=== PATIENT | male | born 1955 | race Caucasian/White ===

== ENCOUNTER 2019-05-07 14:39 | Emergency (ER) | payer OTHER, BC ==
[2019-05-07] MEDS ORDERED: ETOMIDATE 20 MG/10 ML VIAL IV ONE (14:40)
[2019-05-07] MEDS ORDERED: SUCCINYLCHOLINE 20 MG/ML (10 ML) IV ONE (14:40)
--- OUTSIDE RECORDS SUMMARY | 2019-05-07 14:42 | XMS REPORT | CCD ---
:1955 Author Organization [facility] Outpatient Imaging [facility] Team Providers Name Role Phone Osiris Lyon Consulting Provider Allergies, Adverse Reactions, Alerts Substance Reaction Status codeine Active PDI Insect Sting Relief Active
--- OUTSIDE RECORDS SUMMARY | 2019-05-07 14:42 | XMS REPORT | Continuity of Care Document ---
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, systemic Neuro arterial (disorder) Hyperlipidemia Active Problem 05/07/2019 [facility] (disorder) Neuro Hypothyroidism Active Problem 05/07/2019 [facility] (disorder) Neuro Morbid obesity Active Problem 05/07/2019 [facility] (disorder) Neuro Myasthenia gravis Active Problem 05/07/2019 [facility] (disorder) Neuro Medications Medication Details Route Status Patient Ordering Order Source Instructions Provider Date Pyridostigmine 60 mg=1 Active [facility] [place] 60 MG Oral tab, PO, 019 Neuro Tablet [Mestinon] QID, # 120 tab, 2 Refill(s), Pharmacy: [facility] predniSONE 10 mg oral 10 mg=1 Active [facility] tablet tab, PO, 019 Neuro Daily, X 30 day, # 30 tab, 1 Refill(s), Pharmacy: [facility] Pyridostigmine 60 mg=1 No [facility] [place] 60 MG Oral tab, PO, Longer 019 Neuro Tablet [Mestinon] QID, # 120 Active tab, 2 Refill(s), Pharmacy: [facility] Pyridostigmine 60 mg=1 Active [facility] [place] 60 MG Oral tab, PO, 019 Neuro Tablet [Mestinon] TID, # 90 tab, 2 Refill(s), Pharmacy: [facility] Aspirin 81 MG Enteric 81 mg=1 Active [facility] Coated Tablet tab, PO, 019 Neuro Daily, # 90 tab, 3 Refill(s) carvedilol 12.5 mg 12.5 mg=1 Active [facility] oral tablet tab, PO, 019 Neuro Q12H, # 60 tab, 0 Refill(s) amLODIPine 10 mg oral 10 mg=1 Active [facility] tablet tab, PO, 019 Neuro Daily, # 90 tab, 0 Refill(s) hydrochlorothiazide 12.5 mg=1 Active [facility] 12.5 mg oral tablet tab, PO, 019 Neuro Daily, # 30 tab, 0 Refill(s) Citalopram 10 mg, PO, Active [facility] Daily, 0 019 Neuro Refill(s) losartan 100 mg oral 100 mg=1 Active [facility] tablet tab, PO, 019 Neuro Daily, # 30 tab, 0 Refill(s) levothyroxine 100 mcg 100 Active [facility] (0.1 mg) oral tablet microgram= 019 Neuro 1 tab, PO, Daily, # 30 tab, 0 Refill(s) atorvastatin 40 mg 40 mg=1 Active [facility] oral tablet tab, PO, 019 Neuro Bedtime, # 30 tab, 0 Refill(s) Folic Acid 1 MG Oral 1 mg=1 Active [facility] Tablet tab, PO, 019 Neuro Daily, # 30 tab, 0 Refill(s) Diclofenac Sodium 75 1 tab, PO, Active [facility] MG / Misoprostol 0.2 Daily, 0 019 Neuro MG Oral Tablet Refill(s) Allergies, Adverse Reactions, Alerts Substance Category Reaction Severity Reaction Status Date Comments Source type Reported codeine Assertion Drug Active [facility] allergy Neuro PDI Insect Assertion Drug Active [facility] Sting allergy Neuro Relief Immunizations No Data Provided for This Section Results No Data Provided for This Section Pathology Reports No Data Provided for This Section Diagnostic Reports No Data Provided for This Section Consultation Notes No Data Provided for This Section Discharge Summaries No Data Provided for This Section History and Physicals No Data Provided for This Section Vital Signs Vital Sign Value Date Comments Source Systolic (mm Hg) 82 05/04/2019 [facility] Diastolic (mm Hg) 54 05/04/2019 [facility] Heart Rate 64 05/04/2019 [facility] Respitory Rate 16 05/04/2019 [facility] Height 172.72 cm 05/04/2019 [facility] Weight 103.182 05/04/2019 [facility] BMI Calculated 34.59 05/04/2019 [facility] Systolic (mm Hg) 116 04/26/2019 [facility] Diastolic (mm Hg) 79 04/26/2019 [facility] Heart Rate 75 04/26/2019 [facility] Respitory Rate 16 04/26/2019 [facility] Height 165.1 cm 04/26/2019 [facility] Weight 102.727 04/26/2019 [facility] BMI Calculated 37.69 04/26/2019 [facility] Encounters Location Location Encounter Encounter Reason Attending ADM DC Status Source Details Type Number For Provider Date Date Visit OD [id number] 379.91 JOANNE 05/03 Active OP[facility] - PAIN /2011 [place] [facility] Outpatient [id number] [place] 04/26 [facility] A[facility]iano MNA Outpatient [id number] [place] 04/26 04/27 [facility] /2018 Neuro [facility] MNA Outside [id number] 05/01 05/03 [facility] /2018 Neuro Morrison Records Outpatient [id number] [place] 05/04 [facility] Aureliano MNA Outpatient [id number] [place] 05/04 05/05 [facility] /2018 Neuro Morrison Outpatient [id number] [place] 05/11 [place] [address] A[place] Procedures No Data Provided for This Section Assessment and Plan No Data Provided for This Section Plan of Care No Data Provided for This Section Social History Social History Date Source Social History TypeResponse 05/04/2019 [facility] Smoking Status Former smoker; Type: Cigarettes; Exposure to Tobacco Smoke Unable to obtain; Cigarette Smoking Last 365 Days No; Reg Smoking Cessation Counseling No entered on: 05/04/19 Family History No Data Provided for This Section Advance Directives No Data Provided for This Section Functional Status No Data Provided for This Section
--- OUTSIDE RECORDS SUMMARY | 2019-05-07 14:42 | XMS REPORT | Summary of Care ---
:1955 Author Organization [facility] Neurology [place] Address [address] [place] [address]- Encounter [facility](MATTHEW) [id number] Date(s): 05/04/19 - 05/04/19 [facility] [address] [place] [address]- [phone] Discharge Disposition: Home or Self Care Attending Physician: Mick Snell MD Referring Physician: Kirby Sanchez MD Vital Signs Most recent to oldest [Reference Range]: 1 Height 172.72 cm (05/04/19 1:44 PM) Blood Pressure [90-140/60-90 mmHg] 82/54 mmHg *LOW* (05/04/19 1:44 PM) Respiratory Rate [14-20 BRMIN] 16 BRMIN (05/04/19 1:44 PM) Peripheral Pulse Rate [60-100 bpm] 64 bpm (05/04/19 1:44 PM) Weight 103.182 kg (05/04/19 1:44 PM) Body Mass Index 34.59 m2 (05/04/19 1:44 PM) Problem List Condition Effective Dates Status Health Status Informant Dysarthria(Confirmed) Active HTN - Hypertension(Confirmed) Active Hyperlipidemia(Confirmed) Active Hypothyroidism(Confirmed) Active Morbid obesity(Confirmed) Active Myasthenia gravis(Confirmed) Active Allergies, Adverse Reactions, Alerts Substance Reaction Severity Status codeine Active PDI Insect Sting Relief Active Medications Mestinon 60 mg oral tablet 60 mg=1 tab, PO, QID, # 120 tab, 2 Refill(s), Pharmacy: [facility] Start Date: 05/04/19 Stop Date: 08/02/19 Status: OrderedpredniSONE 10 mg oral tablet 10 mg=1 tab, PO, Daily, X 30 day, # 30 tab, 1 Refill(s), Pharmacy: [facility] Start Date: 05/04/19 Stop Date: 07/03/19 Status: Ordered Results No data available for this section Immunizations No data available for this section Procedures No data available for this section Social History Social History Type Response Smoking Status Former smoker; Type: Cigarettes; Exposure to Tobacco Smoke Unable to obtain; Cigarette Smoking Last 365 Days No; Reg Smoking Cessation Counseling No entered on: 05/04/19 Assessment and Plan No data available for this section
[2019-05-07] MEDS ORDERED: METHYLPREDNISOLONE 125 MG INJ ONE (14:55)
--- NOTE | 2019-05-07 15:06 | ER ---
Nurse's Notes [facility] Name: Pete Glass Jr Age: 63 yrs Sex: Male : 1955 Arrival Date: 05/07/2019 Time: 14:41 Bed 3 Private MD: Ger David R Diagnosis: Myasthenia gravis with (acute) exacerbation Presentation: 05/07 14:48 Presenting complaint: Sent by Dr. Snell for SOB, hx of myasthenia gravis. Transition of hb care: patient was not received from another setting of care. Onset of symptoms was May 05, 2019. Risk Assessment: Do you want to hurt yourself or someone else? Patient reports no desire to harm self or others. Initial Sepsis Screen: Does the patient meet any 2 criteria? No. Patient's initial sepsis screen is negative. Does the patient have a suspected source of infection? No. Patient's initial sepsis screen is negative. Care prior to arrival: None. 14:48 Method Of Arrival: Ambulatory hb 14:48 Acuity: JESUS 2 hb Triage Assessment: 14:48 General: Appears well groomed. Respiratory: Reports shortness of breath at rest on tw2 exertion labored breathing Onset: The symptoms/episode began/occurred yesterday, Parent/caregiver reports the patient having shortness of breath at rest on exertion labored breathing since "a couple of days now and he cant even swallow his medication". Historical: - Allergies: 16:55 Codeine; tw2 - Home Meds: 16:55 prednisone 10 mg Oral tab once daily [Active]; pyridostigmine bromide 60 mg oral tab tw2 [Active]; levothyroxine oral [Active]; "blood pressure medicine" per spouse [Active]; - PMHx: 14:50 Myasthenia Gravis; hb 16:55 Hypertension; tw2 - Immunization history:: Adult Immunizations up to date. - Ebola Screening: : No symptoms or risks identified at this time. - Social history:: Smoking status: Patient/guardian denies using tobacco, never smoked. Screenin:51 Abuse screen: Denies threats or abuse. Denies injuries from another. Nutritional hb screening: No deficits noted. Tuberculosis screening: No symptoms or risk factors identified. Fall Risk None identified. Assessment: 14:50 Cardiovascular: Rhythm is sinus rhythm. tw2 15:00 General: Appears distressed, uncomfortable, well groomed, well developed, well sg nourished, Behavior is anxious. Pain: Denies pain. Neuro: Level of Consciousness is awake, alert, obeys commands, Oriented to person, place, time, Speech garbled, pt reports difficult to speak clearly and having a hard time swallowing as well. Cardiovascular: Heart tones S1 S2 present Capillary refill is brisk in bilateral fingers Patient's skin is warm and dry. Chest pain is denied. Respiratory: Airway is patent Respiratory effort is even, labored, gasping, shallow, using tripod position, Respiratory pattern is symmetrical, tachypnea Breath sounds are clear the patient has moderate shortness of breath. GI: Abdomen is round non-distended, Bowel sounds present X 4 quads. : No signs and/or symptoms were reported regarding the genitourinary system. EENT: No signs and/or symptoms were reported regarding the EENT system. Derm: Skin is intact, is healthy with good turgor, Skin is moist, Skin is pink, warm \\T\\ dry. Skin temperature is warm. Musculoskeletal: No signs and/or symptoms reported regarding the musculoskeletal system. 16:00 Reassessment: pt reports unable to swallow his secretions at this time, reports sg swelling and tightness in his throat, pt feeling increased shortness of breath, RTT at bedside, notified, pt to be placed to BiPap. 16:12 Reassessment: at bedside for intubation, pt educated that due to changes in sg condition with swelling and shortness of breath, intubation is recommended, pt and pt stated understanding and are in agreement, pt to be intubated. 16:24 Reassessment: pt intubated. sg 16:45 Reassessment: pt appears calm, eyes closed, resp relaxed on ventilator, IV medication sg infusing at ordered rate, VSS, awaiting transfer transportation at this time, will continue to monitor. 16:53 Reassessment: SPOUSE: home ph# [phone] , mobile# [phone]. tw2 17:16 Reassessment: Patient appears in no apparent distress at this time. Reportt called to ara Lemos RN then transferred for report called to K[facility] PATEL for room 720. Vital Signs: 14:50 BP 155 / 102; Pulse 69; Resp 30; Temp 97.9; Pulse Ox 96% on R/A; Pain 0/10; hb 14:57 Weight 102.51 kg (R); tw2 15:25 BP 122 / 79; Pulse 81; Resp 16 A; Pulse Ox 100% on BVM prior to intubation; tw2 16:37 BP 116 / 83; Pulse 73; Resp 17 A; Pulse Ox 96% on 50% FiO2 ETT vent; tw2 16:37 a/c 16, 500, 40, peep 5 tw2 ED Course: 14:40 Initial lab(s) drawn, by me, held in ED. First set of blood cultures drawn by me. sg Inserted saline lock: 20 gauge in right antecubital area, using aseptic technique. Blood collected. 14:41 Patient arrived in ED. rg4 14:41 Ger David MD is Private Physician. rg4 14:49 Triage completed. hb 14:50 Arm band placed on. hb 14:57 Second set of blood cultures drawn by me. sg 14:58 Vinnie Sorenson MD is Attending Physician. kdr 14:58 Ger David MD is Referral Physician. kdr 15:00 Patient has correct armband on for positive identification. Bed in low position. Call sg light in reach. Side rails up X2. Patient has correct armband on for positive identification. Bed in low position. Call light in reach. Side rails up X2. geospatial technician on. Pulse ox on. NIBP on. geospatial technician on. Pulse ox on. NIBP on. Warm blanket given. Head of bed elevated. 15:10 Oxygen administration via nasal cannula \\T\\ 4L/min. sg 15:26 Assisted provider with intubation using 7.5 mm ETT via oral route. ET tube secured at tw2 24cm at the teeth. Intubated by Vinnie Sorenson MD Placement verified by CXR, CO2 detector w/ + color change, auscultating bilateral breath sounds, Patient tolerated well. NGT: inserted 16 Fr. via right nare. verified placement of air over stomach, verified return of gastric contents, Placement verified by X-ray, to intermittent suction. Returned gastric contents. Amount of gastric contents removed by suction 100ml. Patient tolerated well. 15:39 initiated a transfer with Italia at the [facility]. eb 15:41 per [facility] at [facility] declined due to being at capacity. eb 16:05 initiated a transfer with Dot at the [facility]. eb 16:16 Inserted saline lock: 20 gauge in left antecubital area, using aseptic technique. sg 16:26 Sari Lee, RN is Primary Nurse. hb 16:27 Nicolas Pressley, RN is Primary Nurse. sg 16:27 administrative approval given by Dot Randall RN/ patient has been accepted to [facility] ICU/ Dr. Gil has accepted the patient without conference/ report to be called to [phone]/. 16:30 [facility] dispatched through transfer center. eb 17:20 Patient transferred, IV remains in place. intact, No redness/swelling at site. sg Administered Medications: 14:57 Drug: SOLU-Medrol 125 mg Route: IVP; Site: right antecubital; tw2 15:21 Drug: Etomidate 20 mg Route: IVP; Site: right antecubital; tw2 15:21 Drug: Succinylcholine 100 mg Route: IVP; Site: right antecubital; tw2 15:26 Drug: Succinylcholine 100 mg Route: IVP; Site: right antecubital; tw2 15:27 Drug: Rocuronium 10 mcg Route: IVP; Site: right antecubital; tw2 16:35 Drug: Propofol 5 mcg/kg/min Route: IV; Rate: calculated rate; Site: right antecubital; sg 16:40 Drug: Octagam (PF) 400 mg/kg Route: IV; Rate: calculated rate; Site: left antecubital; sg 17:05 Not Given (Other Intervention Used): Octagam (PF) 300 mg/kg IV at calculated rate once; sg initiate at rate = 0.5 mg/kg/min or 0.01 ml/kg/min; not to exceed 3.3 mg/kg/min or 0.069 ml/kg/min Outcome: 15:00 Discharge ordered by MD. kdr 16:37 ER care complete, transfer ordered by MD. kdr 17:18 Transferred by helicopter to [facility], Transfer form completed. sg 17:18 Condition: stable 17:18 Instructed on the need for admit, safety practices, Demonstrated understanding of instructions. 17:21 Patient left the ED. sg Signatures: Nicolas Pressley, RN RN sg Vinnie Sorenson MD MD [facility] Sari Lee RN RN Noemi Mays RN RN 2 Felicia Jorge [facility] Olena Connor Corrections: (The following items were deleted from the chart) 16:55 14:50 Allergies: No Known Allergies; tw2 17:05 16:45 Octagam (PF) 300 mg/kg IV at calculated rate in left antecubital sg sg 19:24 16:30 NGT: inserted 16 Fr. via right nare. verified placement of air over stomach, tw2 verified return of gastric contents, Placement verified by X-ray, to intermittent suction. Returned gastric contents. Amount of gastric contents removed by suction 100ml. Patient tolerated well. sg 19:24 16:26 Assisted provider with intubation using 7.5 mm ETT via oral route. ET tube tw2 secured at 24cm at the teeth. Intubated by Vinnie Sorenson MD Placement verified by CXR, CO2 detector w/ + color change, auscultating bilateral breath sounds, Patient tolerated well. sg 19:26 16:37 BP 116 / 83; Pulse 73bpm; Resp 17bpm; Spontaneous; Pulse Ox 96% FiO2 50% vent; sg tw2
--- NOTE | 2019-05-07 15:06 | EDPHYS ---
Physician Documentation [facility] Name: Pete Glass Jr Age: 63 yrs Sex: Male : 1955 Arrival Date: 05/07/2019 Time: 14:41 Bed 3 Private MD: Ger David R ED Physician Vinnie Sorenson HPI: 05/07 16:37 This 63 yrs old Male presents to ER via Ambulatory with complaints of kdr Breathing Difficulty. 16:37 The patient has shortness of breath at rest. Onset: The symptoms/episode began/occurred kdr gradually, yesterday. Duration: The symptoms are continuous, and are steadily getting worse. The patient's shortness of breath is aggravated by exertion, talking. Associated signs and symptoms: Pertinent positives: Weakness of oropharyngeal muscles - dysarthria. Severity of symptoms: At their worst the symptoms were moderate incapacitating in the emergency department the symptoms are worse. The patient has not experienced similar symptoms in the past. The patient has been recently seen by a physician: Dr. Snell. The patient was recently diagnosed with myasthenia gravis. He is on routine maintenance medications. Since yesterday, he has become increasingly short of breath. He is not drooling but appears to have increasing difficulty maintaining his airway. Historical: - Allergies: 16:55 Codeine; tw2 - Home Meds: 16:55 prednisone 10 mg Oral tab once daily [Active]; pyridostigmine bromide 60 mg oral tab tw2 [Active]; levothyroxine oral [Active]; "blood pressure medicine" per spouse [Active]; - PMHx: 14:50 Myasthenia Gravis; hb 16:55 Hypertension; tw2 - Immunization history:: Adult Immunizations up to date. - Ebola Screening: : No symptoms or risks identified at this time. - Social history:: Smoking status: Patient/guardian denies using tobacco, never smoked. ROS: 16:37 Constitutional: Negative for fever, chills, and weight loss, Eyes: Negative for injury, kdr pain, redness, and discharge, ENT: Negative for injury, pain, and discharge, Neck: Negative for injury, pain, and swelling, Cardiovascular: Negative for chest pain, palpitations, and edema, Abdomen/GI: Negative for abdominal pain, nausea, vomiting, diarrhea, and constipation, Back: Negative for injury and pain, : Negative for injury, bleeding, discharge, and swelling, MS/Extremity: Negative for injury and deformity, Skin: Negative for injury, rash, and discoloration, Psych: Negative for depression, anxiety, suicide ideation, homicidal ideation, and hallucinations, Allergy/Immunology: Negative for hives, rash, and allergies, Endocrine: Negative for neck swelling, polydipsia, polyuria, polyphagia, and marked weight changes, Hematologic/Lymphatic: Negative for swollen nodes, abnormal bleeding, and unusual bruising. 16:37 Respiratory: Positive for dyspnea on exertion, shortness of breath. 16:37 Neuro: Positive for weakness. Exam: 16:37 Constitutional: This is a well developed, well nourished patient who is awake, alert, kdr and in moderate distress. Head/Face: Normocephalic, atraumatic. Eyes: Pupils equal round and reactive to light, extra-ocular motions intact. Lids and lashes normal. Conjunctiva and sclera are non-icteric and not injected. Cornea within normal limits. Periorbital areas with no swelling, redness, or edema. Neck: Trachea midline, no thyromegaly or masses palpated, and no cervical lymphadenopathy. Supple, full range of motion without nuchal rigidity, or vertebral point tenderness. No Meningismus. Chest/axilla: Normal chest wall appearance and motion. Nontender with no deformity. No lesions are appreciated. Cardiovascular: Regular rate and rhythm with a normal S1 and S2. No gallops, murmurs, or rubs. Normal PMI, no JVD. No pulse deficits. Respiratory: Lungs have equal breath sounds bilaterally, clear to auscultation and percussion. No rales, rhonchi or wheezes noted. Moderate increased work of breathing, no retractions or nasal flaring. Abdomen/GI: Soft, non-tender, with normal bowel sounds. No distension or tympany. No guarding or rebound. No evidence of tenderness throughout. Back: No spinal tenderness. No costovertebral tenderness. Full range of motion. Skin: Warm, dry with normal turgor. Normal color with no rashes, no lesions, and no evidence of cellulitis. MS/ Extremity: Pulses equal, no cyanosis. Neurovascular intact. Full, normal range of motion. Psych: Awake, alert, with orientation to person, place and time. Behavior, mood, and affect are within normal limits. 16:37 Neuro: Cranial nerves: Speech is dysarthric, Tongue Poor tongue control and inability to purse lips. Vital Signs: 14:50 BP 155 / 102; Pulse 69; Resp 30; Temp 97.9; Pulse Ox 96% on R/A; Pain 0/10; hb 14:57 Weight 102.51 kg (R); tw2 15:25 BP 122 / 79; Pulse 81; Resp 16 A; Pulse Ox 100% on BVM prior to intubation; tw2 16:37 BP 116 / 83; Pulse 73; Resp 17 A; Pulse Ox 96% on 50% FiO2 ETT vent; tw2 16:37 a/c 16, 500, 40, peep 5 tw2 MDM: 15:00 Patient medically screened. kdr 16:47 Data reviewed: vital signs, nurses notes, lab test result(s), radiologic studies. kdr Counseling: I had a detailed discussion with the patient and/or guardian regarding: the historical points, exam findings, and any diagnostic results supporting the discharge/admit diagnosis, lab results, radiology results, the need to transfer to another facility. 05/07 15:09 Order name: Basic Metabolic Panel 05/07 15:09 Order name: CBC with Diff 05/07 15:09 Order name: LFT's 05/07 15:09 Order name: Magnesium 05/07 15:09 Order name: NT PRO-BNP 05/07 15:09 Order name: PT-INR 05/07 15:09 Order name: Troponin (emerg Dept Use Only) 05/07 15:32 Order name: Protime (+INR); Complete Time: 15:53 EDMS 05/07 15:33 Order name: CBC with Automated Diff; Complete Time: 15:53 EDMS 05/07 15:54 Order name: Basic Metabolic Panel; Complete Time: 15:55 EDMS 05/07 15:54 Order name: Liver (Hepatic) Function; Complete Time: 15:55 EDMS 05/07 15:54 Order name: Troponin (Emerg Dept Use Only); Complete Time: 15:55 EDMS 05/07 15:54 Order name: NT PRO-BNP; Complete Time: 15:55 EDMS 05/07 15:54 Order name: Magnesium; Complete Time: 15:55 EDMS 05/07 15:09 Order name: XRAY Chest (1 view) 05/07 15:09 Order name: EKG; Complete Time: 15:11 05/07 15:09 Order name: Cardiac monitoring; Complete Time: 15:39 05/07 15:09 Order name: EKG - Nurse/Tech; Complete Time: 15:39 05/07 15:09 Order name: IV Saline Lock; Complete Time: 15:39 05/07 15:09 Order name: Labs collected and sent; Complete Time: 15:39 05/07 15:09 Order name: O2 Per Protocol; Complete Time: 15:39 05/07 16:45 Order name: RAD EDMS 05/07 15:09 Order name: O2 Sat Monitoring; Complete Time: 15:39 sg Administered Medications: 14:57 Drug: SOLU-Medrol 125 mg Route: IVP; Site: right antecubital; tw2 15:21 Drug: Etomidate 20 mg Route: IVP; Site: right antecubital; tw2 15:21 Drug: Succinylcholine 100 mg Route: IVP; Site: right antecubital; tw2 15:26 Drug: Succinylcholine 100 mg Route: IVP; Site: right antecubital; tw2 15:27 Drug: Rocuronium 10 mcg Route: IVP; Site: right antecubital; tw2 16:35 Drug: Propofol 5 mcg/kg/min Route: IV; Rate: calculated rate; Site: right antecubital; sg 16:40 Drug: Octagam (PF) 400 mg/kg Route: IV; Rate: calculated rate; Site: left antecubital; sg 17:05 Not Given (Other Intervention Used): Octagam (PF) 300 mg/kg IV at calculated rate once; sg initiate at rate = 0.5 mg/kg/min or 0.01 ml/kg/min; not to exceed 3.3 mg/kg/min or 0.069 ml/kg/min Disposition: 05/07/19 16:37 Transfer ordered to [facility]. Diagnosis is Myasthenia gravis with (acute) exacerbation. - Reason for transfer: Higher level of care. - Accepting physician is Jeffery. - Condition is Critical. - Problem is new. - Symptoms have improved. Signatures: Dispatcher [employer] EDMS Nicolas Pressley RN RN sg Vinnie Sorenson MD MD kdr Sari Lee RN RN Noemi Mays RN RN tw2 Corrections: (The following items were deleted from the chart) 15:00 15:00 05/07/2019 15:00 Discharged to Home. Impression: Nausea and vomiting. Condition kdr is Stable. Forms are Medication Reconciliation Form, Thank You Letter, Antibiotic Education, Prescription Opioid Use. Follow up: Ger David; When: 2 - 3 days; Reason: If symptoms return, Further diagnostic work-up, Recheck today's complaints, Continuance of care, Re-evaluation by your physician. Problem is new. Symptoms have improved. kdr 16:55 14:50 Allergies: No Known Allergies; tw2 17:21 16:37 05/07/2019 16:37 Transfer ordered to [facility]. sg Diagnosis is Myasthenia gravis with (acute) exacerbation. Reason for transfer: Higher level of care. Accepting physician is eJffery. Condition is Critical. Problem is new. Symptoms have improved. kdr
[2019-05-07] MEDS ORDERED: RSI MEDICATION KIT IV ONE (15:15)
[2019-05-07] MEDS ORDERED: IMMUNE GLOBULIN IV SCH ×2 (15:15→16:00)
[2019-05-07] MEDS ORDERED: [UNRECOGNIZED DRUG - OTHER] IV SCH (15:15)
[2019-05-07] MEDS ORDERED: ROCURONIUM 50 MG/5 ML VIAL IV ONE (15:18)
[2019-05-07 15:27] LABS: Absolute Lymphocytes (CBC) 3.1 K/uL (0.7-4.9); Lymphocytes % 32.9 % (15.3-44.8); MPV 9.9 fL (7.6-11.3); RBC Red Blood Cell Count 4.89 M/uL (4.33-5.43)
[2019-05-07 15:30] LABS: Protime INR 1.03
[2019-05-07] MEDS ORDERED: PROPOFOL 1,000 MG/100 ML VIAL IV ONE ×2 (15:31→16:55)
[2019-05-07 15:53] LABS: ALT/SGPT 40 U/L (12-78); AST/SGOT 27 U/L (15-37); Albumin 4.2 g/dL (3.4-5.0); Alkaline Phosphatase 94 U/L (45-117); BUN Blood Urea Nitrogen 16 mg/dL (7-18); Bicarbonate 26 mmol/L (21-32); Bilirubin Direct 0.2 mg/dL (0-0.2); Bilirubin Total 0.7 mg/dL (0.2-1.0); Glucose Level 88 mg/dL (74-106); Magnesium 2.2 mg/dL (1.8-2.4); NT PRO-BNP 223 pg/mL (<125); Potassium 3.3 mmol/L (3.5-5.1); Protein, Total 7.8 g/dL (6.4-8.2); Sodium Level 144 mmol/L (136-145); Troponin (Emerg Dept Use Only) < 0.02 ng/mL (0.0-0.045)
[2019-05-07] MEDS ORDERED: MALTOSE IV SCH (16:00)
--- NOTE | 2019-05-07 16:38 | RAD REPORT ---
EXAM DESCRIPTION: RAD - Chest Single View - 05/07/2019 4:03 pm CLINICAL HISTORY: DYSPNEA Chest pain. COMPARISON: CHEST PA AND LAT 2 VIEW dated 08/04/2010; ABDOMEN 1 VIEW KUB dated 03/28/2003; Thorax W/ C on dated 05/05/2019 FINDINGS: Portable technique limits examination quality. Small bilateral pleural effusions are noted. Opacity in the right lung base likely represents atelect asis or developing pneumonia. Heart size is mildly prominent. Tip of the ET tube is above the cathryn. NG tube descends into the upper abdomen.
[2019-05-07 17:59] VITALS: TEMP 97.9; O2SAT 96
[2019-05-07 18:01] VITALS: BP 116/83
--- NOTE | 2019-05-07 20:18 | CON ---
Date of Consultation: 05/07/2019 Time: 1610. Reason: Myasthenia gravis. History: This is a 63-year-old gentleman with a history of hypertension and coronary disease, who 2 weeks ago developed abrupt onset of dysarthria without really any other associated symptomatology. Raciel vora went and saw his provisioning analyst who then referred him to me for evaluation of stroke. Urgent brain M RI revealed no evidence of an ischemic stroke and myasthenia gravis was suspected. He was placed on Mestinon with some improvement in his symptomatology. Labs reveal a strikingly positive acetylcholin e receptor antibody and the patient continued to have symptoms of dysarthria and dysphagia with occas ional intermittent dyspnea. He was last seen in the office on , where the diagnosis was revi ewed. He was started on low-dose 10 mg prednisone to try and get a little better symptom control wit h the plan to start him on outpatient IgG treatments as soon as possible, but unfortunately over the weekend, the patient's clinical condition deteriorated to the point where he had prominent dyspnea an d dysarthria and called me where I advised him to come to the emergency department. On arrival to emergency department, patient was noted to be in moderate to severe respiratory distress with respi ratory rate in the 30s, severe dysarthria and significant bulbar weakness. He had to be emergently i ntubated for airway safety. Unfortunately, there were no ICU beds here at the hospital, so he will h ave to be transferred up to the medical center for management of myasthenia crisis. Past Medical History: As alluded to. Medications: From a nervous system standpoint the patient was taking prednisone 10 mg daily and Mest inon 60 mg q.i.d. Physical Examination: General: Prior to intubation, patient was awake, alert, in mild bilateral ptosis. HEENT: Pupils were reactive and ocular motion was full. The patient had significant weakness of fac ial musculature with inability to purse his lips, inability to smile. Tongue was 1/5. He was unable to protrude the tongue. He was unable to move the tongue side to side. Dysarthria was gauged to be severe with speech nearly unintelligible. Soft palate, however, elevated symmetrically bilaterally. Extremities: Revealed 4+ generalized weakness, but he was able to hold his arms above his head and l eg for better than antigravity. Neurologic: Sensation was intact. Reflexes were symmetric. Gait was not tested. Cardiopulmonary: Revealed a sinus rhythm with occasional wheezes on the right. Pertinent Laboratory Data: White count was normal. PT, INR were normal. Creatinine was 0.97. Live r function tests were normal. Impression: Myasthenic crisis. Plan: The patient is currently in respiratory failure. There is no ICU beds available, so will have to be transferred up to the [facility] for care. I would, given the normal renal function, star t him on a 5-day course of IgG, standard dosing is 0.4 g/kg per day for 5 days, so we will give him, dosing weight was calculated to be 100 kg, so we will give him 40 g starting here since continuation of that may be difficult as when people get transferred, sometimes there are delays in administering medications like IgG, which was undergoing a national shortage anyway. Reviewed the findings with Dr Brittnee Stanton, the emergency department, the patient's , as well as the patient's [id number] who i s OB-Forensic Photographer and the risks, benefits, side effects reviewed with all and they agreed to proceed. Critical care time 1 hour. HENRY Voice ID: [id number] Report ID: [id number]
--- NOTE | 2019-05-08 11:34 | EKG ---
Test Date: 2019-05-07 Test Time: 14:53:09 Marbleizing Machine Tender: MEASUREMENT RESULTS: Intervals: Rate: 68 MO: 182 QRSD: 120 QT: 428 QTc: 455 [place]: P: 70 MO: 182 QRS: -71 T: 18 INTERPRETIVE STATEMENTS: Normal sinus rhythm Left axis deviation Septal infarct, age undetermined Possible Lateral infarct, age undetermined Inferior infarct, age undetermined Abnormal ECG No previous ECG available for comparison Electronically Signed On 05-08-19 11:31:20 CDT by Keven Bravo
== END 2019-05-07 17:21 | disposition short-term general hospital (02) ==
LOC: ER 14:39
DX: G70.01 Myasthenia gravis with (acute) exacerbation (principal); I10 Essential (primary) hypertension; Z88.5 Allergy status to narcotic agent
CPT/HCPCS: 93005; 85025; 80048; 36415; 83735; 85610; 80076; 84484; 83880; 71045; 94002; 31500; 96375; 96374; 99291; J0330; J2704 ×2; J1568; J2930

== ENCOUNTER 2020-04-12 11:33 | Inpatient (IN) | payer OTHER, BC ==
--- OUTSIDE RECORDS SUMMARY | 2020-04-12 11:37 | XMS REPORT | Continuity of Care Document ---
:1955 Author Organization [employer] Care Team Providers Name Role Phone [employer] Unavailable Un available Problems Problem Status Onset Classification Date Comments [facility] e Date Reported R31.29 - OTHER Active OP ID MICROSCOPIC HEMATURIA 020 [place] G70.[address] MYASTHENIA GRAVIS Active [address] PIA BILLING Active [address] 379.91 - PAIN IN OR Active OPID AROU 012 [place] Dysarthria (finding) Active Problem 02/28/2020 Medical Group,[facility] her Neuro,[facility], OPID [place] Hypertensive disorder, Active Problem 02/28/2020 Medical systemic arterial Gr oup,[facility] (disorder) her Neuro,[facility], OPID [place] Hyperlipidemia Active Problem 02/28/2020 [facility] edical (disorder) Group,[facility] c her Neuro,[facility], OPID [place] Hypothyroidism Active Problem 02/28/2020 [facility] edical (disorder) Group,[facility] c her Neuro,[facility], OPID [place] Morbid obesity Active Problem 02/28/2020 [facility] edical (disorder) Group,Mis c her Neuro,[facility], OPID [place] Myasthenia gravis Active Problem 02/28/2020 [facility] Medical (disorder) Group,Mis c her Neuro,[facility], OPID [place] Hypercholesterolemia Resolved Problem 02/28/2020 Medical (disorder) Group,[facility] c her Neuro, OPID [place] Lower urinary tract Active Problem 02/28/2020 Medical symptoms (finding) G roup,[facility] her Neuro, OPID [place] Medications Medication Details Route Status Patient Ordering Order Source Instructions Provider Date Prednisone 50 MG 50 mg = 1 tab, Active 11/22/ [place] Oral Tablet PO, Daily, 0 2019 Neuro Refill(s) predniSONE 10 mg 10 mg = 1 tab, Active 11/22/ Mischer oral tablet PO, Daily, 0 2019 Neuro Refill(s) Tamsulosin 0.4 mg = 1 cap, Active hydrochloride 0.4 PO, Daily, # 90 2019 Medical MG Oral Capsule cap, 3 Group [Flomax] Refill(s), Pharmacy: [facility] 527 pyridostigmine 180 0 Refill(s) Active H mg oral tablet, 2019 Medical extended release Group Tamsulosin 0.4 mg = 1 cap, Active hydrochloride 0.4 PO, Daily, # 90 2018 Medical MG Oral Capsule cap, 0 Group [Flomax] Refill(s), Pharmacy: [facility] 527 Calcium Gluconate Notes: WASTE: Inactive [place] F/P - Sink; E - [address] [facility] Bin albumin human 5% Notes: LOT#: Inactive H [place] intravenous 2019 Medi erick solution g: Center ___ (Same as: Albuminar) "blood product derivative&quot ; WASTE: F/P - Red; E -Red MEDICATION WASTE Product Size: 25 gm Product Wasted: ___ gm NS (Bolus) IV 500 mL, 500 Inactive [place] ml/hr, Infuse 2018 Medical Over: 1 hr, Center Route: IV, 500, Drug form: INJ, ONCE, Priority: STAT, Dosing Weight 102.001 kg, Start date: 05/20/19 12:48:00 CDT, Stop date: 05/20/19 12:48:00 CDT, 0 predniSONE 10 mg 30 mg = 3 tab, Active [place] oral tablet PO, Daily, # 90 2018 Medi erick tab, 5 Center Refill(s), Pharmacy: [facility] 527 pyridostigmine 60 60 mg = 1 tab, Active [place] mg oral tablet PO, TID, 1 tab: 2018 [facility] 7-8 am 1 tab: Center 1-2 pm 1 tab: 6-7 pm, # 90 tab, 5 Refill(s), Pharmacy: [facility] 527 Melatonin 5 MG 10 mg = 2 tab, Active [place] Sublingual Tablet PO, Bedtime, 0 2018 Medical Refill(s) Center pantoprazole 40 mg 40 mg = 1 tab, Active [place] oral enteric coated PO, Before 2019 M edical tablet Breakfast, # 30 Center tab, 5 Refill(s), Pharmacy: [facility] 527 Protonix 40 mg, 1 tab, [place] Longer [place] Route: PO, Drug Active 2018 Medical form: ECTAB, Center Before Breakfast, Start date: 05/20/19 9:00:00 CDT, Duration: 30 day, Stop date: 06/19/19 7:30:00 CDT, 0 pantoprazole 20 mg, Route: Inactive [place] PO, Before 2018 Medical Breakfast, Center Dosing Weight 102.001, kg, Start date: 05/20/19 7:30:00 CDT, Duration: 30 day, Stop date: 06/18/19 7:30:00 CDT phenol Notes: No Longer [place] Chloraseptic Active 2018 Medical [place] (Same as: [place] Chloraseptic, Sore Throat [place]) WASTE: F/P - Black; E - [facility] Calcium Gluconate Notes: WASTE: Inactive [place] F/P - Sink; E - 2019 [facility] Bin albumin human 5% 200 gm, 4,000 Inactive [place] intravenous mL, 2000 ml/hr, 2019 Medi erick solution Route: IV, Drug [place] Form: INJ, Dosing Weight 102.001, kg, ONCE, Start date: 05/18/19 16:46:00 CDT, Stop date: 05/18/19 16:46:00 CDT, Indication: Plasmapheresis, 0 tramadol Notes: Not to Inactive [facility] hydrochloride 50 MG exceed 2019 Medi erick Oral Tablet 400mg/day. Center (Same As: [facility]) Lovenox Notes: (Same No Longer [facility] as: Lovenox) Active 2019 [facility] tramadol Notes: Not to Inactive [facility] hydrochloride 50 MG exceed 2019 Medi erick Oral Tablet 400mg/day. Center (Same As: [facility]) Ibuprofen 400 MG Notes: (Same No Longer [facility] Oral Tablet as: Motrin) "Do Active 2018 Medi erick Not Crush" Center Give with food. Citalopram 10 mg, 1 tab, [place]er [place] Route: PO, Drug Active 2018 Medical form: TAB, Center Daily, Dosing Weight 102.001, kg, Priority: NOW, Start date: 05/16/19 11:24:00 CDT, Duration: 30 day, Stop date: 06/15/19 9:00:00 CDT, 0 calcium gluconate Notes: WASTE: Inactive [place] F/P - Sink; E - 2018 [facility] Trash [place] Bin Calcium Gluconate Notes: WASTE: Inactive [place] F/P - Sink; E - [address] [facility] Bin albumin human 5% Notes: LOT#: Inactive H [place] intravenous Mf 2018 Medi erick solution g: Center ___ (Same as: Albuminar) "blood product derivative&quot ; WASTE: F/P - Red; E -Red MEDICATION WASTE Product Size: 25 gm Product Wasted: ___ gm Beneprotein 7 gm Notes: (Same No Longer [place] pkt as: Active 2018 Medical Beneprotein) [place] Calcium Gluconate Notes: WASTE: Inactive [place] F/P - Sink; E - [address] [facility] Bin albumin human 5% Notes: LOT#: Inactive H [place] intravenous Mf 2018 Medi erick solution g: Center ___ (Same as: Albuminar) "blood product derivative&quot ; WASTE: F/P - Red; E -Red MEDICATION WASTE Product Size: 25 gm Product Wasted: ___ gm Calcium Gluconate Notes: WASTE: No Longer [place] F/P - Sink; E - Active [address] [facility] Bin Melatonin Notes: (Same No Longer [facility] as: Melatonin) Active 2019 [facility] Pyridostigmine Notes: (Same No Longer [place] as: Mestinon) Active 2019 [facility] Calcium Gluconate Notes: WASTE: Inactive [place] F/P - Sink; E - 2019 [facility] Trash Center Bin albumin human 5% Notes: LOT#: Inactive [facility] intravenous Mf 2018 Medi erick solution g: Center ___ (Same as: Albuminar) "blood product derivative&quot ; WASTE: F/P - Red; E -Red MEDICATION WASTE Product Size: 25 gm Product Wasted: ___ gm Lidocaine Notes: (Same No Longer [facility] Hydrochloride 10 as: Xylocaine) Active 2018 [facility] MG/ML Injectable Center Solution Dulcolax Laxative Notes: (Same No Longer [place] As: Dulcolax, Active 2018 [facility] Bisco-Lax) Center Melatonin Notes: (Same No Longer [facility] s as: Melatonin) Active 2018 [facility] Gamunex-C Notes: For No Longer [place] adults: use IBW Active 2018 [facility] of XX used for Center XX mg/kg per protocol For adult patients: Begin at 1 mg/kg/min. If tolerating, may double rate after 30 minutes and continue to increase every 15 minutes to a maximum of 4 mg/kg/min. Reduce the infusion by half if adverse reactions occur and notify prescriber. If symptoms continue after 15 minutes, stop infusion and notify prescriber. If symptoms subside promptly, the infusion may be resumed at the previously tolerated rate. Most reactions occur in the first 30 minutes of infusion. Monitor patient closely for vital sign changes or flushing. WASTE: F/P - Red; E -Red Lot # ___Mfg: (Gamunex - C) Non-Formulary "blood product derivative" Famotidine 20 MG Notes: (Same No Longer [place] Oral Tablet as: Pepcid) Active 2018 [facility] Streptococcus 0.5 mL, Route: No Longer [facility] pneumoniae serotype IM, Drug Form: Active 2018 [place] [id number] capsular antigen INJ, ONCALL, Center diphtheria [id number] Start date: protein conjugate 05/08/19 vaccine / 17:56:44 CDT, Streptococcus Duration: 1 pneumoniae serotype doses or times, 14 capsular antigen 0 diphtheria [id number] protein conjugate vaccine / Streptococcus pneumoniae serotype 18C capsular antigen d Pyridostigmine 90 Pyridostigmine Inactive [place] mg Tab 90 mg Tab, 90 2018 Medical mg, Drug form: [facility], Route: PO, Q8H, 05/08/19 16:00:00 CDT, Duration: 30 day, Stop date: 06/07/19 8:00:00 CDT, 0 Pyridostigmine Notes: (Same No Longer [place] as: Mestinon) Active 2018 [facility] Center Immunoglobulin G 40 gm, Route: Inactive [place] IV, Q24H, 2019 Medical Dosing Weight Center 102.001, kg, Priority: Routine, Start date: 05/08/19 10:00:00 CDT, Duration: 4 day, Stop date: 05/11/19 10:00:00 CDT, Indication: Myasthenia gravis sennosides, LONG-TERM Notes: (Same No Longer [facility] as: Senokot) Active 2019 [facility] Docusate Notes: (Same No Longer [place] as: Colace) (Do Active 2018 Medical Not Crush) [place] Immunoglobulin G 50,000 mg, No Longer [place] Route: IV, Active 2018 Medical Q24H, Dosing Center Weight 102.001, kg, Start date: 05/08/19 9:00:00 CDT, Duration: 4 day, Stop date: 05/11/19 9:00:00 CDT, Indication: Myasthenia gravis Prednisone Notes: (Same No Longer [place] as as: PredniSONE) Active 2019 Medical Take with [place] food. Thyroxine Notes: Take 1 No Longer [place] as hour before or Active 2019 Medical 2 hours after Center meal; Enteral feeds may interefere with the absorption of this medication. (Same as:Levothroid, Synthroid) Immune Globulin 5% Notes: Begin at Inactive 04/23 [facility] Octagam 10 gm 0.03 2019 Medical grams/kg/hour [place] (0.5mg/kg/min); double the RATE (grams/kg/hour) every 30 minutes as tolerated to a max of 0.48 grams/kg/hour (8 mg/kg/min). Iohexol 75 mL, Route: Inactive [place] IVP, Drug Form: 2019 Medical SOLN, Dosing Center Weight 102.001, kg, ONCALL, STAT, Start date: 05/08/19 0:43:00 CDT, Duration: 1 doses or times, Dose = 2.2ml/kg, Max dose = 100ml -- "To be infused by Radiology Staff ONLY" Immunoglobulin G 30 gm, Route: Inactive [place] IV, ONCE, 2019 Medical Dosing Weight Center 102.001, kg, Priority: NOW, Start date: 05/08/19 0:13:00 CDT, Stop date: 05/08/19 0:13:00 CDT, Indication: Myasthenia gravis ocular lubricant Notes: (Same No Longer [place] as: Lacri-Lube, Active 2019 [facility] Center Duratears Naturale, Artificial Tears, and Tears Again ) chlorhexidine Notes: (Same Inactive [place] gluconate 1.2 MG/ML As: Peridex) 2019 [facility] Mouthwash [place] heparin Notes: porcine [place] Longer [place] heparin Active 2019 [facility] Pyridostigmine 90 Pyridostigmine Inactive [place] mg Tab 90 mg Tab, 90 2019 Medical mg, 1.5 tab, Center Drug form: [facility], Route: PO, TID, 05/08/19 0:00:00 CDT, Duration: 30 day, Stop date: 06/06/19 17:00:00 CDT, 0 predniSONE 10 mg TAKE 1 TABLET No Longer [place] oral tablet BY MOUTH ONCE Active 2019 Medica l DAILY FOR 30 Center DAYS citalopram 10 mg TAKE 1 TABLET No Longer [place] oral tablet BY MOUTH IN THE Active 2019 [facility] MORNING Center levothyroxine 100 TAKE 1 TABLET No Longer [place] mcg (0.1 mg) oral BY MOUTH IN THE Active 2019 [facility] MORNING Center carvedilol 12.5 mg 12.5 mg = 1 No Longer [place] oral tablet tab, PO, Q12H, Active 2019 Medic al # 60 tab, 0 Center Refill(s) atorvastatin 40 mg 40 mg = 1 tab, Active [place] oral tablet PO, Bedtime, # 2019 Medic al 30 tab, 0 Center Refill(s) Hydrochlorothiazide 25 mg = 1 tab, No Longer [place] 25 MG Oral Tablet PO, Daily, # 30 Active 2018 Medical tab, 0 Center Refill(s) pyridostigmine 60 60 mg = 1 tab, No Longer 05/08 [place] mg oral tablet TID, 0 2018 Medical Refill(s) Center AMLODIPINE BESYLATE AMLODIPINE No Longer [place] 10 MG TAB BESYLATE 10 MG Active 2018 Medical TAB, Refill(s) Center 0 Pyridostigmine 90 mg, Route: Inactive [place] PO, TID, Dosing 2019 Medical Weight 102.001, Center kg, Start date: 05/07/19 22:17:00 CDT, Duration: 30 day, Stop date: 06/06/19 17:00:00 CDT Dexmedetomidine Notes: Use the No Longer [place] following cdm Active 2018 Medical for [id number]. Center Famotidine Notes: (Same No Longer [place] as as: Pepcid) Can Active 2018 Medical be dilute in Center 5-10cc NS IVP: Slow IV push over at least 2 minutes. chlorhexidine Notes: (Same No Longer [place] gluconate 1.2 MG/ML As: Peridex) Active 2018 Medical [place]outhwash Center Saline Flush 0.9% Notes: (Same No Longer [place] as: BD Active 2018 Medical Posiflush) Center Saline Flush 0.9% Notes: (Same No Longer [place] as: BD Active 2018 Medical Posiflush) Center Insulin regular Notes: (Same No Longer H [place] as: Humulin R) Active 2019 Medical Roll in palms Center of hands gently; Do not shake vigorously. WASTE: F/P - Black; E - Municipal Trash Bin Stable for 31 days at room temperature Expires in days from D ate Dextrose 50% 25 mL, Route: Inactive [place] Syringe IVP, Dosing 2018 Medical Weight 102.001, Center kg, PRN, PRN Blood Glucose Results, Start date: 05/07/19 20:06:00 CDT, Duration: 30 day, Stop date: 06/06/19 20:05:00 CDT Glucagon 1 mg, Route: Inactive [place] IM, PRN, Dosing 2019 Medical Weight 102.001, Center kg, PRN Blood Glucose Results, Start date: 05/07/19 20:06:00 CDT, Duration: 30 day, Stop date: 06/06/19 20:05:00 CDT propofol 10 mg/mL Notes: If No Longer [place] (Titrate.) IV 1,000 Diprivan - Active 2018 M edical mg change bottle & Center tubing every 12 hr Per state nursing law propofol can only be given by a nurse if patient is intubated or being intubated (unless the nurse is a [employer]AT F[employer]ER). Same as: Diprivan Dextrose 50% 12.5 gm, 25 mL, No Longer [facility] Syringe Route: IVP, Active 2018 Medical Drug Form: INJ, Center Dosing Weight 102.001, kg, PRN, PRN Blood Glucose Results, Start date: 05/07/19 18:23:00 CDT, Duration: 30 day, Stop date: 06/06/19 18:22:00 CDT, 0 Glucagon 1 mg, Route: No Longer [place] IM, Drug form: Active 2018 Medical PDR/INJ, PRN, Center Dosing Weight 102.001, kg, PRN Blood Glucose Results, Start date: 05/07/19 18:23:00 CDT, Duration: 30 day, Stop date: 06/06/19 18:22:00 CDT, 0 Insulin Lispro Notes: (Same No Longer [place] as: Humalog) Active 2019 Medical Roll in palms Center of hands gently; Do not shake vigorously. WASTE: F/P - Black; E - Municipal Trash Bin Stable for 28 days at room temperature. Expires in days from D ate Potassium Chloride Notes: (Same No Longer [place] as: KCL) Active 2019 Medical Infuse no Center faster than 10 mEq/hr if given peripherally. sodium phosphate Notes: Infuse No Longer [facility] over 4 hour. Do Active 2019 Medical not infuse Center phosphorous concurrently in the same line as TPN or IVF that contains calcium. For double lumen central lines, phosphorous may be infused in a separate lumen from TPN. potassium phosphate Notes: (Same No Longer 05/07 [place] as: K Active 2018 Medical Phosphate.) Do Center not infuse phosphorous concurrently in the same line as TPN or IVF that contains calcium. For double lumen central lines, phosphorous may be infused in a separate lumen from TPN. 1 mMol phoshate has 1.47 mEq potassium Infuse over 4 hours potassium Notes: (Same No Longer [facility] s phosphate-sodium as: Phos-NaK) Active 2018 edical phosphate 250 Each 1.5 gm pkt Ce nter mg-280 mg-160 mg has 250mg oral powder for phosphorous. reconstitution Mix w/2.5oz water and stir. Magnesium Sulfate Notes: WASTE: No Longer [place] F/P - Sink; E - Active 2019 [facility] Trash [place] Bin Magnesium Oxide Notes: (Same No Longer [facility] as: Mag-Ox 400) Active 2018 [facility] Magnesium oxide [place] [id number] elemental magnesium Dose=____mg magnesium oxide (___mg elemental magnesium) Calcium Gluconate Notes: WASTE: No Longer [place] F/P - Sink; E - Active 2019 [facility] Trash [place] Bin Calcium Carbonate Notes: (Same No Longer [place] 500 MG Chewable As: Tums) Active 2018 Medica l Tablet Calcium Center Carbonate 500 mg = 200 mg elemental calcium Dose = mg calcium carbonate ( mg elemental calcium) chlorhexidine Notes: (Same No Longer [place] gluconate 1.2 MG/ML As: Peridex) Active 2018 [facility] Mouthwash Center Pyridostigmine 60 mg = 1 tab, Active anum [place] 60 MG Oral PO, QID, # 120 2019 Neuro Tablet [Mestinon] tab, 2 Refill(s), Pharmacy: [place] [address] predniSONE 10 mg 10 mg = 1 tab, Active [place] oral tablet PO, Daily, X 30 2019 Neur o day, # 30 tab, 1 Refill(s), Pharmacy: [facility] 527 Pyridostigmine 60 mg = 1 tab, No Longer cher [place] 60 MG Oral PO, QID, # 120 Active 2019 Neuro Tablet [Mestinon] tab, 2 Refill(s), Pharmacy: [facility] 527 Pyridostigmine 60 mg = 1 tab, Active anum [place] 60 MG Oral PO, TID, # 90 2019 Neuro Tablet [Mestinon] tab, 2 Refill(s), Pharmacy: [facility] 527 Aspirin 81 MG 81 mg = 1 tab, Active [place] Enteric Coated PO, Daily, # 90 2019 N euro Tablet tab, 3 Refill(s) carvedilol 12.5 mg 12.5 mg = 1 Active is[place] oral tablet tab, PO, Q12H, 2019 Neuro # 60 tab, 0 Refill(s) amLODIPine 10 mg 10 mg = 1 tab, Active cher oral tablet PO, Daily, # 90 2019 Neur o tab, 0 Refill(s) hydrochlorothiazide 12.5 mg = 1 Active cher 12.5 mg oral tablet tab, PO, Daily, 2019 Neuro # 30 tab, 0 Refill(s) Citalopram 10 mg, PO, Active cher Daily, 0 2019 Neuro Refill(s) losartan 100 mg 100 mg = 1 tab, Active cher oral tablet PO, Daily, # 30 2019 Neur o tab, 0 Refill(s) levothyroxine 100 100 microgram = Active mcg (0.1 mg) oral 1 tab, PO, 2019 [place] ro tablet Daily, # 30 tab, 0 Refill(s) atorvastatin 40 mg 40 mg = 1 tab, Active cher oral tablet PO, Bedtime, # 2019 Neuro 30 tab, 0 Refill(s) Folic Acid 1 MG 1 mg = 1 tab, Active anum Oral Tablet PO, Daily, # 30 2019 Neur o tab, 0 Refill(s) Diclofenac Sodium 1 tab, PO, Active corby 75 MG / Misoprostol Daily, 0 2019 [place] ro 0.2 MG Oral Tablet Refill(s) Allergies, Adverse Reactions, Alerts Substance Category Reaction Severity Reaction Status Date Comments S ource type Reported codeine Assertion Drug Active allergy Medical Group PDI Insect Assertion Drug Active Sting allergy Medical Relief Group Immunizations No Data Provided for This Section Results Order Name Results Value Reference Date Interpretation Comments Ophelia rce Range HEMATOLOGY PT 14.2 12.0 - 05/21 [facility] 14.7 [facility] HEMATOLOGY INR 1.12 0.85 - 05/21 [facility] 1.17 [facility] HEMATOLOGY PTT 26.3 22.9 - 05/21 [facility] 35.8 [facility] CHEM PANEL Magnesium Lvl 2.3 1.8 - 2.4 05/21 [facility] CHEM PANEL Phosphorus 2.9 2.5 - 4.5 05/21 2018 [facility] CHEM PANEL Glucose Lvl 81 70 - 99 05/21 2018 [facility] CHEM PANEL BUN 17 7 - 22 05/21 2018 [facility] CHEM PANEL Creatinine 0.85 0.50 - 05/21 [facility] Lvl 1.40 [facility] CHEM PANEL Sodium Lvl 141 135 - 145 05/21 [facility] CHEM PANEL Potassium Lvl 3.3 3.5 - 5.1 05/21 [facility] CHEM PANEL Chloride Lvl 113 95 - 109 05/21 [facility] CHEM PANEL CO2 21 24 - 32 05/21 2018 [facility] CHEM PANEL Calcium Lvl 8.4 8.5 - 10.5 05/21 [facility] CHEM PANEL AGAP 10.3 10.0 - 05/21 [facility] 20.0 [facility] CHEM PANEL eGFR 91 05/21 Result Comment: The Medical eGFR is Center calculated using the CKD-EPI formula. In most young, healthy individuals the eGFR will be >90 mL/min/1.73m2 . The eGFR declines with age. An eGFR of 60-89 may be normal in some populations, particularly the elderly, for whom the CKD-EPI formula has not been extensively validated. Use of the eGFR is not recommended in the following populations:< br/>
Yolie viduals with unstable creatinine concentration s, including patients and those with serious co-morbid conditions.<b r/>
Patie nts with extremes in muscle mass or diet.

The data above are obtained from the National Kidney Disease Education Program (NKDEP) which additionally recommends that when the eGFR is used in patients with extremes of body mass index for purposes of drug dosing, the eGFR should be multiplied by the estimated BMI. HEMATOLOGY Fibrinogen 169 230 - 510 05/21 [facility] Lvl [facility] HEMATOLOGY PT 14.6 12.0 - 05/21 [facility] 14.7 [facility] HEMATOLOGY INR 1.16 0.85 - 05/21 [place] 1.17 [facility] HEMATOLOGY PTT 27.1 22.9 - 05/21 [place] 35.8 [facility] HEMATOLOGY WBC 13.8 3.7 - 10.4 05/21 [facility] HEMATOLOGY RBC 3.61 4.70 - 05/21 [facility] 6.10 [facility] HEMATOLOGY Hgb 11.5 14.0 - 05/21 [facility] 18.0 [facility] HEMATOLOGY Hct 33.6 42.0 - 05/21 [place] 54.0 [facility] HEMATOLOGY MCV 93.1 80.0 - 05/21 [facility] 94.0 [facility] HEMATOLOGY MCH 31.9 27.0 - 05/21 [place] 31.0 [facility] HEMATOLOGY MCHC 34.3 32.0 - 05/21 [facility] 36.0 [facility] HEMATOLOGY RDW 14.2 11.5 - 05/21 [place] 14.5 [facility] HEMATOLOGY Platelet 141 133 - 450 05/21 [facility] HEMATOLOGY MPV 9.5 7.4 - 10.4 05/21 [facility] HEMATOLOGY Segs 72.1 45.0 - 05/21 [place] 75.0 [facility] HEMATOLOGY Lymphocytes 19.8 20.0 - 05/21 [place] 40.0 [facility] HEMATOLOGY Monocytes 7.0 2.0 - 12.0 05/21 2018 [facility] HEMATOLOGY Eosinophils 0.9 0.0 - 4.0 05/21 [place] [facility] HEMATOLOGY Basophils 0.2 0.0 - 1.0 05/21 2018 [facility] HEMATOLOGY Neutrophils # 9.9 1.5 - 8.1 05/21 [place] [facility] HEMATOLOGY Lymphocytes # 2.7 1.0 - 5.5 05/21 [facility] [place] [facility] HEMATOLOGY Monocytes # 1.0 0.0 - 0.8 05/21 [place] [facility] HEMATOLOGY Eosinophils # 0.1 0.0 - 0.5 05/21 [place] [facility] BLOOD BANK ABO/Rh O NEG 05/20 [place] RESULTS [facility] BLOOD BANK Antibody Scrn Negative 05/20 [facility] as RESULTS (05/20/19 2:11 PM) [facility] BLOOD BANK Cryo product Modification Required 05/20 [facility] RESULTS (05/20/19 1:35 PM) [facility] HEMATOLOGY WBC 19.9 3.7 - 10.4 05/20 /2018 [facility] HEMATOLOGY RBC 4.53 4.70 - 05/20 [place] 6.10 [facility] HEMATOLOGY Hgb 14.0 14.0 - 05/20 [facility] 18.0 [facility] HEMATOLOGY Hct 41.7 42.0 - 05/20 [place] 54.0 [facility] HEMATOLOGY MCV 92.1 80.0 - 05/20 [facility] 94.0 [facility] HEMATOLOGY MCH 30.8 27.0 - 05/20 [place] 31.0 [facility] HEMATOLOGY MCHC 33.4 32.0 - 05/20 [place] 36.0 [facility] HEMATOLOGY RDW 14.1 11.5 - 05/20 [place] 14.5 [facility] HEMATOLOGY Platelet 157 133 - 450 05/20 [facility] HEMATOLOGY MPV 9.9 7.4 - 10.4 05/20 [facility] HEMATOLOGY PT 17.8 12.0 - 05/20 [facility] 14.7 [facility] HEMATOLOGY INR 1.50 0.85 - 05/20 [place] 1.17 [facility] HEMATOLOGY PTT 39.8 22.9 - 05/20 [place] 35.8 /2019 [facility] HEMATOLOGY Fibrinogen 101 230 - 510 05/20 [facility] Lvl /2018 [facility] HEMATOLOGY Segs 88.3 45.0 - 05/20 [place] 75.0 2019 [facility] HEMATOLOGY Lymphocytes 8.3 20.0 - 05/20 [place] 40.0 2019 [facility] HEMATOLOGY Monocytes 2.7 2.0 - 12.0 05/20 [facility] HEMATOLOGY Eosinophils 0.2 0.0 - 4.0 05/20 [place] [facility] HEMATOLOGY Basophils 0.5 0.0 - 1.0 05/[address] HEMATOLOGY Neutrophils # 17.6 1.5 - 8.1 05/[address] HEMATOLOGY Lymphocytes # 1.6 1.0 - 5.5 05/[address] HEMATOLOGY Monocytes # 0.5 0.0 - 0.8 05/20 [facility] [facility]2018 [facility] HEMATOLOGY Basophils # 0.1 0.0 - 0.2 05/[address] CHEM PANEL Magnesium Lvl 2.3 1.8 - 2.4 05/[address] CHEM PANEL Phosphorus 3.1 2.5 - 4.5 05/[address] ELECTROLYTE AGAP 11.8 10.0 - 05/20 [facility] 20.0 [facility] ELECTROLYTE Glucose Lvl 90 70 - 99 05/20 [facility]2018 [facility] ELECTROLYTE BUN 18 7 - 22 05/20 [facility]2018 [facility] ELECTROLYTE Creatinine 0.81 0.50 - 05/20 [facility] Lvl 1.40 2018 [facility] ELECTROLYTE Sodium Lvl 142 135 - 145 05/[address] ELECTROLYTE Potassium Lvl 3.8 3.5 - 5.1 05/20 [facility] ELECTROLYTE Chloride Lvl 113 95 - 109 05/20 [facility] ELECTROLYTE CO2 21 24 - 32 05/[address] ELECTROLYTE Calcium Lvl 8.9 8.5 - 10.5 05/20 [facility]2018 [facility] ELECTROLYTE eGFR 92 05/20 Result [facility] Comment: The Medical eGFR is Center calculated using the CKD-EPI formula. In most young, healthy individuals the eGFR will be >90 mL/min/1.73m2 . The eGFR declines with age. An eGFR of 60-89 may be normal in some populations, particularly the elderly, for whom the CKD-EPI formula has not been extensively validated. Use of the eGFR is not recommended in the following populations:< br/>
Yolie viduals with unstable creatinine concentration s, including patients and those with serious co-morbid conditions.<b r/>
Patie nts with extremes in muscle mass or diet.

The data above are obtained from the National Kidney Disease Education Program (NKDEP) which additionally recommends that when the eGFR is used in patients with extremes of body mass index for purposes of drug dosing, the eGFR should be multiplied by the estimated BMI. HEMATOLOGY Segs 70.9 45.0 - 05/20 [facility] 75.0 [facility] HEMATOLOGY Lymphocytes 20.7 20.0 - 05/20 [place] 40.0 [facility] HEMATOLOGY Monocytes 6.5 2.0 - 12.0 05/20 [facility]2018 [facility] HEMATOLOGY Eosinophils 1.4 0.0 - 4.0 05/20 [facility] [facility]2018 [facility] HEMATOLOGY Basophils 0.5 0.0 - 1.0 05/20 [facility]2018 [facility] HEMATOLOGY Neutrophils # 11.6 1.5 - 8.1 05/20 [facility]2018 [facility] HEMATOLOGY Lymphocytes # 3.4 1.0 - 5.5 05/[address] HEMATOLOGY Monocytes # 1.1 0.0 - 0.8 05/20 [facility] [facility]2018 [facility] HEMATOLOGY Eosinophils # 0.2 0.0 - 0.5 05/[address] HEMATOLOGY Basophils # 0.1 0.0 - 0.2 05/20 [facility] [facility]2018 [facility] HEMATOLOGY WBC 16.4 3.7 - 10.4 05/20 [facility]2018 [facility] HEMATOLOGY RBC 4.51 4.70 - 05/20 [facility] 6.10 [facility] HEMATOLOGY Hgb 14.2 14.0 - 05/20 18.0 [facility] HEMATOLOGY Hct 42.2 42.0 - 05/20 54.0 [facility] HEMATOLOGY MCV 93.6 80.0 - 05/20 [facility] 94.0 [facility] HEMATOLOGY MCH 31.4 27.0 - 05/20 [facility] 31.0 [facility] HEMATOLOGY MCHC 33.6 32.0 - 05/20 36.0 [facility] HEMATOLOGY RDW 14.5 11.5 - 05/20 [facility] 14.5 [facility] HEMATOLOGY Platelet 140 133 - 450 05/20 [facility]2018 [facility] HEMATOLOGY MPV 9.6 7.4 - 10.4 05/20 [facility]2018 [facility] CHEM PANEL Magnesium Lvl 2.2 1.8 - 2.4 05/19 [facility] CHEM PANEL Phosphorus 2.6 2.5 - 4.5 05/19 [facility] CHEM PANEL Glucose Lvl 88 70 - 99 05/19 [facility] CHEM PANEL BUN 19 7 - 22 05/19 [facility] CHEM PANEL Creatinine 0.73 0.50 - 05/19 [facility] Lvl 1.40 [facility] CHEM PANEL Sodium Lvl 142 135 - 145 05/19 [facility]2018 [facility] CHEM PANEL Potassium Lvl 3.6 3.5 - 5.1 05/19 [facility] CHEM PANEL Chloride Lvl 112 95 - 109 05/19 [facility] CHEM PANEL CO2 22 24 - 32 05/19 [facility]2018 [facility] CHEM PANEL Calcium Lvl 8.8 8.5 - 10.5 05/19 [facility] CHEM PANEL eGFR 97 05/19 [facility] Comment: The Medical eGFR is Center calculated using the CKD-EPI formula. In most young, healthy individuals the eGFR will be >90 mL/min/1.73m2 . The eGFR declines with age. An eGFR of 60-89 may be normal in some populations, particularly the elderly, for whom the CKD-EPI formula has not been extensively validated. Use of the eGFR is not recommended in the following populations:< br/>
Yolie viduals with unstable creatinine concentration s, including patients and those with serious co-morbid conditions.<b r/>
Patie nts with extremes in muscle mass or diet.

The data above are obtained from the National Kidney Disease Education Program (NKDEP) which additionally recommends that when the eGFR is used in patients with extremes of body mass index for purposes of drug dosing, the eGFR should be multiplied by the estimated BMI. CHEM PANEL AGAP 11.6 10.0 - 05/19 [facility] 20.0 [facility] HEMATOLOGY Eosinophils # 0.2 0.0 - 0.5 05/19 [facility] HEMATOLOGY Basophils # 0.1 0.0 - 0.2 05/19 [facility] PARATHYROID Ca Ion WB 1.23 1.05 - 05/18 [place] PROFILE 1.25 [facility] PARATHYROID Ca Norm WB 1.17 1.05 - 05/18 [facility] PROFILE 09.16 [facility] HEMATOLOGY Anisocyte 1+ None Seen 05/17 [facility] *ABN* [facility] (05/17/19 5:44 AM) [place] HEMATOLOGY Macrocyte 1+ None Seen 05/17 [facility] *ABN* [facility] (05/17/19 5:44 AM) [place] HEMATOLOGY Bands 1.0 0.0 - 11.0 05/16 [facility] HEMATOLOGY Myelocytes 1.0 <=0.0 % 05/16 [facility] HEMATOLOGY Promyelocytes 1.0 <=0.0 % 05/16 [place] [facility] HEMATOLOGY Atypical 0.0 <=0.0 % 05/16 [facility] Lymphs [facility] CARDIAC Total CK 154 12 - 191 05/15 [facility] ENZYMES [facility] HEMATOLOGY RBC Morph Normal Normal 05/15 [facility] (05/15/19 12:54 AM) [facility] HEMATOLOGY Plt Morph Normal Normal 05/15 [facility] (05/15/19 12:54 AM) [facility] PARATHYROID Ca Ion WB 0.93 1.05 - 05/14 [facility] PROFILE 09.16 [facility] PARATHYROID Ca Norm WB 0.96 1.05 - 05/14 [facility] PROFILE 09.16 [facility] Culture: <10,000 05/13 [facility] Urine CFU/mL [facility] Skin [facility] [place] PARATHYROID Ca Ion WB 1.17 1.05 - 05/13 [facility] PROFILE 09.16 [facility] PARATHYROID Ca Norm WB 1.13 1.05 - 05/13 [facility] PROFILE 09.16 [facility] BLOOD BANK ABO/Rh O NEG 05/12 [facility] RESULTS [facility] BLOOD BANK Antibody Scrn Negative 05/12 [facility] as RESULTS (05/12/19 12:48 PM) [facility] CARDIAC Troponin-I <0.02 0.00 - 05/12 [facility] ENZYMES 0. [facility] IMMUNOLOGY ACHr Binding 27.50 0.00 - 05/10 Result [facility] Ab 0. Comment: Medical Results Center verified by repeat testing<br/ > Negative: 0.00 - 0.24
Borderline: 0.25 - 0.40
Positive: > 0.40
Perf ormed At: [facility]&lt ;br/>[address], [place] [id number]<br/ >Jose D Bernal MD Ph:[phone] IMMUNOLOGY ACHr Block Ab 30 0 - 25 05/10 Result [facility] Comment: Medical Center Negative: 0 - 25
Borderline: 26 - 30
Positive: >30

Results for this test are for research purposes
only by the assay's customer service agent. The performance<b r/>characteri stics of this product have not been
esta blished. Results should not be used as a
diagnos tic procedure without confirmation of the
diagn osis by another medically established<b r/>diagnostic product or procedure.&lt ;br/>Performe d At: [facility]
[address] [place] [id number]<br/ >Jose D Bernal MD Ph:[phone] IMMUNOLOGY ACHr Mod Ab 19 0 - 20 05/10 Result Comment: Medical Center Negative: <21
Equivocal: 21 - 25
Positive: >25
The assay is linear between values of 12 and 64.
Those <12 and >64 are reported as such. No single
value for ACR-modulatin g antibody should be used as
a sole basis for diagnosis or response to therapy.
Performed At: [facility]
[address], [place] [id number]<br/ >Jose D Bernal MD Ph:[phone] IMMUNOLOGY ACHr Binding 28.00 0.00 - 05/10 Result [facility] Ab 0. Comment: Medical Results Center verified by repeat testing<br/ > Negative: 0.00 - 0.24
Borderline: 0.25 - 0.40
Positive: > 0.40 IMMUNOLOGY ACHr Block Ab 30 0 - 25 05/10 Result [facility] Comment: Medical Center Negative: 0 - 25
Borderline: 26 - 30
Positive: >30

Results for this test are for research purposes
only by the assay's customer service agent. The performance<b r/>characteri stics of this product have not been
esta blished. Results should not be used as a
diagnos tic procedure without confirmation of the
diagn osis by another medically established<b r/>diagnostic product or procedure. IMMUNOLOGY ACHr Mod Ab 29 0 - 20 05/10 Result [facility] Comment: [facility] Negative: <21
Equivocal: 21 - 25
Positive: >25
The assay is linear between values of 12 and 64.
Those <12 and >64 are reported as such. No single
value for ACR-modulatin g antibody should be used as
a sole basis for diagnosis or response to therapy. IMMUNOLOGY Striated 1:80 Neg:<1:40 05/10 Result [facility] Muscle IgG Comment: Medical Performed At: [facility]
[address], [place] [id number]<br/ >Jose D Bernal MD Ph:[phone] URINE AND UA Color Sunitha Yellow 05/09 [facility] *ABN* [facility] (05/09/19 5:41 PM) [place] URINE AND UA Turbidity Marked Clear 05/09 [facility] STOOL *ABN* [facility] (05/09/19 5:41 PM) [place] URINE AND UA Spec Grav 1.028 <=1.030 05/09 [facility] /2018 [facility] URINE AND UA pH 7.0 5.0 - 8.0 05/09 [facility] /2018 [facility] URINE AND UA Protein 30 mg/dL Negative 05/09 [facility] STOOL mg/dL /2018 [facility] URINE AND UA Glucose Negative Negative 05/09 [facility] mg/dL mg/dL [facility] URINE AND UA Ketones Negative Negative 05/09 [facility] mg/dL mg/dL [facility] URINE AND UA Bili Negative Negative 05/09 [facility] STOOL *NA* /2018 [facility] (05/09/19 5:41 PM) [place] URINE AND UA Blood Small Negative 05/09 [facility] *ABN* /2018 Medical (05/09/19 5:41 PM) Center URINE AND UA 4.0 0.1 - 1.0 05/09 [facility] Urobilinogen /2018 [facility] URINE AND UA Nitrite Negative Negative 05/09 [facility] (05/09/19 5:41 PM) [facility] [place] URINE AND UA Leuk Est Negative Negative 05/09 [facility] (05/09/19 5:41 PM) [facility] URINE AND UA WBC 2 0 - 5 05/09 [facility] /2018 [facility] URINE AND UA RBC 17 0 - 2 05/09 [facility] URINE AND UA Mucus Few /LPF None Seen 05/09 [facility] STOOL /LPF /2018 [facility] URINE AND UA Amorph Few /HPF None Seen 05/09 [facility] [place] /HPF /2018 [facility] URINE AND UA Sq Epi None Seen 05/09 [facility] [address] [place] [address] CARDIAC Troponin-I <0.02 0.00 - 05/08 [facility] ENZYMES 0.40 [facility] CARDIAC Total CK 115 12 - 191 05/08 [facility] ENZYMES [facility] HEMATOLOGY Sed Rate 7 0 - 15 05/08 [facility] /[address] [place] [address] IMMUNOLOGY IgA Lvl 184.0 68.0 - 05/08 [facility] 378.0 [facility] IMMUNOLOGY Striated 1:160 Neg:<1:40 05/08 Result [facility] Muscle IgG Comment: Medical Performed At: Center [facility]
[address], [place] [id number]<br/ >Jose D Bernal MD Ph:[phone] URINE AND UA Color Yellow Yellow 05/08 [facility] STOOL *NA* /2018 Medical (05/07/19 11:11 PM) Cente r URINE AND UA Turbidity Clear Clear 05/08 [facility] (05/07/19 11:11 PM) /2018 [facility] URINE AND UA Spec Grav 1.021 <=1.030 05/08 [facility] /[address] [place] [address] URINE AND UA pH 7.0 5.0 - 8.0 05/08 [facility] /[address] [place] [address] URINE AND UA Protein 30 mg/dL Negative 05/08 [facility] mg/dL /2018 [facility] URINE AND UA Glucose Negative Negative 05/08 [facility] mg/dL mg/dL [facility] URINE AND UA Ketones Trace Negative 05/08 [facility] mg/dL mg/dL [facility] URINE AND UA Bili Negative Negative 05/08 [facility] STOOL *NA* /2018 [facility] (05/07/19 11:11 PM) Cente r URINE AND UA Blood Negative Negative 05/08 [facility] (05/07/19 11:11 PM) [facility] URINE AND UA <1.0 0.1 - 1.0 05/08 [facility] Urobilinogen /2018 [facility] URINE AND UA Nitrite Negative Negative 05/08 [facility] (05/07/19 11:11 PM) [facility] URINE AND UA Leuk Est Trace Negative 05/08 [facility] STOOL *ABN* [facility] (05/07/19 11:11 PM) Cente r URINE AND UA Sq Epi Occasional Few /LPF 05/08 [facility] /LPF [facility] URINE AND UA WBC 8 0 - 5 05/08 [facility] STOOL [facility] URINE AND UA RBC 3 0 - 2 05/08 [facility] STOOL [facility] URINE AND UA Bacteria Occasional None [place]en [place] /HPF /HPF [facility] URINE AND UA Mucus Few /LPF None Seen 05/08 [facility] /LPF [facility] BACTERIAL - MRSA by PCR Negative 05/[place] (05/07/19 8:33 PM) /2018 [facility] URINE AND UA Sq Epi Occasional Few /LPF 05/08 [facility] STOOL /LPF [facility] URINE AND UA WBC 3 0 - 5 05/08 [facility] STOOL [facility] URINE AND UA RBC 8 0 - 2 05/08 [facility] STOOL [facility] URINE AND UA Mucus Few /LPF None Seen 05/08 [facility] STOOL /LPF [facility] URINE AND UA Hyal Cast 1 0 - 2 05/08 [facility] URINE AND UA Color Yellow Yellow 05/08 [facility] STOOL *NA* /2018 [facility] (05/07/19 7:08 PM) Center URINE AND UA Turbidity Clear Clear 05/08 [facility] (05/07/19 7:08 PM) /2018 [facility] URINE AND UA Spec Grav 1.010 <=1.030 05/08 [facility] 2019 [facility] URINE AND UA pH 8.0 5.0 - 8.0 05/08 [facility] STOOL /2018 [facility] URINE AND UA Protein Trace Negative 05/08 [facility] *ABN* [facility] (05/07/19 7:08 PM) [place] URINE AND UA Glucose Negative Negative 05/08 [facility] (05/07/19 7:08 PM) [facility] URINE AND UA Ketones Negative Negative 05/08 [facility] *NA* [facility] (05/07/19 7:08 PM) [place] URINE AND UA Bili Negative Negative 05/08 [facility] *NA* [facility] (05/07/19 7:08 PM) [place] URINE AND UA Blood Negative Negative 05/08 [facility] (05/07/19 7:08 PM) [facility] URINE AND UA 0.2 0.1 - 1.0 05/08 [facility] Urobilinogen /2018 [facility] URINE AND UA Nitrite Negative Negative 05/08 [facility] (05/07/19 7:08 PM) [facility] URINE AND UA Leuk Est Negative Negative 05/08 [facility] (05/07/19 7:08 PM) [facility] CHEM PANEL Lactic Acid 1.6 0.5 - 2.2 05/08 [place]2018 [facility] CHEM PANEL Procalcitonin <0.05 0.00 - 05/08 [facility] Lvl ng/mL 0.10 [facility] Pathology Reports No Data Provided for This Section Diagnostic Reports Report Value Date Source Bone Density DXA Dual 01/22/[address] [facility] MALE BONE DENSITY ASSESSMENT: 01/22/2020 CLINICAL DATA: Clinical risk for osteoporosis. M81.0 Age-Related Osteoporosis Without Current Pathological Fracture/M81.0 Age-Related Osteoporosis Without Current Pathological Fracture RISK FACTORS: race. FINDINGS: Bone density evaluation was performed 01/22/2020 on the right femur neck using a Hologic unit. The BMD average for the exam is 0.873 g/cm2. The T-score is - 0.40 and the Z-score is 0.70. This matches t he World Health Organization 's criteria for normal bone density and places the patient within normal limits of fracture risk. An additional bone density e valuation was performed 01/22/2020 on the left femur neck using a Hologic unit. The BMD average for the exam is 0.836 g/cm2. The T-score is -0.70 and the Z-score is 0.40. T his matches the World Health Organization's criteria for normal bone density and places the patient within normal limits of fracture risk. An additional bone density e valuation was performed 01/22/2020 on the right total femur area using a Hologic unit. The BMD average for the exam is 0.970 g/cm2. The T-score is -0.40 and the Z-score is 0 .10. This matches the World Health Organization's criteria for normal bone density and places the patient within normal limits of fracture risk. An additional bone density e valuation was performed 01/22/2020 on the left total femur area using a Hologic unit. The BMD average for the exam is 0.961 g/cm2. The T-score is -0.50 and the Z-score is 0. 10. This matches the World Health Organization's criteria for normal bone density and places the patient within normal limits of fracture risk. An additional bone density e valuation was performed 01/22/2020 on the AP L1-L4 region of spine using a Hologic unit. The BMD average for the exam is 1.559 g/cm2. The T-score is 4.30 and the Z-score is 5.10. This matches the Worl d Health Organization's criteria for normal bone density and places the patient within normal limits of fracture risk. Degenerative changes of the spine likely falsely elevate calculated spinal bone density. IMPRESSION: BONE DENSITY WITHIN NORMAL LIMITS Patient is at normal risk fo r fracture. Patient consult w/primary care provider is recommended. This exam was interpreted at [id number] for ESTEFANY Simon. Kadi William M.D. ms/penrad:01/23/2020 08:04:36 Perianesthesia Nurse(s): Minnie Jacobsen Abdomen/Pelvis w/wo Radiation Dose CTDIVOL = 45. 91 (mGy): DLP = 2141.95 (mGy-cm) 11/03/2019 ESTEFANY Simon IV contrast CT PROCEDURE INFORMATION: Exam: CT Abdomen And Pelvis Without And With Con trast; Urography Exam date and time: 11/03/2019 9:49 AM Age: 64 years old Clinical indication: Microscopic hematuria; back pain for 3 months TECHNIQUE: Imaging protocol: Computed tomography of the abd omen and pelvis without and with intravenous contrast. Exam focused on the k idneys and ureters. CTDI volume: 45.91 mGy Total DLP: 2141.95 mGy-cm Radiation optimization: All CT scans at this facility use at least one of these dose optimization techniques: automated exposure control; mA and/or kV adjustment per patient size (includes targeted e xams where dose is matched to clinical indication); or iterative reconstructio n. Contrast material: OMNI 300; Contrast volume: 100 ml; Contrast route: 22 RT AC; Other contrast: Oral, water, 900; COMPARISON: No relevant prior studies available. FINDINGS: Lungs: Visualized lung bases are clear. Liver: Normal. No mass. Gallbladder and bile ducts: Cholelithiasis. Pancreas: Normal. No ductal dilation. Spleen: Normal. No splenomegaly. Adrenals: Normal. No mass. Kidneys and ureters: Multipl e bilateral simple renal cysts. Largest right renal cyst measures 4 cm, and large left renal cyst me asures 5.2 cm. No solid renal mass, calculus, or hydroureteronephrosis. Stomach and bowel: Remaining gastrointes tinal tract is grossly normal. Minimal sigmoid colonic diverticulosis. Appendix: Appendix is normal. Intraperitoneal space: Unremarkable. No free air . No significant fluid collection. Lymph nodes: Unremarkable. No enlarged lymph nod es. Vasculature: Unremarkable. No abdominal aortic a neurysm. Bladder: The distended bladder suggests minimal dome midline anterosuperior surface perivesicular fat st randing or serositis, with intimately abutting 1 or 2 loops of mid small intestine. However, no intramural or intraluminal bladder air is present. No abnormal associated adjacent focal fluid collection is present. No intraluminal bladder mass or polyp i s present. Reproductive: Unremarkable. Bones/joints: Multilevel lumbosacral spi ne degenerative disc disease and lower posterior facet joint arthropathy. Soft tissues: Unremarkable. Other findings: Small hiatal hernia. Lap band ap propriately oriented. IMPRESSION: 1. Questionable minimal nonspecific serositis of the bladder dome versus chronic fibrosis in this mid line anterosuperior surface or perivesicular region with incidental abutment of loops of small intes cornelio. Less likely early enterovesicular fistula between small intestine and the serosa of the bladder dome. No evidence of cystitis. Finding was discussed with Dr. Napoles today at 15:00 hours. 2. Cholelithiasis. 3. Small hiatal hernia. Lap band appropriately o riented. 4. Minimal sigmoid colonic diverticulosis. COMMENTS: Consistent with the [employer] [place] [employer]'s Incidental Findings Committee white paper (J Am Rogelio Radiol 2018): A ny incidental cystic renal lesion classified in this report as too small to characterize or simple appearing is likely a benign cyst. No follow-up imaging is recommended for these lesions per consensus recommendations base d on imaging criteria. Joseluis Henao MD On 11/03/2019 15:06:53 ; [id number] Ext Upper Venous EXAM: US LEFT UPPER EXTREMITY VENOUS DOPPLER [facility] Doppler Unilat US DATE: 05/21/2019 8:56 CDT Cente r INDICATION: - worsening pain and edema after cr yo extravasation, ADDITIONAL INFORMATION: None. COMPARISON: None. TECHNIQUE: Multiplanar olga inga, color Doppler and spectral Doppler ultrasound of the left upper extremity veins. FINDINGS: Left Upper Extremity Veins: Internal Jugular: Patent. Subclavian: Patent. Axillary: Patent. Brachial: Patent. Basilic: Patent. Cephalic: Proximal and mid s egments are patent. Near totally occlusive superficial thrombosis at the distal segment. IMPRESSION: 1. No deep venous thrombosi s (DVT) in the interrogated deep veins of the left upper extremity. 2. Near total occlusive sup erficial thrombosis involving the left distal cephalic vein. Esophagus BA swallow EXAM: FLUOROSCOPY MODIFIED BARIUM SWALLOW 0 05/19/2019 [facility] [employer] function video DX DATE: 05/19/2019 8:00 CDT Cente r INDICATION: -Reflux. ADDITIONAL INFORMATION: None. COMPARISON: Modified barium swallow 05/16/2019 TECHNIQUE: Oral barium contr ast of differing consistencies was given to the patient to assess swallowing mechanism. The study was performed in conjunction with speech pathology. FLUOROSCOPY TIME: 1:38 min FLUOROSCOPY DOSE: 8.92 mGy DISCUSSION: The patient was given barium contrast of differe nt consistencies. Thin barium: Flash penetration. Comptche barium: Normal. Pudding barium: Vallecular a nd piriform residue without penetration or aspiration. Solid with barium: Normal. IMPRESSION: 1. Flash penetration of thin liquids. No aspira tion. 2. Please also see detailed chart note by [facility] pathology. Esophagus BA swallow EXAM: FLUOROSCOPY MODIFIED BARIUM SWALLOW 0 05/16/2019 [facility] video DX DATE: 05/16/2019 at 8:27 hours Center INDICATION: Dysphagia. COMPARISON: None. TECHNIQUE: Oral barium contr ast of differing consistencies was given to the patient to assess swallowing mechanism. The study was performed in conjunction with speech pathology. FLUOROSCOPY TIME: 2:05 minutes FLUOROSCOPY DOSE: 12.48 mGy DISCUSSION: The patient was given barium contrast of differe nt consistencies. Thin barium: Deep penetration observed. Comptche barium: Deep penetration observed. Pudding barium: Severe alvarado cular and piriform residue, without penetration or aspiration. IMPRESSION: 1. Deep penetration observe d with thin and nectar thick barium, no aspiration observed. 2. Please also see detailed chart note by [facility] pathology. Abdomen AP DX EXAM: XR ABDOMEN 1 VIEW 2019 [facility] DATE: 2019 17:51 CDT Center INDICATION: - nj tube placement COMPARISON: KUB dated 05/11/2019 TECHNIQUE: Limited AP view of the abdomen for tube placement assessment. Number of images: 1 FINDINGS: Transesophageal feeding tube tip in gastric ant rum Other tubes and lines: Port catheter projecting over the epigastric region. No other changes. IMPRESSION: Tube positions as above. Abdomen AP DX EXAM: XR ABDOMEN 1 VIEW 05/11/2019 [facility] DATE: 05/11/2019 15:28 CDT Center INDICATION: - for DHT placement! ADDITIONAL INFORMATION: None. COMPARISON: None. TECHNIQUE: AP view of the abdomen. FINDINGS: IMPRESSION: 1. Dobbhoff tube tip overly ing the gastric antrum. Recommend further advancement. Esophagus BA swallow EXAM: FLUOROSCOPY MODIFIED BARIUM SWALLOW 0 05/11/2019 [facility] video DX DATE: 05/11/2019 11:09 CDT [facility] er INDICATION: - Dysphagia. ADDITIONAL INFORMATION: None. COMPARISON: None. TECHNIQUE: Oral barium contr ast of differing consistencies was given to the patient to assess swallowing mechanism. The study was performed in conjunction with speech pathology. FLUOROSCOPY TIME: 1:27 FLUOROSCOPY DOSE: 5.26 mGy DISCUSSION: The patient was given barium contrast of differe nt consistencies. Thin barium: Aspiration. Comptche barium: Aspiration. Pudding barium: Aspiration. IMPRESSION: 1. Aspiration of all consistencies. 2. Please also see detailed chart note by [facility]. Chest 1view DX EXAM: XR CHEST 1 VIEW 05/10/2019 [facility] edical DATE: 05/10/2019 0104 hours Cente r INDICATION: Myasthenia gravis crisis, intubated; COMPARISON: X-ray chest 05/09/2019 at 0305 hours TECHNIQUE: AP chest. Semierect FINDINGS: Lines, tubes and hardware: E TT and feeding tube traversing the image with tip collimated out of view are again seen. Lungs and pleura: Improvemen t in bilateral lower linear opacities. Left costophrenic angle is obscured. No pneumothorax seen. Heart and mediastinum: Cardi omediastinal silhouette is normal. Pulmonary vasculature is normal. Bones, soft tissues: No acute abnormalities seen . IMPRESSION: Slight improvement in bilateral lower subsegment al atelectasis. Small left pleural effusion. Chest 1view DX EXAM: XR CHEST 1 VIEW 05/09/2019 [facility] edical DATE: 05/09/2019 3:00 CDT Center INDICATION: - intubated. TECHNIQUE: Chest 1 view FINDINGS: Comparison is made to May 07. Cardiomediastinal silhouette is unchanged. Gastric tube has been replaced by a feeding catheter. Tracheal tube has been advanced, now located 3.8 cm above the cathryn. Left lower lobe platelike atelectasis. No pleura l effusions. IMPRESSION: Left lower lobe platelike atelectasi s. Intubated. Abdomen AP DX EXAM: XR ABDOMEN 1 VIEW 05/08/2019 [facility] DATE: 05/08/2019 13:31 CDT Center INDICATION: Nasojejunal placement ADDITIONAL INFORMATION: None. COMPARISON: Abdominal radiograph from 05/07/2019 TECHNIQUE: Limited AP view of the abdomen for tube placement assessment. Number of images: 3 FINDINGS: In the first image, the tip of the Dobbhoff tube with stylet is seen projecting over the proximal stomach. In the second image, there is interval advancement of the Dobbhoff tube with tip projecting ove r the gastric body. In the t hird and final image, there has been interval repositioning of the Dobbhoff tube with tip projecting over the mid gastric body. All of the images demonstrate a lap band and tin y left pleural effusion. Remainder of the radiographs are essentially unchanged from the prior abdominal radiograph from 05/07/2019 at 1839 hours. IMPRESSION: In the third and final image , there has been interval repositioning of the Dobbhoff tube with tip projecting over the mid gastric body. Chest w contrast CT EXAM: CT CHEST WITH CONTRAST 05/07/2019 [facility] DATE: 05/07/2019 22:32 CDT Center INDICATION: - eval for thym viral. Patient with myasthenia, according to clinical notes. COMPARISON: No prior CT chests available for [facility] TECHNIQUE: Volumetric CT of the chest is acquired following intravenous administration of contrast. Axial, coronal and sagittal images are provided. IV Contrast: 75 mL Omnipaque 350. DLP: 921 mGy-cm FINDINGS: Lines, tubes and hardware: W ell-positioned tracheostomy tube above the cathryn. Feeding tube courses the esophagus with distal tip looped over the gastric fundus. Repositioning recommended. Lower neck: The visible por tions or the lower neck and thyroid are unremarkable. Axilla: No enlarged axillary lymph nodes. Airway: Patent. Lungs and pleura: There is mild loss of volume the left lower lobe secondary to traction bronchiectasis. Mild subsegmental atelectasis/scarring seen in the lingula and right lower lobe. No pleural effusions or pneumothorax. Mediastinum, sarah and intrat horacic lymph nodes: No enlarged mediastinal or hilar lymph nodes. No anterior mediastinal mass to suggest thymoma. Heart, pericardium and great vessels: The heart is normal in size. The aorta and main pulmonary artery have normal caliber. Mild atherosclerotic changes in the aorta and left anterior descending coronary artery. No pericardial effusion. Upper abdomen: Cholelithias is without signs of cholecystitis. Bilateral renal cysts measuring up to 4.7 cm in the left kidney. Postsurgical changes following gastric banding. Nodular thickening of the left adrenal measures 9 mm in image 203 of serie s 5. Bones: No acute abnormality. Age-related degener ative findings. Soft tissues: Normal. IMPRESSION: 1. There is no anterior mediastinal mass to sug gested thymoma. 2. Mild loss of volume of t he left lower lobe secondary to traction bronchiectasis. 3. Subsegmental atelectasis/scarring in the refugio gula and right lower lobe. 4. Mild atherosclerotic yani nges in the aorta and left anterior descending coronary artery. 5. Cholelithiasis without signs of cholecystiti s. 6. Bilateral renal cysts and postsurgical hines es following gastric banding. 7. Nonspecific small nodular thickening of the left adrenal gland. 8. Feeding tube courses the esophagus with distal tip looped over the gastric fundus. Repositioning recommended. Abdomen 1 v for EXAM: XR ABDOMEN 1 VIEW 05/07/2019 [facility] DX DATE: 05/07/2019 at 1839 hours C enter INDICATION: - Confirm NG placement ADDITIONAL INFORMATION: None. COMPARISON: 01/04/2019 at 1838 hours TECHNIQUE: Limited AP view of the abdomen for tube placement assessment. Number of images: 1 FINDINGS: Feeding tube (tip): None present. Enteric suction tube (sidehole): Proximal stomac h Other tubes, lines and hardware: * Electrocardiogram leads overlie the patient. * Lap band is noted. Other: * Right upper quadrant calcifications may relat e to gallstone * Small bilateral pleural effusions. * No other changes. IMPRESSION: 1. Hardware as above. Chest 1 v for EXAM: XR CHEST 1 VIEW 05/07/2019 [facility] edical Placement DX DATE: 05/07/2019 18:21 CDT Center INDICATION: Tube placement - confirm ETT COMPARISON: None. TECHNIQUE: AP chest. FINDINGS: Lines, tubes and hardware: E ndotracheal tube tip projects approximately 4.5 cm above the cathryn. Enteric tube tip projects within the stomach. Lungs and pleura: Left retro cardiac airspace opacity noted, which obscures the left hemidiaphragm. Small left pleural effusion noted. The right costophrenic sulcus is clear. No pneumothorax is visualized in this limited semierect view. Heart and mediastinum: The h eart size is normal for technique. The mediastinal contours are normal. Bones, soft tissues: No acute abnormality. IMPRESSION: 1. Endotracheal tube tip projects approximately 4.5 cm above the cathryn. 2. Left retrocardiac opacit y which may represent combination of small left pleural effusion, underlying consolidation and/or atelectasis. Consultation Notes No Data Provided for This Section Discharge Summaries No Data Provided for This Section History and Physicals No Data Provided for This Section Vital Signs Vital Sign Value Date Comments Source Height 172.72 cm 09/13/2019 [facility] Weight 102.273 09/13/2019 [facility] BMI Calculated 34.28 09/13/2019 [facility] Height 172.72 cm 07/31/2019 [facility] Weight 102.273 07/31/2019 [facility] BMI Calculated 34.28 07/31/2019 [facility] Systolic (mm Hg) 125 07/10/2019 [facility] Diastolic (mm Hg) 79 07/10/2019 [facility] Heart Rate 62 07/10/2019 [facility] Height 172.72 cm 07/10/2019 [facility] Weight 102.273 07/10/2019 [facility] BMI Calculated 34.28 07/10/2019 [facility] Temperature Oral (F) 98.0 F 05/21/2019 [facility] Respitory Rate 18 05/21/2019 [facility]ick Center Systolic (mm Hg) 128 05/21/2019 [facility] dical Center Diastolic (mm Hg) 80 05/21/2019 [facility] Center Respitory Rate 15 05/21/2019 [facility] Center Systolic (mm Hg) 107 05/21/2019 [facility] dical Center Diastolic (mm Hg) 57 05/21/2019 [facility] Center Temperature Oral (F) 97.6 F 05/21/2019 [facility] Systolic (mm Hg) 117 05/21/2019 [facility] dical Center Diastolic (mm Hg) 65 05/21/2019 [facility] Center Respitory Rate 16 05/21/2019 [facility] Center Temperature Oral (F) 98.4 F 05/21/2019 [facility] Heart Rate 67 05/20/2019 [facility] Heart Rate 67 05/20/2019 [facility] Heart Rate 68 05/20/2019 [facility] Height 172.72 cm 05/18/2019 [facility] Height 172.72 cm 05/10/2019 [facility] Height 172.72 cm 05/10/2019 [facility] Weight 102.001 05/07/2019 [facility] BMI Calculated 34.19 05/07/2019 [facility] Center Systolic (mm Hg) 82 05/04/2019 [facility] Diastolic (mm Hg) 54 05/04/2019 [facility] Heart Rate 64 05/04/2019 [facility] Respitory Rate 16 05/04/2019 [facility] Height 172.72 cm 05/04/2019 [facility] Weight 103.182 05/04/2019 [facility] BMI Calculated 34.59 05/04/2019 [facility] Neuro Systolic (mm Hg) 116 04/26/2019 [facility] ro Diastolic (mm Hg) 79 04/26/2019 [facility] Heart Rate 75 04/26/2019 [facility] Neuro Respitory Rate 16 04/26/2019 [facility] Height 165.1 cm 04/26/2019 [facility] Weight 102.727 04/26/2019 [facility] BMI Calculated 37.69 04/26/2019 [facility] Neuro Encounters Location Location Encounter Encounter Reason Attending ADM DC Stat us Source Details Type Number For Provider Date Date Visit OD [id number] 379.91 JOANNE 05/03 Active O PID - PAIN [place] [facility] Outpatient [id number] Mick 04/26 [facility] [place] [facility] Outpatient [id number] Mick 04/26 04/27 [facility] Neurology [facility] /2018 [facility] [place] [facility] Outside [id number] 05/01 05/03 [facility] Neurology Medical /2018 [facility] [place] Records Outpatient [id number] Mick 05/04 [facility] [place] MNA Outpatient [id number] Mick 05/04 05/05 [facility] Neurology [facility] /2018 [facility] [place] [facility] Inpatient [id number] [place] 05/07 05/21 [facility] [place] /2018 [facility] Outpatient [id number] Mick 05/11 [facility] [place] MNA Ambulatory [id number] Mick 05/11 05/11 [facility] Neurology Pre-Reg [facility] /2018 [facility] [place] MNA Outside [id number] 06/02 06/04 [facility] Neurology Medical /2018 [facility] [place] Records Outpatient [id number] Dot 07/10 [facility] Outpatient [id number] Dot 07/10 07/11 Specialty [facility] /2018 Med[facility] Clinic [facility] Outpatient [id number] 07/14 Act darrell [facility] -URODYNAMI /2018 Fabien anna , Outpatient [id number] MED_ASST 07/14 Activ [facility] VISIT /2018 [place] Outpatient [id number] Dot 07/14 07/15 [facility] Urology [place] /2018 [facility] Outpatient [id number] Dot 07/14 07/15 MH Urology [place] /2018 [facility] Outpatient [id number] Dot 07/26 Active [facility] [place] Multi Ambulatory [id number] Dot 07/26 07/26 MH Specialty Pre-Reg [place] /2018 Medic al [facility] Outpatient [id number] Dot 07/31 Active [facility] [place] [facility] Multi Outpatient [id number] Dot 07/31 08/01 MH Specialty [place] /2018 Medica l [facility] Outpatient [id number] 09/13 Active [facility] [place] /2019 [place] [facility] Multi Outpatient [id number] Dot 09/13 09/14 MH Specialty [place] [facility] [id number] 09/27 09/29 [facility] Urology Message /2019 [facility] [id number] 10/06 10/08 MH Urology Message /2019 [facility] Outpatient [id number] MED_ASST 10/10 Activ [facility] VISIT /2019 [place] [facility] Outpatient [id number] MED_ASST 10/10 10/11 MH Urology VISIT /2019 [facility] Outpatient [id number] MED_ASST 10/23 Activ e [facility] VISIT /2019 [place] Outpatient [id number] MED_ASST 10/23 Activ e [facility] VISIT /2020 [place] Outpatient [id number] Dot 10/23 Active [facility] [place] /2019 [place] [facility] Outpatient [id number] Dot 10/23 10/24 MH Urology [place] /2019 [facility] Outpt Diag [id number] Dot 11/02 11/03 MH [facility] Outpatient Services [place] /2019 [place] [facility] Phone [id number] 11/09 11/11 MH Urology Message /2019 [facility] Outpatient [id number] 11/12 Active [facility] [place] /2019 [place] [facility] Multi Ambulatory [id number] Dot 11/12 11/12 Specialty Pre-Reg [place] /2019 Medic al Clinic [facility] Outpatient [id number] Mick 11/22 Active [facility] /2019 [place] [facility] Outpatient [id number] Sal[place] 11/22 11/23 [facility] [place] /2019 [place] [facility] Outpt Diag [id number] Thy E[place] 01/21 01/22 [facility] Outpatient Services /2019 [place] [facility] [place] Outpatient [id number] Dot 02/25 Active [facility] [place] /2020 [place] Outpatient [id number] Dot 02/25 Active [facility] [place] /2020 [facility] Multi Ambulatory [id number] Dot 02/25 02/25 Specialty Pre-Reg [place] /2019 Medic al Clinic [facility] Outpatient [id number] Mick 05/24 Active [facility]2019 [place] Outpatient [id number] Mick 05/24 Active [facility]2019 [place] Procedures Procedure Code Date Perfomer Comments Source Cystourethroscopy 606[address] [facility] erick (separate procedure) [place] [address] [facility] post-voiding residual 0 Nany up urine and/or bladder capacity by ultrasound, non-imaging Complex uroflowmetry [address] [facility] edical (eg, calibrated 0 Group electronic equipment) Laparoscopic adjustable [id number] M Medical gastric banding Group,[facility], TEN [place] Assessment and Plan Assessment and Plan Date Source Extracted from:Title: General Neurology Discharge Summary [facility] Author: Sujata Talamantes MD Date: 05/21/19 General Neurology Discharge Summary Date of Admission: 05/07/2019 Date of Discharge: 05/21/2019 Admit Diagnosis: myasthenia gravis Myasthenia gravis crisis respiratory failure Dysphagia Discharge Diagnosis: Seropositive generalized myasthenia gravis Myasthenia gravis crisis respiratory failure Dysphagia Consults Obtained: Transfusion medicine Brief HPI: The pt is a right-handed 64 year old mal e with a PMH of hypothyroidism, HLD, and HTN who was transferred form OSH due to MG crisis. Almost two weeks prior to admission he s tarted having progressive worsening dysarthria, and bilateral ptosis and dysphagia, saw a neurologist who had a high suspicion for myasthenia gravis (MG), prescri bed pyridostigmine and ordered immunoglo bulins. He did not improve clinically, and the blood work resulted positive for MG per . He continued taking pyridostigmine 60 mg tid and 30 mg qd of predniso ne. He presented to OSH with worsening s ymptoms and difficulty breathing. Was intubated in OSH and was started on IVIG and then was transferred here the day after for HLOC. Hospital Course: The pt was admitted to ICU, intubated. o vernight, ICU team continued IVIG given that already was started in OSH. The pt finished the total 2gr/kg IVIG over five days and was able to be extubated on the last day but still had significant dysph agia drooling, severe ptosis, severe dysarthria and severe fatigability of extremities. Decision was made to start PLEX given persistent symptoms and severe dysph agia. PLEX started on started on and he finished 5 PLEX every other day with last PLEX on 05/20/2019. His symptoms significantly improved, pa ssed swallow evaluation for regular diet on 05/19 (after 4 PLEX). He was discharged on 05/20 after last PLEX in good condition. During this admission, home dose Prednis one 30 mg daily and home dose Mestinon, 60 mg TID while awake, were continued. Of note CT chest was negative for Thymoma. Discharge Physical Examination: NEUROLOGY: MENTAL STATUS: Patient is awake alert. O riented to person, place, time, and situation. SPEECH/LANGUAGE: no dysarthria at baseli ne, intact repetition, naming and comprehension CRANIAL NERVES: EOMI, PERRL. no ptosis on baseline. Up moore gaze test: negative after 1.5 minute. one breath count test: 27 neck flexion: 5/5 neck extension: 5/5 Muscle strength at rest: R UE- Deltoid 5/5, Triceps 5/5, Biceps 5 /5, Wrist flexion 5/5, Wrist extension 5/5 L UE- Deltoid 5/5, Triceps 5/5, Biceps 5 /5, Wrist flexion 5/5, Wrist extension 5/5 R LE- Iliopsoas 5/5, Knee extension5/5, Knee flexion 5/5, dorsiflexion 5/5, plantarflexion 5/5塥 LLE- Iliopsoas5/5, Knee extension5/5, Kn ee flexion 5/5, dorsiflexion 5/5, plantarflexion 5/5 arms Out stretch test in 90 seconds R UE- Deltoid 5/5, Triceps 5/5, Biceps 5 /5, Wrist flexion 5/5, Wrist extension 5/5 L UE- Deltoid 5/5, Triceps 5/5, Biceps 5 /5, Wrist flexion 5/5, Wrist extension 5/5 arms Out stretch test in 90 seconds R LE- Iliopsoas 5/5, Knee extension5/5, Knee flexion 5/5, dorsiflexion 5/5, plantarflexion 5/5Ꭳ LLE- Iliopsoas5/5, Knee extension5/5, Kn ee flexion 5/5, dorsiflexion 5/5, plantarflexion 5/5 COORDINATION: FTN wnl, no signs of dysmetria. GAIT: nl Discharge Medications: Discharge Medications pantoprazole 40 mg oral enteric coated t ablet :40 mg, 1 tab, PO, Before Breakfast, 30 tab, 5 Refill(s) Ordered by: Sujata Talamantes MD - 05/20/2019 10:59 pyridostigmine 60 mg oral tablet :60 mg, 1 tab, PO, TID, 1 tab: 7-8 am 1 tab: 1-2 pm 1 tab: 6-7 pm, 90 tab, 5 Refill(s) Ordered by: Sujata Talamantes MD - 05/20/2019 10:57 predniSONE 10 mg oral tablet :30 mg, 3 tab, PO, Daily, 90 ta b, 5 Refill(s) Ordered by: Sujata Talamantes MD - 05/20/2019 10:56 Follow up: Home Care Instructions Notify Physician if any of the Following Occur : Bleeding, Fever, Nausea, Pain, Shortness of breath, Signs of infection, Swelling, Other: worsening weakness, difficulty swallowing, slurred speech, difficulty breathing, double vision Special Home Care Instructions : Home Care Instructions Notify Physician if any of the Following Occur : Bleeding, Fever, Nausea, Pain, Shortness of breath, Signs of infection, Swelling, Other: worsening weakness, difficulty swallowing, slurred speech, difficulty breathing, double vision Special Home Care Instructions : Neurology discharge instr uctions: You were admitted to [facility] for seropos itive Myasthenia Gravis crisis and treated with Plasma exchange and IVIG. Arm cryo extravasation- -warm compress -MARK bandage -elevate arm Please present to ED SILVIA in case of wor sening weakness, difficulty swallowing, slurred speech, difficulty breathing, and double vision. Medications: - Take your medications as instructed -take Prednisone 30 mg mg Daily -take pantoprazole daily Before Breakfast as long as your ar e on Prednisone -take pyridostigmine 60 mg three times/day; 7-8 am, 1-2 pm, 6-7 Follow-up appointments: - Neurology: Call [phone] SILVIA to nancy frankel an appointment with neuromuscular clinic in 2-3 weeks. Neurology clinic address: [address], [address] [place] [address] - PCP: Call your PCP to schedule an appo intment within 1-2 days for post- hospitalization follow-up and management of your overall health. To be followed up with your PCP: -There was Cryo product extravasation fr om you right AC IV line with subsequent edema. Doppler US did not show deep venous thrombosis but showed superficial veins thrombophlebitis. Surgery team evaluate d you and there was no concern for timi rtment syndrome. Please follow up with your PCP in 1-2 days to check your arm. In case of worsening pain, edema, redness, weakness, tingling and numbness, please present to ED SILVIA. -Prior to admission here, you were on di fferent blood pressure medication but we did not record persistent high blood pressure while you were admitted in hospital so we did not re-start your home high b lood pressure medication. Please follow up with your primary care physician in 4-5 days for blood pressure management if needed. -Also we discharged you on Prednisone th at can cause osteoporosis. You need baseline bone densitometry SILVIA. Please continue taking Calcium supplements and Vitamin D. The dose will be adjusted by your P CP after Bone densitometry and measuring Vitamin D level. -Please take daily multivitamin given hi story of Lap Band surgery. Please discuss with your PCP There are some medications that can wors en myasthenia gravis symptoms (the list was given). In case you present to any physician, please inform them regarding diagnosis of myasthenia gravis. Please call our nurse navigator Heidi ([phone]) with any questions regarding medications, follow-up appointments, or discharge instructions. Please take your discharge paperwork with you to your follow-up appointments. Returning back t o work/school will be addressed at your follow-up appointment. Please email Dr. Chuy Germain, [email or web address], Neurology attending, with any concern. Physician Follow-Up v2 Follow-Up With Provider : Non-MH physician Non MH Provider #1 : PCP Follow-Up Call : Call for appointment Follow-Up Within : 2 days Reason : Primary Care Physician follow up post leana Talamantes, Neurology PGY4 Neurology Attending Physician Statement: The patient was seen and examined by me with the resident and I agree with the History/Exam/Medical Decision Making document. DX: newly dx MG, seropositive, thymoma negative Improved significantly s/p PLEX 12/25 05/16: started to have mild diarrhea, марина l d/c bowel regimen and cont Mestinon 60 TID (will hold off on 180 mg qhs) 05/17: Diarrhea has resolved, c/o abdomin al wall pain due to multiple heparin shots for DVT prophylaxis, will switch to Lovenox once a day, repeat MBS on 05/19 05/18: PLEX /, doing well, speech exercises, still NPO pend ing MBS tomorrow 05/19: Passed swallow eval for regular di et with thin liquids, d/c NGT, last PLEX on Wednesday and can be d/c`ed after catheter is out and monitored for bleeding. Patient was on several anti HTN but requi red none here despite prednisone 30 mg q d, would recommend to have BP check at home and have the primary resume any of these if needed 05/20: last PLEX was done, however after pulling the catheter from the right femoral patient started bleeding, coag were abnormal due to recent PLEX with INR 1.5, cryo was recs by transfusion medicine (discharge hold due to this) 05/21: Due to Cryo infiltration under the skin he developed superficial thrombophlebitis for which the Vascular surgery was consult and recs warm compress and pain control, no surgical intervention neede d, ok to d/c the patient home, he was pr ovided with my contact and will let me know if any changes/concerns. needs f/u with NMS specialist in 2 weeks , needs to be started on steroid sparing agent. Chuy Germain MD Rubber Extrusion Machine Operator of Neurology. Pager:[phone] Extracted from:Title: General Neurology Progress Note Author: Sujata Talamantes MD Date: 05/20/19 General Neurology Progress Note Subjective/Overnight Events: no complains. 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 Two weeks ago, on 04/27, he wo ke up with dysarthria followed by irene frias toward the evening. He and his were concerned this could be a stroke and went to their laundry worker, who said he wasn't certain it was not a stroke and referred him to Dr. Barber, a neurolo gist. The neurologist had a high suspicion for myasthenia gravis (MG), prescribed pyridostigmine and ordered immunoglobulins. He did not improve clinically, and t he blood work resulted positive for MG p er . He continued taking pyridostigmine 60 mg tid and 30 mg qd of prednisone. He went on to develop facial weakness one week later. He was taking a shower whe n he developed sudden bilateral ptosis. He then began having dysphagia and his , who is a dietitian, modified his diet to ensure and mashed potatoes. Finally, over the last two days, he developed dy spnea. His suggested a hospital vis it and he refused until today, when the dyspnea worsened and he was intubated at [facility], given 10 g of IVIG, solu-medrol 125 mg and propofol gtt. He was then transferred. Hospital Course: 05/09: IVIG treatment started today. CT chest showed no thym viral. 05/10: Day 2/5 IVIG tx. Pt now ambulatin g while intubated, clinical improving. Anticipate extubation today. 05/11: extubated overnight. failed BMS t thi and still NPO. He has muscle fatigability on all four extremities. has mild-moderate secretions. arm and leg stretch test fatigability in 40 seconds. 05/12: no improvement in symptoms. NIF an d FVC declining although the numbers are not completely accurate given the pt's face weakness. fatigability on extremities are mildly worse than yesterday. a rm and leg stretch test fatigability in less than 30 seconds. due to worsening of signs, decided to start PLEX. HD line was placed by general surgery and the pt received first PLEX today. 05/13: Exam mildly improved today , no ptosis on baseline. on e breath count 26. 05/14: Exam continuing to improve, no pto sis seen at rest, one breath count 27 today. 05/15: Exam improved on upper extremities . One breath count 27. neck flexion strength improved 05/16: Significant improvement in ptosis, failed MBS but per speech had improvement, will repeat the test in a couple of days 05/17: s/p 3/5 PLEX. no neuro change on exam today. 05/18: Day 4 of PLEX. Speech bedside stil l NPO, plan for MBS tomorrow. subjectively feels stronger 05/19: passed swallow eval for regular diet and thin liquid 05/20:Last PLEX, no complain. Quintine ca theter was removed with no bleeding but almost half an hour after live removal, when the pt got out of the bed, the site of the cental line removal started bleedi ng. Vital status. coagulation tests done stat that showed INR 1.5, and Fibrinogen 101. Per Transfusion team, gave one unit of Cryo ROS: Review of Systems: GEN: no fever, chills, weight loss, -generalized fatigue EYES: no double vision CARDIO: no chest pain, PULM: no cough GI: no nausea, vomiting, no abd pain, no diarrhea : no frequency, dysuria, hematuria NEURO: see HPI SKIN: no rash or lesion MSK: no pain, LYMPH/IMMUNO: no heat/cold intolerance Scheduled Meds Scheduled Meds (10): 05/16/19 citalopram 10 mg PO Daily 05/18/19 docusate 100 mg GT Daily 05/17/19 enoxaparin (Lovenox) 40 mg SUB-Q [id number] 05/08/19 levothyroxine 100 microgram GT Daily 05/13/19 melatonin 10 mg PO Bedtime 05/15/19 nutritional supplement (Benepro tein 7 gm pkt) 1 pkt T FEED TID-Before Meals 05/08/19 predniSONE 30 mg GT Daily 05/13/19 pyridostigmine 60 mg GT TID 05/16/19 (Suspended) senna 8.6 mg GT Daily 05/07/19 sodium chloride (Saline Flush 0.9%) 10 ml IVP Q12H Continuous Infusions: None One Time Meds (1): 05/20/19 (Ordered) albumin human (album in human 5% intravenous solution) 3.5 Liter IV ONCE Physical Exam: Vitals Tmp(F) Pulse BP RR SpO2 FIO2 05/19 16:54 97.7 60 110/74 18 97 --- 05/19 11:46 98.0 65 119/74 18 96 --- 05/19 08:45 97.8 61 124/73 18 96 --- 05/19 03:40 97.9 61 113/72 18 97 --- 05/18 23:42 97.6 61 118/73 18 97 --- 24 Hr Tmax: 98.0F (36.67c) at 05/19 11:4 6 Vital Signs are the last 5 in the past 48 hours. GENERAL: Awake, alert. HEENT: Normocephalic, atraumatic. RESPIRATORY: Symmetrical rise of chest during inspiration. CARDIOVASCULAR: Regular rate and rhythm. ABDOMEN: Soft, NEUROLOGY: MENTAL STATUS: Patient is awake alert. O riented to person, place, time, and situation. SPEECH/LANGUAGE: no dysarthria at baseli ne, intact repetition, naming and comprehension CRANIAL NERVES: EOMI, PERRL. no ptosis o n baseline. Up moore gaze test: negative after 1 minute. Hearing intact. one breath count test: 27 MOTOR: Tone is normal. neck flexion: 5/5 neck extension: 5/5 Muscle strength at rest: R UE- Deltoid 5/5, Triceps 5/5, Biceps 5 /5, Wrist flexion 5/5, Wrist extension 5/5 L UE- Deltoid 5/5, Triceps 5/5, Biceps 5 /5, Wrist flexion 5/5, Wrist extension 5/5 R LE- Iliopsoas 5/5, Knee extension5/5, Knee flexion 5/5, dorsiflexion 5/5, plantarflexion 5/5᧷ LLE- Iliopsoas5/5, Knee extension5/5, Kn ee flexion 5/5, dorsiflexion 5/5, plantarflexion 5/5 arms Out stretch test in 90 seconds R UE- Deltoid 5/5, Triceps 5/5, Biceps 5 /5, Wrist flexion 5/5, Wrist extension 5/5 L UE- Deltoid 5/5, Triceps 5/5, Biceps 5 /5, Wrist flexion 5/5, Wrist extension 5/5 arms Out stretch test in 45 seconds R LE- Iliopsoas 5/5, Knee extension5/5, Knee flexion 5/5, dorsiflexion 5/5, plantarflexion 5/5ϼ LLE- Iliopsoas5/5, Knee extension5/5, Kn ee flexion 5/5, dorsiflexion 5/5, plantarflexion 5/5 COORDINATION: FTN wnl, no signs of dysmetria. GAIT: not tested Labs (Last four charted values) WBC H 16.1 (SEP 7) H 17.1 (MAY 18) H 15.1 (MAY 18) H 14.0 (MAY 17) Hgb 14.3 (MAY 19) 15.0 (MAY 18) L 13.6 (MAY 18) 14.3 (MAY 17) Hct 42.4 (MAY 19) 44.4 (MAY 18) L 40.8 (MAY 18) 43.3 (APR 25) Plt 160 (MAY 19) 159 (MAY 18) 177 (MAY 18) L 101 (MAY 17) Na 142 (MAY 19) 140 (MAY 18) 139 (MAY 17) 140 (APR 24) K 3.6 (MAY 19) 4.4 (MAY 18) 3.9 (APR 25) 3.8 (APR 24) CO2 L 22 (MAY 19) 25 (MAY 18) L 21 (MAY 17) L 23 (MAY 16) Cl H 112 (MAY 19 ) 109 (MAY 18) H 111 (MAY 17) 107 (MAY 16) Cr 0.73 (MAY 19) 0.73 (MAY 18) 0.80 (APR 25) 0.72 (APR 24) BUN 19 (MAY 19) 19 (MAY 18) 19 (MAY 17) 22 (SEP 24) Glucose Random 88 (SEP 2 7) 74 (SEP ) 88 (SEP ) C 49 (SEP ) Mg 2.2 (MAY 19) H 2.5 (MAY 18) 2.4 (SEP ) 2.3 (APR 24) Phos 2.6 (MAY 19) 3.0 (SEP ) 2.6 (SEP ) L 2.4 (APR 24) Ca 8.8 (MAY 19) 8.7 (MAY 18) 8.6 (SEP ) 8.9 (SEP 24) PT 12.8 (SEP 19) 13.5 (SEP 18) 13.9 (SEP 17) INR 0.98 (MAY 11) 1.05 (APR 18) 1.09 (APR 17) PTT 28.3 (MAY 11) 31.3 (APR 18) 33.3 (APR 17) Troponin <0.02 (APR 20) <0.02 (SEP 1 6) Total CK 154 (APR 23) 115 (SEP 15) Imaging: reviewed in care4 Assessment/Plan: 63 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 Pt admitted for MG crisis, #Sero-positive generalized Myasthenia Gravis Crisis -Ach binding and blocking positive in OSH -Chest CT without Thymoma -Continue NIF and FVC q6hr -s/p IVIG 2g/kg IV x5 days (started 05/09 )--> was started in OSH and was continued while the pt was in NICU -Continue Mestinon 60mg TID while he is awake, 8 am, 1 pm an d 6 pm -Continue Prednisone 30mg QD -PLEX started on 05/12; PLEX / -No sign of infection #Dysphagia/Resolved -regular diet #Insomnia/improving -On melatonin 10 mg at home-> continued Prophylaxis DVT: Heparin SubQ Q8H Diet: Tubefeeds Code Status: Full Code Family Contact: Alethea Glass (spouse): [phone] Disposition: Wednesday evening or Wednesday morning. Sent a message to [facility] to make an appointment for him Sujata Talamantes, Neurology PGY4 Neurology Attending Physician Statement: The patient was seen and examined by me with the resident and I agree with the History/Exam/Medical Decision Making document. DX: newly dx MG, seropositive, thymoma negative Improving significantly, PLEX ongoing st ill with dysphagia and NPO but MBS showed some improvement, repeat on 05/19 05/16: started to have mild diarrhea, марина l d/c bowel regimen and cont Mestinon 60 TID (will hold off on 180 mg qhs) 05/17: Diarrhea has resolved, c/o abdomin al wall pain due to multiple heparin shots for DVT prophylaxis, will switch to Lovenox once a day, repeat MBS on 05/19 05/18: PLEX 4/5, doing well, speech exercises, still NPO pend ing MBS tomorrow 05/19: Passed swallow eval for regular di et with thin liquids, d/c NGT, last PLEX on Wednesday and can be d/c`ed after catheter is out and monitored for bleeding. Patient was on several anti HTN but requi red none here despite prednisone 30 mg q d, would recommend to have BP check at home and have the primary resume any of these if needed 05/20: last PLEX was done, however after pulling the catheter from the right femoral patient started bleeding, coag were abnormal due to recent PLEX with INR 1.5, cryo was recs by transfusion medicine (discharge hold due to this) needs f/u with NMS specialist in 2 weeks , needs to be started on steroid sparing agent. Chuy Germain MD Rubber Extrusion Machine Operator of Neurology. Pager:[phone] Extracted from:Title: Transfusion medicine/Apheresis service consult note Author: Nelly Haas MD Date: 05/12/19 Transfusion medicine/Apheresis service consult note Date of Consultation: 05/12/19 Referring Physician: Dr. Larsen, Neurology team Reason for Consultation: Assisting manag ement for myasthenia gravis that is not responsible to IVIG treatment. History of Present Illness: Mr. Glass is a right-handed 63 year old m an, with a PMH of hypothyroidism, HLD, and HTN who developed progressive fatigable bulbar weakness over the last 2 weeks. Two weeks ago, he woke up with dysarthri a followed by anarthria toward the eveni ng. He and his were concerned this could be a stroke and went to their laundry worker, who said he wasn't certain it was not a stroke and referred him to Dr. Barber, a neurologist. The neurologis t had a high suspicion for myasthenia gravis (MG), prescribed pyridostigmine and ordered immunoglobulins. He did not improve clinically, and the blood work resulted positive for MG per . He continued taking pyridostigmine 60 mg tid and 30 mg qd of prednisone. He went on to develop facial weakness one week later. He was taking a shower when he developed sudden bilateral ptosis. He then b mehnaz having dysphagia. He visited the [facility] due to sever dyspnea, and he was intubated at [facility], given 10 g of IVIG, solu-medrol 125 mg and propofol gtt. He was then transferred to [facility] that he had been given multiple do ses of IVIG since 05/07/2019. Patient showed some improvement and extubated but still expressing difficulties and weakness. The neurology team consulted us to do TPE. Per 2019 ASFA guidelines Myasthenia grav is crisis is a category I indication for therapeutic plasma exchange. As per our discussion with the clinical team, we planned on doing a cycle of total five TPE procedures, one every other day. Review of Systems: GEN: no fever, chills, weight loss, fatigue EYES: no double vision CARDIO: no chest pain PULM: no cough GI: no nausea, vomiting, diarrhea, no abdominal pain : no frequency, dysuria, hematuria NEURO: see HPI SKIN: no rash or lesion MSK: no pain LYMPH/IMMUNO: no heat/cold intolerance Histories: Past Medical History: hypothyroidism, HLD, and HTN Family History: No qualifying data available Surgical history: Laparoscopic adjustable gastric banding Social History: Tobacco Details: Use: Never smoker. Tobacco smo ke exposure: None. Did the Patient Smoke Cigarettes Anytime During the Last 365 Days? No. Cessation Counseling Provided? No. . Medication list: Scheduled Meds (7): 05/08/19 9:00 docusate 100 mg GT Daily 05/08/19 0:00 heparin 5,000 unit SUB-Q Q8H 05/08/19 9:00 levothyroxine 100 microgram GT Daily 05/08/19 9:00 predniSONE 30 mg GT Daily 05/08/19 16:00 pyridostigmine 60 mg GT Q8H 05/08/19 9:00 senna 8.6 mg GT Daily 05/07/19 21:00 sodium chloride (Saline Flush 0.9%) 10 ml IVP Q12H Unscheduled Meds (1): 05/08/19 17:56 pneumococcal 13-valent vaccine 0.5 mL IM ONCA LL PRN Meds (9): 05/07/19 20:06 Insulin regular 2 unit SUB-Q Sliding Scale 05/07/19 20:06 Insulin regular 4 unit SUB-Q Sliding Scale 05/07/19 20:06 Insulin regular 6 unit SUB-Q Sliding Scale 05/07/19 20:06 Insulin regular 8 unit SUB-Q Sliding Scale 05/07/19 20:06 Insulin regular 10 unit SUB-Q Sliding Scale 05/10/19 17:58 bisacodyl (Dulcolax Laxative) 10 mg [place] Daily 05/12/19 10:46 lidocaine (lidocaine 1%) 100 mg SUB-Q ONCALL 05/09/19 4:30 melatonin 3 mg GT Bedtime 05/07/19 20:06 sodium chloride (Saline Flush 0.9%) 10 ml IVP PRN One Time Meds: None Continuous Infusions (2): 05/07/19 22:08 dexmedetomidine 400 micro gram + Sodium Chloride 0.9% IV 100 mL (Precedex 400 microgram in NS 100 mL (Titrate.) IV 400 microgram + Sodium Chloride 0.9% IV 100 mL) 400 microgram Titrate 05/07/19 18:32 propofol 1,000 mg (propof ol 10 mg/mL (Titrate.) IV 1,000 mg) 1,000 mg Titrate Physical Exam: GENERAL: Awake, alert. sitting in the chair HEENT: Normocephalic, atraumatic. No erythema or exudate in oropharynx. RESPIRATORY: Symmetrical rise of chest during inspiration. CARDIOVASCULAR: Regular rate and rhythm, right femoral line is dry ABDOMEN: Soft, non-tenderness SKIN: No rash, petechiae or ecchymosis Vitals Tmp(F) Tmp(C) Ttype B P MAP Pulse RR SpO2 FIO2 ETCO2 05/12 10:00 ---- ---- ---- 1 88 62 21 96 --- --- 05/12 09:00 ---- ---- ---- 1 89 62 17 97 --- --- 05/12 08:00 ---- ---- ---- 1 94 63 17 99 --- --- 05/12 07:00 ---- ---- ---- 1 89 58 22 97 --- --- 05/12 06:00 ---- ---- ---- - ---- --- 58 24 97 --- --- 24 Hr Tmax: 98.1F (36.72c) at 05/11 20:0 0 24 Hr Tmin: 96.8F (36.00c) at 05/12 04:00 36 Hr Tmax: 98.1F (36.72c) at 05/11 20:0 0 36 Hr Tmin: 96.8F (36.00c) at 05/12 04:00 Vital Signs are the last 5 in the past 4 8 hours. Weights are the last 5 in 60 days, plus initial. Date Wt(kg) Wt(lb) Ht(cm) Ht(in) Method BM I BSA 05/10 101.30 222.86 172.72 68.00 Measured 05/09 102.01 224.42 172.72 68.00 Measured 05/07 (initial) 102.00 224.40 172.72 68.00 Measured 34.2 2.21 Labs: 05/12 0608 Glucose Lvl 92 BUN 25 H Creatinine Lvl 0.80 Sodium Lvl 144 Potassium Lvl 4.1 Chloride Lvl 111 H CO2 27 AGAP 10.1 Calcium Lvl 9.1 eGFR 94 Troponin-I <0.02 WBC 9.2 RBC 4.26 L Hgb 13.7 L Hct 39.6 L MCV 92.9 MCH 32.1 H MCHC 34.6 RDW 13.7 Platelet 164 MPV 8.9 Segs 61.2 Monocytes 11.8 Lymphocytes 22.6 Eosinophils 3.7 Basophils 0.7 Neutrophils # 5.6 Lymphocytes # 2.1 Monocytes # 1.1 H Eosinophils # 0.3 Basophils # 0.1 Assessment and Plan: Mr. Glass is a right-handed 63 year old m an, with a PMH of hypothyroidism, HLD, and HTN who developed progressive fatigable bulbar weakness over the last 2 weeks. Two weeks ago, he woke up with dysarthri a followed by anarthria toward the nicolette elliott. He and his were concerned this could be a stroke and went to their laundry worker, who said he wasn't certain it was not a stroke and referred him to Dr. Barber, a neurologist. The neurologis t had a high suspicion for myasthenia gravis (MG), prescribed pyridostigmine and ordered immunoglobulins. He did not improve clinically, and the blood work resulted positive for MG per . He continued taking pyridostigmine 60 mg tid and 30 mg qd of prednisone. He went on to develop facial weakness one week later. He was taking a shower when he developed sudden bilateral ptosis. He then b mehnaz having dysphagia. He visited the [facility] due to sever dyspnea, and he was intubated at [facility], given 10 g of IVIG, solu-medrol 125 mg and propofol gtt. He was then transferred to [facility], where he had been given multiple dos es of IVIG since 05/07/2019. Patient showed some improvement and extubated but still expressing difficulties and weakness. The neurology team consulted us to do TPE. Per 2019 ASFA guidelines Myasthenia grav is crisis is a category I indication for therapeutic plasma exchange. As per our discussion with the clinical team, we planned on doing a cycle of total five TPE procedures, one every other day. 1. Procedure risks and benefits explaine d to the patient, all questions and concerns answered and consent obtained. 2. A right femoral central line had been placed. 3. For optimal treatment will plan for 5 procedures (one procedure, every other day). 4. Labs will be reviewed prior to each p rocedure and based on results, the type of replacement fluid will be determined. 5. Calcium gluconate will be given durin g the procedure to prevent citrate- induced hypocalcemia. Nelly Haas MD [id number] Transfusion Medicine Transfusion Medicine/Apheresis Service Attending Note: This is a 63 y/o male with history of hy pothyroidism who developed neurological symptoms consistent with myasthenia gravis (MG). He was intubated due to respiratory deficit and treated with IVIG at the outside facility. He was extubated and had last dose of IVIG completed this morning at 4am; however, he has failed respiratory test. We are consulted for assisting his further management. 1.Per review the patients chart, the tracy antony has autoimmune disorder, and now is diagnosed with MG while striated muscle IgG detected, TPE is indicated. 2.A cycle of 5 daily TPE procedures is p lanned with every other day as the interval. 3.His newly placed femoral central line will be used as the access for the procedures. 4.Iso-volumic procedures are planned, an d his vital signs will be monitored as well. I have seen the patient, performed physi erick examination with the resident, reviewed the related medical record and arranged the first procedure to be performed today. I agree with the resident's management plan. Thanks for consultation. 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 Two weeks ago, on 04/27, he woke up with dysarthria followed by anarthria toward the evening. He and his were concerned this could be a stroke and went to their laundry worker, who said he was n't certain it was not a stroke and refe rred him to Dr. Barber, a neurologist. The neurologist had a high suspicion for myasthenia gravis (MG), prescribed pyridostigmine and ordered immunoglobulins. He did not improve clinically, and the blood work resulted positive for MG per . He continued taking pyridostigmine 60 mg tid and 30 mg qd of prednisone. He went on to develop facial weakness one week later. He was taking a shower when he developed sudden bilateral ptosis. He then b mehnaz having dysphagia and his , who is a dietitian, modified his diet to ensure and mashed potatoes. Finally, over the last two days, he deve loped dyspnea. His suggested a hospital visit and he refused until today, when the dyspnea worsened and he was intubated at [facility], given 10 g o f IVIG, solu-medrol 125 mg and propofol gtt. He was then tra nsferred. Review of Systems: Difficult to assess as intubated. He denies weight loss and prior MG history. Past Medical History hypothyroidism, HLD, and HTN Past Surgical History Laparoscopic adjustable gastric banding Family Medical History Will assess when extubated. Social History Denies any substance abuse including tobbaco, alcohol and [place] licit drugs. Home Medications Pyridostigmine 60 mg tid prednisone 60 mg qd hctz 25 mg qd carvedilol 12.5 mg bid atorvastatin 80 mg qhs ASA 81 mg qd folic acid 1 mg qd levothyroxine 100 ug qd citalopram 10 mg qd Inpatient Medications Medications (40) Active Scheduled Meds (8): 05/07/19 chlorhexidine topical (chlorhex idine topical 0.12% liquid) 15 mL [place]outh Q12H 05/08/19 chlorhexidine topical (chlorhex idine topical 0.12% liquid) 15 mL [place] Q4H 05/08/19 docusate 100 mg PO Daily 05/07/19 famotidine 20 mg IVP Q12H 05/08/19 heparin 5,000 unit SUB-Q Q8H 05/08/19 ocular lubricant 1 appl BOTH EYES Q6H 05/08/19 senna 8.6 mg PO Daily 05/07/19 sodium chloride (Saline Flush 0.9%) 10 ml IVP Q12H Unscheduled Meds: None PRN Meds (31): 05/07/19 Dextrose 50% in Water IV (Dextrose 50% Syringe) 12. 5 gm IVP PRN 05/07/19 Dextrose 50% in Water IV (Dextrose 50% Syringe) 25 gm IVP PRN 05/07/19 Insulin regular 2 unit SUB-Q Sliding Scale 05/07/19 Insulin regular 4 unit SUB-Q Sliding Scale 05/07/19 Insulin regular 6 unit SUB-Q Sliding Scale 05/07/19 Insulin regular 8 unit SUB-Q Sliding Scale 05/07/19 Insulin regular 10 unit SUB-Q Sliding Scale 05/07/19 calcium carbonate (calcium carb deandre 500 mg (200 mg elemental calcium) oral tablet) 500 mg PO PRN 05/07/19 calcium carbonate (calcium carb deandre 500 mg (200 mg elemental calcium) oral tablet) 1,000 mg PO PRN 05/07/19 calcium gluconate 1 gm IVPB PRN 05/07/19 chlorhexidine topical (chlorhex idine topical 0.12% liquid) 15 mL [place]ab [place]outh PRN 05/07/19 glucagon 1 mg IM PRN 05/07/19 insulin lispro 2 unit SUB-Q Sliding Scale 05/07/19 insulin lispro 4 unit SUB-Q Sliding Scale 05/07/19 insulin lispro 6 unit SUB-Q Sliding Scale 05/07/19 insulin lispro 8 unit SUB-Q Sliding Scale 05/07/19 insulin lispro 10 unit SUB-Q Sliding Scale 05/07/19 magnesium oxide 800 mg PO PRN 05/07/19 magnesium sulfate 2 gm IVPB PRN 05/07/19 potassium chloride 20 mEq IVPB PRN 05/07/19 potassium chloride 10 mEq IVPB PRN 05/07/19 potassium chloride 20 mEq PO PRN 05/07/19 potassium chloride 20 mEq [place] PRN 05/07/19 potassium phosphate-sodium phos phate (potassium phosphate-sodium phosphate 250 mg-280 mg-160 mg oral powder for reconstitution) 2 pkt PO PRN 05/07/19 potassium phosphate 15 mmol IVPB PRN 05/07/19 potassium phosphate 30 mmol IVPB PRN 05/07/19 potassium phosphate 45 mmol IVPB PRN 05/07/19 sodium chloride (Saline Flush 0.9%) 10 ml IVP PRN 05/07/19 sodium phosphate 15 mmol IVPB PRN 05/07/19 sodium phosphate 30 mmol IVPB PRN 05/07/19 sodium phosphate 45 mmol IVPB PRN One Time Meds: None Continuous Infusions (1): 05/07/19 propofol 1,000 mg (propofol 10 mg/mL (Titrate.) IV 1,000 mg) 1,000 mg Titrate Allergies Allergies: No Known Allergies Physical Exam Vitals Tmp(F) Pulse BP RR SpO2 FIO2 05/07 20:00 ---- 71 126/77 17 98 --- 05/07 19:00 97.1 68 113/78 17 98 --- 05/07 18:26 ---- 64 120/75 17 97 --- 05/07 18:14 ---- --- ----- 19 100 100% 05/07 18:03 ---- --- ----- -- 100 50% 24 Hr Tmax: 97.1F (36.17c) at 09/15 19:0 0 Vital Signs are the last 5 in the past 48 hours. I&O Record In Out Bal 05/07 24hr Tot 73 0 73 05/06 24hr Tot 0 0 0 Date Wt(kg) Wt(lb) Ht(cm) Ht(in) Method 05/07 (initial) 102.00 224.40 172.72 68.00 Measured GENERAL: Awake, alert, in NAD HEENT: Normocephalic and atraumatic, lisette st oral mucosa, no lymphadenopathy, no thyromegaly PULMONARY: Intubated. AC/VC. CV: S1S2 RRR, no m/r/g, equal pulses stephanie aterally. Pulses 2+ bilaterally. Warm, good capillary refill. No LE edema. GI: Normoactive BS, no abdominal bruits. Tympanic to percussion. Non-tender to palpation. No masses, hepatosplenomegaly. No CVA tenderness. NEURO Mental Status: The patient is alert, attentive, and oriented . Language: intubated Cranial Nerves: PERRL 2 and 1 mm/brisk w ith anisocoria that fluctuates. Facial weakness of the eyebrows, bilateral ptosis, subjective diplopia, facial sensation intact, hearing intact, intubated, cough reflex intact, full SCM and trapezius strength. Deferred ton elyse testing. Motor: Facial weakness. 5/5 corrective therapy aide and toes. 4/5 proximal stre ngth. Sensation: Light touch, pinprick, propri oception, and vibroception are intact. Romberg is absent. Coordination: Restrained. Able to write in the air with good smooth motor modulation. Gait: Posture is normal. Gait is steady with normal steps, base, arm swing, and turning. Heel, toe and tandem walking are normal. Pre-Morbid MRS 0-Completely asymptomatic [facility] AGAP: 14.6 mEq/L (05/07/19) Basophils: 0.3 % (05/07/19) BUN: 17 mg/dL (05/07/19) Calcium Lvl: 9.3 mg/dL (05/07/19) Chloride Lvl: 107 mEq/L (05/07/19) CO2: 24 mEq/L (05/07/19) Creatinine Lvl: 1.05 mg/dL (05/07/19) eGFR: 74 mL/min/1.73m2 (05/07/19) Eosinophils: 0.1 % (05/07/19) Glucose Lvl: 127 mg/dL High (05/07/19) Glucose POC: 133 mg/dL High (05/07/19) Hct: 43.9 % (05/07/19) Hgb: 15.1 g/dL (05/07/19) Lactic Acid Lvl: 1.6 mMol/L (05/07/19) Lymphocytes: 7.8 % Low (05/07/19) Lymphocytes #: 0.9 K/CMM Low (05/07/19) Magnesium Lvl: 2.2 mg/dL (05/07/19) MCH: 31.6 pg High (05/07/19) MCHC: 34.3 g/dL (05/07/19) MCV: 92.2 fL (05/07/19) Monocytes: 0.6 % Low (05/07/19) Monocytes #: 0.1 K/CMM (05/07/19) MPV: 9.5 fL (05/07/19) Neutrophils #: 10.4 K/CMM High (05/07/19) Phosphorus: 1.6 mg/dL Low (05/07/19) Platelet: 176 K/CMM (05/07/19) POC A %FIO2: 50 % (05/07/19) POC A BE: 4 mMol/L High (05/07/19) POC A HCO3: 25 mMol/L (05/07/19) POC A Mech Rate: 17 bpm (05/07/19) POC A Mode: AC (05/07/19) POC A O2 Sat: 97 % (05/07/19) POC A PCO2: 27 mmHg Critical (05/07/19) POC A PEEP: 8 cmH20 (05/07/19) POC A pH: 7.58 High (05/07/19) POC A PO2: 72 mmHg Low (05/07/19) POC A Source: ART (05/07/19) POC A Temp: 37 DegC (05/07/19) POC A VT: 650 mL (05/07/19) POC Performing Location: See Note (05/07/19) Potassium Lvl: 3.6 mEq/L (05/07/19) RBC: 4.76 M/CMM (05/07/19) RDW: 13.5 % (05/07/19) Segs: 91.2 % High (05/07/19) Sodium Lvl: 142 mEq/L (05/07/19) UA Bili: cNegative (05/07/19) UA Blood: cNegative (05/07/19) UA Color: cYellow (05/07/19) UA Glucose: cNegative (05/07/19) UA Hyal Cast: 1 /LPF (05/07/19) UA Ketones: cNegative (05/07/19) UA Leuk Est: cNegative (05/07/19) UA Mucus: cFew (05/07/19) UA Nitrite: cNegative (05/07/19) UA pH: 8 (05/07/19) UA Protein: cTrace Abnormal (05/07/19) UA RBC: 8 /HPF High (05/07/19) UA Spec Grav: 1.01 (05/07/19) UA Sq Epi: iOCC (05/07/19) UA Turbidity: cClear (05/07/19) UA Urobilinogen: 0.2 EU/dL (05/07/19) UA WBC: 3 /HPF (05/07/19) WBC: 11.4 K/CMM High (05/07/19) No qualifying data available. 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 No secretions at this time. - PT/OT - NPO until ST evaluation; NJ if not extubated soon - IgA level will be difficult to assess given s/p IVIg. No mention of IgA levels, but also no allergic reaction at OSH after his first dose. He did receive 125 mg of solu-medrol however. - Day 1 of IVIG started with Octagam at OSH 05/07. He received 10 g and was sent with 4 additional bottles of 10 g. Continue IVIG 2 g/kg divided in 3-5 days. RESP Acute Respiratory Failure -vent management per ICU -wean when able - Schedule FVC q 2--> 4 -->6 h when extubated CV Essential (primary) hypertension -Aggressive BP control, goal SBP <140 mmHg GI/ CKD Stage 2 (GFR 60-89) -Gentle hydration -avoid nephrotoxic agents Nutrition E66.9 Obesity -diet consult Prophylaxis DVT:SQH Bowel: Docusate. Diet: Diet NPO -- 05/07/19 18:14:30 CDT THE FOLLOWING WERE PRESENT ON ADMISSION: MEDICAL RECORDS TECHNICIAN - Myasthenia gravis crisis Respiratory - acute respiratory failure Cardiovascular - HTN The patient was seen and discussed with Dr. Barry. Radha Cortez M.D. Neurology PGY-3 Post Round addendum The pt was agitated overnight and was placed on dexmedetomid ine on exam he is intubated, awake, follows commands, fatigable ptosis bilateral after 30 seconds upward gaze test moves all four extremities AG, not fatig able although the exam was limited due to intubation DTRs 2+ Plantar reflexes: down #MG crisis -Continue IVIG total 2 gr/kg over 5 days -Will continue home dose Prednisone 30 mg daily -Continue Mestinon 60 mg TID -PT/OT -Ventilator management per ICU -CT chest--> no thymoma -Pending receiving Out side medical records and MG Ab panel results. Sujata Talamantes, Neurology PGY4 Neurology Attending: I reviewed the resident's note, personal ly reviewed all the patients labs and imaging studies and performed a neurological exam. I discussed the assessment and plan of care and agree with th e plan as outlined in the resident's not e. See note below for additions and/or exceptions and my findings. Pt with new diagnosis of MG requiring in tubation. IVIG started at OSH and decision to continue it was made overnight. Will obtain records from Neurologist. Continue prednisone and Mestinon. Eden Gil MD Rubber Extrusion Machine Operator Plan of Care No Data Provided for This Section Social History Social History Date Source Social History TypeResponse 02/26/2020 [facility] Smoking Status Former smoker; Type: Cigarettes; Exposur e to Tobacco Smoke Unable to obtain; Cigarette Smoking Last 365 Days No; Reg Smoking Cessation Counseling No entered on: 02/26/20 Social History TypeResponse 11/23/2019 [facility] Smoking Status Never smoker; Exposure to Tobacco Smoke None; Cigarette Smoking Last 365 Days No; Reg Smoking Cessation Counseling No entered on: 11/23/19 Social History TypeResponse 11/23/2019 [facility] [place] Smoking Status Never smoker; Exposure to Tobacco Smoke None; Cigarette Smoking Last 365 Days No; Reg Smoking Cessation Counseling No entered on: 11/23/19 Social History TypeResponse 05/07/2019 [facility] Smoking Status Never smoker; Exposure to Tobacco Smoke None; Cigarette Smoking Last 365 Days No; Reg Smoking Cessation Counseling No entered on: 05/07/19 Family History No Data Provided for This Section Advance Directives No Data Provided for This Section Functional Status No Data Provided for This Section
--- OUTSIDE RECORDS SUMMARY | 2020-04-12 11:40 | XMS REPORT | Continuity of Care Document ---
:1955 Author Organization [facility] t Address [address] [place] [address] Care Team Providers Name Role Phone MONICA Attending Clinician Unavailable Ishaan Napoles Attending Clinician Kenzie Anderson Attending Clinician Wilberto Snell Attending Clinician VISIT, [facility] Attending Clinician Unavailable AMANDA Attending Clinician Unavailable LUCY Attending Clinician Unavailable LUIS MIGUEL Attending Clinician Unavailable Paris Attending Clinician She Gil Admitting Clinician Problems Condition Condition Condition Status Onset Resolution Last Treating Co mments Source Name Details Category Date Date Treatment Clinician Date R31.29 - Diagnosis Active 2019-11-03 M emoria OTHER 3 08:28:00 l MICROSCOPI R31.29 - 00:01: He rmann C OTHER 00 HEMATURIA MICROSCOPI C HEMATURIA Active 10/24/2019 OPID Alfred G70.00 Diagnosis Active 2018-082019-10-07 Mem oria 2-12 15:28:00 l G70.00 00:00: [place] 00 Active 08/03/2019 [facility] MYASTHENIA Diagnosis Active 2019-05-24 Memoria GRAVIS 05-07 22:12:00 l 00:00: [place] MYASTHENIA 00 GRAVIS Active 05/07/2019 [facility] PIA Diagnosis Active 2019-05-07 Memoria BILLING 05-07 17:48:00 l 00:00: [place] PIA 00 BILLING Active 05/07/2019 [facility] 379.91 - Diagnosis Active 2012-05-03 M emoria PAIN IN OR 04-28 09:30:00 l AROU 379.91 - 00:01: Fabien anna PAIN IN OR 00 AROU Active 04/28/2012 TEN Simon History of History of Problem Resolve Univers hematuria hematuria d ity of [place] [facility] ans History of History of Problem Resolve Univers hypothyroi hypothyroi d it y of dism dism [place] [facility] History of History of Problem Resolve Univers hypertensi hypertensi d it y of on on [place] [facility] Urinary Urinary Problem Active Univers hesitancy hesitancy ity of [place] [facility] Myasthenia Myasthenia Problem Active U nivers gravis gravis ity of [place] [facility] Gallstones Gallstones Problem Active U nivers ity of [place] [facility] Osteopenia Osteopenia Problem Active U nivers ity of [place] [facility] Osteoporos Osteoporos Problem Active U nivers is is ity of [place] [facility] ans Atrial Atrial Problem Active Univers fibrillati fibrillati it y of on on [place] [facility] ans Hyperchole Problem Resolve 2020-02-28 Memoria sterolemia d 21:53:51 l (disorder) Fabien anna Hyperchole sterolemia (disorder) Resolved Problem 02/28/2020 [facility], OPID [place] Dysarthria Problem Active 2020-02-28 M emoria (finding) 21:53:51 l [place] Dysarthria (finding) Active Problem 02/28/2020 [facility], OPID [place] Hypertensi Problem Active 2020-02-28 M emoria ve 21:53:51 l disorder, [place] systemic Hypertensi arterial ve (disorder) disorder, systemic arterial (disorder) Active Problem 02/28/2020 [facility] her Neuro,[facility] OPID [place] Hyperlipid Problem Active 2020-02-28 M emoria emia 21:53:51 l (disorder) Fabien anna Hyperlipid emia (disorder) Active Problem 02/28/2020 [facility] her Neuro,[facility] OPID [place] Hypothyroi Problem Active 2020-02-28 M emoria dism 21:53:51 l (disorder) Fabien anna Hypothyroi dism (disorder) Active Problem 02/28/2020 [facility] her Neuro,[facility], OPID [place] Morbid Problem Active 2020-02-28 Memor ia obesity 21:53:51 l (disorder) Morbid Herm cristhian obesity (disorder) Active Problem 02/28/2020 [facility] her Neuro,[facility], OPID Alfred Myasthenia Problem Active 2020-02-28 M emoria gravis 21:53:51 l (disorder) Fabien n Myasthenia gravis (disorder) Active Problem 02/28/2020 [facility] her Neuro,[facility], OPID Alfred Lower Problem Active 2020-02-28 Memor ia urinary 21:53:51 l tract Lower [place] symptoms urinary (finding) tract symptoms (finding) Active Problem 02/28/2020 [facility] her Neuro, OPIYuliya Simon Allergies, Adverse Reactions, Alerts Allergy Allergy Status Severity Reaction(s) Onset Inactive Treating Comm ents Source Name Type Date Date Clinician Codeine Allergy Active Univers Sulfate to drug ity of TABS (finding [place] ) Physici ans codeine codeine Active Memoria l [place] PDI PDI Active Memoria Insect Insect l Sting Sting [place] Relief Relief Family History Family Member Diagnosis Comments Start Date Stop Date Source Mother Family history of Univers ity of Active medical [place] [facility] problems: none Unknown Family Family history of Family History University of Member cardiac disorder [place] [facility] Unknown Family Family history of Family History University of Member malignant [place] [facility] ns neoplasm of prostate Social History Smoking Status Start Date Stop Date Source Smoker (finding) [facility] ex Physicians Social History 2020-02-26 13:49:22 2020-02-26 13:49:22 [facility] Medications Ordered Filled Start Stop Current Ordering Indication Dosage Frequency Signature Comments Components Source Medication Medication Date Date Medication? Clinician (SIG) Name Name Xarelto 20 Xarelto 20 2019-0 Yes THY ANDERSON Univers MG Oral MG Oral 7-21 M.D. ity of Tablet Tablet 00:00: [place] 00 Physici ans Amiodarone Amiodarone 2019-0 Yes THY ANDERSON 1 QD TAKE 1 Univers HCl - 200 HCl - 200 7-21 M.D. TABLET ity of MG Oral MG Oral 00:00: DAILY. [place] Tablet Tablet Physici ans Topiramate Topiramate 2019-0 Yes THY ANDERSON Univers 25 MG Oral 25 MG Oral 5-26 M.D. ity of Tablet Tablet 00:00: [place] 00 Physici ans Prednisone 2020-0 Yes 50 mg = 1 Me moria 50 MG Oral 4-02 tab, PO, l Tablet 14:04: Daily, 0 [place] 00 Refill(s) predniSONE 2019-0 Yes 10 mg = 1 Me moria 10 mg oral 4-02 tab, PO, l tablet 14:04: Daily, 0 [place] 00 Refill(s) Losartan Losartan 2019-0 Yes THY ANDERSON 1 QD TAKE 1 Univers Potassium Potassium 3-16 M.D. TABLET ity of 50 MG Oral 50 MG Oral 00:00: DAILY. [place] Tablet Tablet 00 Physici ans Levothyroxi Levothyroxi 2020-0 Yes THY ANDERSON 1 QD TAKE 1 Univers ne Sodium ne Sodium 3-16 M.D. TABLET ity of 100 MCG 100 MCG 00:00: DAILY. [place] Oral Tablet Oral Tablet 00 P hysici ans Carvedilol Carvedilol 2019-0 Yes THY ANDERSON Q0.5D TAKE 1 Univers 12.5 MG 12.5 MG 3-16 M.D. TABLET ity of Oral Tablet Oral Tablet 00:00: TWICE [place] 00 DAILY. Physici ans Atorvastati Atorvastati 2019-0 Yes THY ANDERSON 1 QD TAKE 1 Univers n Calcium n Calcium 3-16 M.D. TABLET ity of 40 MG Oral 40 MG Oral 00:00: DAILY. [place] Tablet Tablet 00 Physici ans hydroCHLORO hydroCHLORO 2019-0 Yes THY ANDERSON 1 QD TAKE 1 Univers thiazide thiazide 3-16 M.D. TABLET ity o f 12.5 MG 12.5 MG 00:00: DAILY. [place] Oral Tablet Oral Tablet 00 P hysici ans Citalopram Citalopram 2019-0 Yes THY ANDERSON TAKE 2 Univers Hydrobromid Hydrobromid 3-16 M.D. TABLET BY ity of e 10 MG e 10 MG 00:00: MOUTH [place] Oral Tablet Oral Tablet 00 DAILY Physici ans Tamsulosin 2019-0 Yes 0.4 mg = 1 M emoria hydrochlori 3-03 cap, PO, l de 0.4 MG 17:49: Daily, # Herm cristhian Oral 00 90 cap, 3 Capsule Refill(s), [Flomax] Pharmacy: [facility] pyridostigm Yes 0 Memori a ine 180 mg 1-22 Refill(s) l oral 16:13: [place] tablet, 00 extended release azaTHIOprin azaTHIOprin Yes LOU ANDERSON Q0.5D TAKE 1 Univers e 50 MG e 50 MG 1-15 M.D. TABLET BY ity of Oral Tablet Oral Tablet 00:00: MOUTH [place] 00 TWICE Physici DAILY ans Tamsulosin 2018-08 Yes 0.4 mg = 1 M emoria hydrochlori 2-09 cap, PO, l de 0.4 MG 15:12: Daily, # Herm cristhian Oral 00 90 cap, 0 Capsule Refill(s), [Flomax] Pharmacy: [facility] 527 predniSONE predniSONE 2018-08 Yes LOU ANDERSON Take 1 Univers 10 MG Oral 10 MG Oral 2-09 M.D. tablet i ty of Tablet Tablet 00:00: daily in [place] 00 addition Physici to 50 mg ans tab for TDD: 60 mg TDD:60 mg predniSONE predniSONE 2018-08 Yes LOU ANDERSON QD TAKE 1 Univers 50 MG Oral 50 MG Oral 0-28 M.D. TABLET BY ity of Tablet Tablet 00:00: MOUTH ONCE Nicholas as 00 DAILY IN Physici ADDITION ans TO 10MG. (TOTAL DAILY DOSE: 60MG) Pyridostigm Pyridostigm 2018-08 Yes LOU ANDERSON TAKE 1 Univers ine [place] ine [place] 0-23 M.D. TABLET BY ity of 60 MG Oral 60 MG Oral 00:00: MOUTH 4 [place] Tablet Tablet 00 TIMES Physici DAILY AT ans 7:00, 11:00, 3:00, 7:00 Calcium No Notes: Memoria Gluconate 05-20 WASTE: F/P l 21:30: - Sink; E [place] - Municipal Trash Bin albumin No Notes: Memoria human 5% 05-20 LOT#: l intravenous 21:07: [place] solution 00 ___Mfg:___ ___ (Same as: Albuminar) "blood product derivative " WASTE: F/P - Red; E -Red MEDICATION WASTE Product Size: 25 gm Product Wasted: ___ gm NS (Bolus) No 500 mL, Kaleb rodriguez IV 05-20 500 ml/hr, l 17:48: Infuse Over: 1 hr, Route: IV, 500, Drug form: INJ, ONCE, Priority: STAT, Dosing Weight 102.001 kg, Start date: 05/20/19 12:48:00 CDT, Stop date: 05/20/19 12:48:00 CDT, 0 predniSONE 2019-0 Yes 30 mg = 3 Me moria 10 mg oral 9-28 tab, PO, l tablet 15:56: Daily, # [place] 00 90 tab, 5 Refill(s), Pharmacy: [facility] 527 pyridostigm 2018-0 Yes 60 mg = 1 M emoria ine 60 mg 9-28 tab, PO, l oral tablet 15:56: TID, 1 Herm cristhian 00 tab: 7-8 am 1 tab: 1-2 pm 1 tab: 6-7 pm, # 90 tab, 5 Refill(s), Pharmacy: [facility] 527 Melatonin 5 Yes 10 mg = 2 M emoria MG 9-28 tab, PO, l Sublingual 15:56: Bedtime, 0 H ermann Tablet 00 Refill(s) pantoprazol 2018-0 Yes 40 mg = 1 M emoria e 40 mg 9-28 tab, PO, l oral 15:56: Before [place] enteric 00 Breakfast, coated # 30 tab, tablet 5 Refill(s), Pharmacy: [facility] 527 Protonix 2018-0 No 40 mg, 1 Memor ia -28 tab, l 14:00: Route: PO, Drug form: ECTAB, Before Breakfast, Start date: 05/20/19 9:00:00 CDT, Duration: 30 day, Stop date: 06/19/19 7:30:00 CDT, 0 pantoprazol 2018-0 No 20 mg, Kaleb rodriguez e 05-20 Route: PO, l 12:30: Before Breakfast, Dosing Weight 102.001, kg, Start date: 05/20/19 7:30:00 CDT, Duration: 30 day, Stop date: 06/18/19 7:30:00 CDT phenol 2019-0 No Notes: Memoria 05-19 Chlorasept l 02:41: ic [place] (Same as: Chlorasept ic, Sore Throat [place]) WASTE: F/P - Black; E - Municipal Trash Bin Calcium No Notes: Memoria Gluconate 05-18 WASTE: F/P l 22:00: - Sink; E [place] - Municipal Trash Bin albumin No 200 gm, Memoria human 5% 05-18 4,000 mL, l intravenous 21:46: 2000 Fabien n solution 00 ml/hr, Route: IV, Drug Form: INJ, Dosing Weight 102.001, kg, ONCE, Start date: 05/18/19 16:46:00 CDT, Stop date: 05/18/19 16:46:00 CDT, Indication : Plasmapher esis, 0 tramadol No Notes: Not Mem oria hydrochlori 05-18 to exceed l de 50 MG 01:34: 400mg/day. Her collier Oral Tablet 00 (Same As: Ultram) Lovenox No Notes: Memoria 05-17 (Same as: l 21:00: Lovenox) [place] tramadol No Notes: Not Mem oria hydrochlori 05-17 to exceed l de 50 MG 16:53: 400mg/day. Her collier Oral Tablet 00 (Same As: Ultram) Ibuprofen No Notes: Memori a 400 MG Oral 05-17 (Same as: l Tablet 01:13: Motrin) "Do Not Crush" Give with food. Citalopram No 10 mg, 1 Mem oria 05-16 tab, l 16:24: Route: PO, [place] 00 Drug form: TAB, Daily, Dosing Weight 102.001, kg, Priority: NOW, Start date: 05/16/19 11:24:00 CDT, Duration: 30 day, Stop date: 06/15/19 9:00:00 CDT, 0 calcium No Notes: Memoria gluconate 05-16 WASTE: F/P l 16:00: - Sink; E [place] - Municipal Trash Bin Calcium No Notes: Memoria Gluconate 05-16 WASTE: F/P l 14:00: - Sink; E [place] - Municipal Trash Bin albumin No Notes: Memoria human 5% 05-16 LOT#: l intravenous 13:54: [place] solution 00 ___Mfg:___ ___ (Same as: Albuminar) "blood product derivative " WASTE: F/P - Red; E -Red MEDICATION WASTE Product Size: 25 gm Product Wasted: ___ gm Beneprotein No Notes: Kaleb rodriguez 7 gm pkt 05-15 (Same as: l 21:30: Beneprotei n) Calcium No Notes: Memoria Gluconate 05-14 WASTE: F/P l 14:00: - Sink; E - Municipal Trash Bin albumin No Notes: Memoria human 5% 05-14 LOT#: l intravenous 13:52: [place] solution ___Mfg:___ ___ (Same as: Albuminar) "blood product derivative " WASTE: F/P - Red; E -Red MEDICATION WASTE Product Size: 25 gm Product Wasted: ___ gm Calcium No Notes: Memoria Gluconate 05-14 WASTE: F/P l 13:52: - Sink; - Municipal Trash Bin Melatonin No Notes: Memori a 05-14 (Same as: l 01:00: Melatonin) Pyridostigm No Notes: Kaleb rodriguez ine 05-13 (Same as: l 18:00: Mestinon) Calcium No Notes: Memoria Gluconate 05-12 WASTE: F/P l 18:00: - Sink; E - Municipal Trash Bin albumin No Notes: Memoria human 5% 05-12 LOT#: l intravenous 17:42: [place] solution 00 ___Mfg:___ ___ (Same as: Albuminar) "blood product derivative " WASTE: F/P - Red; E -Red MEDICATION WASTE Product Size: 25 gm Product Wasted: ___ gm Lidocaine No Notes: Memori a Hydrochlori 9-20 (Same as: l de 10 MG/ML 15:46: Xylocaine) [place] Injectable 00 Solution Dulcolax No Notes: Memoria Laxative 05-10 (Same As: l 22:58: Dulcolax, Bisco-Lax) Melatonin No Notes: Memori a 05-09 (Same as: l 09:30: Melatonin) Gamunex-C No Notes: For Me moria 05-09 adults: l 07:00: use IBW of XX used for XX mg/kg per protocol For adult patients: Begin at 1 mg/kg/min. If tolerating , may double rate after 30 minutes and continue to increase every 15 minutes to a maximum of 4 mg/kg/min. Reduce the infusion by half if adverse reactions occur and notify prescriber . If symptoms continue after 15 minutes, stop infusion and notify prescriber . If symptoms subside promptly, the infusion may be resumed at the previously tolerated rate. Most reactions occur in the first 30 minutes of infusion. Monitor patient closely for vital sign changes or flushing. WASTE: F/P - Red; E -Red Lot # Mf [id number]: __ (Gamunex - C) Non-Formul [place] "blood product derivative " Famotidine No Notes: Memor ia 20 MG Oral 05-09 (Same as: l Tablet 02:00: Pepcid) Streptococc No 0.5 mL, Mem oria us 05-08 Route: IM, l pneumoniae 22:56: Drug Form: H ermann serotype 1 44 INJ, capsular ONCALL, antigen Start diphtheria date: [id number] 05/08/19 protein 17:56:44 conjugate CDT, vaccine / Duration: Streptococc 1 doses or us times, 0 pneumoniae serotype 14 capsular antigen diphtheria [id number] protein conjugate vaccine / Streptococc us pneumoniae serotype 18C capsular antigen d Pyridostigm No Pyridostig Memoria ine 90 mg 05-08 mine 90 mg l Tab 21:00: Tab, 90 [place] 00 mg, Drug form: MISC, Route: PO, Q8H, 05/08/19 16:00:00 CDT, Duration: 30 day, Stop date: 06/07/19 8:00:00 CDT, 0 Pyridostigm No Notes: Kaleb rodriguez ine -16 (Same as: l 21:00: Mestinon) Immunoglobu No 40 gm, Kaleb rodriguez refugio G 16 Route: IV, l 15:00: Q24H, Dosing Weight 102.001, kg, Priority: Routine, Start date: 05/08/19 10:00:00 CDT, Duration: 4 day, Stop date: 05/11/19 10:00:00 CDT, Indication : Myasthenia gravis sennosides, No Notes: Kaleb rodriguez JAIL 16 (Same as: l 14:00: Senokot) Docusate No Notes: Memoria -16 (Same as: l 14:00: Colace) (Do Not Crush) Immunoglobu No 50,000 mg, Memoria refugio G 05-08 Route: IV, l 14:00: Q24H, Dosing Weight 102.001, kg, Start date: 05/08/19 9:00:00 CDT, Duration: 4 day, Stop date: 05/11/19 9:00:00 CDT, Indication : Myasthenia gravis Prednisone No Notes: Memor ia 05-08 (Same as: l 14:00: PredniSONE ) Take with food. Thyroxine No Notes: Memori a -16 Take 1 l 14:00: hour before or 2 hours after meal; Enteral feeds may interefere with the absorption of this medication . (Same as:Levothr oid, Synthroid) Immune No Notes: Memoria Globulin 5% 16 Begin at l Octagam 10 06:30: 0.03 [place] 00 grams/kg/h our (0.5mg/kg/ min); double the RATE (grams/kg/ hour) every 30 minutes as tolerated to a max of 0.48 grams/kg/h our (8 mg/kg/min) . Iohexol No 75 mL, Memoria 16 Route: l 05:43: IVP, Drug Form: SOLN, Dosing Weight 102.001, kg, ONCALL, STAT, Start date: 05/08/19 0:43:00 CDT, Duration: 1 doses or times, Dose = 2.2ml/kg, Max dose = 100ml -- "To be infused by Radiology Staff ONLY" Immunoglobu 2018- No 30 gm, Kaleb rodriguez refugio G 05-08 Route: IV, l 05:13: ONCE, [place] 00 Dosing Weight 102.001, kg, Priority: NOW, Start date: 05/08/19 0:13:00 CDT, Stop date: 05/08/19 0:13:00 CDT, Indication : Myasthenia gravis ocular No Notes: Memoria lubricant 05-08 (Same as: l 05:00: Lacri-Lube [place] , Puralube, Duratears Naturale, Artificial Tears, and Tears Again ) chlorhexidi No Notes: Kaleb rodriguez ne 05-08 (Same As: l gluconate 05:00: Peridex) Herm cristhian 1.2 MG/ML 00 Mouthwash heparin No Notes: Memoria -16 porcine l 05:00: heparin [place] 00 Pyridostigm No Pyridostig Memoria ine 90 mg - mine 90 mg l Tab 05:00: Tab, 90 [place] 00 mg, 1.5 tab, Drug form: MISC, Route: PO, TID, 05/08/19 0:00:00 CDT, Duration: 30 day, Stop date: 06/06/19 17:00:00 CDT, 0 predniSONE No TAKE 1 Memor ia 10 mg oral 9-16 TABLET BY l tablet 03:23: MOUTH ONCE Patsy nn 00 DAILY FOR 30 DAYS citalopram No TAKE 1 Memor ia 10 mg oral 9-16 TABLET BY l tablet 03:23: MOUTH IN [place] 00 THE MORNING levothyroxi No TAKE 1 Kaleb rodriguez ne 100 mcg 9-16 TABLET BY l (0.1 mg) 03:23: MOUTH IN Patsy nn oral tablet 00 THE MORNING carvedilol No 12.5 mg = Me moria 12.5 mg 9-16 1 tab, PO, l oral tablet 03:21: Q12H, # 60 [place] 00 tab, 0 Refill(s) atorvastati Yes 40 mg = 1 M emoria n 40 mg 9-16 tab, PO, l oral tablet 03:21: Bedtime, # [place] 00 30 tab, 0 Refill(s) Hydrochloro No 25 mg = 1 M emoria thiazide 25 9-16 tab, PO, l MG Oral 03:21: Daily, # Fabien n Tablet 00 30 tab, 0 Refill(s) pyridostigm No 60 mg = 1 M emoria ine 60 mg 9-16 tab, TID, l oral tablet 03:21: 0 Fabien n 00 Refill(s) AMLODIPINE No AMLODIPINE M emoria BESYLATE 10 -16 BESYLATE l MG TAB 03:21: 10 MG TAB, Patsy nn 00 Refill(s) 0 Pyridostigm No 90 mg, Kaleb rodriguez ine 16 Route: PO, l 03:17: TID, [place] 00 Dosing Weight 102.001, kg, Start date: 05/07/19 22:17:00 CDT, Duration: 30 day, Stop date: 06/06/19 17:00:00 CDT Dexmedetomi No Notes: Use Memoria dine 05-08 the l 03:08: following [place] 00 cdm for [id number]. Famotidine No Notes: Memor ia 05-08 (Same as: l 02:00: Pepcid) Can be dilute in 5-10cc NS IVP: Slow IV push over at least 2 minutes. chlorhexidi No Notes: Kaleb rodriguez ne 05-08 (Same As: l gluconate 02:00: Peridex) Herm cristhian 1.2 MG/ML 00 Mouthwash Saline No Notes: Memoria Flush 0.9% -16 (Same as: l 02:00: BD [place] 00 Posiflush) Saline No Notes: Memoria Flush 0.9% -16 (Same as: l 01:06: BD [place] Posiflush) Insulin No Notes: Memoria regular 05-08 (Same as: l 01:06: Humulin R) [place] 00 Roll in palms of hands gently; Do not shake vigorously . WASTE: F/P - Black; E - Municipal Trash Bin Stable for 31 days at room temperatur e Expires in days from ____Date Dextrose 2019-0 No 25 mL, Memoria 50% Syringe 05-08 Route: l 01:06: IVP, Dosing Weight 102.001, kg, PRN, PRN Blood Glucose Results, Start date: 05/07/19 20:06:00 CDT, Duration: 30 day, Stop date: 06/06/19 20:05:00 CDT Glucagon No 1 mg, Memoria 05-08 Route: IM, l 01:06: PRN, Dosing Weight 102.001, kg, PRN Blood Glucose Results, Start date: 05/07/19 20:06:00 CDT, Duration: 30 day, Stop date: 06/06/19 20:05:00 CDT propofol 10 2018-0 No Notes: If M emoria mg/mL 05-07 Diprivan - l (Titrate.) 23:32: change Patsy nn IV 1,000 mg 00 bottle & tubing every 12 hr Per state nursing law propofol can only be given by a nurse if patient is intubated or being intubated (unless the nurse is a DATA CAPTURE SPECIALIST). Same as: Diprivan Dextrose 0 No 12.5 gm, Memor ia 50% Syringe 05-07 25 mL, l 23:23: Route: IVP, Drug Form: INJ, Dosing Weight 102.001, kg, PRN, PRN Blood Glucose Results, Start date: 05/07/19 18:23:00 CDT, Duration: 30 day, Stop date: 06/06/19 18:22:00 CDT, 0 Glucagon 2018-0 No 1 mg, Memoria 05-07 Route: IM, l 23:23: Drug form: [place] 00 PDR/INJ, PRN, Dosing Weight 102.001, kg, PRN Blood Glucose Results, Start date: 05/07/19 18:23:00 CDT, Duration: 30 day, Stop date: 06/06/19 18:22:00 CDT, 0 Insulin 2018-0 No Notes: Memoria Lispro 9-15 (Same as: l 23:23: Humalog) Roll in palms of hands gently; Do not shake vigorously . WASTE: F/P - Black; E - Municipal Trash Bin Stable for 28 days at room temperatur e. Expires in days from ____Date Potassium No Notes: Memori a Chloride 9-15 (Same as: l 23:22: KCL) Infuse no faster than 10 mEq/hr if given peripheral ly. sodium No Notes: Memoria phosphate 9-15 Infuse l 23:22: over 4 [place] 00 hour. Do not infuse phosphorou s concurrent ly in the same line as TPN or IVF that contains calcium. For double lumen central lines, phosphorou s may be infused in a separate lumen from TPN. potassium No Notes: Memori a phosphate 9-15 (Same as: l 23:22: K Phosphate. ) Do not infuse phosphorou s concurrent ly in the same line as TPN or IVF that contains calcium. For double lumen central lines, phosphorou s may be infused in a separate lumen from TPN. 1 mMol phoshate has 1.47 mEq potassium Infuse over 4 hours potassium No Notes: Memori a phosphate-s -15 (Same as: l odium 23:22: Phos-NaK) phosphate 00 Each 1.5 250 mg-280 gm pkt has mg-160 mg 250mg oral powder phosphorou for s. Mix reconstitut w/2.5oz ion water and stir. Magnesium No Notes: Memori a Sulfate 05-07 WASTE: F/P l 23:22: - Sink; E - Municipal Trash Bin Magnesium No Notes: Memori a Oxide 15 (Same as: l 23:22: Mag-Ox 400) Magnesium oxide [id number] g elemental magnesium Dose=____m g magnesium oxide (___mg elemental magnesium) Calcium No Notes: Memoria Gluconate 05-07 WASTE: F/P l 23:22: - Sink; E [place] 00 - Municipal Trash Bin Calcium No Notes: Memoria Carbonate 05-07 (Same As: l 500 MG 23:22: Tums) [place] Chewable 00 Calcium Tablet Carbonate 500 mg = 200 mg elemental calcium Dose = mg calcium carbonate ( mg elemental calcium) chlorhexidi No Notes: Kaleb rodriguez ne 05-07 (Same As: l gluconate 23:21: Peridex) Herm cristhian 1.2 MG/ML 00 Mouthwash Pyridostigm Yes 60 mg = 1 M emoria ine [place] 9-12 tab, PO, l 60 MG Oral 19:07: QID, # 120 H ermann Tablet 35 tab, 2 [Mestinon] Refill(s), Pharmacy: [facility] 527 predniSONE Yes 10 mg = 1 Me moria 10 mg oral 12 tab, PO, l tablet 19:07: Daily, X [place] 00 30 day, # 30 tab, 1 Refill(s), Pharmacy: [facility] 527 Pyridostigm No 60 mg = 1 M emoria ine [place] 9-11 tab, PO, l 60 MG Oral 15:36: QID, # 120 H ermann Tablet 40 tab, 2 [Mestinon] Refill(s), Pharmacy: [facility] 527 Pyridostigm Yes 60 mg = 1 M emoria ine [place] 9-04 tab, PO, l 60 MG Oral 22:05: TID, # 90 He rmann Tablet 00 tab, 2 [Mestinon] Refill(s), Pharmacy: [facility] 527 Aspirin 81 Yes 81 mg = 1 Me moria MG Enteric 9-04 tab, PO, l Coated 21:45: Daily, # [place] Tablet 00 90 tab, 3 Refill(s) carvedilol Yes 12.5 mg = Me moria 12.5 mg 9-04 1 tab, PO, l oral tablet 20:58: Q12H, # 60 [place] 00 tab, 0 Refill(s) amLODIPine Yes 10 mg = 1 Me moria 10 mg oral 9-04 tab, PO, l tablet 20:58: Daily, # [place] 00 90 tab, 0 Refill(s) hydrochloro Yes 12.5 mg = M emoria thiazide 904 1 tab, PO, l 12.5 mg 20:58: Daily, # Fabien n oral tablet 00 30 tab, 0 Refill(s) Citalopram Yes 10 mg, PO, M emoria 9 Daily, 0 l 20:58: Refill(s) [place] 00 losartan Yes 100 mg = 1 Mem oria 100 mg oral 04 tab, PO, l tablet 20:58: Daily, # [place] 00 30 tab, 0 Refill(s) levothyroxi Yes 100 Memori a ne 100 mcg 04-26 microgram l (0.1 mg) 20:58: = 1 tab, Patsy nn oral tablet 00 PO, Daily, # 30 tab, 0 Refill(s) atorvastati Yes 40 mg = 1 M emoria n 40 mg 04-26 tab, PO, l oral tablet 20:58: Bedtime, # [place] 00 30 tab, 0 Refill(s) Folic Acid Yes 1 mg = 1 Mem oria 1 MG Oral 04-26 tab, PO, l Tablet 20:58: Daily, # [place] 00 30 tab, 0 Refill(s) Diclofenac Yes 1 tab, PO, M emoria Sodium 75 04-26 Daily, 0 l MG / 20:58: Refill(s) [place] Misoprostol 00 0.2 MG Oral Tablet Pantoprazol Pantoprazol Yes TAKE 1 Univers e Sodium 40 e Sodium 40 TABLET BY ity of MG Oral MG Oral MOUTH [place] Tablet Tablet DAILY Physici Delayed Delayed ans Release Release Flomax 0.4 Flomax 0.4 Yes Uni vers MG Oral MG Oral ity of Capsule Capsule [place] Physici ans Vital Signs Vital Name Observation Time Observation Value Comments Source Systolic blood 2019-09-26 148 mm[Hg] [facility] pressure 15:38:00 Position: [place] Physician s Sitting Diastolic blood 2019-09-26 84 mm[Hg] Location: [facility] 15:38:00 Position: [place] Physician s Sitting Body height 2019-09-26 65 [in_us] [facility] 15:38:00 [place] Physician s Weight 2019-09-26 231.125 [lb_av] University o f 15:38:00 [place] Physician s Body mass index 2019-09-26 38.46 kg/m2 University o f (BMI) [Ratio] 15:38:00 [place] Physicia ns Body temperature 2019-09-26 97.1 [degF] Method: Oral University of 15:38:00 [place] Physician s Heart Rate 2019-09-26 63 /min University of 15:38:00 [place] Physician s Systolic blood 2019-09-18 154 mm[Hg] Location: [facility]; [facility] 10:06:00 Position: [place] Physician s Sitting Diastolic blood 2019-09-18 78 mm[Hg] Location: [place]; [facility] 10:06:00 Position: [place] Physician s Sitting Body height 2019-09-18 68 [in_us] University of 10:06:00 [place] Physician s Weight 2019-09-18 234 [lb_av] University of 10:06:00 [place] Physician s Body mass index 2019-09-18 35.58 kg/m2 University o f (BMI) [Ratio] 10:06:00 [place] Physicia ns Body temperature 2019-09-18 97.6 [degF] Method: Oral University 10:06:00 [place] Physician s Heart Rate 2019-09-18 57 /min University 10:06:00 [place] Physician s Height 2019-09-13 172.72 cm [facility] 16:08:00 Weight 2019-09-13 [facility] 16:08:00 BMI Calculated 2019-09-13 [facility] 16:08:00 BP Systolic 2019-09-05 129 mm[Hg] [facility] 14:[facility] Position: [place] Physician s Sitting BP Diastolic 2019-09-05 78 mm[Hg] [facility] 14:08:[facility] Position: [place] Physician s Sitting Height 2019-09-05 68 [in_us] University of 14:08:00 [place] Physician s Weight 2019-09-05 231 [lb_av] University of 14:08:00 [place] Physician s Body Mass Index 2019-09-05 35.12 kg/m2 University o f Calculated 14:08:00 [place] Physician s Heart Rate 2019-09-05 79 /min University of 14:08:00 [place] Physician s BP Systolic 2019-08-01 120 mm[Hg] University of 14:30:00 [place] Physician s BP Diastolic 2019-08-01 70 mm[Hg] University of 14:30:00 [place] Physician s Weight 2019-08-01 226 [lb_av] University 14:30:00 [place] Physician s Body Mass Index 2019-08-01 34.36 kg/m2 University o f Calculated 14:30:00 [place] Physician s Heart Rate 2019-08-01 67 /min University 14:30:00 [place] Physician s Respiration Rate 2019-08-01 14 /min University 14:30:00 [place] Phys[facility] s Height 2019-07-31 172.72 cm [facility] 14:32:00 Weight 2019-07-31 [facility] 14:32:00 BMI Calculated 2019-07-31 [facility] 14:32:00 Systolic (mm Hg) 2019-07-10 [facility] 15:03:00 Diastolic (mm Hg) 2019-07-10 [facility] 15:03:00 Heart Rate 2019-07-10 [facility] 15:03:00 Height 2019-07-10 172.72 cm [facility] 15:03:00 Weight 2019-07-10 [facility] 15:03:00 BMI Calculated 2019-07-10 [facility] 15:03:00 BP Systolic 2019-07-03 138 mm[Hg] [facility] 10:17:00 [place] Physician s BP Diastolic 2019-07-03 67 mm[Hg] [facility] 10:17:00 [place] Physician s Weight 2019-07-03 227 [lb_av] [facility] 10:17:00 [place] Phys[facility] s Body Mass Index 2019-07-03 34.52 kg/m2 University o f Calculated 10:17:00 [place] Physician s Heart Rate 2019-07-03 55 /min [facility] 10:17:00 [place] Physician s Respiration Rate 2019-07-03 16 /min [facility] 10:17:00 [place] Physician s BP Systolic 2019-05-29 120 mm[Hg] [facility] 08:39:00 Position: [place] Physician s Sitting BP Diastolic 2019-05-29 73 mm[Hg] Location[facility] 08:39:00 Position: [place] Physician s Sitting Height 2019-05-29 68 [in_us] [facility] 08:39:00 [place] Physician s Weight 2019-05-29 221.6 [lb_av] [facility] 08:39:00 [place] Physician s Body Mass Index 2019-05-29 33.69 kg/m2 University o f Calculated 08:39:00 [place] Physician s Temperature 2019-05-29 98.1 [degF] Method: University of 08:39:00 Temporal [place] Physician s Heart Rate 2019-05-29 56 /min University of 08:39:00 [place] [facility] Temperature Oral 2019-05-21 98.0 [facility] ([facility] 15:00:00 Respitory Rate 2019-05-21 [facility] 13:12:00 Systolic (mm Hg) 2019-05-21 [facility] 13:12:00 Diastolic (mm Hg) 2019-05-21 [facility] 13:12:00 Respitory Rate 2019-05-21 [facility] 09:00:00 Systolic (mm Hg) 2019-05-21 [facility] 09:00:00 Diastolic (mm Hg) 2019-05-21 [facility] 09:00:00 Temperature Oral 2019-05-21 97.6 F [facility] (F) 08:20:00 Systolic (mm Hg) 2019-05-21 [facility] 07:00:00 Diastolic (mm Hg) 2019-05-21 [facility] 07:00:00 Respitory Rate 2019-05-21 [facility] 07:00:00 Temperature Oral 2019-05-21 98.4 F [facility] (F) 04:24:00 Heart Rate 2019-05-20 [facility] 18:20:00 Heart Rate 2019-05-20 [facility] 18:00:00 Heart Rate 2019-05-20 [facility] 17:45:00 Height 2019-05-18 172.72 cm [facility] 09:12:00 Height 2019-05-10 172.72 cm [facility] 19:53:00 Height 2019-05-10 172.72 cm [facility] 16:20:00 Weight 2019-05-07 [facility] 23:18:00 BMI Calculated 2019-05-07 [facility] 23:18:00 Systolic (mm Hg) 2019-05-04 [facility] 18:44:00 Diastolic (mm Hg) 2019-05-04 [facility] 18:44:00 Heart Rate 2019-05-04 [facility] 18:44:00 Respitory Rate 2019-05-04 [facility] 18:44:00 Height 2019-05-04 172.72 cm [facility] 18:44:00 Weight 2019-05-04 [facility] 18:44:00 BMI Calculated 2019-05-04 [facility] 18:44:00 Systolic (mm Hg) 2019-04-26 [facility] 20:27:00 Diastolic (mm Hg) 2019-04-26 [facility] 20:27:00 Heart Rate 2019-04-26 [facility] 20:27:00 Respitory Rate 2019-04-26 [facility] 20:27:00 Height 2019-04-26 165.1 cm [facility] 20:27:00 Weight 2019-04-26 [facility] 20:27:00 BMI Calculated 2019-04-26 [facility] 20:27:00 Procedures Procedure Date / Time Performing Clinician Source Performed [QL] CBC (INCLUDES 2020-02-21 00:00:00 [facility] DIFF/PLT) Physicians [QL] CMP W/EGFR 2020-02-21 00:00:00 [facility] Physicians IVIG Infusion Therapy 2020-02-21 00:00:00 [facility] Physicians [QL] CBC (INCLUDES 2020-02-20 00:00:00 [facility] DIFF/PLT) Physicians [QL] CMP W/EGFR 2020-02-20 00:00:00 [facility] Physicians [QL] CBC (INCLUDES 2020-01-16 00:00:00 [facility] DIFF/PLT) Physicians [QL] CMP W/EGFR 2020-01-16 00:00:00 [facility] Physicians MA Bone Density Scan [id number] 2020-01-16 00:[facility] CBC (INCLUDES 2019-11-07 00:00:00 [facility] DIFF/PLT) Physicians [QLH] CMP W/EGFR 2019-11-07 00:00:00 [facility] Physicians [QLH] TSH, 3RD GENERATION 2019-11-07 00:00[facility]00 [facility]4 Physicians [QLH] VITAMIN B12 2019-11-07 00:00:00 [facility] Physicians [QLH] VITAMIN B1, WHOLE 2019-11-07 00:00:00 [facility] BLOOD Physicians [QLH] VITAMIN B6 2019-11-07 00:00:00 [facility] Physicians [QLH] VITAMIN D, 2019-11-07 00:00:00 [facility] 25-HYDROXY, LC/MS/MS Physicians [QLH] URINALYSIS, COMPLETE 2019-11-07 00:00:[address] [facility] W/REFLEX TO CULTURE Physicians [QLH] HEMOGLOBIN A1c 2019-11-07 00:00:00 [facility] Physicians Cystourethroscopy (separate 2019-10-24 16:55:00 [facility] procedure) Measurement of post-voiding 2019-10-10 14:57:00 [facility] residual urine and/or bladder capacity by ultrasound, non-imaging Complex uroflowmetry (eg, 2019-10-10 14:57:00 [facility] calibrated electronic equipment) [QLH] CBC (INCLUDES 2019-09-05 00:00:00 [facility] DIFF/PLT) Physicians [QLH] CMP W/EGFR 2019-09-05 00:00:00 [facility] Physicians [QLH] CBC (INCLUDES 2019-08-01 00:00:00 [facility] DIFF/PLT) Physicians [QLH] CMP W/EGFR 2019-08-01 00:00:00 [facility] Physicians [QLH] CBC (INCLUDES 2019-07-03 00:00:00 [facility] DIFF/PLT) Physicians [QLH] CMP W/EGFR 2019-07-03 00:00:00 [facility] Physicians [Q] TPMT ACTIVITY 2019-05-29 00:00:00 [facility] Physicians [QL] QUANTIFERON(R)-TB GOLD 2019-05-29 00:00:00 [facility] Physicians History of Knee surgery [facility] Physicians Laparoscopic adjustable [facility] gastric banding Plan of Care Planned Activity Planned Date Details Comments Source Future Scheduled Test 2020-03-05 [QL] CBC [facility] 00:00:00 (INCLUDES Physicians DIFF/PLT) [code = [QL] CBC (INCLUDES DIFF/PLT)] Future Scheduled Test 2020-03-05 [QL] CMP W/EGFR [facility] 00:00:00 [code = [QL] CMP Physicians W/EGFR] Diagnostic Test 2020-02-20 [QL] CBC [facility] Pending 00:00:00 (INCLUDES Physicians DIFF/PLT) [code = [QL] CBC (INCLUDES DIFF/PLT)] Diagnostic Test 2020-02-20 [QL] CMP W/EGFR [facility] Pending 00:00:00 [code = [QL] CMP Physicians W/EGFR] Diagnostic Test 2020-02-20 [QL] CBC [facility] Pending 00:00:00 (INCLUDES Physicians DIFF/PLT) [code = [QL] CBC (INCLUDES DIFF/PLT)] Diagnostic Test 2020-02-20 [QL] CMP W/EGFR [facility] Pending 00:00:00 [code = [QL] CMP Physicians W/EGFR] Future Appointment 2020-04-22 Barak MASON [facility] 08:30:00 Physicians Encounters Start End Encounter Admission Attending Care Care Encounter Source Date/Time Date/Time Type Type Clinicians Facility Department ID 2019-08-29 Inpatient [facility] [facility] 13:08:45 2020-03-19 2020-03-19 [place] Irene Neurology - [id number] Univers 13:15:00 13:15:00 t; LOU ANDERSON M.D. [place] i [place] of [place] MASON [facility] Physici ans 2020-02-26 2020-02-26 [id number] 14:40:00 14:40:00 Dot L 11 2020-02-19 2020-02-19 [place] Irene Neurology - [id number] Univers 10:45:00 10:45:00 t; LOU ANDERSON M.D. [place] i [place] of [place] MASON [facility] ans 2020-01-22 2020-01-22 Outpatient Lou Anderson MHOIP MHOIP [id number] 12:51:00 23:59:00 Kenzie 2020-01-16 2020-01-16 [place] Irene Neurology [id number] Univers 13:45:00 13:45:00 t; LOU ANDERSON M.D. [place] i [place] of [place] MASON [facility] ans 2019-11-23 2019-11-23 [id number] 09:00:00 23:59:59 Mick Wilberto 2019-11-13 2019-11-13 Outpatient Staller, [facility] MH[facility] [id number] 09:00:00 09:00:00 Dot L 06 2019-11-10 2019-11-11 Outpatient MHMG MH[facility] [id number] 10:56:56 23:59:59 2019-11-07 2019-11-07 [place] Irene Neurology - [id number] Univers 13:00:00 13:00:00 t; LOU ANDERSON M.D. [facility] Clarissa M.D. [facility] ans 2019-11-03 2019-11-03 Outpatient Staller, MHOIP MHOIP [id number] 08:19:00 23:59:00 Dot L 00 2019-10-24 2019-10-24 Outpatient Staller, MHMG MHMG [id number] 10:55:00 23:59:59 Dot L 08 2019-10-10 2019-10-10 Outpatient VISIT, MHMG MHMG [id number] 08:30:00 23:59:59 MED_ASST 10 [facility] 2019-10-06 2019-10-07 Outpatient MHMG MH[facility] [id number] 09:40:14 23:59:59 02 2019-09-27 2019-09-28 Outpatient MH[facility] MH[facility] [id number] 08:14:55 23:59:59 2019-09-26 2019-09-26 [place] Minimally [id number] Univers 15:30:00 15:30:00 t; BRIANNA PATEL M.D. Invasive ity of [place] REED [facility] ([facility]) ans 2019-09-18 2019-09-18 [place] Casas Minimally [id number] Univers 10:00:00 10:00:00 t; Ananda MCDONALD M.D. [facility] Sandra White M.D. ([facility]) ans 2019-09-13 2019-09-13 Outpatient Mayanker, MHMG MHMG [id number] 10:00:00 23:59:59 Dot L 05 2019-09-05 2019-09-05 [place] Irene Neurology - [id number] Univers 14:00:00 14:00:00 t; LOU ANDERSON M.D. [place] i [place] of [place] MASON [facility] ans 2019-08-31 2019-08-31 Appointmen [place] BOLANOS [facility] [id number] Univers 08:30:00 08:30:00 t; SALVADOR BOLANOS cic & Esau M.D. Vascular Sandra Cancino Surgery - Physic i [facility] 2019-08-01 2019-08-01 Appointmen [place] ANDERSON Neurology - [id number] [facility] 14:30:00 14:30:00 t; LOU ANDERSON M.D. [place] MASON [facility] 2019-07-31 2019-07-31 Outpatient Staller, MHMG MHMG [id number] 08:30:00 23:59:59 Dot L 04 2019-07-26 2019-07-26 Outpatient Staller, MHMG MH[facility] [id number] 09:20:00 09:20:00 Dot L 2019-07-14 2019-07-14 Outpatient Staller, MHMG MHMG [id number] 09:45:00 23:59:59 Dot L 2019-07-14 2019-07-14 Outpatient Staller, MHMG MG [id number] 09:15:00 23:59:59 Dot L 2019-07-10 2019-07-10 Outpatient Staller, MHMG MG [id number] 09:00:00 23:59:59 Dot L 2019-07-10 2019-07-10 Appointmen [place] BOLANOS [facility] [id number] [facility] 15:00:00 15:00:00 t; SALVADOR BOLANOS cic & Esau M.D. Vascular Sandra Cancino Surgery - Physic i [facility] 2019-07-03 2019-07-03 Appointmen [place] ANDERSON Neurology - [id number] [facility] 09:30:00 09:30:00 t; LOU ANDERSON M.D. [place] aman MASON M.D. [facility] 2019-06-02 2019-06-03 Outpatient MHMISCHER MHMISCHER [id number] 14:28:41 23:59:59 00 2019-05-29 [facility] [id number] Univers 08:00:00 08:00:00 LOU Villasenor M.D. [place] howard Romo M.D. [facility] 2019-05-07 2019-05-21 Outpatient [place], [facility] [id number] 18:03:00 15:12:00 Chuy 67 2019-05-11 2019-05-11 Outpatient Alis [facility] [id number] 14:00:00 14:00:00 Mick 02 Wilberto 2019-05-04 2019-05-04 [id number] 13:30:00 23:59:59 Mick Wilberto 2019-05-01 2019-05-02 [id number] 13:19:46 23:59:59 00 2019-04-26 2019-04-26 Outpatient Alis [facility] [id number] 16:00:00 23:59:59 Mick 00 Wilberto Results Test Description Test Time Test Comments Results Result Comments Source [QL] CMP W/EGFR 2020-03-04 15:13:00 Test Item Value Reference Range Interpretation Comme nts GLUCOSE; Above High 144 mg/dl 65-139 Non-fast ing reference interval Threshold (test code = 1547-9) UREA NITROGEN (BUN) (test 17 mg/dl 7-25 N code = UREA NITROGEN (BUN)) CREATININE (test code = 0.95 mg/dl 0.70-1.25 N For patients >49 years of age, CREATININE) the reference l imitfor Creatinine is a pproximately 13% higher for peopleidentifie d as -Radha n. eGFR NON-AFR. GREEK 83 {ML/MIN/1.7} > OR = 60 N (test code = eGFR NON-AFR. GREEK) eGFR 96 {ML/MIN/1.7} > OR = 60 N (test code = eGFR ) BUN/CREATININE RATIO (test NOT APPLICABLE 02-11 code = BUN/CREATININE RATIO) SODIUM (test code = 138 mmol/L 135-146 N SODIUM) POTASSIUM (test code = 4.0 mmol/L 3.5-5.3 N POTASSIUM) CHLORIDE (test code = 106 mmol/L 98-110 N CHLORIDE) CARBON DIOXIDE (test code 26 mmol/L 20-32 N = CARBON DIOXIDE) CALCIUM (test code = 8.4 mg/dl 8.6-10.3 CALCIUM) PROTEIN, TOTAL (test code 7.9 g/dl 6.1-8.1 N = PROTEIN, TOTAL) ALBUMIN (test code = 3.0 g/dl 3.6-5.1 ALBUMIN) GLOBULIN (test code = 4.9 {G/DL CALC} 1.9-3.7 GLOBULIN) ALBUMIN/GLOBULIN RATIO 0.6 {CALC} 1.0-2.5 (test code = ALBUMIN/GLOBULIN RATIO) BILIRUBIN, TOTAL; Normal 0.6 mg/dl 0.2-1.2 N (test code = 52129-0) ALKALINE PHOSPHATASE (test 59 u/l 35-144 N code = ALKALINE PHOSPHATASE) AST; Normal (test code = 18 u/l 10-35 N 1916-6) ALT; Normal (test code = 11 u/l 9-46 N [facility] RECEIV[facility] AND 1742-01) TIME: 51 [facility] Physicians[QL] CBC (INCLUDES DIFF/PLT)2020-03-04 15:13:00 Test Item Value Reference Range Interpretation Comments WHITE BLOOD CELL 6.0 3.8-10.8 N COUNT (test code = {Thousand/u} WHITE BLOOD CELL COUNT) RED BLOOD CELL COUNT 3.49 4.20-5.80 (test code = RED {Million/uL} BLOOD CELL COUNT) HEMOGLOBIN; Below 11.2 g/dl 13.2-17.1 Low Threshold (test code = 55376-1) HEMATOCRIT; Below 33.6 % 38.5-50.0 Low Threshold (test code = 4544-3) MCV; Normal (test 96.3 fL 80.0-100.0 N code = 787-2) MCHC; Normal (test 33.3 g/dl 32.0-36.0 N code = 45534-9) RDW; Above High 18.1 % 11.0-15.0 Threshold (test code = 788-0) PLATELET COUNT; 201 140-400 N Normal (test code = {Thousand/u} 777-3) MPV; Normal (test 11.0 fL 7.5-12.5 N code = 62834-7) ABSOLUTE NEUTROPHILS 5550 6204-8867 N (test code = {cells/uL} ABSOLUTE NEUTROPHILS) ABSOLUTE LYMPHOCYTES 258 {cells/uL} 850-3900 (test code = ABSOLUTE LYMPHOCYTES) ABSOLUTE MONOCYTES 180 {cells/uL} 200-950 (test code = ABSOLUTE MONOCYTES) ABSOLUTE EOSINOPHILS 0 {cells/uL} 15-500 (test code = ABSOLUTE EOSINOPHILS) ABSOLUTE BASOPHILS 12 {cells/uL} 0-200 N (test code = ABSOLUTE BASOPHILS) NEUTROPHILS (test 92.5 % N code = NEUTROPHILS) LYMPHOCYTES (test 4.3 % N code = LYMPHOCYTES) MONOCYTES; Normal 3.0 % N (test code = 94832-5) EOSINOPHILS; Normal 0.0 % N (test code = 78276-0) BASOPHILS; Normal 0.2 % N SPECIMEN R ECEIVED (test code = DATE AND TIME: 02142-0) [id number] [facility] Physicians[QL] CMP [id number] 15:11:00 Test Item Value Reference Range Interpretation Comments GLUCOSE; Normal 128 mg/dl 65-139 N Non-fasting reference (test code = interval 1547-9) UREA NITROGEN 16 mg/dl 7-25 N (BUN) (test code = UREA NITROGEN (BUN)) CREATININE (test 1.01 mg/dl 0.70-1.25 N For patient s >49 years code = of age, the ref erence CREATININE) limitfor Creati nine is approximately 1 3% higher for peopleidentifie d as -Radha n. eGFR NON-AFR. 77 {ML/MIN/1.7} > OR = 60 N GREEK (test code = eGFR NON-AFR. GREEK) eGFR 89 {ML/MIN/1.7} > OR = 60 N GREEK (test code = eGFR ) BUN/CREATININE NOT APPLICABLE 6-22 RATIO (test code = BUN/CREATININE RATIO) SODIUM (test code 143 mmol/L 135-146 N = SODIUM) POTASSIUM (test 4.4 mmol/L 3.5-5.3 N code = POTASSIUM) CHLORIDE (test 106 mmol/L 98-110 N code = CHLORIDE) CARBON DIOXIDE 29 mmol/L 20-32 N (test code = CARBON DIOXIDE) CALCIUM (test 8.6 mg/dl 8.6-10.3 N code = CALCIUM) PROTEIN, TOTAL 5.5 g/dl 6.1-8.1 (test code = PROTEIN, TOTAL) ALBUMIN (test 3.5 g/dl 3.6-5.1 code = ALBUMIN) GLOBULIN (test 2.0 {G/DL CALC} 1.9-3.7 N code = GLOBULIN) ALBUMIN/GLOBULIN 1.8 {CALC} 1.0-2.5 N RATIO (test code = ALBUMIN/GLOBULIN RATIO) BILIRUBIN, TOTAL; 0.7 mg/dl 0.2-1.2 N Normal (test code = 06902-4) ALKALINE 54 u/l 35-144 N PHOSPHATASE (test code = ALKALINE PHOSPHATASE) AST; Normal (test 13 u/l 10-35 N code = 6-6) ALT; Normal (test 11 u/l 9-46 N SPECIMEN R ECEIVED DATE code = 1742-01) AND TIME: [id number] [facility] Physicians[QL] CBC (INCLUDES DIFF/PLT)2020-02-20 15:11:00 Test Item Value Reference Range Interpretation Comments WHITE BLOOD CELL 5.5 3.8-10.8 N COUNT (test code = {Thousand/u} WHITE BLOOD CELL COUNT) RED BLOOD CELL COUNT 3.57 4.20-5.80 (test code = RED {Million/uL} BLOOD CELL COUNT) HEMOGLOBIN; Below 11.6 g/dl 13.2-17.1 Low Threshold (test code = 89073-0) HEMATOCRIT; Below 34.4 % 38.5-50.0 Low Threshold (test code = 4544-3) MCV; Normal (test 96.4 fL 80.0-100.0 N code = 787-2) MCHC; Normal (test 33.7 g/dl 32.0-36.0 N code = 60284-5) RDW; Above High 18.5 % 11.0-15.0 Threshold (test code = 788-0) PLATELET COUNT; 145 140-400 N Normal (test code = {Thousand/u} 777-3) MPV; Normal (test 11.1 fL 7.5-12.5 N code = 24497-6) ABSOLUTE NEUTROPHILS 5247 6157-5242 N (test code = {cells/uL} ABSOLUTE NEUTROPHILS) ABSOLUTE LYMPHOCYTES 132 {cells/uL} 850-3900 (test code = ABSOLUTE LYMPHOCYTES) ABSOLUTE MONOCYTES 99 {cells/uL} 200-950 (test code = ABSOLUTE MONOCYTES) ABSOLUTE EOSINOPHILS 0 {cells/uL} 15-500 (test code = ABSOLUTE EOSINOPHILS) ABSOLUTE BASOPHILS 22 {cells/uL} 0-200 N (test code = ABSOLUTE BASOPHILS) NEUTROPHILS (test 95.4 % N code = NEUTROPHILS) LYMPHOCYTES (test 2.4 % N code = LYMPHOCYTES) MONOCYTES; Normal 1.8 % N (test code = 33207-6) EOSINOPHILS; Normal 0.0 % N (test code = 94564-8) BASOPHILS; Normal 0.4 % N SPECIMEN R ECEIVED (test code = DATE AND TIME: 55284-9) [id number] [facility] Bone Density [employer] [id number] 13:20:00MALE BONE DENSITY ASSESSMENT: 01/22/2020CLINICAL DATA: Clinical risk for osteoporosis. M81.0 Age-RelatedOsteoporosis Without Current Pathological Fracture/M81.0 Age-RelatedOsteoporosis Without Current Pathological FractureRISK FACTORS: race. FINDINGS:Bone density evaluation was performed 01/22/2020 on the right femur neck usinga Hologic unit. The BMD average for the exam is 0.873 g/cm2. The T-score is-0.40 and the Z-score is 0.70. This matches the World Health Organization'scriteriafor normal bone density and places the patient within normal limits offracture risk. An additional bone density evaluation was performed 01/22/2020 on the leftfemur neck using a Hologic unit. The BMD average for the exam is 0.836 g/cm2.The T- score is -0.70 and the Z-score is 0.40. This matches the World HealthOrganization's criteria for normal bone density and places the patient withinnormal limitsof fracture risk. An additional bone density evaluation was performed 01/22/2020 on the righttotal femur area using a Hologic unit. The BMD average for the exam is 0.970 g/cm2. The T-score is -0.40 andthe Z-score is 0.10. This matches the WorldHealth Organization's criteria for normal bone density and places the patientwithin normal limits of fracture risk. An additional bone density evaluation wasperformed 01/22/2020 on the lefttotal femur area using a Hologic unit. The BMD average for the exam is 0.961 g/cm2. The T-score is -0.50 and the Z-score is 0.10. This matches the WorldHealth Organization's criteria for normal bone density and places the patientwithin normal limits of fracture risk. An additional bone density evaluation was performed 01/22/2020 on the AP L1-A6udhdaz of spine using a Hologic unit. The BMD average for the exam is 1.559 g/cm2. The T-score is 4.30 and the Z-score is 5.10. This matches the WorldHealth Organization's criteria for normal bone density and places the patientwithin normal limits of fracture risk. Degenerative changes of the spine likely falsely elevate calculated spinal bonedensity. IMPRESSION: BONE DENSITY WITHIN NORMAL LIMITSPatient is at normal risk for fracture. Patient consult w/primary careprovider is recommended. This exam was interpreted at [id number] for [facility]. Kadi William M.D. sd/penrad:01/23/2020 08:04:36 Retail Manager(s): Jyotsna Khoury [facility]--Read by: Kadi William MDDictated Date/time: 01/23/20 08:04Electronically Signed by: Kadi William MD 01/23/2008:04FINAL [facility]PORTUn[facility] CMP W/EGFR 2019-11-07 15:29:00 Test Item Value Reference Range Interpretation Comments GLUCOSE; Normal 115 mg/dl 65-139 N Non-fasting reference (test code = interval 1547-9) UREA NITROGEN 22 mg/dl 7-25 N (BUN) (test code = UREA NITROGEN (BUN)) CREATININE (test 0.88 mg/dl 0.70-1.25 N For patient s >49 years code = of age, the ref erence CREATININE) limitfor Creati nine is approximately 1 3% higher for peopleidentifie d as -Radha n. eGFR NON- 90 {ML/MIN/1.7} > OR = 60 N GREEK (test code = eGFR NON-) eGFR 104 {ML/MIN/1.7} > OR = 60 N GREEK (test code = eGFR ) BUN/CREATININE NOT APPLICABLE 6-22 RATIO (test code = BUN/CREATININE RATIO) SODIUM (test code 138 mmol/L 135-146 N = SODIUM) POTASSIUM (test 4.1 mmol/L 3.5-5.3 N code = POTASSIUM) CHLORIDE (test 103 mmol/L 98-110 N code = CHLORIDE) CARBON DIOXIDE 28 mmol/L 20-32 N (test code = CARBON DIOXIDE) CALCIUM (test 8.8 mg/dl 8.6-10.3 N code = CALCIUM) PROTEIN, TOTAL 5.6 g/dl 6.1-8.1 (test code = PROTEIN, TOTAL) ALBUMIN (test 3.7 g/dl 3.6-5.1 N code = ALBUMIN) GLOBULIN (test 1.9 {G/DL CALC} 1.9-3.7 N code = GLOBULIN) ALBUMIN/GLOBULIN 1.9 {CALC} 1.0-2.5 N RATIO (test code = ALBUMIN/GLOBULIN RATIO) BILIRUBIN, TOTAL; 0.7 mg/dl 0.2-1.2 N Normal (test code = 13202-5) ALKALINE 58 u/l 35-144 N PHSPHATASE (test code = ALKALINE PHSPHATASE) AST; Normal (test 19 u/l 10-35 N code = 1916-6) ALT; Normal (test 22 u/l 9-46 N SPECIMEN R ECEIVED DATE code = 1742-01) AND TIME: [id number] [facility]] URINALYSIS, COMPLETE W/REFLEX TO CULTURE 2019-11-07 15:29:00 Test Item Value Reference Range Interpretation Comments COLOR; Normal (test YELLOW YELLOW N code = 5778-6) APPEARANCE (test code CLEAR CLEAR N = APPEARANCE) SPECIFIC GRAVITY; 1.012 1.001-1.035 N Normal (test code = 2965-2) PH; Normal (test code 7.0 5.0-8.0 N = 2756-5) GLUCOSE; Normal (test NEGATIVE NEGATIVE N code = 1547-9) BILIRUBIN; Normal NEGATIVE NEGATIVE N (test code = 39161-0) KETONES; Normal (test NEGATIVE NEGATIVE N code = 90569-3) OCCULT BLOOD; TRACE NEGATIVE A Abnormal (test code = 19399-5) PROTEIN; Normal (test NEGATIVE NEGATIVE N code = 59518-0) NITRITE (test code = NEGATIVE NEGATIVE N NITRITE) LEUKOCYTE ESTERASE NEGATIVE NEGATIVE N (test code = LEUKOCYTE ESTERASE) WBC; Normal (test NONE SEEN < OR = 5 N code = 6690-2) RBC; Normal (test 0-2 < OR = 2 N code = 789-8) SQUAMOUS EPITHELIAL NONE SEEN < OR = 5 N CELLS; Normal (test code = 17585-3) BACTERIA; Normal NONE SEEN NONE SEEN N (test code = 630-4) HYALINE CAST; Normal NONE SEEN NONE SEEN N SPECIME N RECEIVED DATE (test code = 00392-5) AND TI ME: [id number] [facility][] REFLEXIVE URINE [id number] 15:29:00 Test Item Value Reference Range Interpretation Comments REFLEXIVE URINE NO CULTURE SPECIMEN REC EIVED CULTURE (test INDICATED DATE AND TIME: code = REFLEXIVE [id number] 2 URINE CULTURE) [facility]] CBC (INCLUDES DIFF/PLT)2019-11-07 15:29:00 Test Item Value Reference Range Interpretation Comments WHITE BLOOD CELL 8.7 3.8-10.8 N COUNT (test code = {Thousand/u} WHITE BLOOD CELL COUNT) RED BLOOD CELL COUNT 3.76 4.20-5.80 (test code = RED {Million/uL} BLOOD CELL COUNT) HEMAGLOBIN; Below 11.2 g/dl 13.2-17.1 Low Threshold (test code = 20716-2) HEMATOCRIT; Below 33.1 % 38.5-50.0 Low Threshold (test code = 4544-3) MCV; Normal (test 88.0 fL 80.0-100.0 N code = 787-2) MCHC; Normal (test 33.8 g/dl 32.0-36.0 N code = 47361-8) RDW; Above High 17.7 % 11.0-15.0 Threshold (test code = 788-0) PLATELET COUNT; 193 140-400 N Normal (test code = {Thousand/u} 777-3) MPV; Normal (test 11.0 fL 7.5-12.5 N code = 60807-4) ABSOLUTE NEUTROPHILS 8143 8647-3135 (test code = {cells/uL} ABSOLUTE NEUTROPHILS) ABSOLUTE LYMPHOCYTES 374 {cells/uL} 850-3900 (test code = ABSOLUTE LYMPHOCYTES) ABSOLUTE MONOCYTES 174 {cells/uL} 200-950 (test code = ABSOLUTE MONOCYTES) ABSOLUTE EOSINOPHILS 0 {cells/uL} 15-500 (test code = ABSOLUTE EOSINOPHILS) ABSOLUTE BASOPHILS 9 {cells/uL} 0-200 N (test code = ABSOLUTE BASOPHILS) NEUTROPHILS (test 93.6 % N code = NEUTROPHILS) LYMPHOCYTES (test 4.3 % N code = LYMPHOCYTES) MONOCYTES; Normal 2.0 % N (test code = 94087-0) EOSINOPHILS; Normal 0.0 % N (test code = 25584-3) BASOPHILS; Normal 0.1 % N SPECIMEN R ECEIVED (test code = DATE AND TIME: 48593-0) [id number] [facility]] VITAMIN [id number] 15:29:00 Test Item Value Reference Range Interpretation Comments VITAMIN B12 (test 415 pg/ml 200-1100 N SPECIMEN R ECEIVED DATE code = VITAMIN B12) AND TIME : [facility]] TSH, 3RD GENERATION W/REFLEX TO FT4 2019-11-07 15:29:00 Test Item Value Reference Range Interpretation Comments TSH, 3RD GENERATION 0.62 {MIU/L} 0.40-4.50 N SPECIMEN RECEIVED W/REFLEX TO FT4 DATE AND BRUCE E: (test code = TSH, [id number] 42 3RD GENERATION W/REFLEX TO FT4) [facility]] VITAMIN D, 25-HYDROXY, [id number] 15:29:00 Test Item Value Reference Range Interpretation Comments VITAMIN 29 ng/ml 30-100 Vitamin D Statu s D,25-OH,TOTAL,IA 25-OH Vitam in D: (test code = VITAMIN Deficie ncy: D,25-OH,TOTAL,IA) <20 ng/mLInsufficie ncy: 20 - 29 ng/mLOptimal: > or = 30 n g/mL For 25-OH Vitamin D testing on patients on D2-supplementat ion and patients for wh om quantitation of D2 and D3 fractions is re quired, the QuestAssure D(TM)25-OH VIT D, (D2,D3), LC/MS/MS is recommended: order code 47413 (pat ients >2yrs). For mor e information on this test, go to:http://educa tion.[employer] /faq/FAQ16 3(This link is being provided for informational/e ducational purposes only.) SPECIMEN RECEIVED DATE A ND TIME: [facility]] VITAMIN [id number] 15:29:00 Test Item Value Reference Range Interpretation Comments VITAMIN B6 (test 7.9 ng/ml 2.1-21.7 Vitamin sup plementation code = VITAMIN B6) within 24 hours prior to blood draw may affect the accuracy of res ults. This test was devsussyo ped and its analytical perf ormance characteristics have been determined by [employer]. It has not been cleared or approved by theFDA. This assay has been validated pursuant to the CLIA regula tions and is used for cli nical purposes.SPECIM EN RECEIVED DATE AND TIME: [facility]] VITAMIN B1, WHOLE [id number] 15:29:00 Test Item Value Reference Range Interpretation Comments VITAMIN B1, WHOLE 134 nmol/L 78-185 Vitamin chan pplementation BLOOD (test code = within 24 hours prior VITAMIN B1, WHOLE toblood dr aw may affect BLOOD) the accuracy of results. This test was developed and its analyti erick performance characteristics have been determined by [employer]. It has not been cleared or approved by theFDA. This assay has been validated pursuant to the CLIA reg ulations and is used for clinical purposes.SPECIM EN RECEIVED DATE A ND TIME: [facility]] HEMOGLOBIN [id number] 15:29:00 Test Item Value Reference Range Interpretation Comments HEMOGLOBIN A1c; 5.6 {% of <5.7 N For the purp ose of Normal (test code total} screening for the = 4548-4) presence ofdiab etes: <5.7% Con sistent with the absenc e of diabetes5.7-6.4 % Consistent with increased risk for diabetes (prediabetes)> or =6.5% Consistent wit h diabetes This a ssay result is consi stent with a decrease d riskof diabetes. Curre ntly, no consensus exist s regarding use ofhemoglobin A1 c for diagnosis of di abetes in children. Ac cording to [place] [employer] (ADA)guidelines , hemoglobin A1c <7.0% represents optimalcontrol in non- di abetic patients. Differentmetric s may apply to specif ic patient populat ions. Standards of Mi dical Care in Diabete s(ADA). SPECIMEN RECEIV ED DATE AND TIME: [id number] [facility]] CMP [id number] 15:49:00 Test Item Value Reference Range Interpretation Comments GLUCOSE; Above 141 mg/dl 65-139 Non-fasting r eference High Threshold interval (test code = 1547-9) UREA NITROGEN 24 mg/dl 7-25 N (BUN) (test code = UREA NITROGEN (BUN)) CREATININE (test 0.84 mg/dl 0.70-1.25 N For patient s >49 years code = of age, the ref erence CREATININE) limitfor Creati nine is approximately 1 3% higher for peopleidentifie d as -Radha n. eGFR NON- 91 {ML/MIN/1.7} > OR = 60 N GREEK (test code = eGFR NON-) eGFR 106 {ML/MIN/1.7} > OR = 60 N GREEK (test code = eGFR ) BUN/CREATININE NOT APPLICABLE 6-22 RATIO (test code = BUN/CREATININE RATIO) SODIUM (test code 138 mmol/L 135-146 N = SODIUM) POTASSIUM (test 4.4 mmol/L 3.5-5.3 N code = POTASSIUM) CHLORIDE (test 101 mmol/L 98-110 N code = CHLORIDE) CARBON DIOXIDE 28 mmol/L 20-32 N (test code = CARBON DIOXIDE) CALCIUM (test 8.6 mg/dl 8.6-10.3 N code = CALCIUM) PROTEIN, TOTAL 5.6 g/dl 6.1-8.1 (test code = PROTEIN, TOTAL) ALBUMIN (test 3.1 g/dl 3.6-5.1 code = ALBUMIN) GLOBULIN (test 2.5 {G/DL CALC} 1.9-3.7 N code = GLOBULIN) ALBUMIN/GLOBULIN 1.2 {CALC} 1.0-2.5 N RATIO (test code = ALBUMIN/GLOBULIN RATIO) BILIRUBIN, TOTAL; 0.4 mg/dl 0.2-1.2 N Normal (test code = 78046-9) ALKALINE 72 u/l 40-115 N PHSPHATASE (test code = ALKALINE PHSPHATASE) AST; Normal (test 30 u/l 10-35 N code = 1916-6) ALT; Normal (test 39 u/l 9-46 N SPECIMEN R ECEIVED DATE code = 1742-01) AND TIME: [id number] [facility]] CBC (INCLUDES DIFF/PLT)2019-09-05 15:49:00 Test Item Value Reference Range Interpretation Comments WHITE BLOOD CELL 13.8 3.8-10.8 COUNT (test code = {Thousand/u} WHITE BLOOD CELL COUNT) RED BLOOD CELL 3.94 4.20-5.80 COUNT (test code = {Million/uL} RED BLOOD CELL COUNT) HEMAGLOBIN; Below 11.0 g/dl 13.2-17.1 Low Threshold (test code = 97937-3) HEMATOCRIT; Below 33.0 % 38.5-50.0 Low Threshold (test code = 4544-3) MCV; Normal (test 83.8 fL 80.0-100.0 N code = 787-2) MCHC; Normal (test 33.3 g/dl 32.0-36.0 N code = 84564-2) RDW; Above High 15.1 % 11.0-15.0 Threshold (test code = 788-0) PLATELET COUNT; 274 140-400 N Normal (test code {Thousand/u} = 777-3) MPV; Normal (test 10.4 fL 7.5-12.5 N code = 21955-4) ABSOLUTE 29598 7823-2335 NEUTROPHILS (test {cells/uL} code = ABSOLUTE NEUTROPHILS) ABSOLUTE 676 {cells/uL} 850-3900 LYMPHOCYTES (test code = ABSOLUTE LYMPHOCYTES) ABSOLUTE MONOCYTES 745 {cells/uL} 200-950 N (test code = ABSOLUTE MONOCYTES) ABSOLUTE 14 {cells/uL} 15-500 EOSINOPHILS (test code = ABSOLUTE EOSINOPHILS) ABSOLUTE BASOPHILS 28 {cells/uL} 0-200 N (test code = ABSOLUTE BASOPHILS) NEUTROPHILS (test 89.4 % N code = NEUTROPHILS) LYMPHOCYTES (test 4.9 % N code = LYMPHOCYTES) MONOCYTES; Normal 5.4 % N (test code = 60678-6) EOSINOPHILS; 0.1 % N Normal (test code = 17442-1) BASOPHILS; Normal 0.2 % N (test code = 62044-7) COMMENT(S) (test See Comment Review of p eripheral code = COMMENT(S)) smear con firmsautomated results.SPECIME N RECEIVED DATE A ND TIME: [facility]] CBC (INCLUDES DIFF/PLT)2019-08-01 16:09:00 Test Item Value Reference Range Interpretation Comments WHITE BLOOD CELL 10.5 3.8-10.8 N COUNT (test code = {Thousand/u} WHITE BLOOD CELL COUNT) RED BLOOD CELL COUNT 4.62 4.20-5.80 N (test code = RED {Million/uL} BLOOD CELL COUNT) HEMAGLOBIN; Normal 13.2 g/dl 13.2-17.1 N (test code = 45190-5) HEMATOCRIT; Normal 39.5 % 38.5-50.0 N (test code = 4544-3) MCV; Normal (test 85.5 fL 80.0-100.0 N code = 787-2) MCHC; Normal (test 33.4 g/dl 32.0-36.0 N code = 07035-8) RDW; Normal (test 13.9 % 11.0-15.0 N code = 788-0) PLATELET COUNT; 200 140-400 N Normal (test code = {Thousand/u} 777-3) MPV; Normal (test 11.3 fL 7.5-12.5 N code = 82242-3) ABSOLUTE NEUTROPHILS 9419 8356-5971 (test code = {cells/uL} ABSOLUTE NEUTROPHILS) ABSOLUTE LYMPHOCYTES 693 {cells/uL} 850-3900 (test code = ABSOLUTE LYMPHOCYTES) ABSOLUTE MONOCYTES 368 {cells/uL} 200-950 N (test code = ABSOLUTE MONOCYTES) ABSOLUTE EOSINOPHILS 0 {cells/uL} 15-500 (test code = ABSOLUTE EOSINOPHILS) ABSOLUTE BASOPHILS 21 {cells/uL} 0-200 N (test code = ABSOLUTE BASOPHILS) NEUTROPHILS (test 89.7 % N code = NEUTROPHILS) LYMPHOCYTES (test 6.6 % N code = LYMPHOCYTES) MONOCYTES; Normal 3.5 % N (test code = 73872-5) EOSINOPHILS; Normal 0.0 % N (test code = 43002-1) BASOPHILS; Normal 0.2 % N SPECIMEN R ECEIVED (test code = DATE AND TIME: 45908-5) [id number] [facility]] CMP [id number] 16:09:00 Test Item Value Reference Range Interpretation Comments GLUCOSE; Normal 117 mg/dl 65-139 N Non-fasting reference (test code = interval 1547-9) UREA NITROGEN 15 mg/dl 7-25 N (BUN) (test code = UREA NITROGEN (BUN)) CREATININE (test 0.92 mg/dl 0.70-1.25 N For patient s >49 years code = of age, the ref erence CREATININE) limitfor Creati nine is approximately 1 3% higher for peopleidentifie d as -Radha n. eGFR NON- 86 {ML/MIN/1.7} > OR = 60 N GREEK (test code = eGFR NON-) eGFR 100 {ML/MIN/1.7} > OR = 60 N GREEK (test code = eGFR ) BUN/CREATININE NOT APPLICABLE 6-22 RATIO (test code = BUN/CREATININE RATIO) SODIUM (test code 139 mmol/L 135-146 N = SODIUM) POTASSIUM (test 4.2 mmol/L 3.5-5.3 N code = POTASSIUM) CHLORIDE (test 103 mmol/L 98-110 N code = CHLORIDE) CARBON DIOXIDE 24 mmol/L 20-32 N (test code = CARBON DIOXIDE) CALCIUM (test 9.2 mg/dl 8.6-10.3 N code = CALCIUM) PROTEIN, TOTAL 6.4 g/dl 6.1-8.1 N (test code = PROTEIN, TOTAL) ALBUMIN (test 4.0 g/dl 3.6-5.1 N code = ALBUMIN) GLOBULIN (test 2.4 {G/DL CALC} 1.9-3.7 N code = GLOBULIN) ALBUMIN/GLOBULIN 1.7 {CALC} 1.0-2.5 N RATIO (test code = ALBUMIN/GLOBULIN RATIO) BILIRUBIN, TOTAL; 0.5 mg/dl 0.2-1.2 N Normal (test code = 20895-0) ALKALINE 65 u/l 40-115 N PHSPHATASE (test code = ALKALINE PHSPHATASE) AST; Normal (test 15 u/l 10-35 N code = 1916-6) ALT; Normal (test 24 u/l 9-46 N SPECIMEN R ECEIVED DATE code = 1742-01) AND TIME: [id number] [facility]] CMP [id number] 11:26:00 Test Item Value Reference Range Interpretation Comments GLUCOSE; Normal 102 mg/dl 65-139 N Non-fasting reference (test code = interval 1547-9) UREA NITROGEN 22 mg/dl 7-25 N (BUN) (test code = UREA NITROGEN (BUN)) CREATININE (test 0.92 mg/dl 0.70-1.25 N For patient s >49 years code = of age, the ref erence CREATININE) limitfor Creati nine is approximately 1 3% higher for peopleidentifie d as -Radha n. eGFR NON- 86 {ML/MIN/1.7} > OR = 60 N GREEK (test code = eGFR NON-) eGFR 100 {ML/MIN/1.7} > OR = 60 N GREEK (test code = eGFR ) BUN/CREATININE NOT APPLICABLE 6-22 RATIO (test code = BUN/CREATININE RATIO) SODIUM (test code 141 mmol/L 135-146 N = SODIUM) POTASSIUM (test 4.8 mmol/L 3.5-5.3 N code = POTASSIUM) CHLORIDE (test 105 mmol/L 98-110 N code = CHLORIDE) CARBON DIOXIDE 27 mmol/L 20-32 N (test code = CARBON DIOXIDE) CALCIUM (test 9.3 mg/dl 8.6-10.3 N code = CALCIUM) PROTEIN, TOTAL 6.4 g/dl 6.1-8.1 N (test code = PROTEIN, TOTAL) ALBUMIN (test 3.9 g/dl 3.6-5.1 N code = ALBUMIN) GLOBULIN (test 2.5 {G/DL CALC} 1.9-3.7 N code = GLOBULIN) ALBUMIN/GLOBULIN 1.6 {CALC} 1.0-2.5 N RATIO (test code = ALBUMIN/GLOBULIN RATIO) BILIRUBIN, TOTAL; 0.7 mg/dl 0.2-1.2 N Normal (test code = 07345-6) ALKALINE 60 u/l 40-115 N PHSPHATASE (test code = ALKALINE PHSPHATASE) AST; Normal (test 18 u/l 10-35 N code = 1916-6) ALT; Normal (test 17 u/l 9-46 N SPECIMEN R ECEIVED DATE code = 1742-01) AND TIME: [id number] [facility]] CBC (INCLUDES DIFF/PLT)2019-07-03 11:26:00 Test Item Value Reference Range Interpretation Comments WHITE BLOOD CELL 11.0 3.8-10.8 COUNT (test code = {Thousand/u} WHITE BLOOD CELL COUNT) RED BLOOD CELL COUNT 4.22 4.20-5.80 N (test code = RED {Million/uL} BLOOD CELL COUNT) HEMAGLOBIN; Below 12.3 g/dl 13.2-17.1 Low Threshold (test code = 31606-4) HEMATOCRIT; Below 37.6 % 38.5-50.0 Low Threshold (test code = 4544-3) MCV; Normal (test 89.1 fL 80.0-100.0 N code = 787-2) MCHC; Normal (test 32.7 g/dl 32.0-36.0 N code = 11458-5) RDW; Normal (test 13.1 % 11.0-15.0 N code = 788-0) PLATELET COUNT; 181 140-400 N Normal (test code = {Thousand/u} 777-3) MPV; Normal (test 11.6 fL 7.5-12.5 N code = 94092-9) ABSOLUTE NEUTROPHILS 9878 7380-8273 (test code = {cells/uL} ABSOLUTE NEUTROPHILS) ABSOLUTE LYMPHOCYTES 880 {cells/uL} 850-3900 N (test code = ABSOLUTE LYMPHOCYTES) ABSOLUTE MONOCYTES 209 {cells/uL} 200-950 N (test code = ABSOLUTE MONOCYTES) ABSOLUTE EOSINOPHILS 22 {cells/uL} 15-500 N (test code = ABSOLUTE EOSINOPHILS) ABSOLUTE BASOPHILS 11 {cells/uL} 0-200 N (test code = ABSOLUTE BASOPHILS) NEUTROPHILS (test 89.8 % N code = NEUTROPHILS) LYMPHOCYTES (test 8.0 % N code = LYMPHOCYTES) MONOCYTES; Normal 1.9 % N (test code = 28622-8) EOSINOPHILS; Normal 0.2 % N (test code = 86366-8) BASOPHILS; Normal 0.1 % N SPECIMEN R ECEIVED (test code = DATE AND TIME: 40613-5) [id number] [facility][Q] TPMT [id number] 09:44:00 Test Item Value Reference Range Interpretation Comments TPMT ACTIVITY 17 Reference Rang e for TPMT (test code = {nmol/hr/mL} Activity: >1 2 TPMT ACTIVITY) Normal 4-12 Heterozygote or low metabolizer <4 Homozygote Defi cient Range This test was developed and i ts analytical performancechar acteristic s have been det ermined by [facility]. It has not beencleared or approved by FDA. This as say has been validatedp ursuant to the CLIA regula tions and is used for clinicalpurpose s.SPECIMEN RECEIVED DATE A ND TIME: [id number] [facility][Q] QUANTIFERON( R)-TB GOLD PLUS, 1 [id number] 09:44:00 Test Item Value Reference Range Interpretation Comments QUANTIFERON( NEGATIVE NEGATIVE N Negative test r esult. M. R)-TB GOLD tuberculosis co mplex PLUS, 1 TUBE infection unlik kriss. (test code = QUANTIFERON( R)-TB GOLD PLUS, 1 TUBE) NIL (test code 0.03 {IU/ml} N = NIL) MITOGEN-NIL >10.00 N (test code = MITOGEN-NIL) TB1-NIL (test <0.00 N code = TB1-NIL) TB2-NIL (test <0.00 N The Nil tube v alue reflects code = the background TB2-NIL) interferongamma immune response of the patient's blood sample.Th is value has been subtracted from the patient'sdispla yed TB and Mitogen results . Lower than expected result s with the Mitogen tubepre vent false-negative Quantiferon readings bydete cting a patient with a potential immunesuppressi ve condition and/or suboptim al pre-analyticals pecimen handling. The T B1 Antigen tube is coated with theM. tuberculosis-sp ecific antigens design ed to elicitresponses from TB antigen primed CD4+ helperT-lymphoc ytes. The TB2 Antigen tub e is coated with theM. tuberculosis-sp ecific antigens design ed to elicitresponses from TB antigen primed CD4+ helper and CD8+cytotox ic T-lymphocytes. For additional info rmation, please refer tohttps://educa tion.[employer].Kuailexue/f aq/HWK844(Th is link is james livingston provided for informational/e ducational purposes only.) SPECIMEN RECEIVED DATE A ND TIME: [id number] [facility] Test Item Value Reference Range Interpretation Comments PT (test code = PT) 14.2 s 12.0-14.7 [facility]IfuxqgvXTGPSXVBFC0389-38-59 12:25:00 Test Item Value Reference Range Interpretation Comments INR (test code = INR) 1.12 1 0.85-1.17 [facility] HospitalIiorcfkSSPBPPBBKD8252-62-16 12:25:00 Test Item Value Reference Range Interpretation Comments PTT (test code = PTT) 26.3 s 22.9-35.8 [facility] [id number] 11:24:002.3[facility] 2019-05-21 11:24:002.9[facility]annCHE[facility] [id number] 11:24:0081[facility]CHE[facility] RABAX3578-42-70 11:24:0017[facility]annCHE[facility] APBXZ6532-52-14 11:24:000.85[facility]annCHE[facility] BNMCB8433-58-13 11:24:06464Hekqeqel HermannCHEM IBECF6139-50-86 11:24:003.3[facility]annCHE[facility] RMSYJ2306-25-61 11:24:65707 [facility]CHE[facility] UFRZV9453-08-58 11:24:0021[facility]annCHEM PANEL 2019-05-21 11:24:008.4[facility]annCHE[facility] VQHSV8852-42-60 11:24:0010.3[facility]annCHEM [id number] 11:24:0091[facility] IzilepbHKSTUGOLFP0274-12-40 11:24:84495[place] GyornahCHULWAUWSD3549-86-68 11:24:00 Test Item Value Reference Range Interpretation Comments PT (test code = PT) 14.6 s 12.0-14.7 [facility] HospitalCpfndaaRBYAYSSXBV8934-95-69 11:24:00 Test Item Value Reference Range Interpretation Comments INR (test code = INR) 1.16 1 0.85-1.17 [facility] HospitalMycbkhtJYHICJBQYU8212-52-86 11:24:00 Test Item Value Reference Range Interpretation Comments PTT (test code = PTT) 27.1 s 22.9-35.8 [facility] InrevcuTWKTMSXDBU9421-42-44 11:24:0013.8[facility]annHEMATOLOGY 2019-05-21 11:24:003.61[facility] WaubfbjWCEWZEZSXH1377-30-55 11:24:0011.5[facility] EhpiorsPJAQMSSXIT5182-39-40 11:24:0033.6[facility] NbcnssoAPEXPYCQTV6597-63-71 11:24:0093.1[facility] KcbymppBFZTBHRUNK9829-74-50 11:24:00 Test Item Value Reference Range Interpretation Comments MCH (test code = MCH) 31.9 pg 27.0-31.0 [facility] YwphleoRENXXNFZDM5288-08-14 11:24:0034.3[facility]annHEMATOLOGY 2019-05-21 11:24:0014.2[facility] UkzjcmwCUFQAURNDN7914-87-31 11:24:11361Wkyyszkk SgrnhzwNVKGTLWXRD3819-61-89 11:24:009.5[facility] YxgkpkcZIAIQNROEL3848-56-98 11:24:0072.1[facility] GfcqrquRBUPEXSYIP0650-92-20 11:24:0019.8[facility] AXIHDBIMUR5943-60-24 11:24:007.0[facility] HhfuyavLUXPOYBQOD3337-60-78 11:24:000.9 [facility] KrfebfwYEIHINSRQL6007-08-44 11:24:000.2[facility]annHEMATOLOGY 2019-05-21 11:24:009.9[facility] TrfvlksXIJTQHDODH3427-17-05 11:24:002.7[facility] XjlexbmZLHBKJBAMI1546-04-07 11:24:001.0[facility] IdphiyaYYILWIWWXY3588-99-95 11:24:000.1[facility] INXFALF7670-12-25 19:11:00Negative (05/20/19 2:11 PM)[facility] JDHGHNG2461-98-06 18:35:00 Modification Required (05/20/19 1:35 PM)[facility] EnuchucCAOWYTRQSR0236-10-39 17:35:0019.9[facility] TwpginzOGNTTSQFUD0859-79-71 17:35:004.53[facility] EBYHSJBKXY7010-19-42 17:35:0014.0[facility] KkgayhiMXLGMRVFYA4393-20-38 17:35:00 41.7[facility] NpxxancIEYCRZUQPI6869-72-49 17:35:0092.1[facility] 2019-05-20 17:35:00 Test Item Value Reference Range Interpretation Comments MCH (test code = MCH) 30.8 pg 27.0-31.0 [facility] ZwuatmnZHYLGCHNLR0175-63-40 17:35:0033.4[facility] 2019-05-20 17:35:0014.1[facility] VadsfadLFBIXFRKVK6858-80-39 17:35:90900Msqxwhjd CalimdsUJUMYTNWJT8124-01-10 17:35:009.9[facility] LruqtjaMEQXHDPHSI6738-98-93 17:35:00 Test Item Value Reference Range Interpretation Comments PT (test code = PT) 17.8 s 12.0-14.7 [facility] PfxzkdkDIOBLISFGG0667-06-62 17:35:00 Test Item Value Reference Range Interpretation Comments INR (test code = INR) 1.50 1 0.85-1.17 [facility] UqqwxabXLWGFHMNVD9598-96-01 17:35:00 Test Item Value Reference Range Interpretation Comments PTT (test code = PTT) 39.8 s 22.9-35.8 [facility] NmffdrnYPQXRQPTUK2389-94-26 17:35:85548[facility]yyzwhbm HermannHEMATOLOGY 2019-05-20 17:35:0088.3[facility] AumbuziQWHBKYQKSZ4966-43-92 17:35:008.3[facility] UgzldvxHDHDHFVXVJ1078-46-77 17:35:002.7[facility] WatkxkdNWIJHGDGNL4614-80-63 17:35:000.2[facility] YywpqcaLWBSBJRGJI2405-24-76 17:35:000.5[facility] VZPWWEMAAO4737-97-45 17:35:0017.6[facility] SyozuwcGEBGGIGFJD9828-36-55 17:35:00 1.6[facility] MffmnxbFHGFCGCQDI9924-73-77 17:35:000.5[facility] 2019-05-20 17:35:000.1[facility]annCHEM CXLUS6236-43-86 10:33:002.3[facility]annCHEM GXFAU9141-23-71 10:33:003.1[facility] PtqrvkdEARJUZJMPHHB6055-81-59 10:33:0011.8[facility] CambgyxNNUSWJVHVBQM0871-92-32 10:33:0090[facility] AVHLHYIZJQGM0619-09-91 10:33:0018[facility] UmzsatsXTXRHTGTTZDP1641-25-65 10:33:00 0.81[facility] TkpivqaSGVHZYVWBTCI5993-37-00 10:33:75591Knwycvxi [facility] OXHEQSVZKWCT6869-35-41 10:33:003.8[facility] UftwgxeVQFMTUUZGDMG1249-63-43 10:33:89498Pqcgwzmd RfzeorwFZLAWLJKWQJO8168-99-86 10:33:0021[facility] BMCPFKGUGJCA2455-06-01 10:33:008.9[facility] JstsucmTVOIPCSPFDGL9140-99-42 10:33:0092[facility] GmykevsGUJADHOHAZ4787-83-16 10:33:0070.9[facility] JTQMRBPXEO1634-24-21 10:33:0020.7[facility] RkvwaafMRROBLROOA9434-01-41 10:33:00 6.5[facility] UxftiycRWMEYEQIAQ1209-46-79 10:33:001.4[facility]annHE[facility] 2019-05-20 10:33:000.5[facility] TtfghhxYQTLMGKZJC2632-78-94 10:33:0011.6[facility] DxnsgrmEFTMYOZVZB5635-31-88 10:33:003.4[facility] IzrwjuxOXDBWYTYPS8503-28-88 10:33:001.1[facility] IdfkvevCRXSXAFRXL8936-38-56 10:33:000.2[facility] BPEGASILIZ6215-67-98 10:33:000.1[facility] JmumneiORVLCHZVHU0861-92-94 10:33:00 16.4[facility] IdnuhouWXDCSKORGR7864-27-01 10:33:004.51[facility]HE[facility] 2019-05-20 10:33:0014.2[facility] BvuejyrYREAOKNGXY0705-66-83 10:33:0042.2[facility] BqowrduDYBKDFAIOM4507-02-71 10:33:0093.6[facility] RzjayjvVEVWNWMSRC6017-49-00 10:33:00 Test Item Value Reference Range Interpretation Comments MCH (test code = MCH) 31.4 pg 27.0-31.0 [facility] GrbhwqlTEZBEOJKQG7776-53-86 10:33:0033.6[facility]annHEMATOLOGY 2019-05-20 10:33:0014.5[facility] TocwagpNHJUPEBYRE1497-86-45 10:33:61270Lawpxxak DtxxrjvKEKCOSZDOD3658-50-32 10:33:009.6[facility]annCHEM IDQBD2862-75-20 09:40:002.2[facility]annCHEM ZZXBN6245-54-57 09:40:002.6[facility]annCHEM KAHFC9377-31-43 09:40:0088[facility]annCHEM PFNGX9352-52-10 09:40:0019 [facility]CHE[facility] ZNAYX5601-58-21 09:40:000.73[facility]annCHEM PANEL 2019-05-19 09:40:16187Fpcnxqfc HermannCHEM RZQZA9768-64-83 09:40:003.[facility]annCHEM LAGJW2585-18-20 09:40:49222Mqxiesmr HermannCHEM ETGVA3979-28-11 09:40:0022[facility]annCHEM PUTUB4488-03-99 09:40:008.8[facility]annCHEM GZIAT2274-60-70 09:40:0097[facility]annCHEM NWNCF2840-87-36 09:40:0011.6 [facility] VqrvtrkWTCSJVCZAA4184-07-25 09:40:000.2[facility]annHEMATOLOGY 2019-05-19 09:40:000.1[facility] HermannPARATHYROID YMYFGUC5527-18-70 21:11:001.23 [facility]annPARATHYROID ARVQTBY8697-55-95 21:11:001.17[facility] GLNLATPURB1800-04-10 10:44:001+ *ABN*(05/17/19 5:44 AM)[facility]MATOLOGY 2019-05-17 10:44:001+ *ABN*(05/17/19 5:44 AM)[facility] IpwfpwpVEUTPZQMJD3603-81-24 06:11:001.0[facility] AiiwdxgJEUGELNWZZ1444-22-25 06:11:001.0[facility] QSBMCIPNTV4021-43-80 06:11:001.0[facility] WdzqxqoAQBIFXNUTO0154-06-46 06:11:000.0 [facility]annCARDIAC JFIWQHW7013-92-55 05:54:54392Zvbjefnk HermannHEMATOLOGY 2019-05-15 05:54:00Normal (05/15/19 12:54 AM)[facility] ZjtxlkhLFLQRQFGDC8354-56-37 05:54:00Normal (05/15/19 12:54 AM)[facility]annPARATHYROID DPXCUAK2780-20-29 06:28:000.93[facility]annPARATHYROID RNHJSQA9474-94-57 06:28:000.96[facility]annPARATHYROID DEREQMV6699-33-91 05:10:001.17[facility]annPARATHYROID QBIFLAX9997-06-68 05:10:001.13[facility]annBLOOD BANK MJAUZPN4710-68-97 17:48:00Negative (05/12/19 12:48 PM)[facility]annCARDIAC NEESJXU4045-42-26 11:08:00<0.02[facility] JucxkyaBRPDXALJCR9554-00-35 19:00:0027.50[facility] FfhyvybOIFXOKMJCT3769-70-06 19:00:0030[facility] FipiffdWQRQPDCJNG1549-22-36 19:00:0019[facility] FvnciniGLPVFSCFII8426-58-00 19:00:0028.00[facility] CUKKVWSBQQ9172-06-90 19:00:0030[facility] QlmsuanXHERLSHYCV2400-78-49 19:00:0029 [facility] SXLZX2079-03-30 22:41:00Amber *ABN*(05/09/19 5:41 PM) [facility] HPSMH9407-03-45 22:41:00Marked *ABN*(05/09/19 5:41 PM) [facility] [id number] 22:41:00 Test Item Value Reference Range Interpretation Comments UA Spec Grav (test code = UA Spec 1.028 1 Grav) [facility] [id number] 22:41:00 Test Item Value Reference Range Interpretation Comments UA pH (test code = UA pH) 7.0 1 5.0-8.0 [facility] [id number] 22:41:00Negative *NA*(05/09/19 5:41 PM) [facility] VIAKB6098-31-47 22:41:00Small *ABN*(05/09/19 5:41 PM) [facility] ODRPP1552-10-00 22:41:004.0[facility] JWIZY1827-11-31 22:41:00Negative (05/09/19 5:41 PM)[facility] [id number] 22:41:00Negative (05/09/19 5:41 PM)[facility] SXGEL6450-15-70 22:41:002[facility] LQURT5376-73-66 22:41:0017 [facility]annCARDIAC ZHDKCLD8880-02-99 18:49:00<0.02[facility] CARDIAC EHYATEL2320-64-81 04:11:18061Hdvlxfsk OemuegbAOUMDLJQOQ5548-13-68 04:11:007[facility] EylrhmgMFDUCCUKRI3611-14-73 04:11:23320.0[facility] CDCDU2112-07-90 04:11:00Yellow *NA*(05/07/19 11:11 PM)[facility] [id number] 04:11:00Clear (05/07/19 11:11 PM)[facility] [id number] 04:11:00 Test Item Value Reference Range Interpretation Comments UA Spec Grav (test code = UA Spec 1.021 1 Grav) [facility] [id number] 04:11:00 Test Item Value Reference Range Interpretation Comments UA pH (test code = UA pH) 7.0 1 5.0-8.0 [facility] [id number] 04:11:00Negative *NA*(05/07/19 11:11 PM)[facility] [id number] 04:11:00Negative (05/07/19 11:11 PM) [facility] [id number] 04:11:00<1.0[facility] VLHCE9439-46-40 04:11:00Negative (05/07/19 11:11 PM)[facility] PYDPI9840-11-62 04:11:00Trace *ABN*(05/07/19 11:11 PM)[facility] HJRAW6358-34-12 04:11:008[facility] [id number] 04:11:003 [facility]annBACTERIAL - MZRMOQLV6561-38-19 01:33:00Negative (05/07/19 8:33 PM)[facility] LRUIQ0105-68-33 00:08:003[facility] JZBSP6697-07-44 00:08:008[facility] WZRWY9314-15-54 00:08:001 [facility] VEXJX7744-60-42 00:08:00Yellow *NA*(05/07/19 7:08 PM) [facility] [id number] 00:08:00Clear (05/07/19 7:08 PM) [facility] [id number] 00:08:00 Test Item Value Reference Range Interpretation Comments UA Spec Grav (test code = UA Spec 1.010 1 Grav) [facility] [id number] 00:08:00 Test Item Value Reference Range Interpretation Comments UA pH (test code = UA pH) 8.0 1 5.0-8.0 [facility] [id number] 00:08:00Trace *ABN*(05/07/19 7:08 PM) [facility] [id number] 00:08:00Negative (05/07/19 7:08 PM) [facility] [id number] 00:08:00Negative *NA*(05/07/19 7:08 PM) [facility] [id number] 00:08:00Negative *NA*(05/07/19 7:08 PM) [facility] [id number] 00:08:00Negative (05/07/19 7:08 PM) [facility] BYIWH5212-73-89 00:08:000.2[facility] [id number] 00:08:00Negative (05/07/19 7:08 PM)[facility] [id number] 00:08:00Negative (05/07/19 7:08 PM)[facility]annCHEM PANEL 2019-05-08 00:05:001.6[facility]
--- OUTSIDE RECORDS SUMMARY | 2020-04-12 11:42 | XMS REPORT | Summary of Care ---
:1955 Author Name MONICA Cancino Address Unavailable Unavailable , Care Team Providers Name Role Phone MONICA Cancino Unavailable Unavailable KENDALL MORIN Unavailable Unavailable LATA MORIN Unavailable Unavailable MONICA MORIN [place] Unavailable Unavailable Monica MORIN Unavailable Unavailable LUIS MIGUEL MORIN [place] Unavailable Unavailable LUCY MORIN Unavailable Unavailable Unavailable Unavailable Unavailable Functional Status Name Dates Details Functional status health issues are not documented Status: Name Dates Details Cognitive status health issues are not documented Status: Problems Name Dates Details Urinary hesitancy (788.64, R39.11) Statu s: Active Myasthenia gravis (358.00, G70.00) Statu s: Active Gallstones (574.20, K80.20) Status: Acti ve Osteopenia (733.90, M85.80) Status: Acti ve Osteoporosis (733.00, M81.0) Status: Act darrell Atrial fibrillation (427.31, I48.91) Sta tus: Active Medications Name Dates Details Pyridostigmine [place] 60 MG Oral Tablet TAKE 1 TABLET BY MOUTH FOUR TIMES DAILY at 7:00/11:00/3:00/7:00 Quantity: 360 Refills: 1 MONICA Cancino THY Start : 14-Jun-2019 Active predniSONE 50 MG Oral Tablet TAKE 1 TABLET BY MOUTH ONCE DAILY IN ADDITION TO 10MG. (TOTAL DAILY DOSE: 60MG) Quantity: 30 Refills: 5 MONICA Cancino, THY Start : 19-Jun-2019 Active Pantoprazole Sodium 40 MG Oral Tablet Delayed Release TAKE 1 TABLET BY MOUTH DAILY Refills: 0 Active predniSONE 10 MG Oral Tablet Take 1 tablet daily in addition to 50 mg tab for TDD: 60 mg TDD:60 mg Quantity: 30 Refills: 5 MONICA Cancino THY Start : 31-Jul-2019 Active Flomax 0.4 MG Oral Capsule Refills: 0 Active azaTHIOprine 50 MG Oral Tablet TAKE 1 TABLET Twice daily Quantity: 60 Refills: 0 ANDERSON M.D., THY Start : 06-Sep-2019 Active Losartan Potassium 50 MG Oral Tablet TAKE 1 TABLET DAILY. Refills: 0 MONICA Vizcaino., THY Start : 06-Nov-2019 Active Levothyroxine Sodium 100 MCG Oral Tablet TAKE 1 TABLET DAILY. Refills: 0 MONICA Vizcaino., THY Start : 06-Nov-2019 Active amLODIPine Besylate 10 MG Oral Tablet TAKE 1 TABLET DAILY. Refills: 0 MONICA Vizcaino., THY Start : 06-Nov-2019 Active Carvedilol 12.5 MG Oral Tablet TAKE 1 TABLET TWICE DAILY. Refills: 0 MONICA Vizcaino., THY Start : 06-Nov-2019 Active Atorvastatin Calcium 40 MG Oral Tablet TAKE 1 TABLET DAILY. Refills: 0 MONICA Vizcaino., THY Start : 06-Nov-2019 Active hydroCHLOROthiazide 12.5 MG Oral Tablet TAKE 1 TABLET DAILY. Refills: 0 MONICA Vizcaino., THY Start : 06-Nov-2019 Active Citalopram Hydrobromide 10 MG Oral Tablet TAKE 2 TABLET BY MOUTH DAILY Refills: 0 MONICA Vizcaino., THY Start : 06-Nov-2019 Active Topiramate 25 MG Oral Tablet Refills: 0 MONICA Vizcaino., THY Start : 16-Jan-2020 Active Xarelto 20 MG Oral Tablet Refills: 0 MONICA Vizcaino., THY Start : 12-Mar-2020 Active Amiodarone HCl - 200 MG Oral Tablet TAKE 1 TABLET DAILY. Refills: 0 MONICA Vizcaino., THY Start : 12-Mar-2020 Active Allergies and Adverse Reactions Name Dates Details Codeine Sulfate TABS (Allergy) Status: A ctive Past Medical History Name Dates Details History of hematuria (V13.09, Z87.448) S tatus: Resolved History of hyperlipidemia (V12.29, Z86.39) Status: Resolved History of hypertension (V12.59, Z86.79) Status: Resolved History of hypothyroidism (V12.29, Z86.39) Status: Resolved Procedures Procedure Dates Details IVIG Infusion Therapy Date: 21-Feb-2020 [place] Density Scan 76045 Date: 16-Jan-2020 History of Laparoscopic adjustable gastric banding Completed History of Knee surgery Completed Immunization Name Dates Details Immunizations not documented Family History Name Dates Details Family history of cardiac disorder (V17.49, Z82.49) Comments: Family History Status: Active Family history of malignant neoplasm of prostate (V16.42, Z8 0.42) Comments: Family History Status: Active Name Dates Details Family history of Active medical problems: none Status: Active Social History Name Dates Details - Status: Name Dates Details Smoker (finding) Vital Signs Date Test Result Details No Known Vitals to report Results Date Description Value Details :11 [QL] CMP W/EGFR GLUCOSE 128 mg/dl (Normal) Range: 65-13 9 Comments: Non-fa sting reference interval UREA NITROGEN (BUN) 16 mg/dl (Normal) Range: 7- 25 CREATININE 1.01 mg/dl (Normal) Range: 0.70 -1.25 Comments: For pa tients >49 years of age, the reference limitfor Creatinine is approximately 13% higher for peopleidentified as -Albanian. eGFR NON-AFR. ZAMBIAN 77 {ML/MIN/1.7} (Normal) Range: > OR = 60 eGFR 89 {ML/MIN/1.7} (Normal) Range: > OR = 60 BUN/CREATININE RATIO NOT APPLICABLE {CALC} Rang e: 6-22 SODIUM 143 mmol/L (Normal) Range: 135- 146 POTASSIUM 4.4 mmol/L (Normal) Range: 3.5- 5.3 CHLORIDE 106 mmol/L (Normal) Range: 98-1 10 CARBON DIOXIDE 29 mmol/L (Normal) Range: 20-32 CALCIUM 8.6 mg/dl (Normal) Range: 8.6-1 0.3 PROTEIN, TOTAL 5.5 g/dl (Below low Range: 6.1- 8.1 threshold) ALBUMIN 3.5 g/dl (Below low Range: 3.6- 5.1 threshold) GLOBULIN 2.0 {G/DL__CALC} (Normal) Range : 1.9-3.7 ALBUMIN/GLOBULIN RATIO 1.8 {CALC} (Normal) Rang e: 1.0-2.5 BILIRUBIN, TOTAL 0.7 mg/dl (Normal) Range: 0.2- 1.2 ALKALINE PHOSPHATASE 54 u/l (Normal) Range: 35- 144 AST 13 u/l (Normal) Range: 10-35 ALT 11 u/l (Normal) Range: 9-46 Comments: SPECIM EN RECEIVED DATE AND TIME: [id number] :11 [QL] CBC (INCLUDES DIFF/PLT) Comments: R EPORT COMMENT:FASTING:NO WHITE BLOOD CELL COUNT 5.5 {Thousand/u} (Normal ) Range: 3.8-10.8 RED BLOOD CELL COUNT 3.57 {Million/uL} (Below l ow Range: 4.20-5.80 threshold) HEMOGLOBIN 11.6 g/dl (Below low Range: 13. 2-17.1 threshold) HEMATOCRIT 34.4 % (Below low threshold) Ra nge: 38.5-50.0 MCV 96.4 fL (Normal) Range: 80.0-10 0.0 MCH 32.5 pg (Normal) Range: 27.0-33 .0 MCHC 33.7 g/dl (Normal) Range: 32.0- 36.0 RDW 18.5 % (Above high threshold) R wendy: 11.0-15.0 PLATELET COUNT 145 {Thousand/u} (Normal) Range : 140-400 MPV 11.1 fL (Normal) Range: 7.5-12. 5 ABSOLUTE NEUTROPHILS 5247 {cells/uL} (Normal) R wendy: 8197-9947 ABSOLUTE LYMPHOCYTES 132 {cells/uL} (Below low Range: 850-3900 threshold) ABSOLUTE MONOCYTES 99 {cells/uL} (Below low Ran ge: 200-950 threshold) ABSOLUTE EOSINOPHILS 0 {cells/uL} (Below low Ra nge: 15-500 threshold) ABSOLUTE BASOPHILS 22 {cells/uL} (Normal) Range : 0-200 NEUTROPHILS 95.4 % (Normal) LYMPHOCYTES 2.4 % (Normal) MONOCYTES 1.8 % (Normal) EOSINOPHILS 0.0 % (Normal) BASOPHILS 0.4 % (Normal) Comments: SPECIM EN RECEIVED DATE AND TIME: [id number] :13 [QL] CMP W/EGFR GLUCOSE 144 mg/dl (Above high Range: 65 -139 threshold) Comments: Non-fa sting reference interval UREA NITROGEN (BUN) 17 mg/dl (Normal) Range: 7- 25 CREATININE 0.95 mg/dl (Normal) Range: 0.70 -1.25 Comments: For pa tients >49 years of age, the reference limitfor Creatinine is approximately 13% higher for peopleidentified as -Albanian. eGFR NON-AFR. ZAMBIAN 83 {ML/MIN/1.7} (Normal) Range: > OR = 60 eGFR 96 {ML/MIN/1.7} (Normal) Range: > OR = 60 BUN/CREATININE RATIO NOT APPLICABLE {CALC} Rang e: 6-22 SODIUM 138 mmol/L (Normal) Range: 135- 146 POTASSIUM 4.0 mmol/L (Normal) Range: 3.5- 5.3 CHLORIDE 106 mmol/L (Normal) Range: 98-1 10 CARBON DIOXIDE 26 mmol/L (Normal) Range: 20-32 CALCIUM 8.4 mg/dl (Below low Range: 8.6 -10.3 threshold) PROTEIN, TOTAL 7.9 g/dl (Normal) Range: 6.1-8. 1 ALBUMIN 3.0 g/dl (Below low Range: 3.6- 5.1 threshold) GLOBULIN 4.9 {G/DL__CALC} (Above Range: 1.9-3.7 high threshold) ALBUMIN/GLOBULIN RATIO 0.6 {CALC} (Below low Ra nge: 1.0-2.5 threshold) BILIRUBIN, TOTAL 0.6 mg/dl (Normal) Range: 0.2- 1.2 ALKALINE PHOSPHATASE 59 u/l (Normal) Range: 35- 144 AST 18 u/l (Normal) Range: 10-35 ALT 11 u/l (Normal) Range: 9-46 Comments: SPECIM EN RECEIVED DATE AND TIME: [id number] :13 [QL] CBC (INCLUDES DIFF/PLT) Comments: R EPORT COMMENT:FASTING:NO WHITE BLOOD CELL COUNT 6.0 {Thousand/u} (Normal ) Range: 3.8-10.8 RED BLOOD CELL COUNT 3.49 {Million/uL} (Below l ow Range: 4.20-5.80 threshold) HEMOGLOBIN 11.2 g/dl (Below low Range: 13. 2-17.1 threshold) HEMATOCRIT 33.6 % (Below low threshold) Ra nge: 38.5-50.0 MCV 96.3 fL (Normal) Range: 80.0-10 0.0 MCH 32.1 pg (Normal) Range: 27.0-33 .0 MCHC 33.3 g/dl (Normal) Range: 32.0- 36.0 RDW 18.1 % (Above high threshold) R wendy: 11.0-15.0 PLATELET COUNT 201 {Thousand/u} (Normal) Range : 140-400 MPV 11.0 fL (Normal) Range: 7.5-12. 5 ABSOLUTE NEUTROPHILS 5550 {cells/uL} (Normal) R wendy: 7266-3789 ABSOLUTE LYMPHOCYTES 258 {cells/uL} (Below low Range: 850-3900 threshold) ABSOLUTE MONOCYTES 180 {cells/uL} (Below low Ra nge: 200-950 threshold) ABSOLUTE EOSINOPHILS 0 {cells/uL} (Below low Ra nge: 15-500 threshold) ABSOLUTE BASOPHILS 12 {cells/uL} (Normal) Range : 0-200 NEUTROPHILS 92.5 % (Normal) LYMPHOCYTES 4.3 % (Normal) MONOCYTES 3.0 % (Normal) EOSINOPHILS 0.0 % (Normal) BASOPHILS 0.2 % (Normal) Comments: SPECIM EN RECEIVED DATE AND TIME: [id number] Plan of Care Name Dates Details Planned Observations Planned Goals not documented Planned Encounters Appointment; ISABELLA ANDERSON M.D. On: 19-Mar-2020 13:15 Interventions Provided Plan- Continue pyridostigmine 60 mg at 7 AM, 12 pm, 5 pm and closer to bedtime - Continue prednisone 60 mg alternating with 50 mg, try ice vest, will continue to taper once current symptoms improve - Continue Azathioprine 100 mg twice daily (goal dose of 2 mg/kg) - Repeat CBC with diff and CMP now - Follow with Dr. Martinez for thymectomy after the pandemic cases down, april - Telemedicine visit in 1 monthDiscussion/SummaryMrBrittnee Roman is a 64 year-old man with AChR + bulbar predominant myasthenia gravis, presenting for follow up. He has shown good response to a combination of prednisone, Mestinon, and azathioprine. CT has shown no thymoma but there is evidence that thymectomies in these patients can help reduce their prednisone doses and help reduce hospitalization. The goal at this time is to optimize the azathioprine to start weaning on the prednisone, and following Mr. Roman clinically. His MG ADL worsened with the steroid taper. His ptosis is now daily instead of 2-3 times/day, his legs feel like rubber, but the cramps have stopped. The patient is comfortable with telemedicine visits during the COVID-19 pandemic. Instructions Name Dates Details Instructions not documented Encounters Appointment; ISABELLA ANDERSON M.D. On: 29-May-2019 8:00 Encounter Diagnosis: Problem not documented Appointment; ISABELLA ANDERSON M.D. On: 03-Jul-2019 9:30 Encounter Diagnosis: Problem not documented Appointment; SALVADOR MARTINEZ M.D. On: 10-Jul-2019 15:0 0 Encounter Diagnosis: Problem not documented Appointment; ISABELLA ANDERSON M.D. On: 01-Aug-2019 14:30 Encounter Diagnosis: Problem not documented Appointment; ISABELLA ANDERSON M.D. On: 05-Sep-2019 14:00 Encounter Diagnosis: Problem not documented Appointment; TAMARA AYALA M.D. On: 18-Sep-2019 1 0:00 Encounter Diagnosis: Problem not documented Appointment; BRIANNA PATEL M.D. On: 26-Sep-2019 15:30 Encounter Diagnosis: Problem not documented Appointment; ISABELLA ANDERSON M.D. On: 07-Nov-2019 13:00 Encounter Diagnosis: Problem not documented Appointment; ISABELLA ANDERSON M.D. On: 16-Jan-2020 13:45 Encounter Diagnosis: Problem not documented Appointment; ISABELLA ANDERSON M.D. On: 19-Feb-2020 10:45 Encounter Diagnosis: Problem not documented
--- OUTSIDE RECORDS SUMMARY | 2020-04-12 11:42 | XMS REPORT | Summary of Care ---
:1955 Author Name MONICA Cancino Address Unavailable Unavailable , Care Team Providers Name Role Phone MONICA Cancino Unavailable Unavailable KENDALL MORIN Unavailable Unavailable LATA MORIN Unavailable Unavailable MONICA MORIN [place] Unavailable Unavailable Mnoica MORIN Unavailable Unavailable LUIS MIGUEL MORIN UT [...] tus: Active Medications Name Dates Details Pyridostigmine [place] 60 MG Oral Tablet TAKE 1 TABLET [...] Therapy Date: 21-Feb-2020 [place] [facility] D[place] 16584 Date: 16-Jan-2020 History of Laparoscopic adjustable gastric [...] is approximately 13% higher for peopleidentified as -Micronesian. eGFR NON-AFR. MAURITANIAN 77 {ML/MIN/1.7} (Normal) Range: > OR = [...] Comments: SPECIM EN RECEIVED DATE AND TIME: [id number] :11 [QL] CBC (INCLUDES DIFF/PLT) Comments: R [...] ABSOLUTE NEUTROPHILS 5247 {cells/uL} (Normal) R wendy: 4462-9140 ABSOLUTE LYMPHOCYTES 132 {cells/uL} (Below low Range: [...] Comments: SPECIM EN RECEIVED DATE AND TIME: [id number] :13 [QL] CMP W/EGFR GLUCOSE 144 mg/dl (Above high Range: 65 -139 threshold) Comments: Non-fa sting reference interval UREA NITROGEN (BUN) 17 mg/dl (Normal) Range: 7- 25 CREATININE 0.95 mg/dl (Normal) Range: 0.70 -1.25 Comments: For pa tients >49 years of age, the reference limitfor Creatinine is approximately 13% higher for peopleidentified as -Micronesian. eGFR NON-AFR. MAURITANIAN 83 {ML/MIN/1.7} (Normal) Range: > OR = [...] Comments: SPECIM EN RECEIVED DATE AND TIME: [id number] :13 [QL] CBC (INCLUDES DIFF/PLT) Comments: R [...] ABSOLUTE NEUTROPHILS 5550 {cells/uL} (Normal) R wendy: 5864-4695 ABSOLUTE LYMPHOCYTES 258 {cells/uL} (Below low Range: [...] Comments: SPECIM EN RECEIVED DATE AND TIME: [id number] Plan of Care Name Dates Details Planned Observations Planned Goals not documented Planned Encounters Appointment; ISABELLA ANDERSON M.D. On: 19-Mar-2020 13:15 Instructions Name Dates Details Instructions not documented Encounters Appointment; ISABELLA ANDERSON M.D. On: 29-May-2019 8:00 Encounter Diagnosis: Problem not documented Appointment; ISABELLA ANDERSON M.D. On: 03-Jul-2019 9:30 Encounter Diagnosis: Problem not documented Appointment; SALVADOR BOLANOS M.D. On: 10-Jul-2019 15:0 0 Encounter Diagnosis: [...]
--- OUTSIDE RECORDS SUMMARY | 2020-04-12 11:42 | XMS REPORT | Summary of Care ---
:1955 Author Name Gabriel Mayo Address Unavailable Unavailable , Care Team Providers Name Role Phone MONICA Cancino Unavailable Unavailable KENDALL MORIN Unavailable Unavailable LATA MORIN Unavailable Unavailable MONICA MORIN UT Unavailable Unavailable Monica MORIN Unavailable Unavailable LUIS MIGUEL MORIN UT Unavailable Unavailable ULCY MORIN Unavailable Unavailable Unavailable Unavailable Unavailable Functional [...] ve Osteoporosis (733.00, M81.0) Status: Act darrell Medications Name Dates Details Pyridostigmine [place] 60 MG Oral Tablet TAKE 1 TABLET BY MOUTH FOUR TIMES DAILY at 7:00/11:00/3:00/7:00 Quantity: 360 Refills: 1 MONICA Cancino THY Start : 14-Jun-2019 Active predniSONE 50 MG Oral Tablet TAKE 1 TABLET BY MOUTH ONCE DAILY IN ADDITION TO 10MG. (TOTAL DAILY DOSE: 60MG) Quantity: 30 Refills: 5 MONICA Cancino THY Start : 19-Jun-2019 Active Pantoprazole Sodium [...] TABLET Twice daily Quantity: 60 Refills: 0 MONICA Cancino THY Start : 06-Sep-2019 Active Losartan Potassium 50 MG Oral Tablet TAKE 1 TABLET DAILY. Refills: 0 ANDERSON M.D., THY Start : 06-Nov-2019 Active Levothyroxine Sodium 100 MCG Oral Tablet TAKE 1 TABLET DAILY. Refills: 0 ANDERSON M.D., THY Start : 06-Nov-2019 Active amLODIPine Besylate 10 MG Oral Tablet TAKE 1 TABLET DAILY. Refills: 0 ANDERSON M.D., THY Start : 06-Nov-2019 Active Carvedilol 12.5 MG Oral Tablet TAKE 1 TABLET TWICE DAILY. Refills: 0 ANDERSON M.D., THY Start : 06-Nov-2019 Active Atorvastatin Calcium 40 MG Oral Tablet TAKE 1 TABLET DAILY. Refills: 0 ANDERSON M.D., THY Start : 06-Nov-2019 Active hydroCHLOROthiazide 12.5 MG Oral Tablet TAKE 1 TABLET DAILY. Refills: 0 ANDERSON M.D., THY Start : 06-Nov-2019 Active Citalopram Hydrobromide 10 MG Oral Tablet TAKE 2 TABLET BY MOUTH DAILY Refills: 0 MONICA Wilder.D., THY Start : 06-Nov-2019 Active Topiramate 25 MG Oral Tablet Refills: 0 ANDERSON M.D., THY Start : 16-Jan-2020 Active Allergies and Adverse Reactions Name Dates Details Codeine Sulfate TABS (Allergy) Status: A ctive Past Medical History Name Dates Details History of hematuria (V13.09, Z87.448) S tatus: Resolved History of hyperlipidemia (V12.29, Z86.39) Status: Resolved History of hypertension (V12.59, Z86.79) Status: Resolved History of hypothyroidism (V12.29, Z86.39) Status: Resolved Procedures Procedure Dates Details IVIG Infusion Therapy Date: 21-Feb-2020 [QL] CBC (INCLUDES DIFF/PLT) Date: 21-Feb-2020 [QL] CMP W/EGFR Date: 21-Feb-2020 [place] D[place] 60331 Date: 16-Jan-2020 History of Laparoscopic adjustable gastric [...] is approximately 13% higher for peopleidentified as -Ukrainian. eGFR NON-AFR. ITALIAN 77 {ML/MIN/1.7} (Normal) Range: > OR = [...] Comments: SPECIM EN RECEIVED DATE AND TIME: [id number] :11 [QL] CBC (INCLUDES DIFF/PLT) Comments: R [...] ABSOLUTE NEUTROPHILS 5247 {cells/uL} (Normal) R wendy: 2902-0675 ABSOLUTE LYMPHOCYTES 132 {cells/uL} (Below low Range: [...] Comments: SPECIM EN RECEIVED DATE AND TIME: [id number] Plan of Care Name Dates Details Planned Observations Planned Goals not documented Interventions Provided Medication ChangesazaTHIOprine 50 MG Oral Tablet - Renew Instructions Name Dates Details Instructions not documented [...] 13:00 Encounter Diagnosis: Problem not documented Appointment; ISABLELA ANDERSON M.D. On: 16-Jan-2020 13:45 Encounter Diagnosis: Problem not documented Appointment; ISABELLA ANDERSON M.D. On: 19-Feb-2020 10:45 Encounter Diagnosis: Problem not documented
--- OUTSIDE RECORDS SUMMARY | 2020-04-12 11:42 | XMS REPORT | Summary of Care ---
[...] Act darrell Medications Name Dates Details Pyridostigmine [place] 60 MG Oral Tablet TAKE 1 TABLET BY MOUTH FOUR TIMES DAILY at 7:00/11:00/3:00/7:00 Quantity: 360 Refills: 1 MONICA Cancino, THY Start : 14-Jun-2019 Active predniSONE 50 MG Oral Tablet TAKE 1 TABLET BY MOUTH ONCE DAILY IN ADDITION TO 10MG. (TOTAL DAILY DOSE: 60MG) Quantity: 30 Refills: 5 MONICA Cancino, THY Start : 19-Jun-2019 Active Pantoprazole Sodium 40 MG Oral Tablet Delayed Release TAKE 1 TABLET BY MOUTH DAILY Refills: 0 M.D.Active predniSONE 10 MG Oral Tablet Take 1 tablet daily in addition to 50 mg tab for TDD: 60 mg TDD:60 mg Quantity: 30 Refills: 5 MONICA Cancino, THY Start : 31-Jul-2019 Active Flomax 0.4 MG Oral Capsule Refills: 0 M.D.Active azaTHIOprine 50 MG Oral Tablet TAKE 1 TABLET Twice daily Quantity: 60 Refills: 0 MONICA Cancino, THY Start : 06-Sep-2019 Active Losartan Potassium [...] 2 TABLET BY MOUTH DAILY Refills: 0 ANDERSON M.D., THY Start : 06-Nov-2019 Active Topiramate 25 [...] Therapy Date: 21-Feb-2020 [place] Bone Density Scan [id number] Date: 16-Jan-2020 History of Laparoscopic adjustable gastric [...] is approximately 13% higher for peopleidentified as -Swiss. eGFR NON-AFR. [place]IAN 77 {ML/MIN/1.7} (Normal) Range: > OR = [...] Comments: SPECIM EN RECEIVED DATE AND TIME: [id number] :11 [QL] CBC (INCLUDES DIFF/PLT) Comments: R [...] ABSOLUTE NEUTROPHILS 5247 {cells/uL} (Normal) R wendy: [phone] ABSOLUTE LYMPHOCYTES 132 {cells/uL} (Below low Range: [...] Comments: SPECIM EN RECEIVED DATE AND TIME: [id number] :13 [QL] CMP W/EGFR GLUCOSE 144 mg/dl (Above high Range: 65 -139 threshold) Comments: Non-fa sting reference interval UREA NITROGEN (BUN) 17 mg/dl (Normal) Range: 7- 25 CREATININE 0.95 mg/dl (Normal) Range: 0.70 -1.25 Comments: For pa tients >49 years of age, the reference limitfor Creatinine is approximately 13% higher for peopleidentified as -Swiss. eGFR NON-AFR. [place]IAN 83 {ML/MIN/1.7} (Normal) Range: > OR = [...] Comments: SPECIM EN RECEIVED DATE AND TIME: [id number] :13 [QL] CBC (INCLUDES DIFF/PLT) Comments: R [...] ABSOLUTE NEUTROPHILS 5550 {cells/uL} (Normal) R wendy: [phone] ABSOLUTE LYMPHOCYTES 258 {cells/uL} (Below low Range: [...] Comments: SPECIM EN RECEIVED DATE AND TIME: [id number] Plan of Care Name Dates Details Planned [...]
--- OUTSIDE RECORDS SUMMARY | 2020-04-12 11:44 | XMS REPORT | Summary of Care ---
[...] tus: Active Medications Name Dates Details Pyridostigmine [place] 60 MG Oral Tablet TAKE 1 TABLET [...] Dates Details IVIG Infusion Therapy Date: 21-Feb-2020 History of Laparoscopic adjustable gastric banding Completed [...] is approximately 13% higher for peopleidentified as -[place]an. eGFR NON-AFR. [place]AN 77 {ML/MIN/1.7} (Normal) Range: > OR = [...] Comments: SPECIM EN RECEIVED DATE AND TIME: [id number] :11 [QL] CBC (INCLUDES DIFF/PLT) Comments: R [...] ABSOLUTE NEUTROPHILS 5247 {cells/uL} (Normal) R wendy: [phone] ABSOLUTE LYMPHOCYTES 132 {cells/uL} (Below low Range: [...] Comments: SPECIM EN RECEIVED DATE AND TIME: [id number] :13 [QL] CMP W/EGFR GLUCOSE 144 mg/dl (Above high Range: 65 -139 threshold) Comments: Non-fa sting reference interval UREA NITROGEN (BUN) 17 mg/dl (Normal) Range: 7- 25 CREATININE 0.95 mg/dl (Normal) Range: 0.70 -1.25 Comments: For pa tients >49 years of age, the reference limitfor Creatinine is approximately 13% higher for peopleidentified as -[place]an. eGFR NON-AFR. CHILEAN 83 {ML/MIN/1.7} (Normal) Range: > OR = [...] Comments: SPECIM EN RECEIVED DATE AND TIME: [id number] :13 [QL] CBC (INCLUDES DIFF/PLT) Comments: R [...] ABSOLUTE NEUTROPHILS 5550 {cells/uL} (Normal) R wendy: [phone] ABSOLUTE LYMPHOCYTES 258 {cells/uL} (Below low Range: [...] Comments: SPECIM EN RECEIVED DATE AND TIME: [id number] Plan of Care Name Dates Details Planned Observations Planned Goals not documented Planned Encounters Appointment; ISABELLA ANDERSON M.D. On: 22-Apr-2020 8:30 Interventions Provided Plan- Continue steroid taper by decreasing to alternating 60mg/40mg- Continue azathioprine 50mg bid- Continue mestinon 60mg qid- Continue [id number] IVIG Instructions Name Dates Details Instructions not documented [...] 19-Feb-2020 10:45 Encounter Diagnosis: Problem not documented Appointment; ISABELLA ANDERSON M.D. On: 19-Mar-2020 13:15 Encounter Diagnosis: Problem not documented
--- OUTSIDE RECORDS SUMMARY | 2020-04-12 11:44 | XMS REPORT | Summary of Care ---
[...] tus: Active Medications Name Dates Details Pyridostigmine [place] 60 MG Oral Tablet TAKE 1 TABLET BY MOUTH 4 TIMES DAILY AT 7:00, 11:00, 3:00, 7:00 Quantity: 360 Refills: 1 MONICA Cancino THY [...] Oral Tablet TAKE 1 TABLET BY MOUTH TWICE DAILY Quantity: 60 Refills: 3 MONICA Cancino, THY Start : 06-Sep-2019 Active Losartan Potassium 50 MG Oral Tablet TAKE 1 TABLET DAILY. Refills: 0 MONICA Cancino, THY Start : 06-Nov-2019 Active Levothyroxine Sodium 100 MCG Oral Tablet TAKE 1 TABLET DAILY. Refills: 0 MONICA Cancino, THY Start : 06-Nov-2019 Active Carvedilol 12.5 MG Oral Tablet TAKE 1 TABLET TWICE DAILY. Refills: 0 MONICA Cancino, THY Start : 06-Nov-2019 Active Atorvastatin Calcium 40 MG Oral Tablet TAKE 1 TABLET DAILY. Refills: 0 MONICA Vizcaino., THY Start : 06-Nov-2019 Active hydroCHLOROthiazide 12.5 MG Oral Tablet TAKE 1 TABLET DAILY. Refills: 0 MONICA Vizcaino., THY Start : 06-Nov-2019 Active Citalopram Hydrobromide 10 MG Oral Tablet TAKE 2 TABLET BY MOUTH DAILY Refills: 0 MONICA Cancino, THY Start : 06-Nov-2019 Active Topiramate 25 [...] to report Results Date Description Value Details :13 [QL] CMP W/EGFR GLUCOSE 144 mg/dl (Above high Range: 65 -139 threshold) Comments: Non-fa sting reference interval UREA NITROGEN (BUN) 17 mg/dl (Normal) Range: 7- 25 CREATININE 0.95 mg/dl (Normal) Range: 0.70 -1.25 Comments: For pa tients >49 years of age, the reference limitfor Creatinine is approximately 13% higher for peopleidentified as -Comoran. eGFR NON-AFR. [place] 83 {ML/MIN/1.7} (Normal) Range: > OR = [...] Comments: SPECIM EN RECEIVED DATE AND TIME: [id number] :13 [QL] CBC (INCLUDES DIFF/PLT) Comments: R [...] ABSOLUTE NEUTROPHILS 5550 {cells/uL} (Normal) R wendy: [phone] ABSOLUTE LYMPHOCYTES 258 {cells/uL} (Below low Range: [...] Comments: SPECIM EN RECEIVED DATE AND TIME: [id number] Plan of Care Name Dates Details Planned Observations Planned Goals not documented Planned Encounters Appointment; ISABELLA ANDERSON M.D. On: 22-Apr-2020 8:30 Interventions Provided Medication ChangesazaTHIOprine 50 MG Oral [...]
--- OUTSIDE RECORDS SUMMARY | 2020-04-12 11:44 | XMS REPORT | Summary of Care ---
:1955 Author Name WAQAR Cancino Address Unavailable Unavailable , Care Team [...] tus: Active Medications Name Dates Details Pyridostigmine [place] 60 MG Oral Tablet TAKE 1 TABLET [...] TAKE 1 TABLET DAILY. Refills: 0 MONICA LopezD., THY Start : 06-Nov-2019 Active Levothyroxine Sodium 100 MCG Oral Tablet TAKE 1 TABLET DAILY. Refills: 0 MONICA LopezD., THY Start : 06-Nov-2019 Active Carvedilol 12.5 MG Oral Tablet TAKE 1 TABLET TWICE DAILY. Refills: 0 MONICA Vizcaino., THY Start : 06-Nov-2019 Active Atorvastatin Calcium 40 MG Oral Tablet TAKE 1 TABLET DAILY. Refills: 0 MONICA Wilder.D., THY Start : 06-Nov-2019 Active hydroCHLOROthiazide 12.5 MG Oral Tablet TAKE 1 TABLET DAILY. Refills: 0 MONICA LopezD., THY Start : 06-Nov-2019 Active Citalopram Hydrobromide 10 MG Oral Tablet TAKE 2 TABLET BY MOUTH DAILY Refills: 0 MONICA Wilder.D., THY Start : 06-Nov-2019 Active Topiramate 25 MG Oral Tablet Refills: 0 MONICA Vizcaino., THY Start : 16-Jan-2020 Active Xarelto 20 MG Oral Tablet Refills: 0 MONICA LopezD., THY Start : 12-Mar-2020 Active Amiodarone HCl - 200 MG Oral Tablet TAKE 1 TABLET DAILY. Refills: 0 MONICA LopezD., THY Start : 12-Mar-2020 Active Allergies and [...] is approximately 13% higher for peopleidentified as -U[place]ayan. eGFR NON-AFR. [place]OREAN 77 {ML/MIN/1.7} (Normal) Range: > OR = [...] Comments: SPECIM EN RECEIVED DATE AND TIME: [id number] :11 [QL] CBC (INCLUDES DIFF/PLT) Comments: R [...] ABSOLUTE NEUTROPHILS 5247 {cells/uL} (Normal) R wendy: [phone] ABSOLUTE LYMPHOCYTES 132 {cells/uL} (Below low Range: [...] Comments: SPECIM EN RECEIVED DATE AND TIME: [id number] :13 [QL] CMP W/EGFR GLUCOSE 144 mg/dl (Above high Range: 65 -139 threshold) Comments: Non-fa sting reference interval UREA NITROGEN (BUN) 17 mg/dl (Normal) Range: 7- 25 CREATININE 0.95 mg/dl (Normal) Range: 0.70 -1.25 Comments: For pa tients >49 years of age, the reference limitfor Creatinine is approximately 13% higher for peopleidentified as -[place]ayan. eGFR NON-AFR. [place]OREAN 83 {ML/MIN/1.7} (Normal) Range: > OR = [...] Comments: SPECIM EN RECEIVED DATE AND TIME: [id number] :13 [QL] CBC (INCLUDES DIFF/PLT) Comments: R [...] ABSOLUTE NEUTROPHILS 5550 {cells/uL} (Normal) R wendy: [phone] ABSOLUTE LYMPHOCYTES 258 {cells/uL} (Below low Range: [...] Comments: SPECIM EN RECEIVED DATE AND TIME: [id number] Plan of Care Name Dates Details Planned Observations Planned Goals not documented Interventions Provided Plan- Continue steroid taper by decreasing to alternating 60mg/40mg- Continue azathioprine 50mg bid- Continue mestinon 60mg qid- Continue h2qiylne IVIG Instructions Name Dates Details Instructions not [...]
--- OUTSIDE RECORDS SUMMARY | 2020-04-12 11:44 | XMS REPORT | Summary of Care ---
[...] tus: Active Medications Name Dates Details Pyridostigmine [place] 60 MG Oral Tablet TAKE 1 TABLET [...] is approximately 13% higher for peopleidentified as -Cambodian. eGFR NON-AFR. [place] 83 {ML/MIN/1.7} (Normal) Range: > OR = [...] Comments: SPECIM EN RECEIVED DATE AND TIME: [id number] :13 [QL] CBC (INCLUDES DIFF/PLT) Comments: R [...] ABSOLUTE NEUTROPHILS 5550 {cells/uL} (Normal) R wendy: [phone] ABSOLUTE LYMPHOCYTES 258 {cells/uL} (Below low Range: [...] Comments: SPECIM EN RECEIVED DATE AND TIME: [id number] Plan of Care Name Dates Details Planned Observations Planned Goals not documented Planned Encounters Appointment; ISABELLA ANDERSON M.D. On: 22-Apr-2020 8:30 Interventions Provided Medication ChangesPyridostigmine [place] 60 MG Oral Tablet - Renew Instructions Name [...]
--- OUTSIDE RECORDS SUMMARY | 2020-04-12 11:45 | XMS REPORT | Summary of Care ---
:1955 Author Name Osiris Bright Address Unavailable Unavailable , Care Team Providers [...] tus: Active Medications Name Dates Details Pyridostigmine [place] 60 MG Oral Tablet TAKE 1 TABLET [...] MOUTH TWICE DAILY Quantity: 60 Refills: 3 ANDERSON M.D., THY Start : 06-Sep-2019 Active [...] to report Results Date Description Value Details Results not documented Plan of Care Name Dates Details Planned Observations Planned Goals not documented Planned Encounters Appointment; ISABELLA ANDERSON M.D. On: 22-Apr-2020 8:30 Interventions Provided Plan- Continue steroid taper by decreasing to alternating 60mg/40mg- Continue azathioprine 50mg bid- Continue mestinon 60mg qid- Continue [id number] IVIG Instructions Name Dates Details Instructions not [...]
--- OUTSIDE RECORDS SUMMARY | 2020-04-12 11:45 | XMS REPORT | Summary of Care ---
:1955 Author Name Linh Bright Address Unavailable Unavailable , Care Team Providers Name Role Phone MONICA Cancino Unavailable Unavailable Linh Bright Unavailable Unavailable KENDALL MORIN Unavailable Unavailable LATA [...] tus: Active Medications Name Dates Details Pyridostigmine [place] 60 MG Oral Tablet TAKE 1 TABLET [...] TWICE DAILY Quantity: 60 Refills: 3 MONICA Vizcaino., THY Start : 06-Sep-2019 Active Losartan Potassium [...] ANDERSON M.D. On: 22-Apr-2020 8:30 Interventions Provided Discussion/SummaryGuideline Used: Adult Neurology-MonicaPatient with Myasthenia Gravis calling to say he has gi bleeding and his pcp advised him to go to ER. Patient wants Adult Neurology to coordinate his care. Patient advised to go to [facility] ER then and ask them to consult Adult Neurology. Patient verbalized understanding. Instructions Name Dates Details Instructions not documented [...]
--- OUTSIDE RECORDS SUMMARY | 2020-04-12 11:45 | XMS REPORT | Summary of Care ---
[...] tus: Active Medications Name Dates Details Pyridostigmine [place] 60 MG Oral Tablet TAKE 1 TABLET [...] 50mg bid- Continue mestinon 60mg qid- Continue [id number] IVIG Instructions Name Dates Details Instructions not documented Encounters Appointment; ISABELLA ANDERSON M.D. On: 29-May-2019 8:00 Encounter Diagnosis: Problem not documented Appointment; ISABELLA ANDERSON M.D. On: 03-Jul-2019 9:30 Encounter Diagnosis: Problem not documented Appointment; SAVLADOR BOLANOS M.D. On: 10-Jul-2019 15:0 0 Encounter [...]
--- NOTE | 2020-04-12 12:44 | RAD REPORT ---
EXAM DESCRIPTION: Jimmy Single View04/12/2020 12:36 pm CLINICAL HISTORY: Shortness of breath COMPARISON: 2019 FINDINGS: The lungs appear clear of acute infiltrate. The heart is normal size IMPRESSION: No acute abnormalities displayed
[2020-04-12] MEDS ORDERED: PANTOPRAZOLE 40 MG INJ ONE (12:56)
[2020-04-12] MEDS ORDERED: NA CHLORIDE 0.9% 1,000 ML ONE (12:56)
[2020-04-12 13:11] LABS: Absolute Lymphocytes (CBC) 0.3 K/uL (0.7-4.9); Basophils % 0.1 % (0-1.3); Hematocrit 24.5 % (39.6-49.0); Lymphocytes % 3.8 % (15.3-44.8); MPV 8.6 fL (7.6-11.3); RBC Red Blood Cell Count 2.57 M/uL (4.33-5.43)
[2020-04-12 13:13] LABS: Protime INR 1.99
--- NOTE | 2020-04-12 13:26 | EDPHYS ---
Physician Documentation [facility] Name: Pete Glass Jr Age: 64 yrs Sex: Male : 1955 Arrival Date: 04/12/2020 Time: 11:35 Bed 18 Private MD: Ger David R ED Physician Garth Adames HPI: 04/12 13:18 This 64 yrs old Male presents to ER via Wheelchair with complaints of yani Dizziness, General Weakness. 13:18 The patient presents with dizziness, feeling faint, generalized weakness, yani lightheadedness. Onset: The symptoms/episode began/occurred just prior to arrival. Context: occurred at an unknown location. Modifying factors: The symptoms are alleviated by lying down, the symptoms are aggravated by standing up, changing position. Associated signs and symptoms: Pertinent positives: near-syncope, shortness of breath. Severity of symptoms: At their worst the symptoms were moderate in the emergency department the symptoms are unchanged. Patient's baseline: Neuro: alert and fully oriented. The patient has not experienced similar symptoms in the past. Historical: - Allergies: 11:45 Codeine; ll1 - PMHx: 11:45 Hypertension; Myasthenia Gravis; Hypothyroidism; mitral valve prolapse; ll1 - PSHx: 11:45 lap band; knee surgery; ll1 - Immunization history:: Flu vaccine is up to date. - Social history:: Smoking status: Patient denies any tobacco usage or history of. Patient/guardian denies using alcohol, street drugs. - Family history:: not pertinent. ROS: 13:18 Constitutional: Negative for fever, chills, and weight loss, Eyes: Negative for injury, yani pain, redness, and discharge, ENT: Negative for injury, pain, and discharge, Neck: Negative for injury, pain, and swelling, Cardiovascular: Negative for chest pain, palpitations, and edema, Respiratory: Negative for shortness of breath, cough, wheezing, and pleuritic chest pain, Back: Negative for injury and pain, : Negative for injury, bleeding, discharge, and swelling, MS/Extremity: Negative for injury and deformity, Neuro: Negative for headache, weakness, numbness, tingling, and seizure, Psych: Negative for depression, anxiety, suicide ideation, homicidal ideation, and hallucinations, Allergy/Immunology: Negative for hives, rash, and allergies, Endocrine: Negative for neck swelling, polydipsia, polyuria, polyphagia, and marked weight changes, Hematologic/Lymphatic: Negative for swollen nodes, abnormal bleeding, and unusual bruising. 13:18 Abdomen/GI: Positive for abdominal pain, black/tarry stool. 13:18 Skin: Positive for pallor. Exam: 13:18 Constitutional: This is a well developed, well nourished patient who is awake, alert, yani and in no acute distress. Head/Face: Normocephalic, atraumatic. Eyes: Pupils equal round and reactive to light, extra-ocular motions intact. Lids and lashes normal. Conjunctiva and sclera are non-icteric and not injected. Cornea within normal limits. Periorbital areas with no swelling, redness, or edema. ENT: Nares patent. No nasal discharge, no septal abnormalities noted. Tympanic membranes are normal and external auditory canals are clear. Oropharynx with no redness, swelling, or masses, exudates, or evidence of obstruction, uvula midline. Mucous membranes moist. Neck: Trachea midline, no thyromegaly or masses palpated, and no cervical lymphadenopathy. Supple, full range of motion without nuchal rigidity, or vertebral point tenderness. No Meningismus. Chest/axilla: Normal chest wall appearance and motion. Nontender with no deformity. No lesions are appreciated. Cardiovascular: Regular rate and rhythm with a normal S1 and S2. No gallops, murmurs, or rubs. Normal PMI, no JVD. No pulse deficits. Respiratory: Lungs have equal breath sounds bilaterally, clear to auscultation and percussion. No rales, rhonchi or wheezes noted. No increased work of breathing, no retractions or nasal flaring. Back: No spinal tenderness. No costovertebral tenderness. Full range of motion. Male : Normal genitalia with no discharge or lesions. MS/ Extremity: Pulses equal, no cyanosis. Neurovascular intact. Full, normal range of motion. Neuro: Awake and alert, GCS 15, oriented to person, place, time, and situation. Cranial nerves II-XII grossly intact. Motor strength 5/5 in all extremities. Sensory grossly intact. Cerebellar exam normal. Normal gait. Psych: Awake, alert, with orientation to person, place and time. Behavior, mood, and affect are within normal limits. 13:18 Abdomen/GI: Inspection: abdomen appears normal, Bowel sounds: normal, Palpation: abdomen is soft and non-tender, Rectal exam: Prostate: normal, rectal tone normal, Stool: guaiac positive, no melena, hemorrhoid(s), are not appreciated, mass, is not appreciated, swelling, tenderness, is not appreciated, the exam is chaperoned by the nurse, Liver: no appreciated palpable abnormalities, Hernia: not appreciated. 13:18 Skin: Appearance: Color: pale. 13:25 ECG was reviewed by the Attending Physician. yani Vital Signs: 11:41 BP 106 / 76; Pulse 60; Resp 18; Temp 98.4; Pulse Ox 98% ; Weight 100.24 kg; Height 5 ll1 ft. 8 in. (172.72 cm); Pain 0/10; 13:00 BP 133 / 66; Pulse 54; Resp 16; Pulse Ox 97% ; ss 14:00 BP 117 / 65; Pulse 53; Resp 17; Pulse Ox 100% ; ss 15:00 BP 127 / 75; Pulse 53; Resp 16; Pulse Ox 100% ; ss 16:00 BP 123 / 72; Pulse 54; Resp 16; Pulse Ox 100% ; ss 18:00 BP 123 / 68; Pulse 54; Resp 16; Pulse Ox 100% ; bp 19:10 BP 137 / 75; Pulse 52; Resp 16; Pulse Ox 100% on R/A; rv 20:04 BP 137 / 77; Pulse 55; Resp 15; Temp 97.3; Pulse Ox 100% on R/A; Pain 0/10; rv 11:41 Body Mass Index 33.60 (100.24 kg, 172.72 cm) ll1 MDM: 12:08 Patient medically screened. yani 13:22 Differential diagnosis: cardiac arrhythmia, generalized weakness, GI bleed, yani hypovolemia, idiopathic dizziness, near-syncope, vertigo. Data reviewed: vital signs, nurses notes, lab test result(s), EKG, radiologic studies, plain films. Data interpreted: monitor technician: rate is 60 beats/min, rhythm is regular, Pulse oximetry: on room air is 98 %. Test interpretation: by ED physician or midlevel provider: ECG, plain radiologic studies. Counseling: I had a detailed discussion with the patient and/or guardian regarding: the historical points, exam findings, and any diagnostic results supporting the discharge/admit diagnosis, lab results, radiology results, the need for further work-up and treatment in the hospital. ED course: weak, dizzy, black stools, on xarelrto. 13:36 Physician consultation: Wilberto Ross MD and will see patient in inpatient room, later yani today. ED course: stable, discussed with dr solomon and dr ross. 04/12 12:17 Order name: Basic Metabolic Panel; Complete Time: 13:56 [facility] 04/12 12:17 Order name: CBC with Diff; Complete Time: 13:56 [facility] 04/12 12:17 Order name: LFT's; Complete Time: 13:56 [facility] 04/12 12:17 Order name: Magnesium; Complete Time: 13:56 [facility] 04/12 12:17 Order name: NT PRO-BNP; Complete Time: 13:56 [facility] 04/12 12:17 Order name: PT-INR; Complete Time: 13:17 [facility] 04/12 12:17 Order name: Troponin (emerg Dept Use Only); Complete Time: 13:56 [facility] 04/12 12:17 Order name: Type And Screen [facility] 04/12 12:17 Order name: Lipase; Complete Time: 13:56 [facility] 04/12 13:17 Order name: CBC Smear Scan; Complete Time: 13:56 [facility] 04/12 13:31 Order name: Bb Add On bd 04/12 13:32 Order name: Occult Blood--Ancillary bd 04/12 14:22 Order name: ABO/RH no charge [facility] 04/12 14:30 Order name: Packed RBC Leukored [facility] 04/12 12:17 Order name: XRAY Chest (1 view); Complete Time: 13:15 [facility] 04/12 12:17 Order name: EKG; Complete Time: 12:18 [facility] 04/12 12:17 Order name: Cardiac monitoring; Complete Time: 12:42 [facility] 04/12 12:17 Order name: EKG - Nurse/Tech; Complete Time: 13:01 [facility] 04/12 12:17 Order name: IV Saline Lock; Complete Time: 12:42 [facility] 04/12 12:17 Order name: Labs collected and sent; Complete Time: 12:42 [facility] 04/12 12:17 Order name: O2 Per Protocol; Complete Time: 12:42 [facility] 04/12 12:17 Order name: O2 Sat Monitoring; Complete Time: 12:42 [facility] 04/12 12:17 Order name: Urine Dipstick-Ancillary (obtain specimen); Complete Time: 16:26 [facility] 04/12 12:17 Order name: IV Saline Lock - Large Bore; Complete Time: 12:42 [facility] 04/12 13:24 Order name: Labs - recollect needed: collect abo\E\rh no charge; Complete Time: 14:00 04/12 14:30 Order name: Urine Dipstick--Ancillary (enter results) bd EC:25 Rate is 52 beats/min. Rhythm is regular. QRS [place] is Normal. MA interval is normal. QRS yani interval is prolonged. QT interval is normal. No Q waves. T waves are Normal. No ST changes noted. Clinical impression: Sinus bradycardia. Interpreted by me. Administered Medications: 12:45 Drug: NS 0.9% 1000 ml Route: IV; Rate: 125 ml/hr; Site: right forearm; bp 20:06 Follow up: IV Status: Infusion continued upon admission rv 12:45 Drug: ProTONIX 80 mg Route: IVP; Site: right forearm; bp 13:31 Follow up: Response: No adverse reaction bp 14:00 Drug: ProTONIX 8 mg/hr Route: IV; Rate: 25 ml/hr; Site: right forearm; jr10 20:05 Follow up: IV Status: Infusion continued upon admission rv Disposition: 04/12/20 13:25 Hospitalization ordered by Chino Solomon for Inpatient Admission. Preliminary diagnosis are Anemia, unspecified, Gastrointestinal hemorrhage, unspecified, Weakness, Dizziness and giddiness, Myasthenia gravis. - Bed requested for Telemetry/MedSurg (Inpatient). - Status is Inpatient Admission. rv - Condition is Fair. - Problem is new. - Symptoms have improved. Signatures: Dispatcher [employer] EDMS Carolee Gamez Corey, MD MD cha Peltier, Brian RN RN bp Luis Antonio Joyner RN RN rv Nakul Rasmussen RN RN ll1 Melany Go RN RN jr10 Corrections: (The following items were deleted from the chart) 17:45 13:25 Hospitalization Ordered by Chino Solomon for Inpatient Admission. Preliminary bd diagnosis is Anemia, unspecified; Gastrointestinal hemorrhage, unspecified; Weakness; Dizziness and giddiness; Myasthenia gravis. Bed requested for Telemetry/MedSurg (Inpatient). Status is Inpatient Admission. Condition is Fair. Problem is new. Symptoms have improved. yani 18:58 17:45 04/12/2020 13:25 Hospitalization Ordered by Chino Solomon for Inpatient bd Admission. Preliminary diagnosis is Anemia, unspecified; Gastrointestinal hemorrhage, unspecified; Weakness; Dizziness and giddiness; Myasthenia gravis. Bed requested for [facility] ER HOLD. Status is Inpatient Admission. Condition is Fair. Problem is new. Symptoms have improved. bd 20:13 18:58 04/12/2020 13:25 Hospitalization Ordered by Chino Solomon for Inpatient rv Admission. Preliminary diagnosis is Anemia, unspecified; Gastrointestinal hemorrhage, unspecified; Weakness; Dizziness and giddiness; Myasthenia gravis. Bed requested for Telemetry/MedSurg (Inpatient). Status is Inpatient Admission. Condition is Fair. Problem is new. Symptoms have improved. bd
--- NOTE | 2020-04-12 13:26 | ER ---
Nurse's Notes [facility] Name: Pete Glass Jr Age: 64 yrs Sex: Male : 1955 Arrival Date: 04/12/2020 Time: 11:35 Bed 18 Private MD: Ger David R Diagnosis: Anemia, unspecified;Gastrointestinal hemorrhage, unspecified;Weakness;Dizziness and giddiness;Myasthenia gravis Presentation: 04/12 11:41 Chief complaint: Patient states: Dark stool for 2 weeks since starting Xarelto. Feels ll1 dizzy weak, fatigued recently. Blood drawn Wednesday, HGB 8. No fever. Coronavirus screen: Client denies travel out of the [place] in the last 14 days. At this time, the client does not indicate any symptoms associated with coronavirus-19. Ebola Screen: Patient denies travel to an Ebola-affected area in the 21 days before illness onset. Initial Sepsis Screen: Does the patient meet any 2 criteria? No. Patient's initial sepsis screen is negative. Risk Assessment: Do you want to hurt yourself or someone else? Patient reports no desire to harm self or others. Onset of symptoms was March 29, 2020. 11:41 Method Of Arrival: Wheelchair ll1 11:41 Acuity: JESUS 3 ll1 20:06 Initial Sepsis Screen: Does the patient have a suspected source of infection? No. rv Patient's initial sepsis screen is negative. Triage Assessment: 12:00 General: Appears in no apparent distress. comfortable, obese, Behavior is calm, bp cooperative, appropriate for age. Pain: Denies pain. EENT: No deficits noted. Neuro: Level of Consciousness is awake, alert, obeys commands, Oriented to person, place, time, situation, Appropriate for age Reports dizziness. Cardiovascular: No deficits noted. Respiratory: No deficits noted. GI: No signs and/or symptoms were reported involving the gastrointestinal system. : No signs and/or symptoms were reported regarding the genitourinary system. Derm: Skin is pale. Musculoskeletal: No deficits noted. Historical: - Allergies: 11:45 Codeine; ll1 - PMHx: 11:45 Hypertension; Myasthenia Gravis; Hypothyroidism; mitral valve prolapse; ll1 - PSHx: 11:45 lap band; knee surgery; ll1 - Immunization history:: Flu vaccine is up to date. - Social history:: Smoking status: Patient denies any tobacco usage or history of. Patient/guardian denies using alcohol, street drugs. - Family history:: not pertinent. Screenin:45 Abuse screen: Denies threats or abuse. Denies injuries from another. Nutritional bp screening: No deficits noted. Tuberculosis screening: No symptoms or risk factors identified. Fall Risk None identified. Assessment: 12:00 General: SEE TRIAGE NOTE. bp 14:00 Reassessment: VS STABLE, NO HEMATEMESIS OR DARK TARRY STOOLS. bp 15:10 Reassessment: CONSENT FOR PRBC TRANSFUSION SIGNED/WITNESSED. ss 15:24 Reassessment: HOSPITALIST AT B/S, DR FLORES. bp 15:44 Reassessment: PER HOSPITALIST, PT TO RECEIVE ONE UNIT PRBC AND SEE GI TOMORROW. bp 16:15 Reassessment: 1ST UNIT PRBC RECEIVED. PT PLACED ON MONITOR WITH SPO2 AND NIBP. ss 18:40 Reassessment: 2ND UNIT PRBC OBTAINED AND STARTED. bp 20:05 General: Appears comfortable, Behavior is calm, cooperative. Pain: Denies pain. Neuro: rv Level of Consciousness is awake, alert, obeys commands, Oriented to person, place, time, situation. Cardiovascular: Patient's skin is warm and dry. Respiratory: Airway is patent Respiratory effort is even, unlabored. 20:15 Reassessment: blood transfusion continued upon admission. monitoring sheet and consent, rv given to receiving nurse after checking. Vital Signs: 11:41 BP 106 / 76; Pulse 60; Resp 18; Temp 98.4; Pulse Ox 98% ; Weight 100.24 kg; Height 5 ll1 ft. 8 in. (172.72 cm); Pain 0/10; 13:00 BP 133 / 66; Pulse 54; Resp 16; Pulse Ox 97% ; ss 14:00 BP 117 / 65; Pulse 53; Resp 17; Pulse Ox 100% ; ss 15:00 BP 127 / 75; Pulse 53; Resp 16; Pulse Ox 100% ; ss 16:00 BP 123 / 72; Pulse 54; Resp 16; Pulse Ox 100% ; ss 18:00 BP 123 / 68; Pulse 54; Resp 16; Pulse Ox 100% ; bp 19:10 BP 137 / 75; Pulse 52; Resp 16; Pulse Ox 100% on R/A; rv 20:04 BP 137 / 77; Pulse 55; Resp 15; Temp 97.3; Pulse Ox 100% on R/A; Pain 0/10; rv 11:41 Body Mass Index 33.60 (100.24 kg, 172.72 cm) ll1 ED Course: 11:35 Patient arrived in ED. ag5 11:35 Ger David MD is Private Physician. ag5 11:44 Triage completed. ll1 11:45 Arm band placed on Patient placed in an exam room, on a stretcher. ll1 11:47 Frank Romero, AMANDA is Primary Nurse. bp 12:08 Garth Adames MD is Attending Physician. yani 12:37 XRAY Chest (1 view) In Process Unspecified. EDMS 12:45 Patient has correct armband on for positive identification. Bed in low position. Call bp light in reach. Side rails up X2. 12:45 Inserted saline lock: 18 gauge in right forearm, using aseptic technique. Blood bp collected. 13:24 Chino Flores is Hospitalizing Provider. [facility] 16:00 Inserted saline lock: 20 gauge in right hand, using aseptic technique. 20:06 No provider procedures requiring assistance completed. IV is patent, with fluids rv infusing freely, with good blood return, Patient admitted, IV remains in place. Administered Medications: 12:45 Drug: NS 0.9% 1000 ml Route: IV; Rate: 125 ml/hr; Site: right forearm; bp 20:06 Follow up: IV Status: Infusion continued upon admission rv 12:45 Drug: ProTONIX 80 mg Route: IVP; Site: right forearm; bp 13:31 Follow up: Response: No adverse reaction bp 14:00 Drug: ProTONIX 8 mg/hr Route: IV; Rate: 25 ml/hr; Site: right forearm; jr10 20:05 Follow up: IV Status: Infusion continued upon admission rv Outcome: 13:25 Decision to Hospitalize by Provider. [facility] 20:06 Admitted to Med/surg accompanied by nurse, via wheelchair, room 212, on monitor, with rv chart, Report called to RYAN PATEL 20:06 Condition: good 20:06 Instructed on the need for admit. 20:13 Patient left the ED. rv Signatures: Dispatcher [employer] EDWI Garth Adames MD MD cha Smirch, Shelby, RN RN ss Frank Romero, RN RN bp Ar, Luis Antonio, RN RN rv Rut, Danie ag5 Nakul Rasmussen, RN RN ll1 Melany Go, RN RN jr10
[2020-04-12] MEDS ORDERED: PANTOPRAZOLE INJ 80 MG in NA CHLORIDE 0.9% 250 ML IV ONE (13:30)
[2020-04-12 13:37] LABS: Albumin 2.3 g/dL (3.4-5.0); Bilirubin Direct 0.2 mg/dL (0-0.2); Bilirubin Total 0.5 mg/dL (0.2-1.0); Magnesium 1.9 mg/dL (1.8-2.4); Potassium 3.6 mmol/L (3.5-5.1); Protein, Total 7.3 g/dL (6.4-8.2); Troponin (Emerg Dept Use Only) 0.03 ng/mL (0.0-0.045)
[2020-04-12 13:55] LABS: Blood Morphology Comment NOTED (NOT SEEN); Hypochromasia 1+; Platelet Estimate ADEQ; Urine White Blood Cell Casts OK
[2020-04-12 14:54] LABS: Urine Blood NEGATIVE (NEG); Urine Glucose NEGATIVE (NEG); Urine Protein NEGATIVE (NEG)
[2020-04-12] MEDS ORDERED: NA CHLORIDE 0.9% 250 ML ONE (16:19)
--- NOTE | 2020-04-12 17:00 | P.HP ---
Certification for Inpatient Patient admitted to: Inpatient With expected LOS: >2 Midnights Practitioner: I am a practitioner with admitting privileges, knowledge of patient current condition, hospital course, and medical plan of care. Services: Services provided to patient in accordance with Admission requirements found in Title 42 Section 412.3 of the Code of Federal Regulations Patient History Date of Service: 04/12/20 Reason for admission: GI bleed History of Present Illness: 64-year-old gentleman with a history of myasthenia gravis, diagnosed with atrial fibrillation and placed on Xarelto anticoagulation presented emergency department with a complaint of dizziness, fainting and fatigue and dark colored stool for 2 weeks. His stool was positive for occult blood in the ED. Hemoglobin was 8.1 in the ED. Chest x-ray showed no acute abnormality. His lipase is mildly elevated. Patient denies any abdominal pain. He is admitted for further evaluation for GI bleed and also for symptomatic anemia. Allergies codeine Allergy (Verified 04/12/20 13:24) UNK - Past Medical/Surgical History -: Myasthenia gravis -: Hypertension -: Coronary artery disease -: Hypothyroidism -: Mitral valve prolapse -: Lap band surgery -: Knee surgery - Family History Family History: Reviewed- Non-Contributory - Social History Smoking Status: Never smoker Alcohol use: No CD- Drugs: No Place of Residence: Home Review of Systems Other: Except as documented, all other systems reviewed and negative. Physical Examination - Physical Exam General: Alert, In no apparent distress, Oriented x3 HEENT: Mucous membr. moist/pink, Sclerae nonicteric Neck: Supple, JVD not distended Respiratory: Clear to auscultation bilaterally, Normal air movement Cardiovascular: No edema, Regular rate/rhythm, Normal S1 S2 Gastrointestinal: Normal bowel sounds, Soft and benign, No tenderness Musculoskeletal: No swelling, No erythema Integumentary: No rashes Neurological: Normal strength at 5/5 x4 extr, Cranial nerves 3-12 intact - Studies Laboratory Data (last 24 hrs) 04/12/20 12:40: PT 23.2 H, INR 1.99 04/12/20 12:40: WBC 8.9, Hgb 8.1 L, Hct 24.5 L, Plt Count 222 04/12/20 12:40: Sodium 139, Potassium 3.6, BUN 17, Creatinine 1.12, Glucose 99, Magnesium 1.9, Total Bilirubin 0.5, AST 31, ALT 30, Alkaline Phosphatase 63, Lipase 455 H Microbiology Data (last 24 hrs): 04/12/20 13:32 Stool Occult Blood - Final Assessment and Plan - Problems (Diagnosis) (1) GI bleed Current Visit: Yes Status: Acute (2) Symptomatic anemia Current Visit: Yes Status: Acute (3) Paroxysmal atrial fibrillation Current Visit: Yes Status: Acute (4) Chronic anticoagulation Current Visit: Yes Status: Acute (5) Myasthenia gravis Current Visit: Yes Status: Acute - Plan Admit patient to the medical floor. Hold all anticoagulation Continue IV Protonix drip started in the ED. Transfuse 1 unit PRBC for symptomatic anemia. Monitor H&H q.8 hrs. Consult to GI. Continue AFib rate control medications. - Advance Directives Does patient have a Living Will: No Does patient have a Durable POA for Healthcare: No
[2020-04-12] MEDS ORDERED: NA CHLORIDE 0.9% 250 ML IV SCH (20:13)
[2020-04-12] MEDS: NA CHLORIDE 0.9% 1,000 ML IV SCH (21:02)
--- NOTE | 2020-04-12 22:35 | P.PN ---
Date of Service: 04/12/20 I did not receive hand off on this patient. I was called by nursing staff informed that patient has consistently been an accelerated idioventricular rhythm with a rate of approximately 50. Patient asymptomatic at this time blood pressure stable. Cardiology consult had at this time. Will continue to monitor patient throughout the evening.
[2020-04-12 23:13] VITALS: BMI 35.2
[2020-04-12 23:33] LABS: Hematocrit 28.2 % (39.6-49.0)
[2020-04-13 06:13] LABS: Absolute Lymphocytes (CBC) 0.6 K/uL (0.7-4.9); Basophils % 0.1 % (0-1.3); Hematocrit 27.4 % (39.6-49.0); Lymphocytes % 7.2 % (15.3-44.8); MPV 8.5 fL (7.6-11.3)
[2020-04-13 06:23] LABS: Potassium 3.4 mmol/L (3.5-5.1)
[2020-04-13 06:27] LABS: Protime INR 1.41
[2020-04-13] MEDS ORDERED: KCL 20 MEQ/100 mL IVPB 20 MEQ/100 ML BAG IV SCH (09:00)
[2020-04-13 09:33] LABS: Anisocytosis 1+; Blood Morphology Comment NOTED (NOT SEEN); Platelet Estimate ADEQ
[2020-04-13] MEDS: METOCLOPRAMIDE 10 MG/2mL INJ IV SCH ×3 (11:00→18:24)
--- NOTE | 2020-04-13 11:04 | P.PN ---
Subjective Date of Service: 04/13/20 Chief Complaint: GI bleed Patient has no complain. He is kept NPO till GI evaluation No nausea or vomiting or hematemesis or melena. Status post 1 unit PRBC transfusion. Physical Examination - Vital Signs Temperature: 97.7 F Blood Pressure: 165/74 Pulse: 50 Respirations: 18 Pulse Ox (%): 96 - Physical Exam General: Alert, In no apparent distress HEENT: Mucous membr. moist/pink Neck: Supple Respiratory: Clear to auscultation bilaterally, Normal air movement Cardiovascular: No edema, Regular rate/rhythm, Normal S1 S2 Capillary refill: <2 Seconds Gastrointestinal: Normal bowel sounds, Soft and benign, Non-distended, No tenderness Musculoskeletal: No swelling, No erythema Integumentary: No rashes Neurological: Normal strength at 5/5 x4 extr, Cranial nerves 3-12 intact - Studies Laboratory Data (last 24 hrs) 04/12/20 12:40: PT 23.2 H, INR 1.99 04/12/20 12:40: WBC 8.9, Hgb 8.1 L, Hct 24.5 L, Plt Count 222 04/12/20 12:40: Sodium 139, Potassium 3.6, BUN 17, Creatinine 1.12, Glucose 99, Magnesium 1.9, Total Bilirubin 0.5, AST 31, ALT 30, Alkaline Phosphatase 63, Lipase 455 H Microbiology Data (last 24 hrs): 04/12/20 13:32 Stool Occult Blood - Final Assessment And Plan - Current Problems (Diagnosis) (1) GI bleed Current Visit: Yes Status: Acute (2) Symptomatic anemia Current Visit: Yes Status: Acute (3) Paroxysmal atrial fibrillation Current Visit: Yes Status: Acute (4) Chronic anticoagulation Current Visit: Yes Status: Acute (5) Myasthenia gravis Current Visit: Yes Status: Acute - Plan Continue to hold Xarelto Change Protonix drip to IV Protonix b.i.d. Status post 1 unit PRBC transfusion. Hemoglobin is up to 9.4. GI consult is pending. Hold Coreg and amiodarone given bradycardia.
[2020-04-13] MEDS ORDERED: SODIUM CHLORIDE 0.9% 10ML INJ IV PRN (11:09)
[2020-04-13] MEDS ORDERED: ATORVASTATIN 40 MG TAB PO SCH (13:55)
[2020-04-13] MEDS ORDERED: hydroCHLOROthiazide 12.5 MG CAP PO SCH (13:59)
[2020-04-13] MEDS ORDERED: PYRIDOSTIGMINE BROMIDE 60 MG PO SCH (14:00)
[2020-04-13] MEDS ORDERED: CITALOPRAM 10 MG TABLET PO SCH (14:00)
[2020-04-13] MEDS ORDERED: LOSARTAN POTASSIUM 50 MG TABLET PO SCH (14:00)
[2020-04-13] MEDS ORDERED: LEVOTHYROXINE SOD 0.1 MG TAB PO SCH (14:00)
[2020-04-13] MEDS ORDERED: TAMSULOSIN 0.4 MG SR CAP PO SCH (15:00)
[2020-04-13] MEDS: NA CHLORIDE 0.9% 1,000 ML IV SCH (16:13)
[2020-04-13] MEDS ORDERED: propofoL 200 MG/20 ML VIAL IV ONE (17:17)
[2020-04-13] MEDS ORDERED: NA CHLORIDE 0.9% 1,000 ML ONE ×2 (17:28→17:54)
[2020-04-13] MEDS ORDERED: LIDOCAINE 1% MPF 5 ML VIAL ONE (17:32)
[2020-04-13] MEDS ORDERED: GLYCOPYRROLATE 0.2 MG/ML SYR ONE (17:33)
--- NOTE | 2020-04-13 20:07 | CON ---
Date of Consultation: 04/13/2020 Reason For Consultation: Idioventricular rhythm. History Of Present Illness: This is a 64-year-old male, who was admitted to the hospital with impres lizet of GI bleed. He has been having a workup for that. Known to have history of atrial fibrillatio n that was diagnosed about a month ago, and at that time, he was placed on Xarelto 20 mg and then was dropped to 10 mg due to bleeding. The patient comes in with dark colored stool. There was concern for upper GI bleed. Hemoglobin 8.1 and anticoagulation was stopped. From the cardiac standpoint, he has no complaints. No chest pain, dizziness, shortness of breath, or cough. Completely asymptomati c. Past Medical History: Myasthenia gravis, hypertension, coronary artery disease, hypothyroidism, mitr al valve prolapse, and coronary artery disease as per chart. 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 Past Surgical History: Knee surgery. Medications: Refer to reconciliation sheet for detailed list. Allergies: CODEINE. Family History: No premature coronary artery disease or cancer. Social History: Does not smoke or drink. Does not use any drugs. Review of Systems: All systems reviewed and they were negative except what mentioned in the HPI. Physical Examination: Vital Signs: Temperature is 97.3, pulse 51, breathing 18, blood pressure is 171/82, saturating 98% o n room air. General: Pleasant middle-aged male, in no distress. Head and Neck: Pupils are equal, react to light. Intact eye movements. No JVD. No cervical lympha denopathy. Neck is supple. Thyroid is not enlarged. Lungs: Clear to auscultation bilaterally. No rhonchi, rales, crackles. No accessory muscle use. Heart: Regular rate and rhythm. No extra sounds. Abdomen: Soft, nontender. Bowel sounds positive. No organomegaly. No masses or hernia. No rigidi ty or rebound. Extremities: No edema, clubbing, cyanosis. Intact pulses. Skin: No rash. Neurologic: Alert, awake, oriented x3. No acute focal deficit appreciated. Investigations: EKG, sinus bradycardia, rate is 49, and on telemetry, he goes into idioventricular r hythm in and out while he is still completely asymptomatic. Sodium 139, potassium 3.6, magnesium is 2. White blood cell count 7.8, hemoglobin 9.4. Assessment And Recommendations: Intermittent idioventricular rhythm. This could be possible due to medications that were used to control the atrial fibrillation. At this point, I recommend to discont inue any AV jaden blocking agents and check his digoxin level as he was on digoxin recently. Maintai n potassium above 4 and magnesium above 2. Check serial set of cardiac enzymes and please obtain ech ocardiogram and keep the patient on telemetry. I follow the patient with you. Thank you for the courtesy of this consultation. /CJ Voice ID: [id number] Report ID: [id number]
--- NOTE | 2020-04-13 20:31 | CON ---
Date of Consultation: 04/13/2020 Reason For Consultation: GI bleed with melena and anemia. History Of Present Illness: The patient is a 64-year-old white male with history of myasthenia gravis, atrial fibrillation, coronary artery disease, hypothyroidism, mitral valve prolapse, presented to the hospital with 2 weeks of melena and anemia, hgb 8.1. The patient was weak with lightheadedness, dizziness, and also somewhat faint. He has been on the Xarelto for atrial fibrillation. He did not seek medical attention prior to this. He went to his primary care, who told him to go to the hospital for further evaluation and care. On admission, he was noted to have a hemoglobin of 8.1. He denies any hematemesis, coffee-grounds emesis, hematochezia, abdominal pain, nausea, vomiting, fevers, chills, night sweats. His last colonoscopy was ~ 5 years ago by outside GI in [place], [place]. Past Medical History: Significant for atrial fibrillation on Xarelto, myasthenia gravis, coronary artery disease, hypothyroid, mitral valve prolapse, lap band surgery, and knee surgery. Allergies: TO CODEINE. Social History: He is . One son, 38 years old. No tobacco, quit 20 years ago. No alcohol, quit 6 years ago. Family History: Father of coronary artery disease with the CABG surgery. Mother of coronary artery disease, atrial fibrillation. Twin sister had 2 heart transplants. approximately 3 years ago at the age of 63. Review of Systems: The patient has melena 2 weeks, weakness, dizziness, lightheadedness, faintness. Denies any hematemesis, coffee-ground emesis, hematochezia, hemoptysis, hematuria, dysuria, polydipsia, chest pain, shortness of breath, seizure, syncope, lower extremity muscle aches, joint aches, backaches. Physical Examination: Vital Signs: The patient is 5 feet 6 inches, 218 pounds, BMI of 35.2 kg/m2. General: He is obese male, sitting in a chair, no acute distress. HEENT: Normocephalic, atraumatic. Anicteric. Pupils equal, round, and reactive to light. Extraocular movements intact. Oropharynx is clear. Neck: Supple. No masses. Respirations: Clear to auscultation. Good air movement. Cardiac: Irregularly irregular. Abdomen: Positive bowel sounds. Soft, nontender, nondistended. No hepatosplenomegaly. Slightly obese. Extremities: No clubbing, cyanosis, or edema. 2+ pulses. Neuro: Oriented x3. Grossly nonfocal. 5/5 motor strength. Sensation intact to light touch. Laboratory Data: The patient has a white count of 7.8, hemoglobin 9.4 up from 8.1 on admission, hematocrit 27.4, MCV of 91, platelet count of 199, polys of 86% down from 93% on admission, lymphocytes 7%, monocytes 7%. PT of 16.5 down from 23.2 on admission, INR of 1.41 down from 1.99. The patient has a sodium of 139, potassium 3.4, chloride 106, bicarb 29, BUN of 17, creatinine of 0.94, glucose of 75, calcium 7.8, phosphorus 4.0, magnesium 2.0. Total bilirubin 0.5, direct bilirubin 0.2, AST of 31, ALT of 30, alkaline phosphatase 63. Troponin of 0.03. B-type natriuretic peptide of 1415 indicative of congestive heart failure. Total protein 7.3, albumin is 2.3, lipase 455, but no abdominal pain. Chest x-ray was negative. Impression: 1. Gastrointestinal bleed with melena, 2 weeks. 2. Anemia, hemoglobin 8.1 on admission with weakness, dizziness, lightheadedness, and faintness. On Xarelto for atrial fibrillation. It has been held. 3. History of atrial fibrillation, myasthenia gravis, coronary artery disease, hypothyroidism, mitral valve prolapse, lap band surgery, and knee surgery. Recommendations: 1. PPI therapy. 2. IV fluids. 3. Resuscitation. 4. EGD. 5. Keep n.p.o. 6. Hold Xarelto. 7. Continue myasthenia gravis therapy WS/MODL Voice ID: [id number] Report ID: [id number] MTDD
[2020-04-13] MEDS: GOLYTELY 4000 ML PO ONE ×2 (20:37→22:00)
[2020-04-13] MEDS: PANTOPRAZOLE 40 MG INJ IVP SCH (20:38)
[2020-04-13] MEDS: AMLODIPINE 10 MG TAB PO SCH (20:38)
[2020-04-13] MEDS: AZATHIOPRINE 50 MG TABLET PO SCH (20:39)
[2020-04-14 04:41] LABS: Potassium 3.3 mmol/L (3.5-5.1)
[2020-04-14] MEDS: LEVOTHYROXINE SOD 0.1 MG TAB PO SCH (04:45)
[2020-04-14] MEDS: KCL 20 MEQ/100 mL IVPB 20 MEQ/100 ML BAG IV SCH ×2 (06:03→10:54)
[2020-04-14] MEDS ORDERED: LEVOTHYROXINE SOD 0.1 MG TAB PO SCH (06:30)
[2020-04-14] MEDS ORDERED: propofoL 200 MG/20 ML VIAL IV ONE (08:59)
[2020-04-14] MEDS ORDERED: LIDOCAINE 1% MPF 5 ML VIAL ONE (08:59)
[2020-04-14] MEDS ORDERED: LOSARTAN POTASSIUM 50 MG TABLET PO SCH (09:00)
[2020-04-14] MEDS ORDERED: PYRIDOSTIGMINE BROMIDE 60 MG PO SCH ×2 (09:00→11:00)
[2020-04-14] MEDS ORDERED: hydroCHLOROthiazide 12.5 MG CAP PO SCH ×2 (09:00)
[2020-04-14] MEDS ORDERED: CITALOPRAM 10 MG TABLET PO SCH (09:00)
[2020-04-14] MEDS ORDERED: ATORVASTATIN 40 MG TAB PO SCH (09:00)
[2020-04-14] MEDS ORDERED: AMLODIPINE 10 MG TAB PO SCH (09:00)
[2020-04-14] MEDS ORDERED: AZATHIOPRINE 50 MG TABLET PO SCH (09:00)
[2020-04-14] MEDS ORDERED: TAMSULOSIN 0.4 MG SR CAP PO SCH (09:00)
[2020-04-14] MEDS ORDERED: NA CHLORIDE 0.9% 0 ML ONE (09:04)
[2020-04-14] MEDS: AMLODIPINE 10 MG TAB PO SCH (10:55)
[2020-04-14] MEDS: LOSARTAN POTASSIUM 50 MG TABLET PO SCH (10:56)
[2020-04-14] MEDS: TAMSULOSIN 0.4 MG SR CAP PO SCH (10:56)
[2020-04-14] MEDS: hydroCHLOROthiazide 12.5 MG CAP PO SCH (10:57)
[2020-04-14] MEDS: CITALOPRAM 20 MG TABLET PO SCH (10:57)
[2020-04-14] MEDS: ATORVASTATIN 40 MG TAB PO SCH (10:58)
[2020-04-14] MEDS: AZATHIOPRINE 50 MG TABLET PO SCH (10:58)
[2020-04-14] MEDS: PANTOPRAZOLE 40 MG INJ IVP SCH ×2 (10:59→21:39)
[2020-04-14] MEDS: PYRIDOSTIGMINE BROMIDE 60 MG PO SCH ×3 (11:14→21:39)
[2020-04-14] MEDS: NA CHLORIDE 0.9% 1,000 ML IV SCH (11:27)
--- NOTE | 2020-04-14 14:21 | RAD REPORT ---
EXAM DESCRIPTION: RAD - Small Bowel Series - 04/14/2020 2:06 pm CLINICAL HISTORY: occult GI bleed / melena anemia COMPARISON: [facility] Protocol dated 08/07/2019 FINDINGS: Cartographic Engineer film shows a nonspecific bowel gas pattern. Lap band is in place. Prominent amount o f air is present in the colon. Patient had a colonoscopy earlier in the day. Numerous phleboliths are seen in the pelvis. Advanced spine degenerative changes are present. Numerous gallstones are seen in the right upper quadrant. Gastric size and mucosal fold pattern are normal. No delay in transit of contrast into the small michael l. Small bowel is normal in diameter with no mucosal fold thickening. No intrinsic or extrinsic mass identifiable. Terminal ileum has normal appearance. Transit time to the colon is 1 hour common normal range. IMPRESSION: Unremarkable small bowel series.
--- NOTE | 2020-04-14 14:50 | P.PN ---
Subjective Date of Service: 04/14/20 Chief Complaint: GI bleed Patient has no complain. Status post EGD and colonoscopy. Source of bleeding not identified. No nausea or vomiting or hematemesis or melena. Status post 1 unit PRBC transfusion. Hemoglobin is stable around 9. Physical Examination - Vital Signs Temperature: 98.8 F Blood Pressure: 143/82 Pulse: 80 Respirations: 16 Pulse Ox (%): 93 - Physical Exam General: Alert, In no apparent distress HEENT: Mucous membr. moist/pink Neck: Supple, JVD not distended Respiratory: Clear to auscultation bilaterally, Normal air movement Cardiovascular: No edema, Regular rate/rhythm, Normal S1 S2 Gastrointestinal: Normal bowel sounds, Soft and benign, No tenderness Musculoskeletal: No swelling, No erythema Integumentary: No rashes Assessment And Plan - Current Problems (Diagnosis) (1) GI bleed Current Visit: Yes Status: Acute (2) Symptomatic anemia Current Visit: Yes Status: Acute (3) Paroxysmal atrial fibrillation Current Visit: Yes Status: Acute (4) Chronic anticoagulation Current Visit: Yes Status: Acute (5) Myasthenia gravis Current Visit: Yes Status: Acute - Plan Continue to hold Xarelto Continue protonix. Status post 1 unit PRBC transfusion. Hemoglobin is up to 9.4. GI input appreciated. Status post EGD and colonoscopy. Source of bleeding not identified yet. Continue to hold anticoagulation for now. Holding Coreg and amiodarone given bradycardia. Check digoxin level GI is following. Cardiology input appreciated.
[2020-04-14] MEDS ORDERED: POTASSIUM CL SA 10 MEQ TAB PO ONE (17:00)
[2020-04-15] MEDS: PYRIDOSTIGMINE BROMIDE 60 MG PO SCH ×3 (04:37→16:34)
[2020-04-15] MEDS: LEVOTHYROXINE SOD 0.1 MG TAB PO SCH (04:37)
[2020-04-15] MEDS: NA CHLORIDE 0.9% 1,000 ML IV SCH (04:42)
[2020-04-15 05:28] LABS: Urine Appearance CLEAR; Urine Bilirubin NEGATIVE (NEG); Urine Blood 2+ (NEG); Urine Color YELLOW; Urine Glucose NEGATIVE (NEG); Urine Protein NEGATIVE (NEG); Urine Specific Gravity 1.015 (1.005-1.030); Urine Urobilinogen 0.2 mg/dL (0.2-1.0)
[2020-04-15 05:30] LABS: Urine Microscopic Reflex ORDER UMIC
[2020-04-15 05:43] LABS: Urine Mucus 1+ /HPF (NONE SEEN)
[2020-04-15 05:44] LABS: Urine Bacteria <20 /HPF (NONE SEEN); Urine Culture Reflex Order NOT NEEDED; Urine Urothelial Cells <5 /HPF (NONE SEEN)
[2020-04-15 05:50] LABS: Absolute Lymphocytes (CBC) 0.5 K/uL (0.7-4.9); Basophils % 0.2 % (0-1.3); Hematocrit 29.8 % (39.6-49.0); Lymphocytes % 6.4 % (15.3-44.8); MPV 7.9 fL (7.6-11.3); RBC Red Blood Cell Count 3.24 M/uL (4.33-5.43)
[2020-04-15] MEDS ORDERED: KCL 20 MEQ/100 mL IVPB 20 MEQ/100 ML BAG IV SCH (06:00)
[2020-04-15 06:02] LABS: BUN Blood Urea Nitrogen 7 mg/dL (7-18); Bicarbonate 23 mmol/L (21-32); Glucose Level 67 mg/dL (74-106); Sodium Level 136 mmol/L (136-145)
[2020-04-15] MEDS ORDERED: POTASSIUM 25 MEQ EFFERV TAB PO ONE ×2 (06:08→06:24)
[2020-04-15] MEDS: AZATHIOPRINE 50 MG TABLET PO SCH (08:04)
[2020-04-15] MEDS: AMLODIPINE 10 MG TAB PO SCH (08:04)
[2020-04-15] MEDS: LOSARTAN POTASSIUM 50 MG TABLET PO SCH (08:05)
[2020-04-15] MEDS: PANTOPRAZOLE 40 MG INJ IVP SCH (08:05)
[2020-04-15] MEDS: hydroCHLOROthiazide 12.5 MG CAP PO SCH (08:05)
[2020-04-15] MEDS: CITALOPRAM 20 MG TABLET PO SCH (08:06)
[2020-04-15] MEDS: TAMSULOSIN 0.4 MG SR CAP PO SCH (08:06)
[2020-04-15] MEDS: ATORVASTATIN 40 MG TAB PO SCH (08:07)
[2020-04-15 10:39] VITALS: O2SAT 96
--- NOTE | 2020-04-15 15:32 | P.DS ---
Discharge Date: 04/15/20 Disposition: ROUTINE DISCHARGE Discharge Condition: GOOD Reason for Admission: GI bleed Brief History of Present Illness: 64-year-old gentleman with a history of myasthenia gravis, diagnosed with atrial fibrillation and placed on Xarelto anticoagulation presented emergency department with a complaint of dizziness, fainting and fatigue and dark colored stool for 2 weeks. His stool was positive for occult blood in the ED. Hemoglobin was 8.1 in the ED. Chest x-ray showed no acute abnormality. His lipase is mildly elevated. Patient denies any abdominal pain. He is admitted for further evaluation for GI bleed and also for symptomatic anemia. Vital Signs/Physical Exam: Temp Pulse Resp BP Pulse Ox 98.2 F 78 16 129/78 95 04/15/20 12:00 04/15/20 12:00 04/15/20 12:00 04/15/20 12:00 04/15/20 12:00 Laboratory Data at Discharge: WBC 8.5 K/uL (4.3-10.9) 04/15/20 05:32 Hgb 10.3 g/dL (13.6-17.9) L 04/15/20 05:32 Hct 29.8 % (39.6-49.0) L 04/15/20 05:32 Plt Count 202 K/uL (152-406) 04/15/20 05:32 PT 16.5 SECONDS (9.5-12.5) H 04/13/20 05:41 INR 1.41 04/13/20 05:41 Sodium 136 mmol/L (136-145) 04/15/20 05:32 Potassium 3.4 mmol/L (3.5-5.1) L 04/15/20 13:45 BUN 7 mg/dL (7-18) 04/15/20 05:32 Creatinine 0.83 mg/dL (0.55-1.3) 04/15/20 05:32 Glucose 67 mg/dL (74-106) L 04/15/20 05:32 Phosphorus 4.0 mg/dL (2.5-4.9) 04/13/20 05:41 Magnesium 2.0 mg/dL (1.8-2.4) 04/13/20 05:41 Total Bilirubin 0.5 mg/dL (0.2-1.0) 04/12/20 12:40 AST 31 U/L (15-37) 04/12/20 12:40 ALT 30 U/L (12-78) 04/12/20 12:40 Alkaline Phosphatase 63 U/L (45-117) 04/12/20 12:40 Lipase 455 U/L (73-393) H 04/12/20 12:40 Home Medications: Amiodarone HCl [Pacerone] 200 mg PO DAILY 04/12/20 Amlodipine [Norvasc*] 1 tab PO DAILY 04/12/20 Atorvastatin Calcium [Lipitor] 1 tab PO DAILY 04/12/20 Carvedilol [Coreg] 12.5 mg PO BID 04/12/20 Citalopram [Celexa*] 1 tab PO DAILY 04/12/20 Immun Glob G(IgG)/Malt/Iga 50+ [Octagam 10% Vial] 20 ml IV SEECOM 04/12/20 Levothyroxine [Synthroid*] 1 tab PO DAILY 04/12/20 Losartan Potassium [Cozaar] 1 tab PO DAILY 04/12/20 Pyridostigmine [place] 60 mg PO QID 04/12/20 Rivaroxaban [Xarelto*] 10 mg PO DAILY 04/12/20 Tamsulosin HCl [Flomax] 0.4 mg PO DAILY 04/12/20 azaTHIOprine [Azathioprine] 1 tab PO DAILY 04/12/20 hydroCHLOROthiazide [Hydrochlorothiazide*] 1 cap PO DAILY 04/12/20 predniSONE [Prednisone] 40 mg PO SEECOM 04/12/20 Pantoprazole [Protonix Tab] 40 mg PO Q12H #60 tab 04/15/20 New Medications: Pantoprazole [Protonix Tab] 40 mg PO Q12H #60 tab Patient Discharge Instructions: OK TO DC IV AND DC HOME. FOLLOW-UP WITH PRIMARY CARE PROVIDER IN 1-2 WEEKS. FOLLOW-UP WITH GI IN 1-2 WEEKS. Follow-up with Cardiology in 1-2 weeks. RETURN TO THE ER IF SYMPTOMS WORSENS. CALL or TEXT DR. BEVERLY AT [phone] IF ANY QUESTIONS REGARDING HOSPITAL STAY. PLEASE CALL THE FLOOR AT [phone] IF ANY MEDICATION OR NURSING QUESTIONS. Hold Xarelto for at least 10 days; please get okay to use by GI and/or Cardiology Diet: Regular Activity: Fall precautions
[2020-04-15 16:42] VITALS: BP 106/65; TEMP 98.1
--- NOTE | 2020-04-16 12:13 | ECHO ---
HEIGHT: 5 ft 6 in WEIGHT: 218 lb 0 oz DATE OF STUDY: 04/15/[address]: rayo campuzano 2-DIMENSIONAL: YES M.MODE: YES DOPPLER: YES COLOR FLOW: YES TDS: NO PORTABLE: NO DEFINITY: NO BUBBLE STUDY: NO DIAGNOSIS: ATRIAL FIBRILLATION, BRADYCARDIA CARDIAC HISTORY: CATHERIZATION: NO SURGERY: NO PROSTHETIC VALVE: NO PACEMAKER: NO MEASUREMENTS (cm) DIASTOLIC (NORMALS) SYSTOLIC (NORMALS) IVSd 1.1 (0.6-1.2) LA Diam 3.2 (1.9-4.0) LVEF 60% LVIDd 5.2 (3.5-5.7) LVIDs 3.5 (2.0-3.5) %FS 32% LVPWd 1.2 (0.6-1.2) Ao Diam 3.1 (2.0-3.7) 2 DIMENSIONAL ASSESSMENT: RIGHT ATRIUM: NORMAL LEFT ATRIUM: NORMAL RIGHT VENTRICLE: NORMAL LEFT VENTRICLE: NORMAL TRICUSPID VALVE: NORMAL MITRAL VALVE: NORMAL PULMONIC VALVE: NORMAL AORTIC VALVE: NORMAL PERICARDIAL EFFUSION: NONE AORTIC ROOT: NORMAL LEFT VENTRICULAR WALL MOTION: NORMAL DOPPLER/COLOR FLOW: NORMAL COMMENTS: NORMAL 2D ECHOCARDIOGRAM WITH DOPPLER. NORMAL LEFT ATRIAL SIZE. NO THROMBUS. TECHNOLOGIST: Soheila WRAY
== END 2020-04-15 19:12 | disposition home or self-care (01) | DRG 379 ==
LOC: ER 11:33 → ERHOLD 15:52 → 2ND 19:58
PROVIDERS: ADMIT Internal Medicine; ATTEND Hospitalist
PROC: 0DJD8ZZ Inspection of Lower Intestinal Tract, Via Natural or Artificial Opening Endoscopic (ICD-10-PCS; 2020-04-13)
PROC: 0DB78ZX Excision of Stomach, Pylorus, Via Natural or Artificial Opening Endoscopic, Diagnostic (ICD-10-PCS; principal; 2020-04-13 17:00)
DX: K92.1 Melena (principal); I48.0 Paroxysmal atrial fibrillation; K29.71 Gastritis, unspecified, with bleeding; G70.00 Myasthenia gravis without (acute) exacerbation; I25.10 Atherosclerotic heart disease of native coronary artery without angina pectoris; I34.1 Nonrheumatic mitral (valve) prolapse; E03.9 Hypothyroidism, unspecified; K64.4 Residual hemorrhoidal skin tags; K64.8 Other hemorrhoids; Z98.84 Bariatric surgery status; Z79.01 Long term (current) use of anticoagulants; Z11.59 Encounter for screening for other viral diseases
CPT/HCPCS: 36415; 36430; 71045; 74250; 80048; 80076; 80162; 81003; 81015; 82272; 83690; 83735; 83880; 84100; 84132; 84484; 85014; 85018; 85025; 85610; 86850; 86900; 86901; 88305; 88312; 93005; 93306; 94760; 96361; 96365; 96366; 99285; C9113; J2704; J2765; J3480; J7030; J7050; J7500; P9016; U0002

== ENCOUNTER 2021-05-03 14:23 | Emergency (ER) | payer OTHER, BC ==
--- OUTSIDE RECORDS SUMMARY | 2021-05-03 14:33 | XMS REPORT | Continuity of Care Document ---
:1955 Author Organization [facility] t Address [address] [place] [address] Care Team Providers Name Role Phone Jh MORIN Primary Care Physician HASBULuis Antonio Attending Clinician Unavailable RAMIREDDY Attending Clinician Unavailable Kenzie Anderson MD Attending Clinician Ernie MORIN Attending Clinician Jennifer Alcantara MD Attending Clinician Leif Montes MD Attending Clinician Ming ALEJANDRE Attending Clinician MONICA Attending Clinician Unavailable HASBULuis Antonio Attending Clinician Unavailable EEG Attending Clinician Unavailable ERMY Attending Clinician Unavailable CO19 Attending Clinician Unavailable STEPHANIE Attending Clinician Unavailable AMANDA Attending Clinician Unavailable ANDRASSY Attending Clinician Unavailable LUIS MIGUEL Attending Clinician Unavailable Wilberto Snell Attending Clinician CARLO Admitting Clinician Unavailable Payers Payer Name Policy Type Policy Number Effective Date Expiration Date S reymundo [facility] [id number] 2018 EMPLOYEE PROGRAM 00:00:00 Problems Condition Condition Condition Status Onset Resolution Last Treating Co mments Source Name Details Category Date Date Treatment Clinician Date Myasthenia Myasthenia Disease Active M ethodi gravis gravis 03-31 00:00: Hospita 00 l I63.9 - Diagnosis Active 2020-10-18 Me moria CEREBRAL 10-17 10:41:00 l INFARCTION I63.9 - 00:01: Her collier , CEREBRAL 00 UNSPECIFI INFARCTION , UNSPECIFI Active 10/17/2020 TEN Simon N39.0 = Diagnosis Active 2021-01-30 Me moria URINARY 10-04 17:07:00 l TRACT N39.0 = 00:00: Aureliano INFECTION, URINARY 00 SITE NO TRACT INFECTION, SITE NO Active 10/04[facility]2020 [facility] Stroke, Stroke, Disease Active [facility] embolic embolic 10-04 Health 00:00: 00 Suspected Suspected Disease Active [facility] sleep sleep 10-04 [facility] apnea apnea 00:00: 00 Encounter Encounter Disease Active UT for for 09-30 Health administra administra 00:00: tion of tion of 00 COVID-19 COVID-19 vaccine vaccine Myasthenia Myasthenia Disease Active U T gravis gravis 09-24 Health 00:00: 00 Elevated Elevated Disease Active UT white white 09-19 [facility] blood cell blood cell 00:00: count count 00 Brain Brain Disease Active UT abscess abscess 09-17 Health 00:00: 00 Atrial Atrial Disease Active UT fibrillati fibrillati 7-21 He alth on on 00:00: 00 Osteoporos Osteoporos Disease Active 2019-0 U T is is 529 Health 00:00: 00 Osteopenia Osteopenia Disease Active 2019-0 U T 526 Health 00:00: 00 R31.29 - Diagnosis Active 2019-11-03 M emoria OTHER 3-03 08:28:00 l MICROSCOPI R31.29 - 00:01: He rmann C OTHER 00 HEMATURIA MICROSCOPI C HEMATURIA Active 10/24/2019 [facility] Gallstones Gallstones Disease Active 2019-0 U T 2 Health 00:00: 00 G70.00 Diagnosis Active 2018-082019-10-07 Mem oria 2 15:28:00 l G70.00 00:00: A[place]iano 00 Active 08/03/2019 [facility] Urinary Urinary Disease Active 2018-08 UT hesitancy hesitancy -11 Heal th 00:00: 00 MYASTHENIA Diagnosis Active 2019-05-24 Memoria GRAVIS 15 22:12:00 l 00:00: [place] MYASTHENIA 00 GRAVIS Active 05/07/2019 [facility] JONATHAN Diagnosis Active 2019-05-07 Memoria BILLING 05-07 17:48:00 l 00:00: Aureliano PALACIO 00 BILLING Active 05/07/2019 [facility] 379.91 - Diagnosis Active 2012-05-03 M emoria PAIN IN OR 04-28 09:30:00 l AROU 379.91 - 00:01: Fabien anna PAIN IN OR 00 AROU Active 04/28/2012 TEN Simon History of History of Problem Resolve [facility] hematuria hematuria d ity of [place] [facility] History of History of Problem Resolve [facility] hypothyroi hypothyroi d it y of dism dism [place] [facility] History of History of Problem Resolve [facility] hypertensi hypertensi d it y of on on [place] [facility] Urinary Urinary Problem Active [facility] hesitancy hesitancy ity of [place] [facility] Myasthenia Myasthenia Problem Active U nivers gravis gravis ity of [place] [facility] Gallstones Gallstones Problem Active U nivers ity of [place] [facility] Osteopenia Osteopenia Problem Active U nivers ity of [place] [facility] Osteoporos Osteoporos Problem Active U nivers is is ity of [place] [facility] Atrial Atrial Problem Active Univers fibrillati fibrillati it y of on on [place] [facility] Brain Brain Problem Active Univers abscess abscess ity of [place] [facility] Elevated Elevated Problem Active Unive rs white white ity of blood cell blood cell [place] count count Physici ans Encounter Encounter Problem Active Uni vers for for ity of administra administra [place] tion of tion of Physici COVID-19 COVID-19 ans vaccine vaccine Stroke, Stroke, Problem Active Univers embolic embolic ity of [place] [facility] Suspected Suspected Problem Active Uni vers sleep sleep ity of apnea apnea [place] [facility] Hyperchole Problem Resolve 2021-02-06 Memoria sterolemia d 00:42:40 l (disorder) Fabien anna Hyperchole sterolemia (disorder) Resolved Problem 02/06/2021 Medical Group,Misc her Neuro, AlfredM Raciel Simon,M H TEN [facility] Dysarthria Problem Active 2019-05-13 M emoria (finding) 21:43:45 l Aureliano Dysarthria (finding) Active Problem 05/13/2019 [facility] Hypertensi Problem Active 2019-05-13 M emoria ve 21:43:45 l disorder, [place] systemic Hypertensi arterial ve (disorder) disorder, systemic arterial (disorder) Active Problem 05/13/2019 [facility] Hyperlipid Problem Active 2019-05-13 M emoria emia 21:43:45 l (disorder) Fabien n Hyperlipid emia (disorder) Active Problem 05/13/2019 [facility] Hypothyroi Problem Active 2019-05-13 M emoria dism 21:43:45 l (disorder) Fabien n Hypothyroi dism (disorder) Active Problem 05/13/2019 [facility] Morbid Problem Active 2019-05-13 Memor ia obesity 21:43:45 l (disorder) Morbid Herm cristhian obesity (disorder) Active Problem 05/13/2019 [facility] Lower Problem Active 2021-02-06 Memor ia urinary 00:42:40 l tract Lower Aureliano symptoms urinary (finding) tract symptoms (finding) Active Problem 02/06/2021 Medical Group,[facility] her Neuro, Alfred,M H TEN Simon,M H OPID [facility] Benign Problem Active 2021-02-06 Memor ia prostatic 00:42:40 l hyperplasi Benign Herm cristhian a prostatic (disorder) hyperplasi a (disorder) Active Problem 02/06/2021 Medical Group,[facility] her Neuro, Alfred,M H OPIYuliya Simon,M H OPID [facility] Chronic Problem Active 2021-02-06 Kaleb rodriguez 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: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 (disorder) heart failure (disorder) Active Problem 02/06/2021 Medical Group,[facility] her Neuro, Alfred,M H TEN Simon,M H OPID [facility] Colonic Problem Active 2021-02-06 Kaleb rodriguez fistula 00:42:40 l (disorder) Colonic Her collier fistula (disorder) Active Problem 02/06/2021 Medical Group,[facility] [place] her Neuro, Alfred,M H OPID Alfred,M H OPID [facility] Diverticul Problem Active 2021-02-06 M emoria itis of 00:42:40 l rectosigmo Fabien n id Diverticul (disorder) itis of rectosigmo id (disorder) Active Problem 02/06/2021 Medical Group,[facility] her Neuro,ESTEFANY Simon,M H JOBD Alfred,M H OPID [facility] Paroxysmal Problem Active 2021-02-06 M emoria atrial 00:42:40 l fibrillati Fabien n on Paroxysmal (disorder) atrial fibrillati on (disorder) Active Problem 02/06/2021 Medical Group,[facility] her Neuro,MH Alfred,M H JOBD Alfred,M H OPID [facility] URINARY Diagnosis Active 2020-10-17 Me moria TRACT 09:23:00 l INFECTION, URINARY Her collier SITE NOT TRACT SPECIF INFECTION, SITE NOT SPECIF Active [facility] Allergies, Adverse Reactions, Alerts Allergy Allergy Status Severity Reaction(s) Onset Inactive Treating Comm ents Source Name Type Date Date Clinician Codeine Propensi Active Other (See It speed M ethodi ty to Comments) 03-[address] adverse 00:00: Hospita reaction 00 l s to drug codeine codeine Active Memoria l [place] PDI PDI Active Memoria Insect Insect l Sting Sting [place] Relief Relief PDI PDI Active Memoria Insect Insect l Sting Sting [place] Relief Relief Codeine Allergy Active Univers Sulfate to drug ity of TABS ([facility] ) Physici ans Family History Family Member Diagnosis Comments Start Date Stop Date Source Natural father Heart disease [facility] Natural mother Heart disease [facility] Natural sister Heart disease [facility] Mother Family history of Univers ity of Active medical [place] [facility] problems: none Unknown Family Family history of Family History University of Member cardiac disorder [place] [facility] Unknown Family Family history of Family History University of Member malignant [place] [facility] neoplasm of prostate Social History Social Habit Start Date Stop Date Quantity Comments Source History SDOH [facility] Alcohol Std Drinks Hospit al History SDOH [facility] Alcohol Binge Hospital Exposure to Not sure [facility] SARS-CoV-2 (event) Hospit al History of tobacco Cigarette Smoker [facility] use Hospital Cigarettes smoked 2021-04-02 2021-04-[address] current (pack per 00:00:00 00:00:00 Hospita l day) - Reported Cigarette 2021-04-02 2021-04-02 [facility] pack-years 00:00:00 00:00:00 Hospital Tobacco use and 2021-04-02 2021-04-02 Never used [facility] exposure 00:00:00 00:00:00 Hospital Alcohol intake 2021-04-02 2021-04-02 Lifetime [facility] 00:00:00 00:00:00 non-drinker Hospital (finding) History SDOH 2021-03-27 2021-03-27 1 [facility] Alcohol Frequency 00:00:00 00:00:00 Hospita l Sex Ass[birth year] At [birth year] [facility] 00:00:00 00:00:00 Hospital Smoking Status Start Date Stop Date Source Smoker (finding) [facility] ex Physicians Former smoker 2021-04-02 00:00:2021-04-02 00:00:00 [facility] Social History [facility] [place] [facility] Medications Ordered Filled Start Stop Current Ordering Indication Dosage Frequency Signature Comments Components Source Medication Medication Date Date Medication? Clinician (SIG) Name Name ergocalcife Yes 1{capsu Take 1 U T rol 04-29 le} capsule by Health (Vitamin 15:00: mouth 1 D-2) 1.25 57 (one) time MG (85123 per week. UT) capsule apixaban Yes 1{tbl} Q12H Take 1 UT (Eliquis) 5 04-29 tablet by Hea lth MG tablet 15:00: mouth 57 every 12 (twelve) hours. Calcium Yes UT Polycarboph 04-29 Health il (Fiber) 15:00: 625 MG 57 tablet Ferrous Yes UT Gluconate 04-29 Health (Iron) 240 15:00: (27 Fe) MG 57 tablet folic acid Yes 1{tbl} QD Take 1 UT (Folvite) 1 - tablet by Hea lth MG tablet 15:00: mouth 1 57 (one) time each day. tamsulosin Yes .4mg 0.4 mg. UT (Flomax) 04-29 Health 0.4 MG 24 15:00: hr capsule 57 apixaban 2020- No 5mg Q.5D Take 5 mg Met hodi (ELIQUIS) 5 8-10 08-10 by mouth 2 s t mg tablet 21:00: 00:00 (two) Hospit a 08 :00 times a l day. apixaban 2020-2020- No 5mg Q.5D Take 5 mg Met hodi (ELIQUIS) 5 8-10 08-10 by mouth 2 s t mg tablet 21:00: 00:00 (two) Hospit a 08 :00 times a l day. carvediloL 0 Yes 12.5mg Q.5D Take 12.5 Methodi (COREG) 8-[address] 12.5 MG 21:00: mouth 2 Hospita tablet 02 (two) l times a day with meals. losartan 0 Yes 50mg QD Take 50 mg Met hodi (COZAAR) 50 8-[address] MG tablet 21:00: every Hospita 02 evening. l atorvastati 0 Yes 40mg QD Take 40 mg Methodi n (LIPITOR) 8-[address] 40 mg 21:00: nightly. Hospita tablet 02 l levothyroxi Yes 100ug QD Take 100 M ethodi ne 8-[address] (SYNTHROID) 21:00: mouth Hospi ta 100 mcg 02 daily. l tablet tamsulosin Yes .4mg QD Take 0.4 Met hodi (FLOMAX) 8-[address] 0.4 mg 21:00: mouth Hospita capsule 02 daily with l dinner. hydroCHLORO Yes 12.5mg QD Take 12.5 Methodi thiazide 8-[address] (HYDRODIURI 21:00: mouth Hospi ta L) 12.5 MG 02 daily. l tablet predniSONE 0 Yes 50mg Q2D Take 50 mg M ethodi (DELTASONE) 8-[address] 50 mg 21:00: every Hospita tablet 02 other day. l predniSONE 2020-0 Yes 20mg Q2D Take 20 mg M ethodi (DELTASONE) 8-[address] 20 mg 21:00: every Hospita tablet 02 other day. l amIODarone 0 Yes 200mg QD Take 200 Me thodi (PACERONE) 8-[address] 200 MG 21:00: mouth Hospita tablet 02 daily. l azaTHIOprin 0 Yes 50mg QD Take 50 mg Methodi e (IMURAN) 8-[address] 50 mg 21:00: daily. Hospita tablet 02 l citalopram Yes 10mg QD Take 10 mg M ethodi (CeleXA) 10 8-[address] MG tablet 21:00: daily. Hospit a 02 l eculizumab Yes Q14D Infuse Metho di (Soliris) 8-[address] 300 mg/30 21:00: venous Hospit a mL solution 02 catheter l every 14 (fourteen) days. Last treatment 03/27/21 pantoprazol Yes 40mg QD Take 40 mg Methodi e 8-[address] (PROTONIX) 21:00: daily. Hospi ta 40 MG EC 02 l tablet furosemide Yes 20mg QD Take 20 mg M ethodi (LASIX) 20 8-[address] mg tablet 21:00: daily. Hospit a 02 l folic acid Yes 1mg QD Take 1 mg Me thodi (FOLVITE) 1 8-[address] MG tablet 21:00: daily. Hospit a 02 l polycarboph Yes 625mg QD Take 625 M ethodi il 8-[address] (FiberCon) 21:00: mouth Hospit a 625 mg 02 daily. l tablet sulfamethox Yes 1{tbl} QD Take 1 Me thodi azole-trime 8-[address] thoprim 21:00: mouth Hospita (BACTRIM 02 daily. l SS) 400-80 mg per tablet ergocalcife Yes [id number] Q7D Take Meth haritha rol 8-10 50,[address] (VITAMIN 21:00: Units by Hospi ta D2) 50,000 02 mouth once l unit a week. capsule Wednesday carvediloL Yes 12.5mg Q.5D Take 12.5 Methodi (COREG) 8-[address] 12.5 MG 21:00: mouth 2 Hospita tablet 02 (two) l times a day with meals. losartan Yes 50mg QD Take 50 mg Met hodi (COZAAR) 50 8-[address] MG tablet 21:00: every Hospita 02 evening. l atorvastati Yes 40mg QD Take 40 mg Methodi n (LIPITOR) 8-[address] 40 mg 21:00: nightly. Hospita tablet 02 l levothyroxi Yes 100ug QD Take 100 M ethodi ne 8-[address] (SYNTHROID) 21:00: mouth Hospi ta 100 mcg 02 daily. l tablet tamsulosin Yes .4mg QD Take 0.4 Met hodi (FLOMAX) 8-[address] 0.4 mg 21:00: mouth Hospita capsule 02 daily with l dinner. hydroCHLORO Yes 12.5mg QD Take 12.5 Methodi thiazide 8-[address] (HYDRODIURI 21:00: mouth Hospi ta L) 12.5 MG 02 daily. l tablet predniSONE Yes 50mg Q2D Take 50 mg M ethodi (DELTASONE) 8-[address] 50 mg 21:00: every Hospita tablet 02 other day. l predniSONE Yes 20mg Q2D Take 20 mg M ethodi (DELTASONE) 8-[address] 20 mg 21:00: every Hospita tablet 02 other day. l amIODarone Yes 200mg QD Take 200 Me thodi (PACERONE) 8-[address] 200 MG 21:00: mouth Hospita tablet 02 daily. l azaTHIOprin Yes 50mg QD Take 50 mg Methodi e (IMURAN) 8-[address] 50 mg 21:00: daily. Hospita tablet 02 l citalopram Yes 10mg QD Take 10 mg M ethodi (CeleXA) 10 8-[address] MG tablet 21:00: daily. Hospit a 02 l eculizumab Yes Q14D Infuse Metho di (Soliris) 8-[address] 300 mg/30 21:00: venous Hospit a mL solution 02 catheter l every 14 (fourteen) days. Last treatment 03/27/21 pantoprazol Yes 40mg QD Take 40 mg Methodi e 8-[address] (PROTONIX) 21:00: daily. Hospi ta 40 MG EC 02 l tablet furosemide Yes 20mg QD Take 20 mg M ethodi (LASIX) 20 8-[address] mg tablet 21:00: daily. Hospit a 02 l folic acid Yes 1mg QD Take 1 mg Me thodi (FOLVITE) 1 8-[address] MG tablet 21:00: daily. Hospit a 02 l polycarboph 0 Yes 625mg QD Take 625 M ethodi il 8-[address] (FiberCon) 21:00: mouth Hospit a 625 mg 02 daily. l tablet sulfamethox Yes 1{tbl} QD Take 1 Me thodi azole-trime 8-[address] thoprim 21:00: mouth Hospita (BACTRIM 02 daily. l SS) 400-80 mg per tablet ergocalcife Yes [id number] Q7D Take Meth haritha rol 8-10 50,000 st (VITAMIN 21:00: Units by Hospi ta D2) 50,000 02 mouth once l unit a week. capsule Wednesday sulfamethox 2020- No [id number] 1{tbl} QD Take 1 UT azole-trime 6-01 10-02 tablet by alth thoprim 00:00: 04:59 mouth 1 (Bactrim) 00 :00 (one) time 400-80 MG each day. tablet eculizumab Yes 0 Memoria 10 MG/ML 5-17 Refill(s) l Injectable 19:45: [place] Solution 00 [Soliris] eculizumab Yes 0 Memoria 10 MG/ML 5-17 Refill(s) l Injectable 19:45: [place]iano Solution 00 [Soliris] Soliris 300 2020-0 Yes Q 2 weeks U T MG/30ML 5-10 Health solution 00:00: injection 00 pyridostigm Yes TAKE 1 UT ine 5-03 TABLET BY Health (Mestinon) 00:00: MOUTH 4 60 MG 00 TIMES tablet DAILY AT 7 00AM 11 00AM 3 00PM AND AT 7 00PM predniSONE Yes TAKE 60 MG U T (Deltasone) 5-02 BY MOUTH Heal th 10 MG 00:00: ALTERNATIN tablet 00 G WITH 30 MG DAILY (USE 50 AND 10 MG TABS) predniSONE predniSONE 2021-0 Yes THY ANDERSON Take 3 Univers 20 MG Oral 20 MG Oral 4-29 M.D. tablets by ity of Tablet Tablet 00:00: mouth [place] alternatin Physici g with 1 ans tablet by mouth every other day predniSONE Yes TAKE 3 UT (Deltasone) 4-29 TABLETS BY He alth 20 MG 00:00: MOUTH tablet 00 ALTERNATIN G WITH 1 TABLET EVERY OTHER DAY Engerix-B Engerix-B Yes MICHAEL 1 INJECT 1 Univers 20 MCG/ML 20 MCG/ML 4-05 HASBUN ML ity of Intramuscul Intramuscul 00:00: M.D. Intramuscu [place] ar ar 00 lar Physici Injectable Injectable ans hepatitis B Yes INJECT 1 UT (Engerix-B) 4-05 ML Health 20 MCG/ML 00:00: Intramuscu injection 00 lar Furosemide Furosemide Yes THY ANDERSON 1 QD TAKE 1 Univers 20 MG Oral 20 MG Oral 3-30 M.D. TABLET i ty of Tablet Tablet 00:00: DAILY. Physici ans furosemide Yes 1{tbl} QD Take 1 UT (Lasix) 20 3-30 tablet by Heal th MG tablet 00:00: mouth 1 00 (one) time each day. azaTHIOprin azaTHIOprin Yes ISABELLA ANDERSON TAKE ONE Univers e 50 MG e 50 MG 3-08 M.D. TABLET BY ity of Oral Tablet Oral Tablet 00:00: MOUTH [place] 00 DAILY Physici ans predniSONE predniSONE Yes ISABELLA ANDERSON Take 60 mg Univers 10 MG Oral 10 MG Oral 2-25 M.D. alternatin ity of Tablet Tablet 00:00: g with 30 [place] 00 mg daily Physici (use 50 ans and 10 mg tabs) predniSONE Yes Q2D every UT (Deltasone) 2-25 other day. 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 Sulfamethox 0 Yes 1 tab, PO, Memoria azole 800 2-10 BID, X 7 l MG / 18:37: day, # 14 Aureliano Trimethopri 00 tab, 0 m 160 MG Refill(s), Oral Tablet Pharmacy: [Bactrim] [facility], 172.72, cm, 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/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, 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, 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, kg, 09/27/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, 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 TABLET ity of thoprim thoprim 00:00: DAILY. [place] 400-80 MG 400-80 MG 00 Physi ci Oral Tablet Oral Tablet a ns Meningococc Meningococc Yes THY ANDERSON Give as Univers al B al B 9-16 M.D. directed. ity of vaccine, vaccine, 00:00: Give one [place] fully fully 00 meningococ Physici recombinant recombinant sandip a ns vaccine prior to starting Soliris infusions. Octagam Yes UT infusion 9-03 Health 00:00: 00 sodium 2020-0 Yes Q 2 weeks UT chloride 9-03 Health 0.9 % 00:00: solution 00 Losartan Losartan 2020-0 Yes THY ANDERSON 1 QD TAKE 1 Univers Potassium Potassium 8-31 M.D. TABLET ity of 25 MG Oral 25 MG Oral 00:00: DAILY [place] Tablet Tablet 00 Physici ans losartan 2020-0 Yes 1{tbl} QD Take 1 UT (Cozaar) 25 8-31 tablet by Hea lth MG tablet 00:00: mouth 1 00 (one) time each day. pantoprazol 2020-0 Yes 60mg Q.5D 60 mg 2 UT e 8-25 (two) Health (ProtoNix) 00:00: times a 40 MG EC 00 day. tablet Amiodarone Amiodarone 2020-0 Yes THY ANDERSON 1 QD TAKE 1 Univers HCl - 200 HCl - 200 7-21 M.D. TABLET ity of MG Oral MG Oral 00:00: DAILY. [place] Tablet Tablet 00 Physici ans amiodarone 2020-0 Yes 1{tbl} QD Take 1 UT (Pacerone) 7-21 tablet by Heal th 200 MG 00:00: mouth 1 tablet 00 (one) time each day. EPINEPHrine 2020-0 Yes UT (Epipen) 7-06 Health 0.3 00:00: MG/0.3ML 00 injection syringe Prednisone 2020-0 Yes 50 mg = 1 Me moria 50 MG Oral 4-02 tab, PO, l Tablet 14:04: Daily, 0 [place] 00 Refill(s) predniSONE 2020-0 Yes 10 mg = 1 Me moria 10 mg oral 4-02 tab, PO, l tablet 14:04: Daily, 0 [place]iano 00 Refill(s) Prednisone 2020-0 Yes 50 mg = 1 Me moria 50 MG Oral 4-02 tab, PO, l Tablet 14:04: Daily, 0 [place] 00 Refill(s) predniSONE 2020-0 Yes 10 mg = 1 Me moria 10 mg oral 4-02 tab, PO, l tablet 14:04: Daily, 0 [place] 00 Refill(s) Levothyroxi Levothyroxi 2020-0 Yes THY ANDERSON 1 QD TAKE 1 Univers ne Sodium ne Sodium 3-16 M.D. TABLET ity of 100 MCG 100 MCG 00:00: DAILY. [place] Oral Tablet Oral Tablet 00 P hysici ans Carvedilol Carvedilol 2020-0 Yes ISABELLA ANDERSON Q0.5D TAKE 1 Univers 12.5 MG 12.5 MG 3-16 M.D. TABLET ity of Oral Tablet Oral Tablet 00:00: TWICE [place] 00 DAILY. Physici ans Atorvastati Atorvastati 2020-0 Yes ISABELLA ANDERSON 1 QD TAKE 1 Univers n Calcium n Calcium 3-16 M.D. TABLET ity of 40 MG Oral 40 MG Oral 00:00: DAILY. [place] Tablet Tablet 00 Physici ans hydroCHLORO hydroCHLORO 2020-0 Yes ISABLELA ANDERSON TAKE 1/2 A Univers thiazide thiazide 3-16 M.D. TABLET BY it y of 12.5 MG 12.5 MG 00:00: MOUTH [place] Oral Tablet Oral Tablet 00 DAILY Physici ans Citalopram Citalopram 2020-0 Yes ISABELLA ANDERSON TAKE 2 Univers Hydrobromid Hydrobromid 3-16 M.D. TABLET BY ity of e 10 MG e 10 MG 00:00: MOUTH [place] Oral Tablet Oral Tablet 00 DAILY Physici ans atorvastati 2020-0 Yes 1{tbl} QD Take 1 UT n (Lipitor) 3-16 tablet by [facility] lt 40 MG 00:00: mouth 1 tablet 00 (one) time each day. carvedilol 2020-0 Yes 1{tbl} Q.5D Take 1 UT (Coreg) 3-16 tablet by [facility] 12.5 MG 00:00: mouth 2 tablet 00 (two) times a day. citalopram 2020-0 Yes 2{tbl} QD Take 2 UT (CeleXA) 10 3-16 tablets by alth MG tablet 00:00: mouth 1 00 (one) time each day. hydroCHLORO 2020-0 Yes .5{tbl} QD Take 0.5 UT thiazide 3-16 tablets by [facility] (HYDRODiuri 00:00: mouth 1 l) 12.5 MG 00 (one) time tablet each day. levothyroxi 2020-0 Yes 1{tbl} QD Take 1 UT ne 3-16 tablet by [facility] (Synthroid, 00:00: mouth 1 Levoxyl) 00 (one) time 100 MCG each day. tablet Tamsulosin 2020-0 Yes 0.4 mg = 1 M emoria hydrochlori 3-03 cap, PO, l de 0.4 MG 17:49: Daily, # Herm cristhian Oral 00 90 cap, 3 Capsule Refill(s), [Flomax] Pharmacy: [facility] Tamsulosin 0 Yes 0.4 mg = 1 M emoria hydrochlori 3-03 cap, PO, l de 0.4 MG 17:49: Daily, # Herm cristhian Oral 00 90 cap, 3 Capsule Refill(s), [Flomax] Pharmacy: [facility] pyridostigm 0 Yes 0 Memori a ine 180 mg 1-22 Refill(s) l oral 16:13: [place] tablet, 00 extended release pyridostigm 2019-0 Yes 0 Memori a ine 180 mg 1-22 Refill(s) l oral 16:13: [place] tablet, 00 extended release azaTHIOprin 0 Yes 1{tbl} QD Take 1 UT e (Imuran) 1-15 tablet by Heal th 50 MG 00:00: mouth 1 tablet 00 (one) time each day. Tamsulosin 2018-08 Yes 0.4 mg = 1 M emoria hydrochlori 2-09 cap, PO, l de 0.4 MG 15:12: Daily, # Herm cristhian Oral 00 90 cap, 0 Capsule Refill(s), [Flomax] Pharmacy: [facility] Tamsulosin 2018-08 Yes 0.4 mg = 1 M emoria hydrochlori 2-09 cap, PO, l de 0.4 MG 15:12: Daily, # Herm cristhian Oral 00 90 cap, 0 Capsule Refill(s), [Flomax] Pharmacy: [facility] [id number] predniSONE predniSONE 2018-08 Yes THY ANDERSON Take 60 mg [facility] 50 MG Oral 50 MG Oral 0-28 M.D. alternatin ity of Tablet Tablet 00:00: g with 30 [place] 00 mg daily Physici (Use 50mg ans and 10 mg tablets) Pyridostigm Pyridostigm 2018-08 Yes THY ANDERSON TAKE 1 [facility] ine [place] 0-23 M.D. TABLET BY ity of 60 MG Oral 60 MG Oral 00:00: MOUTH 4 [place] Tablet Tablet 00 TIMES Physici DAILY AT ans 7:00AM, 11:00AM, 3:00PM, AND AT 7:00PM Calcium No Notes: Memoria Gluconate 05-20 WASTE: F/P l 21:30: - Sink; E [place] 00 - [facility] Trash [facility] Calcium No Notes: Memoria Gluconate 05-20 WASTE: F/P l 21:30: - Sink; E [place] - [facility] Trash [facility] albumin No Notes: Rashaun human 5% 05-20 LOT#: l intravenous 21:07: [place] solution 00 ___Mfg:___ ___ (Same as: Albuminar) "blood product derivative " WASTE: F/P - Red; E -Red MEDICATION WASTE Product Size: 25 gm Product Wasted: ___ gm albumin No Notes: Rashaun human 5% 05-20 LOT#: l intravenous 21:07: [place] solution 00 ___Mfg:___ ___ (Same as: Albuminar) "blood product derivative " WASTE: F/P - Red; E -Red MEDICATION WASTE Product Size: 25 gm Product Wasted: ___ gm NS (Bolus) No 500 mL, Kaleb rodriguez IV - 500 ml/hr, l 17:48: Infuse [place] 00 Over: 1 hr, Route: IV, 500, Drug form: INJ, ONCE, Priority: STAT, Dosing Weight 102.001 kg, Start date: 05/20/19 12:48:00 CDT, Stop date: 05/20/19 12:48:00 CDT, 0 NS (Bolus) No 500 mL, Kaleb rodriguez IV -28 500 ml/hr, l 17:48: Infuse [place] 00 Over: 1 hr, Route: IV, 500, Drug form: INJ, ONCE, Priority: STAT, Dosing Weight 102.001 kg, Start date: 05/20/19 12:48:00 CDT, Stop date: 05/20/19 12:48:00 CDT, 0 predniSONE Yes 30 mg = 3 Me moria 10 mg oral 05-20 tab, PO, l tablet 15:56: Daily, # [place] 00 90 tab, 5 Refill(s), Pharmacy: [place] [id number] pyridostigm 2019-0 Yes 60 mg = 1 M emoria ine 60 mg 9-28 tab, PO, l oral tablet 15:56: TID, 1 Herm cristhian 00 tab: 7-8 am 1 tab: 1-2 pm 1 tab: 6-7 pm, # 90 tab, 5 Refill(s), Pharmacy: [place] [address] Melatonin Yes 10 mg = 2 M emoria MG 9-28 tab, PO, l Sublingual 15:56: Bedtime, 0 H ermann Tablet 00 Refill(s) pantoprazol 2019- Yes 40 mg = 1 M emoria e 40 mg 9-28 tab, PO, l oral 15:56: Before [place] enteric 00 Breakfast, coated # 30 tab, tablet 5 Refill(s), Pharmacy: [place] [address] predniSONE 2018-0 Yes 30 mg = 3 Me moria 10 mg oral 9-28 tab, PO, l tablet 15:56: Daily, # [place] 00 90 tab, 5 Refill(s), Pharmacy: [place] [address] pyridostigm 2018-0 Yes 60 mg = 1 M emoria ine 60 mg 9-28 tab, PO, l oral tablet 15:56: TID, 1 Herm cristhian 00 tab: 7-8 am 1 tab: 1-2 pm 1 tab: 6-7 pm, # 90 tab, 5 Refill(s), Pharmacy: [place] [address] Melatonin Yes 10 mg = 2 M emoria MG 9-28 tab, PO, l Sublingual 15:56: Bedtime, 0 H ermann Tablet 00 Refill(s) pantoprazol 2019- Yes 40 mg = 1 M emoria e 40 mg 9-28 tab, PO, l oral 15:56: Before [place] enteric 00 Breakfast, coated # 30 tab, tablet 5 Refill(s), Pharmacy: [facility] Protonix 2019-0 No 40 mg, 1 Memor ia 9-28 tab, l 14:00: Route: PO, [place] 00 Drug form: ECTAB, Before Breakfast, Start date: 05/20/19 9:00:00 CDT, Duration: 30 day, Stop date: 06/19/19 7:30:00 CDT, 0 Protonix 2019-0 No 40 mg, 1 Memor ia 9-28 tab, l 14:00: Route: PO, [place] 00 Drug form: ECTAB, Before Breakfast, Start date: 05/20/19 9:00:00 CDT, Duration: 30 day, Stop date: 06/19/19 7:30:00 CDT, 0 pantoprazol No 20 mg, Kaleb rodriguez e 05-20 Route: PO, l 12:30: Before Breakfast, Dosing Weight 102.001, kg, Start date: 05/20/19 7:30:00 CDT, Duration: 30 day, Stop date: 06/18/19 7:30:00 CDT pantoprazol No 20 mg, Kaleb rodriguez e 05-20 Route: PO, l 12:30: Before Breakfast, Dosing Weight 102.001, kg, Start date: 05/20/19 7:30:00 CDT, Duration: 30 day, Stop date: 06/18/19 7:30:00 CDT phenol No Notes: Memoria 05-19 Chlorasept l 02:41: ic [employer] (Same as: Chlorasept ic, Sore Throat [employer]) WASTE: F/P - Black; E - [facility] phenol No Notes: Memoria 05-19 Chlorasept l 02:41: ic [employer] (Same as: Chlorasept ic, Sore Throat [employer]) WASTE: F/P - Black; E - [facility]ash [facility] Calcium No Notes: Memoria Gluconate 05-18 WASTE: F/P l 22:00: - Sink; E - [facility] Calcium No Notes: Memoria Gluconate 05-18 WASTE: F/P l 22:00: - Sink; E - [facility]ash [facility] albumin No 200 gm, Memoria human 5% 05-18 4,000 mL, l intravenous 21:46: 2000 Fabien n solution 00 ml/hr, Route: IV, Drug Form: INJ, Dosing Weight 102.001, kg, ONCE, Start date: 05/18/19 16:46:00 CDT, Stop date: 05/18/19 16:46:00 CDT, Indication : Plasmapher esis, 0 albumin No 200 gm, Memoria human 5% [...] collier Oral Tablet 00 (Same As: Ultram) tramadol No Notes: Not Mem oria hydrochlori 05-18 to exceed l de 50 MG 01:34: 400mg/day. Her collier Oral Tablet 00 (Same As: Ultram) Lovenox No Notes: Memoria 05-17 (Same as: l 21:00: Lovenox) [place] Lovenox No Notes: Memoria 05-17 (Same as: l 21:00: Lovenox) [place] tramadol No Notes: Not Mem oria hydrochlori 05-17 to exceed l de 50 MG 16:53: 400mg/day. Her collier Oral Tablet 00 (Same As: Ultram) tramadol No Notes: Not Mem oria hydrochlori - to exceed l de 50 MG 16:53: 400mg/day. Her collier Oral Tablet 00 (Same As: Ultram) Ibuprofen No Notes: Memori a 400 MG Oral -25 (Same as: l Tablet 01:13: Motrin) [place] 00 "Do Not Crush" Give with food. Ibuprofen No Notes: Memori a 400 MG Oral 9-25 (Same as: l Tablet 01:13: Motrin) [place] 00 "Do Not Crush" Give with food. Citalopram No 10 mg, 1 Mem oria 9 tab, l 16:24: Route: PO, [place] 00 Drug form: TAB, Daily, Dosing Weight 102.001, kg, Priority: NOW, Start date: 05/16/19 11:24:00 CDT, Duration: 30 day, Stop date: 06/15/19 9:00:00 CDT, 0 Citalopram No 10 mg, 1 Mem oria 05-16 tab, l 16:24: Route: PO, Drug form: TAB, Daily, Dosing Weight 102.001, kg, Priority: NOW, Start date: 05/16/19 11:24:00 CDT, Duration: 30 day, Stop date: 06/15/19 9:00:00 CDT, 0 calcium No Notes: Memoria gluconate 05-16 WASTE: F/P l 16:00: - Sink; E [place] 00 - [facility] Trash [facility] calcium No Notes: Memoria gluconate 05-16 WASTE: F/P l 16:00: - Sink; E [place] 00 - [facility] Trash [facility] Calcium No Notes: Memoria Gluconate 05-16 WASTE: F/P l 14:00: - Sink; E [place] - [facility] Trash [facility] Calcium No Notes: Memoria Gluconate 05-16 WASTE: F/P l 14:00: - Sink; E [place] 00 - [facility] Trash [facility] albumin No Notes: Memoria human 5% 05-16 LOT#: l intravenous 13:54: [place] solution ___Mfg:___ ___ (Same as: Albuminar) "blood product derivative " WASTE: F/P - Red; E -Red MEDICATION WASTE Product Size: 25 gm Product Wasted: ___ gm albumin No Notes: Memoria human 5% 05-16 LOT#: l intravenous 13:54: [place] solution ___Mfg:___ ___ (Same as: Albuminar) "blood product derivative " WASTE: F/P - Red; E -Red MEDICATION WASTE Product Size: 25 gm Product Wasted: ___ gm Beneprotein No Notes: Kaleb rodriguez 7 gm pkt 05-15 (Same as: l 21:30: Beneprotei [place] 00 n) Beneprotein No Notes: Kaleb rodriguez 7 gm pkt 05-15 (Same as: l 21:30: Beneprotei n) Calcium No Notes: Memoria Gluconate 05-14 WASTE: F/P l 14:00: - Sink; E - [facility] Trash [facility] Calcium No Notes: Memoria Gluconate 05-14 WASTE: F/P l 14:00: - Sink; E - [facility] Trash Bin albumin No Notes: Memoria human 5% 05-14 LOT#: l intravenous 13:52: [place] solution 00 ___Mfg:___ ___ (Same as: Albuminar) "blood product derivative " WASTE: F/P - Red; E -Red MEDICATION WASTE Product Size: 25 gm Product Wasted: ___ gm Calcium No Notes: Memoria Gluconate 05-14 WASTE: F/P l 13:52: - Sink; E - [facility] Trash Bin albumin No Notes: Memoria human 5% 05-14 LOT#: l intravenous 13:52: [place] solution ___Mfg:___ ___ (Same as: Albuminar) "blood product derivative " WASTE: F/P - Red; E -Red MEDICATION WASTE Product Size: 25 gm Product Wasted: ___ gm Calcium No Notes: Memoria Gluconate 05-14 WASTE: F/P l 13:52: - Sink; E - [facility] Trash Bin Melatonin No Notes: Memori a 05-14 (Same as: l 01:00: Melatonin) Melatonin No Notes: Memori a 05-14 (Same as: l 01:00: Melatonin) Pyridostigm No Notes: Kaleb rodriguez ine 05-13 (Same as: l 18:00: Mestinon) Pyridostigm No Notes: Kaleb rodriguez ine 05-13 (Same as: l 18:00: Mestinon) Calcium No Notes: Memoria Gluconate 05-12 WASTE: F/P l 18:00: - Sink; E [place] - [facility] Trash [facility] Calcium No Notes: Memoria Gluconate 05-12 WASTE: F/P l 18:00: - Sink; E [place] - [facility] Trash [facility] albumin No Notes: Memoria human 5% 05-12 LOT#: l intravenous 17:42: [place] solution 00 ___Mfg:___ ___ (Same as: Albuminar) "blood product derivative " WASTE: F/P - Red; E -Red MEDICATION WASTE Product Size: 25 gm Product Wasted: ___ gm albumin No Notes: Memoria human 5% 05-12 LOT#: l intravenous 17:42: [place] solution 00 ___Mfg:___ ___ (Same as: Albuminar) "blood product derivative " WASTE: F/P - Red; E -Red MEDICATION WASTE Product Size: 25 gm Product Wasted: ___ gm Lidocaine No Notes: Memori a Hydrochlori -20 (Same as: l de 10 MG/ML 15:46: Xylocaine) [place] Injectable 00 Solution Lidocaine No Notes: Memori a Hydrochlori 9-20 (Same as: l de 10 MG/ML 15:46: Xylocaine) [place]iano Injectable 00 Solution Dulcolax No Notes: Memoria Laxative - (Same As: l 22:58: Dulcolax, [place] 00 Bisco-Lax) Dulcolax No Notes: Memoria Laxative - (Same As: l 22:58: Dulcolax, [place] 00 Bisco-Lax) Melatonin No Notes: Memori a - (Same as: l 09:30: Melatonin) [place] Melatonin No Notes: Memori a -17 (Same as: l 09:30: Melatonin) [place] 00 Gamunex-C No Notes: For Me moria 05-09 adults: l 07:00: use IBW of [place]ureliano 00 XX used for XX mg/kg per protocol [...] C) Non-Formul [place] "blood product derivative " Gamunex-C No Notes: For Me moria 05-09 adults: l 07:00: use IBW of [place]iano XX used for XX mg/kg per protocol [...] 05-09 (Same as: l Tablet 02:00: Pepcid) Famotidine No Notes: Memor ia 20 MG Oral 05-09 (Same as: l Tablet 02:00: Pepcid) Streptococc No 0.5 mL, Mem oria us 05-08 Route: IM, l pneumoniae 22:56: Drug Form: H ermann serotype 1 44 INJ, capsular ONCALL, antigen Start diphtheria date: [id number] 05/08/19 protein 17:56:44 conjugate CDT, vaccine / Duration: Streptococc 1 doses or us times, 0 pneumoniae serotype 14 capsular antigen diphtheria [id number] protein conjugate vaccine / Streptococc us pneumoniae serotype 18C capsular antigen d Streptococc No 0.5 mL, Mem oria us 05-08 Route: IM, l pneumoniae 22:56: Drug Form: H ermann serotype 1 44 INJ, capsular ONCALL, antigen Start diphtheria date: [id number] 05/08/19 protein 17:56:44 conjugate CDT, vaccine / Duration: Streptococc 1 doses or us times, 0 pneumoniae serotype 14 capsular antigen diphtheria [id number] protein conjugate vaccine / Streptococc us pneumoniae serotype 18C capsular antigen d Pyridostigm 2019-0 No Pyridostig Memoria ine 90 mg - mine 90 mg l Tab 21:00: Tab, 90 [place] 00 mg, Drug form: MISC, Route: PO, Q8H, 05/08/19 16:00:00 CDT, Duration: 30 day, Stop date: 06/07/19 8:00:00 CDT, 0 Pyridostigm 2019-0 No Notes: Kaleb rodriguez ine -16 (Same as: l 21:00: Mestinon) Pyridostigm 2019-0 No Pyridostig Memoria ine 90 mg - mine 90 mg l Tab 21:00: Tab, 90 [place] 00 mg, Drug form: MISC, Route: PO, Q8H, 05/08/19 16:00:00 CDT, Duration: 30 day, Stop date: 06/07/19 8:00:00 CDT, 0 Pyridostigm 2019-0 No Notes: Kaleb rodriguez ine -16 (Same as: l 21:00: Mestinon) Immunoglobu 2019-0 No 40 gm, Kaleb rodriguez refugio G 05-08 Route: IV, l 15:00: Q24H, [place] 00 Dosing Weight 102.001, kg, Priority: Routine, Start date: 05/08/19 10:00:00 CDT, Duration: 4 day, Stop date: 05/11/19 10:00:00 CDT, Indication : Myasthenia gravis Immunoglobu No 40 gm, Kaleb rodriguez refugio G -16 Route: IV, l 15:00: Q24H, Dosing Weight 102.001, kg, Priority: Routine, Start date: 05/08/19 10:00:00 CDT, Duration: 4 day, Stop date: 05/11/19 10:00:00 CDT, Indication : Myasthenia gravis sennosides, No Notes: Kaleb rodriguez NURSING HOME -16 (Same as: l 14:00: Senokot) [place] 00 Docusate No Notes: Memoria 9-16 (Same as: l 14:00: Colace) (Do Not Crush) Immunoglobu No 50,000 mg, Memoria refugio G 16 Route: IV, l 14:00: Q24H, Dosing Weight 102.001, kg, Start date: 05/08/19 9:00:00 CDT, Duration: 4 day, Stop date: 05/11/19 9:00:00 CDT, Indication : Myasthenia gravis Prednisone No Notes: Memor ia -16 (Same as: l 14:00: PredniSONE ) Take with food. Thyroxine No Notes: Memori a 9-16 Take 1 l 14:00: hour before or 2 hours after meal; Enteral feeds may interefere with the absorption of this medication . (Same as:Levothr oid, Synthroid) sennosides, No Notes: Kaleb rodriguez NURSING HOME -16 (Same as: l 14:00: Senokot) [place] 00 Docusate No Notes: Memoria 9-16 (Same as: l 14:00: Colace) (Do Not Crush) Immunoglobu No 50,000 mg, Memoria refugio G 9-16 Route: IV, l 14:00: Q24H, Dosing Weight 102.001, kg, Start date: 05/08/19 9:00:00 CDT, Duration: 4 day, Stop date: 05/11/19 9:00:00 CDT, Indication : Myasthenia gravis Prednisone No Notes: Memor ia 16 (Same as: l 14:00: PredniSONE [place] 00 ) Take with food. Thyroxine No Notes: Memori a -16 Take 1 l 14:00: hour [place] 00 before or 2 hours after meal; Enteral feeds may interefere with the absorption of this medication . (Same as:Levothr oid, Synthroid) Immune No Notes: Memoria Globulin 5% 16 Begin at l Octagam 10 06:30: 0.03 [place] gm 00 grams/kg/h our (0.5mg/kg/ min); double the RATE (grams/kg/ hour) every 30 minutes as tolerated to a max of 0.48 grams/kg/h our (8 mg/kg/min) . Immune No Notes: Memoria Globulin 5% 16 Begin at l Octagam 10 06:30: 0.03 [place] gm 00 grams/kg/h our (0.5mg/kg/ min); double the RATE (grams/kg/ hour) every 30 minutes as tolerated to a max of 0.48 grams/kg/h our (8 mg/kg/min) . Iohexol 2018-0 No 75 mL, Memoria 05-08 Route: l 05:43: IVP, Drug Form: SOLN, Dosing Weight 102.001, kg, ONCALL, STAT, Start date: 05/08/19 0:43:00 CDT, Duration: 1 doses or times, Dose = 2.2ml/kg, Max dose = 100ml -- "To be infused by Radiology Staff ONLY" Iohexol 0 No 75 mL, Memoria 05-08 Route: l 05:43: IVP, Drug Form: SOLN, Dosing Weight 102.001, kg, ONCALL, STAT, Start date: 05/08/19 0:43:00 CDT, Duration: 1 doses or times, Dose = 2.2ml/kg, Max dose = 100ml -- "To be infused by Radiology Staff ONLY" Immunoglobu 0 No 30 gm, Kaleb rodriguez refugio G 05-08 Route: IV, l 05:13: ONCE, [place] 00 Dosing Weight 102.001, kg, Priority: NOW, Start date: 05/08/19 0:13:00 CDT, Stop date: 05/08/19 0:13:00 CDT, Indication : Myasthenia gravis Immunoglobu 2019-0 No 30 gm, Kaleb rodriguez huff G 05-08 Route: IV, l 05:13: ONCE, Aurelaino 00 Dosing Weight 102.001, kg, Priority: NOW, Start date: 05/08/19 0:13:00 CDT, Stop date: 05/08/19 0:13:00 CDT, Indication : Myasthenia gravis ocular 2019- No Notes: Memoria lubricant 05-08 (Same as: l 05:00: Lacri-Lube [place]iano 00 , Puralube, Duratears Naturale, Artificial Tears, and Tears Again ) chlorhexidi No Notes: Kaleb rodriguez ne 05-08 (Same As: l gluconate 05:00: Peridex) Herm cristhian 1.2 MG/ML 00 Mouthwash heparin No Notes: Memoria 16 porcine l 05:00: heparin [place] 00 Pyridostigm 0 No Pyridostig Memoria ine 90 mg 05-08 mine 90 mg l Tab 05:00: Tab, 90 [place] 00 mg, 1.5 tab, Drug form: MISC, Route: PO, TID, 05/08/19 0:00:00 CDT, Duration: 30 day, Stop date: 06/06/19 17:00:00 CDT, 0 ocular No Notes: Memoria lubricant 05-08 (Same as: l 05:00: Lacri-Lube [place] 00 , Puralube, Duratears Naturale, Artificial Tears, and Tears Again ) chlorhexidi No Notes: Kaleb rodriguez ne 05-08 (Same As: l gluconate 05:00: Peridex) Herm cristhian 1.2 MG/ML 00 Mouthwash heparin No Notes: Memoria -16 porcine l 05:00: heparin [place] 00 Pyridostigm 0 No Pyridostig Memoria ine 90 mg -16 mine 90 mg l Tab 05:00: Tab, 90 [place] 00 mg, 1.5 tab, Drug form: MISC, Route: PO, TID, 05/08/19 0:00:00 CDT, Duration: 30 day, Stop date: 06/06/19 17:00:00 CDT, 0 predniSONE No TAKE 1 Memor ia 10 mg oral 9-16 TABLET BY l tablet 03:23: MOUTH ONCE Patsy nn 00 DAILY FOR 30 DAYS citalopram No TAKE 1 Memor ia 10 mg oral 9-16 TABLET BY l tablet 03:23: MOUTH IN [place] 00 THE MORNING levothyroxi No TAKE 1 Kaleb rodriguez ne 100 mcg 9-16 TABLET BY l (0.1 mg) 03:23: MOUTH IN Patsy nn oral tablet 00 THE MORNING predniSONE No TAKE 1 Memor ia 10 [...] PO, l oral tablet 03:21: Bedtime, # [place]ureliano 00 30 tab, 0 Refill(s) Hydrochloro No 25 mg = 1 M emoria thiazide 25 9-16 tab, PO, l MG Oral 03:21: Daily, # Fabien n Tablet 00 30 tab, 0 Refill(s) pyridostigm No 60 mg = 1 M emoria ine 60 mg 9-16 tab, TID, l oral tablet 03:21: 0 Fabien n 00 Refill(s) AMLODIPINE No AMLODIPINE M emoria BESYLATE 10 9-16 BESYLATE l MG TAB 03:21: 10 MG TAB, Patsy nn 00 Refill(s) 0 carvedilol No 12.5 mg = Me moria 12.5 mg 9-16 1 tab, PO, l oral tablet 03:21: Q12H, # 60 [place]iano 00 tab, 0 Refill(s) atorvastati 2019 Yes 40 mg = 1 M emoria n 40 mg 9-16 tab, PO, l oral tablet 03:21: Bedtime, # [place] 00 30 tab, 0 Refill(s) Hydrochloro 2019- No 25 mg = 1 M emoria thiazide 25 9-16 tab, PO, l MG Oral 03:21: Daily, # Fabien n Tablet 00 30 tab, 0 Refill(s) pyridostigm 2019- No 60 mg = 1 M emoria ine 60 mg 9-16 tab, TID, l oral tablet 03:21: 0 Fabien n 00 Refill(s) AMLODIPINE No AMLODIPINE M emoria BESYLATE 10 05-08 BESYLATE l MG TAB 03:21: 10 MG TAB, Patsy nn 00 Refill(s) 0 Pyridostigm 2018- No 90 mg, Kaleb rodriguez ine 05-08 Route: PO, l 03:17: TID, [place] 00 Dosing Weight 102.001, kg, Start date: 05/07/19 22:17:00 CDT, Duration: 30 day, Stop date: 06/06/19 17:00:00 CDT Pyridostigm 2018- No 90 mg, Kaleb rodriguez ine 05-08 Route: PO, l 03:17: TID, [place] 00 Dosing Weight 102.001, kg, Start date: 05/07/19 22:17:00 CDT, Duration: 30 day, Stop date: 06/06/19 17:00:00 CDT Dexmedetomi 2018-0 No Notes: Use Memoria dine -16 the l 03:08: following [place]ureliano 00 cdm for [id number]. Dexmedetomi 2018-0 No Notes: Use Memoria dine -16 the l 03:08: following [place] 00 cdm for [id number]. Famotidine No Notes: Memor ia 05-08 (Same as: l 02:00: Pepcid) [place] 00 Can be dilute in 5-10cc NS IVP: Slow IV push over at least 2 minutes. chlorhexidi No Notes: Kaleb rodriguez ne 05-08 (Same As: l gluconate 02:00: Peridex) Herm cristhian 1.2 MG/ML 00 Mouthwash Saline No Notes: Memoria Flush 0.9% 05-08 (Same as: l 02:00: BD [place] 00 Posiflush) Famotidine No Notes: Memor ia 05-08 (Same as: l 02:00: Pepcid) [place] 00 Can be dilute in 5-10cc NS IVP: Slow IV push over at least 2 minutes. chlorhexidi No Notes: Kaleb rodriguez ne 05-08 (Same As: l gluconate 02:00: Peridex) Herm cristhian 1.2 MG/ML 00 Mouthwash Saline No Notes: Memoria Flush 0.9% 16 (Same as: l 02:00: BD [place] 00 Posiflush) Saline No Notes: Memoria Flush 0.9% -16 (Same as: l 01:06: BD [place] 00 Posiflush) Insulin No Notes: Memoria regular 05-08 (Same as: l 01:06: Humulin R) [place] 00 Roll in palms of hands gently; Do not shake vigorously . WASTE: F/P - Black; E - [facility] Trash [facility] Stable for 31 days at room temperatur e Expires in days from ____Date Dextrose No 25 mL, Memoria 50% Syringe 05-08 Route: l 01:06: IVP, [place] Dosing Weight 102.001, kg, PRN, PRN Blood Glucose Results, Start date: 05/07/19 20:06:00 CDT, Duration: 30 day, Stop date: 06/06/19 20:05:00 CDT Glucagon No 1 mg, Memoria 05-08 Route: IM, l 01:06: PRN, [place] 00 Dosing Weight 102.001, kg, PRN Blood Glucose Results, Start date: 05/07/19 20:06:00 CDT, Duration: 30 day, Stop date: 06/06/19 20:05:00 CDT Saline No Notes: Memoria Flush 0.9% 16 (Same as: l 01:06: BD [place] 00 Posiflush) Insulin No Notes: Memoria regular 05-08 (Same as: l 01:06: Humulin R) Roll in palms of hands gently; Do not shake vigorously . WASTE: F/P - Black; E - [facility] Trash [facility] Stable for 31 days at room temperatur e Expires in days from ____Date Dextrose No 25 mL, Memoria 50% Syringe 05-08 [...] Stop date: 06/06/19 20:05:00 CDT propofol 10 No Notes: If M emoria mg/mL -15 Diprivan - l (Titrate.) 23:32: change Patsy nn IV 1,000 mg 00 bottle & tubing every 12 hr Per state nursing law propofol can only be given by a nurse if patient is intubated or being intubated (unless the nurse is a CAN FILLING MACHINE OPERATOR). Same as: Diprivan propofol 10 No Notes: If M emoria mg/mL -15 Diprivan - l (Titrate.) 23:32: change Patsy nn IV 1,000 mg 00 bottle & tubing every 12 hr Per state nursing law propofol can only be given by a nurse if patient is intubated or being intubated (unless the nurse is a CAN FILLING MACHINE OPERATOR). Same as: Diprivan Dextrose No 12.5 gm, Memor ia 50% Syringe 05-07 25 mL, l 23:23: Route: IVP, Drug Form: INJ, Dosing Weight 102.001, kg, PRN, PRN Blood Glucose Results, Start date: 05/07/19 18:23:00 CDT, Duration: 30 day, Stop date: 06/06/19 18:22:00 CDT, 0 Glucagon 2019-0 No 1 mg, Memoria -15 Route: IM, l 23:23: Drug form: [place] 00 PDR/INJ, PRN, Dosing Weight 102.001, kg, PRN Blood Glucose Results, Start date: 05/07/19 18:23:00 CDT, Duration: 30 day, Stop date: 06/06/19 18:22:00 CDT, 0 Insulin 2019-0 No Notes: Memoria Lispro -15 (Same as: l 23:23: Humalog) [place] 00 Roll in palms of hands gently; Do not shake vigorously . WASTE: F/P - Black; E - [facility] Stable for 28 days at room temperatur e. Expires in days from ____Date Dextrose 2019-0 No 12.5 gm, Memor ia 50% Syringe 05-07 25 mL, l 23:23: Route: [place] 00 IVP, Drug Form: INJ, Dosing Weight 102.001, kg, PRN, PRN Blood Glucose Results, Start date: 05/07/19 18:23:00 CDT, Duration: 30 day, Stop date: 06/06/19 18:22:00 CDT, 0 Glucagon 2019-0 No 1 mg, Memoria 05-07 Route: IM, l 23:23: Drug form: [place] 00 PDR/INJ, PRN, Dosing Weight 102.001, kg, PRN Blood Glucose Results, Start date: 05/07/19 18:23:00 CDT, Duration: 30 day, Stop date: 06/06/19 18:22:00 CDT, 0 Insulin 2019-0 No Notes: Memoria Lispro -15 (Same as: l 23:23: Humalog) [place] 00 Roll in palms of hands gently; Do not shake vigorously . WASTE: F/P - Black; E - [facility] Trash [facility] Stable for 28 days at room temperatur e. Expires in days from ____Date Potassium 2019-0 No Notes: Memori a Chloride -15 (Same as: l 23:22: KCL) [place] 00 Infuse no faster than 10 mEq/hr if given peripheral ly. sodium No Notes: Memoria phosphate 9-15 Infuse l 23:22: over 4 [place] 00 hour. Do not infuse phosphorou s concurrent ly in the same line as TPN or IVF that contains calcium. For double lumen central lines, phosphorou s may be infused in a separate lumen from TPN. potassium No Notes: Memori a phosphate 9-15 (Same as: l 23:22: K [place] 00 Phosphate. ) Do not infuse phosphorou s concurrent ly in the same line as TPN or IVF that contains calcium. For double lumen central lines, phosphorou s may be infused in a separate lumen from TPN. 1 mMol phoshate has 1.47 mEq potassium Infuse over 4 hours potassium No Notes: Memori a phosphate-s -15 (Same as: l odium 23:22: Phos-NaK) Aureliano phosphate 00 Each 1.5 250 mg-280 gm pkt has mg-160 mg 250mg oral powder phosphorou for s. Mix reconstitut w/2.5oz ion water and stir. Magnesium No Notes: Memori a Sulfate 05-07 WASTE: F/P l 23:22: - Sink; E - [facility] Trash Bin Magnesium No Notes: Memori a Oxide - (Same as: l 23:22: Mag-Ox [place] 00 400) Magnesium oxide [id number] g elemental magnesium Dose=____m g magnesium oxide (___mg elemental magnesium) Calcium No Notes: Memoria Gluconate 15 WASTE: F/P l 23:22: - Sink; E Aureliano - [facility] Trash Bin Calcium No Notes: Memoria Carbonate -15 (Same As: l 500 MG 23:22: Tums) [place]urel[place] Chewable 00 Calcium Tablet Carbonate 500 mg = 200 mg elemental calcium Dose = mg calcium carbonate ( mg elemental calcium) Potassium No Notes: Memori a Chloride -15 (Same as: l 23:22: KCL) [place] Infuse no faster than 10 mEq/hr if given peripheral ly. sodium No Notes: Memoria phosphate 9-15 Infuse l 23:22: over 4 Aurel[place] 00 hour. Do not infuse phosphorou s concurrent ly in the same line as TPN or IVF that contains calcium. For double lumen central lines, phosphorou s may be infused in a separate lumen from TPN. potassium No Notes: Memori a phosphate 9-15 (Same as: l 23:22: K [place] 00 Phosphate. ) Do not infuse phosphorou s concurrent ly in the same line as TPN or IVF that contains calcium. For double lumen central lines, phosphorou s may be infused in a separate lumen from TPN. 1 mMol phoshate has 1.47 mEq potassium Infuse over 4 hours potassium No Notes: Memori a phosphate-s -15 (Same as: l odium 23:22: Phos-NaK) [place] phosphate 00 Each 1.5 250 mg-280 gm pkt has mg-160 mg 250mg oral powder phosphorou for s. Mix reconstitut w/2.5oz ion water and stir. Magnesium No Notes: Memori a Sulfate 05-07 WASTE: F/P l 23:22: - Sink; [facility] [place] [facility] Magnesium No Notes: Memori a Oxide -15 (Same as: l 23:22: Mag-Ox [place] 00 400) Magnesium oxide [id number] g elemental magnesium Dose=____m g magnesium oxide (___mg elemental magnesium) Calcium No Notes: Memoria Gluconate 05-07 WASTE: F/P l 23:22: - Sink; [facility] [place] [facility] Calcium No Notes: [facility] Carbonate 05-07 (Same As: l 500 MG 23:22: Tums) [place] Chewable 00 Calcium Tablet Carbonate 500 mg = 200 mg elemental calcium Dose = mg calcium carbonate ( mg elemental calcium) chlorhexidi No Notes: Kaleb rodriguez ne 05-07 (Same As: l gluconate 23:21: Peridex) Herm cristhian 1.2 MG/ML 00 Mouthwash chlorhexidi No Notes: Kaleb rodriguez ne 05-07 (Same As: l gluconate 23:21: Peridex) Herm cristhian 1.2 MG/ML 00 Mouthwash Pyridostigm 2018- Yes 60 mg = 1 M emoria ine [place] 9-12 tab, PO, l 60 MG Oral 19:07: QID, # 120 H [place] Tablet 35 tab, 2 [Mestinon] Refill(s), Pharmacy: [facility] Pyridostigm 2018-0 Yes 60 mg = 1 M emoria ine [place] 9-12 tab, PO, l 60 MG Oral 19:07: QID, # 120 H [place] Tablet 35 tab, 2 [Mestinon] Refill(s), Pharmacy: [facility] Pyridostigm Yes 60 mg = 1 M emoria ine [place] 9-12 tab, PO, l 60 MG Oral 19:07: QID, # 120 H ermann Tablet 35 tab, 2 [Mestinon] Refill(s), Pharmacy: [facility] Pyridostigm Yes 60 mg = 1 M emoria ine [place] 9-12 tab, PO, l 60 MG Oral 19:07: QID, # 120 H [place] Tablet 35 tab, 2 [Mestinon] Refill(s), Pharmacy: [facility] Pyridostigm Yes 60 mg = 1 M emoria ine [place] 9-12 tab, PO, l 60 MG Oral 19:07: QID, # 120 H ermann Tablet 35 tab, 2 [Mestinon] Refill(s), Pharmacy: [facility] Pyridostigm Yes 60 mg = 1 M emoria ine [place] 9-12 tab, PO, l 60 MG Oral 19:07: QID, # 120 H ermann Tablet 35 tab, 2 [Mestinon] Refill(s), Pharmacy: [facility] Pyridostigm Yes 60 mg = 1 M emoria ine [place] 9-12 tab, PO, l 60 MG Oral 19:07: QID, # 120 H [place] Tablet 35 tab, 2 [Mestinon] Refill(s), Pharmacy: [facility] Pyridostigm 2018-0 Yes 60 mg = 1 M emoria ine [place] 9-12 tab, PO, l 60 MG Oral 19:07: QID, # 120 H [place] Tablet 35 tab, 2 [Mestinon] Refill(s), Pharmacy: [facility] Pyridostigm 2019-0 Yes 60 mg = 1 M emoria ine [place] 9-12 tab, PO, l 60 MG Oral 19:07: QID, # 120 H ermann Tablet 35 tab, 2 [Mestinon] Refill(s), Pharmacy: [facility] Pyridostigm 2018-0 Yes 60 mg = 1 M emoria ine [place] 9-12 tab, PO, l 60 MG Oral 19:07: QID, # 120 H ermann Tablet 35 tab, 2 [Mestinon] Refill(s), Pharmacy: [facility] predniSONE 2018-0 Yes 10 mg = 1 Me moria 10 mg oral 9-12 tab, PO, l tablet 19:07: Daily, X [place] 00 30 day, # 30 tab, 1 Refill(s), Pharmacy: [facility] predniSONE 2018-0 Yes 10 mg = 1 Me moria 10 mg oral 9-12 tab, PO, l tablet 19:07: Daily, X [place] 00 30 day, # 30 tab, 1 Refill(s), Pharmacy: [facility] predniSONE 2018-0 Yes 10 mg = 1 Me moria 10 mg oral 9-12 tab, PO, l tablet 19:07: Daily, X [place] 00 30 day, # 30 tab, 1 Refill(s), Pharmacy: [facility] predniSONE 2018-0 Yes 10 mg = 1 Me moria 10 mg oral 9-12 tab, PO, l tablet 19:07: Daily, X [place] 00 30 day, # 30 tab, 1 Refill(s), Pharmacy: [facility] predniSONE 2019-0 Yes 10 mg = 1 Me moria 10 mg oral 9-12 tab, PO, l tablet 19:07: Daily, X [place] 00 30 day, # 30 tab, 1 Refill(s), Pharmacy: [facility] predniSONE 2019-0 Yes 10 mg = 1 Me moria 10 mg oral 9-12 tab, PO, l tablet 19:07: Daily, X [place] 00 30 day, # 30 tab, 1 Refill(s), Pharmacy: [facility] predniSONE 2018-0 Yes 10 mg = 1 Me moria 10 mg oral 9-12 tab, PO, l tablet 19:07: Daily, X [place] 00 30 day, # 30 tab, 1 Refill(s), Pharmacy: [facility] predniSONE 2019-0 Yes 10 mg = 1 Me moria 10 mg oral 9-12 tab, PO, l tablet 19:07: Daily, X [place] 30 day, # 30 tab, 1 Refill(s), Pharmacy: [facility] predniSONE 2019-0 Yes 10 mg = 1 Me moria 10 mg oral 9-12 tab, PO, l tablet 19:07: Daily, X [place] 30 day, # 30 tab, 1 Refill(s), Pharmacy: [facility] predniSONE 2019-0 Yes 10 mg = 1 Me moria 10 mg oral 9-12 tab, PO, l tablet 19:07: Daily, X [place] 30 day, # 30 tab, 1 Refill(s), Pharmacy: [facility] Pyridostigm 2019-0 No 60 mg = 1 M emoria ine [place] 9-11 tab, PO, l 60 MG Oral 15:36: QID, # 120 H ermann Tablet 40 tab, 2 [Mestinon] Refill(s), Pharmacy: [facility] Pyridostigm 20190 No 60 mg = 1 M emoria ine [place] 9-11 tab, PO, l 60 MG Oral 15:36: QID, # 120 H ermann Tablet 40 tab, 2 [Mestinon] Refill(s), Pharmacy: [facility] Pyridostigm 0 No 60 mg = 1 M emoria ine [place] 9-11 tab, PO, l 60 MG Oral 15:36: QID, # 120 H ermann Tablet 40 tab, 2 [Mestinon] Refill(s), Pharmacy: [facility] Pyridostigm 2019-0 No 60 mg = 1 M emoria in[place] 9-11 tab, PO, l 60 MG Oral 15:36: QID, # 120 H ermann Tablet 40 tab, 2 [Mestinon] Refill(s), Pharmacy: [facility] Pyridostigm 2019-0 No 60 mg = 1 M emoria in[place] 9-11 tab, PO, l 60 MG Oral 15:36: QID, # 120 H ermann Tablet 40 tab, 2 [Mestinon] Refill(s), Pharmacy: [facility] Pyridostigm 2019-0 No 60 mg = 1 M emoria in[place] 9-11 tab, PO, l 60 MG Oral 15:36: QID, # 120 H ermann Tablet 40 tab, 2 [Mestinon] Refill(s), Pharmacy: [facility] Pyridostigm 0 No 60 mg = 1 M emoria in[place] 9-11 tab, PO, l 60 MG Oral 15:36: QID, # 120 H ermann Tablet 40 tab, 2 [Mestinon] Refill(s), Pharmacy: [facility] Pyridostigm No 60 mg = 1 M emoria in[place] 9-11 tab, PO, l 60 MG Oral 15:36: QID, # 120 H ermann Tablet 40 tab, 2 [Mestinon] Refill(s), Pharmacy: [facility] Pyridostigm No 60 mg = 1 M emoria in[place] 9-11 tab, PO, l 60 MG Oral 15:36: QID, # 120 H ermann Tablet 40 tab, 2 [Mestinon] Refill(s), Pharmacy: [facility] Pyridostigm No 60 mg = 1 M emoria in[place] 9-11 tab, PO, l 60 MG Oral 15:36: QID, # 120 H ermann Tablet 40 tab, 2 [Mestinon] Refill(s), Pharmacy: [facility] Pyridostigm Yes 60 mg = 1 M emoria in[place] 9-04 tab, PO, l 60 MG Oral 22:05: TID, # 90 He rmann Tablet 00 tab, 2 [Mestinon] Refill(s), Pharmacy: [facility] Pyridostigm Yes 60 mg = 1 M emoria in[place] 9-04 tab, PO, l 60 MG Oral 22:05: TID, # 90 He rmann Tablet 00 tab, 2 [Mestinon] Refill(s), Pharmacy: [facility] Pyridostigm 0 Yes 60 mg = 1 M emoria in[place] 9-04 tab, PO, l 60 MG Oral 22:05: TID, # 90 He rmann Tablet 00 tab, 2 [Mestinon] Refill(s), Pharmacy: [facility] Pyridostigm Yes 60 mg = 1 M emoria in[place] 9-04 tab, PO, l 60 MG Oral 22:05: TID, # 90 He rmann Tablet 00 tab, 2 [Mestinon] Refill(s), Pharmacy: [facility] Pyridostigm Yes 60 mg = 1 M emoria in[place] 9-04 tab, PO, l 60 MG Oral 22:05: TID, # 90 He r[place] Tablet 00 tab, 2 [Mestinon] Refill(s), Pharmacy: [facility] Pyridostigm Yes 60 mg = 1 M emoria in[place] 9-04 tab, PO, l 60 MG Oral 22:05: TID, # 90 He r[place] Tablet 00 tab, 2 [Mestinon] Refill(s), Pharmacy: [facility] Pyridostigm Yes 60 mg = 1 M emoria in[place] 9-04 tab, PO, l 60 MG Oral 22:05: TID, # 90 He r[place] Tablet 00 tab, 2 [Mestinon] Refill(s), Pharmacy: [facility] Pyridostigm Yes 60 mg = 1 M emoria in[place] 9-04 tab, PO, l 60 MG Oral 22:05: TID, # 90 He rmann Tablet 00 tab, 2 [Mestinon] Refill(s), Pharmacy: [facility] Pyridostigm Yes 60 mg = 1 M emoria in[place] 9-04 tab, PO, l 60 MG Oral 22:05: TID, # 90 He rmann Tablet 00 tab, 2 [Mestinon] Refill(s), Pharmacy: [facility] Pyridostigm Yes 60 mg = 1 M emoria in[place] 9-04 tab, PO, l 60 MG Oral 22:05: TID, # 90 He rmann Tablet 00 tab, 2 [Mestinon] Refill(s), Pharmacy: [facility] Aspirin 81 Yes 81 mg = 1 Me moria MG Enteric -04 tab, PO, l Coated 21:45: Daily, # [place] Tablet 00 90 tab, 3 Refill(s) Aspirin 81 Yes 81 mg = 1 Me moria MG [facility]ic 9-04 tab, PO, l Coated 21:45: Daily, # [place] Tablet 00 90 tab, 3 Refill(s) Aspirin 81 2019-0 Yes 81 mg = 1 Me moria MG Enteric 9-04 tab, PO, l Coated 21:45: Daily, # [place] Tablet 00 90 tab, 3 Refill(s) Aspirin 81 2019-0 Yes 81 mg = 1 Me moria MG Enteric 9-04 tab, PO, l Coated 21:45: Daily, # [place] Tablet 00 90 tab, 3 Refill(s) Aspirin 81 2019-0 Yes 81 mg = 1 Me moria MG Enteric 9-04 tab, PO, l Coated 21:45: Daily, # [place] Tablet 00 90 tab, 3 Refill(s) Aspirin 81 2019-0 Yes 81 mg = 1 Me moria MG Enteric 9-04 tab, PO, l Coated 21:45: Daily, # [place] Tablet 00 90 tab, 3 Refill(s) Aspirin 81 2019-0 Yes 81 mg = 1 Me moria MG Enteric 9-04 tab, PO, l Coated 21:45: Daily, # [place] Tablet 00 90 tab, 3 Refill(s) Aspirin 81 2019-0 Yes 81 mg = 1 Me moria MG Enteric 9-04 tab, PO, l Coated 21:45: Daily, # [place] Tablet 00 90 tab, 3 Refill(s) Aspirin 81 2019-0 Yes 81 mg = 1 Me moria MG Enteric -04 tab, PO, l Coated 21:45: Daily, # [place] Tablet 00 90 tab, 3 Refill(s) Aspirin 81 2019-0 Yes 81 mg = 1 Me moria MG Enteric 9-04 tab, PO, l Coated 21:45: Daily, # [place] Tablet 00 90 tab, 3 Refill(s) carvedilol 2019-0 Yes 12.5 mg = Me moria 12.5 mg - 1 tab, PO, l oral tablet 20:58: Q12H, # 60 [place] 00 tab, 0 Refill(s) amLODIPine 2019-0 Yes 10 mg = 1 Me moria 10 mg oral 04 tab, PO, l tablet 20:58: Daily, # [place] 00 90 tab, 0 Refill(s) hydrochloro 2019-0 Yes 12.5 mg = M emoria thiazide 04-26 1 tab, PO, l 12.5 mg 20:58: Daily, # Fabien n oral tablet 00 30 tab, 0 Refill(s) Citalopram Yes 10 mg, PO, M emoria 04-26 Daily, 0 l 20:58: Refill(s) [place] losartan Yes 100 mg = 1 Mem oria 100 mg oral 04-26 tab, PO, l tablet 20:58: Daily, # [place] 00 30 tab, 0 Refill(s) levothyroxi Yes 100 Memori a ne 100 mcg 04-26 microgram l (0.1 mg) 20:58: = 1 tab, Patsy nn oral tablet 00 PO, Daily, # 30 tab, 0 Refill(s) atorvastati Yes 40 mg = 1 M emoria n 40 mg 04-26 tab, PO, l oral tablet 20:58: Bedtime, # [place] 00 30 tab, 0 Refill(s) Folic Acid Yes 1 mg = 1 Mem oria 1 MG Oral 04-26 tab, PO, l Tablet 20:58: Daily, # [place] 00 30 tab, 0 Refill(s) Diclofenac Yes 1 tab, PO, M emoria Sodium 75 04-26 Daily, 0 l MG / 20:58: Refill(s) [place] Misoprostol 00 0.2 MG Oral Tablet carvedilol Yes 12.5 mg = Me moria 12.5 mg 04-26 1 tab, PO, l oral tablet 20:58: Q12H, # 60 [place] 00 tab, 0 Refill(s) amLODIPine Yes 10 mg = 1 Me moria 10 mg oral 04-26 tab, PO, l tablet 20:58: Daily, # [place] 00 90 tab, 0 Refill(s) hydrochloro Yes 12.5 mg = M emoria thiazide 04-26 1 tab, PO, l 12.5 mg 20:58: Daily, # Fabien n oral tablet 00 30 tab, 0 Refill(s) Citalopram Yes 10 mg, PO, M emoria 04-26 Daily, 0 l 20:58: Refill(s) [place] losartan Yes 100 mg = 1 Mem oria 100 mg oral 04-26 tab, PO, l tablet 20:58: Daily, # [place] 00 30 tab, 0 Refill(s) levothyroxi Yes 100 Memori a ne 100 mcg 9-04 microgram l (0.1 mg) 20:58: = 1 tab, Patsy nn oral tablet 00 PO, Daily, # 30 tab, 0 Refill(s) atorvastati Yes 40 mg = 1 M emoria n 40 mg 04-26 tab, PO, l oral tablet 20:58: Bedtime, # [place] 00 30 tab, 0 Refill(s) Folic Acid Yes 1 mg = 1 Mem oria 1 MG Oral 04-26 tab, PO, l Tablet 20:58: Daily, # [place] 00 30 tab, 0 Refill(s) Diclofenac Yes 1 tab, PO, M emoria Sodium 75 04 Daily, 0 l MG / 20:58: Refill(s) [place] Misoprostol 00 0.2 MG Oral Tablet carvedilol Yes 12.5 mg = Me moria 12.5 mg 04-26 1 tab, PO, l oral tablet 20:58: Q12H, # 60 [place] 00 tab, 0 Refill(s) amLODIPine Yes 10 mg = 1 Me moria 10 mg oral 04-26 tab, PO, l tablet 20:58: Daily, # [place] 00 90 tab, 0 Refill(s) hydrochloro Yes 12.5 mg = M emoria thiazide 04-26 1 tab, PO, l 12.5 mg 20:58: Daily, # Fabien n oral tablet 00 30 tab, 0 Refill(s) Citalopram Yes 10 mg, PO, M emoria 904 Daily, 0 l 20:58: Refill(s) [place] 00 losartan Yes 100 mg = 1 Mem oria 100 mg oral 04-26 tab, PO, l tablet 20:58: Daily, # [place] 00 30 tab, 0 Refill(s) levothyroxi Yes 100 Memori a ne 100 mcg 9-04 microgram l (0.1 mg) 20:58: = 1 tab, Patsy nn oral tablet 00 PO, Daily, # 30 tab, 0 Refill(s) atorvastati Yes 40 mg = 1 M emoria n 40 mg - tab, PO, l oral tablet 20:58: Bedtime, # [place] 00 30 tab, 0 Refill(s) Folic Acid Yes 1 mg = 1 Mem oria 1 MG Oral 04-26 tab, PO, l Tablet 20:58: Daily, # [place] 00 30 tab, 0 Refill(s) Diclofenac Yes 1 tab, PO, M emoria Sodium 75 04-26 Daily, 0 l MG / 20:58: Refill(s) [place] Misoprostol 00 0.2 MG Oral Tablet carvedilol Yes 12.5 mg = Me moria 12.5 mg 04-26 1 tab, PO, l oral tablet 20:58: Q12H, # 60 [place] 00 tab, 0 Refill(s) amLODIPine Yes 10 mg = 1 Me moria 10 mg oral 04-26 tab, PO, l tablet 20:58: Daily, # [place] 00 90 tab, 0 Refill(s) hydrochloro Yes 12.5 mg = M emoria thiazide 04-26 1 tab, PO, l 12.5 mg 20:58: Daily, # Fabien n oral tablet 00 30 tab, 0 Refill(s) Citalopram Yes 10 mg, PO, M emoria 04-26 Daily, 0 l 20:58: Refill(s) [place] 00 losartan Yes 100 mg = 1 Mem oria 100 mg oral 04-26 tab, PO, l tablet 20:58: Daily, # [place] 00 30 tab, 0 Refill(s) levothyroxi Yes 100 Memori a ne 100 mcg 04-26 microgram l (0.1 mg) 20:58: = 1 tab, Patsy nn oral tablet 00 PO, Daily, # 30 tab, 0 Refill(s) atorvastati Yes 40 mg = 1 M emoria n 40 mg - tab, PO, l oral tablet 20:58: Bedtime, # [place] 00 30 tab, 0 Refill(s) Folic Acid Yes 1 mg = 1 Mem oria 1 MG Oral 04-26 tab, PO, l Tablet 20:58: Daily, # [place] 00 30 tab, 0 Refill(s) Diclofenac Yes 1 tab, PO, M emoria Sodium 75 04 Daily, 0 l MG / 20:58: Refill(s) [place] Misoprostol 00 0.2 MG Oral Tablet carvedilol Yes 12.5 mg = Me moria 12.5 mg 04-26 1 tab, PO, l oral tablet 20:58: Q12H, # 60 [place] 00 tab, 0 Refill(s) amLODIPine Yes 10 mg = 1 Me moria 10 mg oral 04-26 tab, PO, l tablet 20:58: Daily, # [place] 00 90 tab, 0 Refill(s) hydrochloro Yes 12.5 mg = M emoria thiazide 04-26 1 tab, PO, l 12.5 mg 20:58: Daily, # Fabien n oral tablet 00 30 tab, 0 Refill(s) Citalopram Yes 10 mg, PO, M emoria 04-26 Daily, 0 l 20:58: Refill(s) [place] 00 losartan Yes 100 mg = 1 Mem oria 100 mg oral 04-26 tab, PO, l tablet 20:58: Daily, # [place] 00 30 tab, 0 Refill(s) levothyroxi Yes 100 Memori a ne 100 mcg 04-26 microgram l (0.1 mg) 20:58: = 1 tab, Patsy nn oral tablet 00 PO, Daily, # 30 tab, 0 Refill(s) atorvastati Yes 40 mg = 1 M emoria n 40 mg 04-26 tab, PO, l oral tablet 20:58: Bedtime, # [place] 00 30 tab, 0 Refill(s) Folic Acid Yes 1 mg = 1 Mem oria 1 MG Oral 04 tab, PO, l Tablet 20:58: Daily, # [place] 00 30 tab, 0 Refill(s) Diclofenac Yes 1 tab, PO, M emoria Sodium 75 04-26 Daily, 0 l MG / 20:58: Refill(s) [place] Misoprostol 00 0.2 MG Oral Tablet carvedilol Yes 12.5 mg = Me moria 12.5 mg 04-26 1 tab, PO, l oral tablet 20:58: Q12H, # 60 [place] 00 tab, 0 Refill(s) amLODIPine Yes 10 mg = 1 Me moria 10 mg oral 04-26 tab, PO, l tablet 20:58: Daily, # [place] 00 90 tab, 0 Refill(s) hydrochloro 2019 Yes 12.5 mg = M emoria thiazide 04-26 1 tab, PO, l 12.5 mg 20:58: Daily, # Fabien n oral tablet 00 30 tab, 0 Refill(s) Citalopram Yes 10 mg, PO, M emoria 04-26 Daily, 0 l 20:58: Refill(s) [place] 00 losartan Yes 100 mg = 1 Mem oria 100 mg oral 04-26 tab, PO, l tablet 20:58: Daily, # [place] 00 30 tab, 0 Refill(s) levothyroxi Yes 100 Memori a ne 100 mcg 04-26 microgram l (0.1 mg) 20:58: = 1 tab, Patsy nn oral tablet 00 PO, Daily, # 30 tab, 0 Refill(s) atorvastati Yes 40 mg = 1 M emoria n 40 mg 04-26 tab, PO, l oral tablet 20:58: Bedtime, # [place] 00 30 tab, 0 Refill(s) Folic Acid Yes 1 mg = 1 Mem oria 1 MG Oral 04-26 tab, PO, l Tablet 20:58: Daily, # [place] 00 30 tab, 0 Refill(s) Diclofenac Yes 1 tab, PO, M emoria Sodium 75 04 Daily, 0 l MG / 20:58: Refill(s) [place] Misoprostol 00 0.2 MG Oral Tablet carvedilol 2019 Yes 12.5 mg = Me moria 12.5 mg 04-26 1 tab, PO, l oral tablet 20:58: Q12H, # 60 [place] 00 tab, 0 Refill(s) amLODIPine Yes 10 mg = 1 Me moria 10 mg oral 04-26 tab, PO, l tablet 20:58: Daily, # [place] 00 90 tab, 0 Refill(s) hydrochloro Yes 12.5 mg = M emoria thiazide 04-26 1 tab, PO, l 12.5 mg 20:58: Daily, # Fabien n oral tablet 00 30 tab, 0 Refill(s) Citalopram Yes 10 mg, PO, M emoria 04-26 Daily, 0 l 20:58: Refill(s) [place] 00 losartan Yes 100 mg = 1 Mem oria 100 mg oral 04-26 tab, PO, l tablet 20:58: Daily, # [place] 00 30 tab, 0 Refill(s) levothyroxi Yes 100 Memori a ne 100 mcg 04-26 microgram l (0.1 mg) 20:58: = 1 tab, Patsy nn oral tablet 00 PO, Daily, # 30 tab, 0 Refill(s) atorvastati Yes 40 mg = 1 M emoria n 40 mg 04-26 tab, PO, l oral tablet 20:58: Bedtime, # [place] 00 30 tab, 0 Refill(s) Folic Acid Yes 1 mg = 1 Mem oria 1 MG Oral 04-26 tab, PO, l Tablet 20:58: Daily, # [place] 00 30 tab, 0 Refill(s) Diclofenac Yes 1 tab, PO, M emoria Sodium 75 04-26 Daily, 0 l MG / 20:58: Refill(s) [place] Misoprostol 00 0.2 MG Oral Tablet carvedilol Yes 12.5 mg = Me moria 12.5 mg 04-26 1 tab, PO, l oral tablet 20:58: Q12H, # 60 [place] 00 tab, 0 Refill(s) amLODIPine Yes 10 mg = 1 Me moria 10 mg oral 04-26 tab, PO, l tablet 20:58: Daily, # [place] 00 90 tab, 0 Refill(s) hydrochloro Yes 12.5 mg = M emoria thiazide 04-26 1 tab, PO, l 12.5 mg 20:58: Daily, # Fabien n oral tablet 00 30 tab, 0 Refill(s) Citalopram Yes 10 mg, PO, M emoria 04-26 Daily, 0 l 20:58: Refill(s) [place] 00 losartan Yes 100 mg = 1 Mem oria 100 mg oral 04 tab, PO, l tablet 20:58: Daily, # [place] 00 30 tab, 0 Refill(s) levothyroxi Yes 100 Memori a ne 100 mcg 9-04 microgram l (0.1 mg) 20:58: = 1 tab, Patsy nn oral tablet 00 PO, Daily, # 30 tab, 0 Refill(s) atorvastati Yes 40 mg = 1 M emoria n 40 mg -04 tab, PO, l oral tablet 20:58: Bedtime, # [place] 00 30 tab, 0 Refill(s) Folic Acid Yes 1 mg = 1 Mem oria 1 MG Oral 04 tab, PO, l Tablet 20:58: Daily, # [place] 00 30 tab, 0 Refill(s) Diclofenac Yes 1 tab, PO, M emoria Sodium 75 04 Daily, 0 l MG / 20:58: Refill(s) [place] Misoprostol 00 0.2 MG Oral Tablet carvedilol Yes 12.5 mg = Me moria 12.5 mg 04-26 1 tab, PO, l oral tablet 20:58: Q12H, # 60 [place] 00 tab, 0 Refill(s) amLODIPine Yes 10 mg = 1 Me moria 10 mg oral 04-26 tab, PO, l tablet 20:58: Daily, # [place] 00 90 tab, 0 Refill(s) hydrochloro 2019 Yes 12.5 mg = M emoria thiazide 04-26 1 tab, PO, l 12.5 mg 20:58: Daily, # Fabien n oral tablet 00 30 tab, 0 Refill(s) Citalopram 2019 Yes 10 mg, PO, M emoria 904 Daily, 0 l 20:58: Refill(s) [place] 00 losartan Yes 100 mg = 1 Mem oria 100 mg oral -04 tab, PO, l tablet 20:58: Daily, # [place] 00 30 tab, 0 Refill(s) levothyroxi Yes 100 Memori a ne 100 mcg 9-04 microgram l (0.1 mg) 20:58: = 1 tab, Patsy nn oral tablet 00 PO, Daily, # 30 tab, 0 Refill(s) atorvastati Yes 40 mg = 1 M emoria n 40 mg 04-26 tab, PO, l oral tablet 20:58: Bedtime, # [place] 00 30 tab, 0 Refill(s) Folic Acid Yes 1 mg = 1 Mem oria 1 MG Oral 04-26 tab, PO, l Tablet 20:58: Daily, # [place] 00 30 tab, 0 Refill(s) Diclofenac Yes 1 tab, PO, M emoria Sodium 75 04-26 Daily, 0 l MG / 20:58: Refill(s) [place] Misoprostol 00 0.2 MG Oral Tablet carvedilol Yes 12.5 mg = Me moria 12.5 mg 04-26 1 tab, PO, l oral tablet 20:58: Q12H, # 60 [place] 00 tab, 0 Refill(s) amLODIPine Yes 10 mg = 1 Me moria 10 mg oral 04-26 tab, PO, l tablet 20:58: Daily, # [place] 00 90 tab, 0 Refill(s) hydrochloro Yes 12.5 mg = M emoria thiazide 04-26 1 tab, PO, l 12.5 mg 20:58: Daily, # Fabien n oral tablet 00 30 tab, 0 Refill(s) Citalopram Yes 10 mg, PO, M emoria 04-26 Daily, 0 l 20:58: Refill(s) [place] 00 losartan Yes 100 mg = 1 Mem oria 100 mg oral 04-26 tab, PO, l tablet 20:58: Daily, # [place] 00 30 tab, 0 Refill(s) levothyroxi Yes 100 Memori a ne 100 mcg 04-26 microgram l (0.1 mg) 20:58: = 1 tab, Patsy nn oral tablet 00 PO, Daily, # 30 tab, 0 Refill(s) atorvastati Yes 40 mg = 1 M emoria n 40 mg 04-26 tab, PO, l oral tablet 20:58: Bedtime, # [place] 00 30 tab, 0 Refill(s) Folic Acid 2019-0 Yes 1 mg = 1 Mem oria 1 MG Oral 04-26 tab, PO, l Tablet 20:58: Daily, # [place] 00 30 tab, 0 Refill(s) Diclofenac 2019-0 Yes 1 tab, PO, M emoria Sodium 75 9- Daily, 0 l MG / 20:58: Refill(s) [place] Misoprostol 00 0.2 MG Oral Tablet Flomax 0.4 Flomax 0.4 Yes Uni vers MG Oral MG Oral ity of Capsule Capsule [facility] Iron TABS Iron TABS Yes Unive rs [facility] [place] [facility] Fiber TABS Fiber TABS Yes [facility] [place] [facility] Vitamin D Vitamin D Yes TAKE 1 Uni vers 04032 UNIT [id number] UNIT CAPSULE ity of CAPS CAPS WEEKLY. [place] [facility] Folic Acid Folic Acid Yes 1 QD TAKE 1 U nivers 1 MG Oral 1 MG Oral TABLET ity of Tablet Tablet DAILY [facility] Lasix 20 MG Lasix 20 MG Yes 1 QD TAKE 1 Univers Oral Tablet Oral Tablet TABLET ity of DAILY. [place] [facility] Eliquis 5 Eliquis 5 Yes 1 Q12H TAKE 1 Uni vers MG Oral MG Oral TABLET ity of Tablet Tablet Every [place] [facility] hours ans Pantoprazol Pantoprazol Yes QASIM LAKSHMI 60 Q0.5D TAKE 60 M G Univers e Sodium 40 e Sodium 40 M.D. Twice ity of MG Oral MG Oral daily [place] Tablet Tablet [facility] Delayed Delayed ans Release Release Immunizations Ordered Immunization Filled Immunization Date Status Commen ts Source Name Name HepB-CpG 2021-02-12 Completed [facility] 00:00:00 HepB-CpG 2021-01-21 Completed [facility] 00:00:00 Meningococcal MCV4P 2020-11-21 Completed [facility] 00:00:00 Meningococcal B, Omv 2020-11-21 Completed [facility] 00:00:00 Pfizer-BioNTech 2020-10-27 Completed [facility] COVID-19 Vacc 30 12:15:00 [facility] MCG/0.3ML Intramuscular Suspension Covid-19 Pfizer 2020-10-27 Completed [facility] SARS-CoV-2 00:00:00 Vaccination Pfizer-BioNTech 2020-09-30 Completed [facility] COVID-19 Vacc 30 13:00:00 [place] [facility] MCG/0.3ML Intramuscular Suspension Covid-19 Pfizer 2020-09-30 Completed [facility] SARS-CoV-2 00:00:00 Vaccination Influenza, High Dose 2020-06-[address] [facility], 00:00:00 Preservative Free Influenza 2020-06-23 Completed [facility] 00:00:00 [place] [facility] influenza virus 2020-06-01 Completed [facility] vaccine, inactivated 18:27:00 influenza virus 2020-06-01 [facility], inactivated 18:27:00 Vital Signs Vital Name Observation Time Observation Value Comments Source Systolic blood 2021-04-29 102 mm[Hg] [facility] pressure 14:55:00 Diastolic blood 2021-04-29 66 mm[Hg] [facility] pressure 14:55:00 Heart rate 2021-04-29 75 /min [facility] 14:55:00 Body temperature 2021-04-29 36.06 Luica [facility] 14:55:00 Respiratory rate 2021-04-29 12 /min [facility] 14:55:00 Body height 2021-04-29 172.7 cm [facility] 14:55:00 Body weight 2021-04-29 100.064 kg [facility] 14:55:00 BMI 2021-04-29 33.54 kg/m2 [facility] 14:55:00 Systolic blood 2021-04-29 102 mm[Hg] [facility] pressure 14:55:00 Diastolic blood 2021-04-29 66 mm[Hg] [facility] pressure 14:55:00 Heart rate 2021-04-29 75 /min [facility] 14:55:00 Body temperature 2021-04-29 36.06 Lucia [facility] 14:55:00 Respiratory rate 2021-04-29 12 /min [facility] 14:55:00 Body height 2021-04-29 172.7 cm [facility] 14:55:00 Body weight 2021-04-29 100.064 kg [facility] 14:55:00 BMI 2021-04-29 33.54 kg/m2 [facility] 14:55:00 Systolic blood 2021-05-02 108 mm[Hg] [facility] 12:55:00 Hospital Diastolic blood 2021-05-02 62 mm[Hg] [facility] pressure 12:55:00 Hospital Heart rate 2021-05-02 55 /min [facility] 12:55:00 Hospital Body temperature 2021-05-02 36.5 Lucia [facility] 12:55:00 Hospital Respiratory rate 2021-05-02 16 /min [facility] 12:55:00 Hospital Body height 2021-05-02 172.7 cm [facility] 12:55:00 Hospital Body weight 2021-05-02 100 kg [facility] 12:55:00 Hospital BMI 2021-05-02 33.52 kg/m2 [facility] 12:55:00 Hospital Oxygen saturation 2021-05-02 98 /min [facility] in Arterial blood 12:55:00 Hospital by Pulse oximetry Systolic blood 2021-04-18 119 mm[Hg] [facility] pressure 13:57:00 Hospital Diastolic blood 2021-04-18 72 mm[Hg] [facility] pressure 13:57:00 Hospital Heart rate 2021-04-18 75 /min [facility] 13:57:00 [facility] Body temperature 2021-04-18 37.22 Lucia [facility] 13:57:00 Hospital Respiratory rate 2021-04-18 18 /min [facility] 13:57:00 Hospital Oxygen saturation 2021-04-18 99 /min [facility] in Arterial blood 13:57:00 Hospital by Pulse oximetry BMI 2021-04-10 33.52 kg/m2 [facility] 13:18:00 Hospital Body height 2021-04-10 172.7 cm [facility] 13:18:00 Hospital Body weight 2021-04-10 100 kg [facility] 13:18:00 Hospital Height 2021-02-03 172.72 cm [facility] n 19:09:00 Weight 2021-02-03 [facility] Conn n 19:09:00 BMI Calculated 2021-02-03 Solitario morrow 19:09:00 Systolic (mm Hg) 2021-01-06 [facility] rmcristhian 19:22:00 Diastolic (mm Hg) 2021-01-06 [facility] ermann 19:22:00 Heart Rate 2021-01-06 [facility] Conn n 19:22:00 Respitory Rate 2021-01-06 Sol[facility] morrow 19:22:00 Weight 2021-01-06 [facility] Conn n 19:22:00 Systolic blood 2020-12-23 115 mm[Hg] Location: [facility], [facility] 11:52:00 Position: [place] [facility] Diastolic blood 2020-12-23 63 mm[Hg] Location: LUE; [facility] of pressure 11:52:00 Position: [place] [facility] Body height 2020-12-23 68 [in_us] University 11:52:00 [place] [facility] Weight 2020-12-23 225.25 [lb_av] [facility] 11:52:00 [place] [facility] Body mass index 2020-12-23 34.25 kg/m2 University o f (BMI) [Ratio] 11:52:00 [place] [facility] Heart Rate 2020-12-23 58 /min Location: L [facility] 11:52:00 Brachial [place] [facility] Artery; O2 SAT 2020-12-23 98 % Source: [facility] 11:52:00 [place] [facility] Systolic blood 2020-11-19 109 mm[Hg] Location: [place]; [facility] 16:38:00 Position: [place] [facility] Diastolic blood 2020-11-19 73 mm[Hg] Location: JANINE; [facility] 16:38:00 Position: [place] [facility] Body height 2020-11-19 68 [in_us] University 16:38:00 [place] [facility] Body mass index 2020-11-19 33.6 kg/m2 University o f (BMI) [Ratio] 16:38:00 [place] [facility] Weight 2020-11-19 221 [lb_av] University 16:38:00 [place] [facility] Body temperature 2020-11-19 98.1 [degF] Method: [facility] 16:38:00 Temporal [place] [facility] Heart Rate 2020-11-19 81 /min Location: [facility] 16:38:00 Brachial [place] [facility] Artery; O2 SAT 2020-11-19 97 % Source: [facility] 16:38:00 [place] [facility] Systolic blood 2020-11-19 108 mm[Hg] [facility] 11:10:00 [place] [facility] Diastolic blood 2020-11-19 68 mm[Hg] University o pressure 11:10:00 [place] [facility] Body height 2020-11-19 68 [in_us] University of 11:10:00 [place] [facility] Weight 2020-11-19 220 [lb_av] University 11:10:00 [place] [facility] Body mass index 2020-11-19 33.45 kg/m2 University o f (BMI) [Ratio] 11:10:00 [place] [facility] Body temperature 2020-11-19 98.1 [degF] [facility] 11:10:00 [place] [facility] Heart Rate 2020-11-19 62 /min University 11:10:00 [place] [facility] Respiratory rate 2020-11-19 16 /min University 11:10:00 [place] [facility] Height 2020-10-21 172.72 cm [facility] 21:01:00 Weight 2020-10-21 [facility] 21:01:00 BMI Calculated 2020-10-21 [facility] 21:01:00 Heart Rate 2020-10-04 65 /min [facility] 09:40:00 [place] [facility] Systolic blood 2020-10-04 108 mm[Hg] [facility] pressure 09:40:00 [place] [facility] Diastolic blood 2020-10-04 72 mm[Hg] [facility] pressure 09:40:00 [place] [facility] Height 2020-09-27 172.72 cm [facility] n 21:35:00 Weight 2020-09-27 [facility] Fab[facility] n 21:35:00 BMI Calculated 2020-09-27 [facility] Herm cristhian 21:35:00 Systolic blood 2020-09-24 104 mm[Hg] Location: JANINE; [facility] 14:38:00 Position: [place] [facility] Diastolic blood 2020-09-24 66 mm[Hg] Location: JANINE; [facility] 14:38:00 Position: [place] [facility] Body height 2020-09-24 68 [in_us] University 14:38:00 [place] [facility] Weight 2020-09-24 210 [lb_av] University 14:38:00 [place] [facility] Body mass index 2020-09-24 31.93 kg/m2 University o f (BMI) [Ratio] 14:38:00 [place] [facility] Body temperature 2020-09-24 98.2 [degF] Method: [facility] 14:38:00 Temporal [place] [facility] Heart Rate 2020-09-24 66 /min Location: Ben [facility] 14:38:00 Brachial [place] [facility] Artery; O2 SAT 2020-09-24 99 % Source: [facility] 14:38:00 [place] [facility] Systolic blood 2020-09-17 114 mm[Hg] Location: KARLA [place] of pressure 09:49:00 Position: [place] [facility] Diastolic blood 2020-09-17 64 mm[Hg] Location: ABELARDO; [facility] 09:49:00 Position: [place] [facility] Body height 2020-09-17 68 [in_us] [facility] 09:49:00 [place] [facility] Weight 2020-09-17 213 [lb_av] [facility] of 09:49:00 [place] [facility] Body mass index 2020-09-17 32.39 kg/m2 University o f (BMI) [Ratio] 09:49:00 [place] [facility] Body temperature 2020-09-17 96 [degF] Method: University of 09:49:00 Temporal [place] [facility] Heart Rate 2020-09-17 59 /min Location: R [facility] 09:49:00 Brachial [place] [facility] Artery; Respiratory rate 2020-09-17 18 /min [facility] 09:49:00 [place] [facility] Systolic blood 2019-09-26 148 mm[Hg] Location: JANINE; [facility] 15:38:00 Position: [place] [facility] Diastolic blood 2019-09-26 84 mm[Hg] Location: JANINE; [facility] 15:38:00 Position: [place] [facility] Body height 2019-09-26 65 [in_us] University of 15:38:00 [place] [facility] Weight 2019-09-26 231.125 [lb_av] University o f 15:38:00 [place] [facility] Body mass index 2019-09-26 38.46 kg/m2 University o f (BMI) [Ratio] 15:38:00 [place] [facility] Body temperature 2019-09-26 97.1 [degF] Method: Oral [facility] 15:38:00 [place] [facility] Heart Rate 2019-09-26 63 /min [facility] 15:38:00 [place] [facility] Systolic blood 2019-09-18 154 mm[Hg] Location: JANINE; [facility] 10:06:00 Position: [place] [facility] Diastolic blood 2019-09-18 78 mm[Hg] Location: JANINE; [facility] 10:06:00 Position: [place] [facility] Body height 2019-09-18 68 [in_us] University of 10:06:00 [place] [facility] Weight 2019-09-18 234 [lb_av] [facility] of 10:06:00 [place] [facility] Body mass index 2019-09-18 35.58 kg/m2 University o f (BMI) [Ratio] 10:06:00 [place] [facility] Body temperature 2019-09-18 97.6 [degF] Method: Oral [facility] 10:06:00 [place] [facility] Heart Rate 2019-09-18 57 /min University 10:06:00 [place] [facility] Height 2019-09-13 172.72 cm [facility] 16:08:00 Weight 2019-09-13 [facility] 16:08:00 BMI Calculated 2019-09-13 [facility] 16:08:00 BP Systolic 2019-09-05 129 mm[Hg] Location: Counts include 234 beds at the [facility] 14:08:00 Position: [place] [facility] BP Diastolic 2019-09-05 78 mm[Hg] Location: Counts include 234 beds at the [facility] 14:08:00 Position: [place] [facility] Height 2019-09-05 68 [in_us] University 14:08:00 [place] [facility] Weight 2019-09-05 231 [lb_av] [facility] 14:08:00 [place] [facility] Body Mass Index 2019-09-05 35.12 kg/m2 University o f Calculated 14:08:00 [place] [facility] Heart Rate 2019-09-05 79 /min University 14:08:00 [place] [facility] BP Systolic 2019-08-01 120 mm[Hg] University 14:30:00 [place] [facility] BP Diastolic 2019-08-01 70 mm[Hg] University 14:30:00 [place] [facility] Weight 2019-08-01 226 [lb_av] [facility] of 14:30:00 [place] [facility] Body Mass Index 2019-08-01 34.36 kg/m2 University o f Calculated 14:30:00 [place] [facility] Heart Rate 2019-08-01 67 /min University 14:30:00 [place] [facility] Respiration Rate 2019-08-01 14 /min [facility] 14:30:00 [place] [facility] Height 2019-07-31 172.72 cm [facility] 14:32:00 Weight 2019-07-31 [facility] 14:32:00 BMI Calculated 2019-07-31 [facility] 14:32:00 Systolic (mm Hg) 2019-07-10 [facility] 15:03:00 Diastolic (mm Hg) 2019-07-10 [facility] 15:03:00 Heart Rate 2019-07-10 [facility] 15:03:00 Height 2019-07-10 172.72 cm [facility] 15:03:00 Weight 2019-07-10 [facility] 15:03:00 BMI Calculated 2019-07-10 [facility] 15:03:00 BP Systolic 2019-07-03 138 mm[Hg] [facility] 10:17:00 [place] [facility] BP Diastolic 2019-07-03 67 mm[Hg] [facility] 10:17:00 [place] [facility] Weight 2019-07-03 227 [lb_av] [facility] 10:17:00 [place] [facility] Body Mass Index 2019-07-03 34.52 kg/m2 University o f Calculated 10:17:00 [place] [facility] Heart Rate 2019-07-03 55 /min [facility] 10:17:00 [place] [facility] Respiration Rate 2019-07-03 16 /min [facility] 10:17:00 [place] [facility] BP Systolic 2019-05-29 120 mm[Hg] Location: Counts include 234 beds at the [facility] 08:39:00 Position: [place] [facility] BP Diastolic 2019-05-29 73 mm[Hg] Location: Counts include 234 beds at the [facility] 08:39:00 Position: [place] [facility] Height 2019-05-29 68 [in_us] University 08:39:00 [place] [facility] Weight 2019-05-29 221.6 [lb_av] [facility] 08:39:00 [place] [facility] Body Mass Index 2019-05-29 33.69 kg/m2 University o f Calculated 08:39:00 [place] [facility] Temperature 2019-05-29 98.1 [degF] Method: [facility] 08:39:00 Temporal [place] [facility] Heart Rate 2019-05-29 56 /min [facility] 08:39:00 [place] [facility] Temperature Oral 2019-05-21 [...] (F) 08:20:00 Systolic (mm Hg) 2019-05-21 [facility] 07:00:00 Diastolic (mm Hg) 2019-05-21 [facility] 07:00:00 Respitory Rate 2019-05-21 [facility] 07:00:00 Temperature Oral 2019-05-21 98.4 F [facility] (F) 04:24:00 Heart Rate 2019-05-20 [facility] [...] cristhian 23:18:00 Systolic (mm Hg) 2019-05-04 [facility] 18:44:00 Diastolic (mm Hg) 2019-05-04 [facility] ermann 18:44:00 Heart Rate 2019-05-04 [facility] 18:44:00 Respitory Rate 2019-05-04 [facility] 18:44:00 Height 2019-05-04 172.72 cm [facility] 18:44:00 Weight 2019-05-04 [facility] 18:44:00 BMI Calculated 2019-05-04 [facility] 18:44:00 Systolic (mm Hg) 2019-04-26 [facility] 20:27:00 Diastolic (mm Hg) 2019-04-26 [facility] 20:27:00 Heart Rate 2019-04-26 [facility] 20:27:00 Respitory Rate 2019-04-26 [facility] 20:27:00 Height 2019-04-26 165.1 cm [facility] 20:27:00 Weight 2019-04-26 [facility] 20:27:00 BMI Calculated 2019-04-26 [facility] 20:27:00 Procedures Procedure Date / Time Performing Clinician Source Performed HC COMPLETE BLD COUNT 2021-05-02 15:10:00 Isabella Anderson [facility] W/AUTO DIFF IONIZED CALCIUM 2021-05-02 15:10:00 [facility] COMPREHENSIVE METABOLIC 2021-05-02 15:10:00 [facility] PANEL ESTIMATED GFR 2021-05-02 15:10:00 [facility] SMEAR REVIEW 2021-05-02 15:10:00 [facility] THERAPEUTIC PLASMA EXCHANGE 2021-05-02 13:00:00 [facility] ABO AND RH CONFIRMATION 2021-04-18 15:59:00 [facility] TOTAL IRON BINDING CAPACITY 2021-04-18 14:43:00 [facility] FERRITIN LEVEL 2021-04-18 14:43:[address] [facility] TYPE AND SCREEN 2021-04-18 14:36:[address] [facility] PREPARE RBC 2021-04-18 14:36:00 Alee Farmer [facility] THERAPEUTIC PLASMA EXCHANGE 2021-04-18 13:30:00 [facility] HC COMPLETE BLD COUNT 2021-04-16 14:20:00 [facility]/AUTO DIFF [place] THERAPEUTIC PLASMA EXCHANGE 2021-04-16 13:30:00 [facility] HC COMPLETE BLD COUNT 2021-04-14 16:04:00 [facility]/AUTO DIFF [place] SMEAR REVIEW 2021-04-14 16:04:[address] [facility] THERAPEUTIC PLASMA EXCHANGE 2021-04-14 14:30:00 [facility] THERAPEUTIC PLASMA EXCHANGE 2021-04-10 13:30:00 [facility] IONIZED CALCIUM 2021-04-08 15:15:00 Kleni, [facility] spital COMPREHENSIVE METABOLIC 2021-04-08 15:15:00 [facility] PANEL ESTIMATED GFR 2021-04-08 15:15:00 Ernie Frank [facility] HC COMPLETE BLD COUNT 2021-04-08 14:20:00 Frank Klein [facility] W/AUTO DIFF SMEAR REVIEW 2021-04-08 14:20:00 [facility] 1 VW PORTABLE 2021-04-01 18:05:57 Mark Ro [facility] OR [place] < 1 HOUR 2021-04-01 17:15:00 [facility] IN AN ELECTIVE ENDOTRACHEAL 2021-04-01 17:00:00 Curtis Betancourt [facility] AIRWAY INSERTION, CATHETER, 2021-04-01 16:45:00 [facility] CENTRAL VENOUS, TUNNELED, FOR HEMODIALYSIS ECG PRE/POST OP 2021-03-27 23:27:48 Melanie Lai [facility] ospital ESTIMATED GFR 2021-03-27 23:21:00 [facility] S[facility] 2021-03-27 23:21:00 Ming [facility] ospital HC COMPLETE BLD COUNT 2021-03-27 23:21:00 [facility] DIFF COMPREHENSIVE METABOLIC 2021-03-27 23:21:00 [facility] PANEL HEMOGLOBIN A1C 2021-03-27 23:21:00 [facility] ospital COVID-19 QUALITATIVE RT-PCR 2021-03-27 23:19:00 [facility] Quan [facility] [Q] CRYPTOCOCCAL AG LATEX 2020-11-19 00:00:00 [facility] [Q] STRATIFY JCV(TM) AB 2020-11-19 00:00:00 [facility] ([facility] W/RFL Physicians INHIBITION [Q] HEPATITIS B CORE AB 2020-11-19 00:00:00 [facility] TOTAL W/REFL IGM Physicians [Q] HEPATITIS B SURFACE AG 2020-11-19 00:00:00 [facility] W/REFL CONFIRM (REFL) Physicians [Q] HEPATITIS B SURFACE 2020-11-19 00:00:00 [facility] ANTIBODY QL Physicians [Q] HEPATITIS C AB W/REFL 2020-11-19 00:00:00 [facility], QN, PCR Physicians CT Head/Neck CTA [id number] 2020-10-11 00:00:00 [facility] Physicians [N] 2D Echo complete, with 2020-10-11 00:00:00 [facility] Doppler [id number] Physicians [facility] Sleep Lab - Sleep Study 2020-10-04 00:00:00 [facility] Home Sleep Test Physicians [QL] LIPID PANEL 2020-10-04 00:00:00 [facility] Physicians [QL] HEMOGLOBIN A1c 2020-10-04 00:00:00 [facility] Physicians Infusion Therapy 2020-10-01 00:00:00 [facility] Physicians [QL] CULTURE, BLOOD 2020-09-19 00:00:00 [facility] Physicians [Q] CULTURE, BLOOD NO.2 2020-09-19 00:00:00 [facility] Physicians [QL] CULTURE, URINE, 2020-09-19 00:00:00 [facility] ROUTINE Physicians [QL] URINALYSIS, COMPLETE 2020-09-19 00:00:00 Un [facility] Physicians [QL] CBC (INCLUDES 2020-09-19 00:00:00 [facility] DIFF/PLT) Physicians XRAY Chest 2 views [id number] 2020-09-19 00:00:00 [facility] Physicians MRI Brain w/wo contrast 2020-09-19 00:00:00 [facility] [id number] Physicians [QL] CBC (INCLUDES 2020-09-17 00:00:00 [facility] DIFF/PLT) Physicians [QL] CMP W/EGFR 2020-09-17 00:00:00 [facility] Physicians [QL] QUANTIFERON(R)-TB GOLD 2020-09-17 00:00:00 [facility] Physicians [QL] HISTOPLASMA ANTIGEN 2020-09-17 00:00:00 Uni [facility] URINE Physicians [Q] COCCIDIOIDES ANTIBODY, 2020-09-17 00:00:00 [facility] CF AND ID Physicians [QL] HEPATIC FUNCTION PANEL 2020-09-17 00:00:00 [facility] Physicians [Q] CRYPTOCOCCUS ANTIBODY 2020-09-17 00:00:00 Un [facility] Physicians [MMD] MRI Brain with and 2020-09-17 00:00:00 [facility] without Contrast Physicians Infusion Therapy 2020-05-10 00:00:00 [facility] Physicians IVIG Infusion Therapy 2020-05-08 00:00:00 [facility] Physicians [QL] CBC (INCLUDES 2020-02-21 00:00:00 [facility] DIFF/PLT) Physicians [QL] CMP W/EGFR 2020-02-21 00:00:00 [facility] Physicians IVIG Infusion Therapy 2020-02-21 00:00:00 [facility] Physicians [QL] CBC (INCLUDES 2020-02-20 00:00:00 [facility] [place] DIFF/PLT) Physicians [QL] CMP W/EGFR 2020-02-20 00:00:00 [facility] Physicians [QL] CBC (INCLUDES 2020-01-16 00:00:00 [facility] DIFF/PLT) Physicians [QL] CMP W/EGFR 2020-01-16 00:00:00 [facility] Physicians MA Bone Density Scan [id number] 2020-01-16 00:00:00 [facility] Physicians [QLH] CBC (INCLUDES 2019-11-07 00:00:00 [facility] DIFF/PLT) Physicians [QLH] CMP W/EGFR 2019-11-07 00:00:00 [facility] Physicians [QLH] TSH, 3RD GENERATION 2019-11-07 00:00:00 Un [facility] W/REFLEX TO FT4 Physicians [QLH] VITAMIN B12 2019-11-07 00:00:00 [facility] Physicians [QLH] VITAMIN B1, WHOLE 2019-11-07 00:00:00 Univ [facility] BLOOD Physicians [QLH] VITAMIN B6 2019-11-07 00:00:00 [facility] Physicians [QLH] VITAMIN D, 2019-11-07 00:00:00 [facility] 25-HYDROXY, LC/MS/MS Physicians [QL] URINALYSIS, COMPLETE 2019-11-07 00:00:00 [facility] W/REFLEX TO CULTURE Physicians [QLH] HEMOGLOBIN A1c 2019-11-07 00:00:00 [facility] Physicians Cystourethroscopy (separate 2019-10-24 16:55:00 [facility] procedure) Measurement of post-voiding 2019-10-10 14:57:00 [facility] residual urine and/or bladder capacity by ultrasound, non-imaging Complex uroflowmetry (eg, 2019-10-10 14:57:00 [facility] calibrated electronic equipment) [QLH] CBC (INCLUDES 2019-09-05 00:00:00 [facility] DIFF/PLT) Physicians [QLH] CMP W/EGFR 2019-09-05 00:00:00 [facility] Physicians [QLH] CBC (INCLUDES 2019-08-01 00:00:00 [facility] DIFF/PLT) Physicians [QLH] CMP W/EGFR 2019-08-01 00:00:00 [facility] Physicians [QL] CBC (INCLUDES 2019-07-03 00:00:00 [facility] DIFF/PLT) Physicians [QLH] CMP W/EGFR 2019-07-03 00:00:00 [facility] Physicians [Q] TPMT ACTIVITY 2019-05-29 00:00:00 [facility] Physicians [QL] QUANTIFERON(R)-TB GOLD 2019-05-29 00:00:00 [facility] Physicians Laparoscopic adjustable [facility] gastric banding Knee replacement [facility] n Procedure<sup>1</sup> [facility] Tonsillectomy [facility] Colonoscopy [facility] Endoscopy [facility] History of Knee surgery [facility] Physicians History of Brain Surgery [facility] Physicians Plan of Care Planned Activity Planned Date Details Comments Source Diagnostic Test 2020-10-11 [N] 2D Echo complete, [facility] [place] Pending 00:00:00 with Doppler [id number] Physician s [code = [N] 2D Echo complete, with Doppler [id number]] Future Scheduled 2020-03-05 [QL] CBC (INCLUDES [facility] [place] Test 00:00:00 DIFF/PLT) [code = Physicians [QL] CBC (INCLUDES DIFF/PLT)] Future Scheduled 2020-03-05 [QL] CMP W/EGFR [code [facility] [place] Test 00:00:00 = [QL] CMP W/EGFR] Physician s Diagnostic Test 2020-02-20 [QL] CBC (INCLUDES [facility] [place] Pending 00:00:00 DIFF/PLT) [code = Physicians [QL] CBC (INCLUDES DIFF/PLT)] Diagnostic Test 2020-02-20 [QL] CMP W/EGFR [code [facility] [place] Pending 00:00:00 = [QL] CMP W/EGFR] Physician s Diagnostic Test 2020-02-20 [QL] CBC (INCLUDES [facility] [place] Pending 00:00:00 DIFF/PLT) [code = Physicians [QL] CBC (INCLUDES DIFF/PLT)] Diagnostic Test 2020-02-20 [QL] CMP W/EGFR [code [facility] [place] Pending 00:00:00 = [QL] CMP W/EGFR] Physician s Future Scheduled 65+ [facility] VACCINE (1 of 2 - PPSV23) [code = 65+ PNEUMOCOCCAL VACCINE (1 of 2 - PPSV23)] Future Scheduled Hepatitis C screening [facility] Test (procedure) [code = 413638867] Future Scheduled COLONOSCOPY SCREENING [facility] Hospital Test [code = COLONOSCOPY SCREENING] Future Scheduled [facility]ACCIN[facility] (#1) [code = SHINGLES VACCINES (#1)] Future Scheduled IN[facility]UENZA [facility]ACCINE [facility] [code = INFLUENZA VACCINE] Future Scheduled 65+ [facility] Test VACCINE (1 of 2 - PPSV23) [code = 65+ PNEUMOCOCCAL VACCINE (1 of 2 - PPSV23)] Future [facility]uled [facility] [code = 805694402] Future Scheduled COLONOSCOPY SCREENING [facility] Test [code = COLONOSCOPY SCREENING] Future Scheduled [facility] (#[facility]) [code = SHINGLES VACCINES (#1)] Future Scheduled INFLUENZA VACCINE [facility] [code = INFLUENZA VACCINE] Encounters Start End Encounter Admission Attending Care Care Encounter Source Date/Time Date/Time Type Type Clinicians Facility Department ID 2021-04-29 Outpatient BRENT, [facility] [id number] [place] 11:03:46 [facility] 2021-04-25 Outpatient SITA, [facility] [id number] [place] 11:46:20 [facility] 2021-01-21 Outpatient [facility] [id number] [place] 12:32:12 [facility] 2020-12-28 Outpatient BRENT, [facility] [id number] [place] 04:22:24 [facility] 2020-10-17 Outpatient MHSE BRENDA [id number] MH 09:00:08 [facility]-29 Inpatient MHHH M[facility]H 7500 MHH H 13:08:45 2021-07-09 2021-07-09 Outpatient MHIE MHIE [id number] [facility] 11:00:00 11:00:00 18 l Aureliano 2021-05-02 2021-05-02 [facility] 1.2.840.1 [id number] 2 [id number] Methodi 07:52:50 23:59:00 Encounter Kenzie 62392.1.[address] 3.430.2.7 Hospit a .3.259641 l .8 2021-05-02 2021-05-02 Travel 1.2.840.1 1.2.008.512 3963 [id number] Methodi 00:00:00 00:00:[address] 3.430.2.7 0.2.7.3.698 Ho spita .3.148755 084.8 l .8 2021-05-02 2021-05-02 [facility] [id number] [place] 00:00:00 00:00:[address] 2021-04-29 2021-04-29 Office Brent, [facility] 1.2.840.114 [id number] 09:48:12 11:03:38 Visit Michael ROB 350.1.13.58 MEDICAL 9.2.7.2.686 BUILDING [id number] 6 2021-04-29 2021-04-29 Office Brent [facility] 1.2.840.114 [id number] [place] 09:48:12 11:03:38 Visit Michael ROB 350.1.13.58 H ealth MEDICAL 9.2.7.2.686 BUILDING [id number] 6 2021-04-18 2021-04-18 [facility] 1.2.840.1 [id number] 2 [id number] Methodi 08:30:00 23:59:00 Encounter Kenzie 13239.1.[address] 3.430.2.7 Hospit a .3.160110 l .8 2021-04-18 2021-04-18 Travel 1.2.840.1 1.2.817.440 9401 652678 Methodi 00:00:00 00:00:[address] 3.430.2.7 0.2.7.3.698 Ho spita .3.694833 084.8 l .8 2021-04-18 2021-04-18 [facility] 1.2.840.1 [id number] 2 [id number] [place] 00:00:00 00:00:00 Encounter 52137.1.[address] .3.152091 .8 2021-04-18 2021-04-18 Travel 1.2.840.1 1.2.117.250 8726 [id number] Methodi 00:00:00 00:00:[address] 3.430.2.7 0.2.7.3.698 Ho spita .3.506670 084.8 l .8 2021-04-16 2021-04-16 [facility] 1.2.840.1 [id number] 2 [id number] Methodi 08:30:00 23:59:00 Encounter Kenzie 68533.1.[address] 3.430.2.7 Hospit a .3.480575 l .8 2021-04-16 2021-04-16 Travel 1.2.840.1 1.2.691.234 5505 481262 Methodi 00:00:00 00:00:[address] 3.430.2.7 0.2.7.3.698 Ho spita .3.263988 084.8 l .8 2021-04-16 2021-04-16 [facility] 1.2.840.1 [id number] 2 [id number] [place] 00:00:00 00:00:00 Encounter 29347.1.1 [address] .3.602811 .8 2021-04-16 2021-04-16 Travel 1.2.840.1 1.2.548.388 2285 063032 Methodi 00:00:00 00:00:[address] 3.430.2.7 0.2.7.3.698 Ho spita .3.105114 084.8 l .8 2021-04-14 2021-04-14 [facility] 1.2.840.1 [id number] 2 [id number] Methodi 09:22:38 23:59:00 Encounter Kenzie 53294.1.[address] 3.430.2.7 Hospit a .3.350778 l .8 2021-04-14 2021-04-14 Travel 1.2.840.1 1.2.379.765 2117 477453 Methodi 00:00:00 00:00:[address] 3.430.2.7 0.2.7.3.698 Ho spita .3.855148 084.8 l .8 2021-04-14 2021-04-14 [facility] 1.2.840.1 [id number] 2 [id number] [place] 00:00:00 00:00:00 Encounter 25209.1.1 [address] .3.955817 .8 2021-04-14 2021-04-14 Travel 1.2.840.1 1.2.798.304 2961 [id number] Methodi 00:00:00 00:00:[address] 3.430.2.7 0.2.7.3.698 Ho spita .3.931281 084.8 l .8 2021-04-10 2021-04-10 [facility] 1.2.840.1 [id number] 2 [id number] Methodi 08:17:31 23:59:00 Encounter Kenzie 40316.1.[address] 3.430.2.7 Hospit a .3.590458 l .8 2021-04-10 2021-04-10 Travel 1.2.840.1 1.2.148.497 7169 184914 Methodi 00:00:00 00:00:[address] 3.430.2.7 0.2.7.3.698 Ho spita .3.584662 084.8 l .8 2021-04-10 2021-04-10 [facility] 1.2.840.1 [id number] 2 [id number] [place] 00:00:00 00:00:00 Encounter 21318.1.1 [address] .3.920336 .8 2021-04-10 2021-04-10 Travel 1.2.840.1 1.2.691.236 6641 737093 Methodi 00:00:00 00:00:[address] 3.430.2.7 0.2.7.3.698 Ho spita .3.440958 084.8 l .8 2021-04-08 2021-04-08 [facility] 1.2.840.1 [id number] 2 [id number] Methodi 08:30:00 23:59:00 Encounter Kenzie 66969.1.[address] 3.430.2.7 Hospit a .3.954035 l .8 2021-04-08 2021-04-08 Orders Klein, 1.2.840.1 [id number] 2099 084009 Methodi 00:00:00 00:00:00 Only Frank 98033.1.[address] 3.430.2.7 Hospit a .3.966967 l .8 2021-04-08 2021-04-08 Travel 1.2.840.1 1.2.973.483 8143 773321 Methodi 00:00:00 00:00:[address] 3.430.2.7 0.2.7.3.698 Ho spita .3.372691 084.8 l .8 2021-04-08 2021-04-08 [facility] 1.2.840.1 [id number] 2 [id number] [place] 00:00:00 00:00:00 Encounter 34619.1.1 [address] .3.520288 .8 2021-04-08 2021-04-08 Orders Klein, 1.2.840.1 [id number] Methodi 00:00:00 00:00:00 Only Frank 09230.1.[address] 3.430.2.7 Hospit a .3.913442 l .8 2021-04-08 2021-04-08 Travel 1.2.840.1 1.2.803.605 2155 942298 Methodi 00:00:00 00:00:[address] 3.430.2.7 0.2.7.3.698 Ho spita .3.358085 084.8 l .8 2021-04-01 2021-04-01 [facility] 1.2.840.1 [id number] 21 [id number] Methodi 08:56:00 15:59:00 Encounter Quan R. 33848.1.[address] 3.430.2.7 Hospit a .3.171907 l .8 2021-04-01 2021-04-01 [facility] 1.2.840.1 [id number] 325 [id number] Methodi 11:30:00 12:55:[address] 75011.1.[address] 3.430.2.7 Hospit a .3.012624 l .8 2021-04-01 2021-04-01 [facility] 1.2.840.1 [id number] 119 [id number] Methodi 11:30:00 12:55:[address]25.1.[address] 3.430.2.7 Hospit a .3.583685 l .8 2021-04-01 2021-04-01 Anesthesia Tate Montes 1.2.840.1 [id number] Methodi 11:45:00 12:39:00 Event Erik Lai 84362.1.[address] 3.430.2.7 Hospit a .3.366831 l .8 2021-04-01 2021-04-01 Anesthesia Tate Montes 1.2.840.1 [id number] Methodi 11:45:00 12:39:00 Event Erik Lai 17074.1.[address] 3.430.2.7 Hospit a .3.009206 l .8 2021-03-27 2021-04-01 Office Alcantara, 1.2.840.1 [id number] 21 [id number] Methodi 15:37:05 08:34:42 Visit Quan Rodriguez 07802.1.[address] 3.430.2.7 Hospit a .3.863461 l .8 2021-03-27 2021-04-01 Office Alcantara, 1.2.840.0 [id number] 21 [id number] Methodi 15:37:05 08:34:42 Visit Quan Rodriguez 19499.1.[address] 3.430.2.7 Hospit a .3.187159 l .8 2021-04-01 2021-04-01 Travel 1.2.840.1 1.2.910.733 0689 106114 Methodi 00:00:00 00:00:[address] 3.430.2.7 0.2.7.3.698 Ho spita .3.060819 084.8 l .8 2021-04-01 2021-04-01 Travel 1.2.840.1 1.2.854.985 6519 649137 Methodi 00:00:00 00:00:[address] 3.430.2.7 0.2.7.3.698 Ho spita .3.287531 084.8 l .8 2021-04-01 2021-04-01 [facility] 021 [id number] 7241 [place] 00:00:00 00:00:00 Kesha EDGARDE [address] 2021-03-27 2021-03-27 Pre-Admiss Carlo, 1.2.840.1 [id number] Methodi 16:50:40 17:50:40 ion Quan R. 18659.1.[address] Testing 3.430.2.7 Hospit a .3.697050 l .8 2021-03-27 2021-03-27 Pre-Admiss Ligonier, 1.2.840.1 [id number] Methodi 16:50:40 17:50:40 ion Quan R. 07532.1.[address] Testing 3.430.2.7 Hospit a .3.827504 l .8 2021-03-27 2021-03-27 Travel 1.2.840.1 1.2.934.420 4474 439220 Methodi 00:00:00 00:00:[address] 3.430.2.7 0.2.7.3.698 Ho spita .3.800347 084.8 l .8 2021-03-27 2021-03-27 Travel 1.2.840.1 1.2.010.121 8650 110845 Methodi 00:00:00 00:00:[address] 3.430.2.7 0.2.7.3.698 Ho spita .3.888776 084.8 l .8 2021-02-03 2021-02-04 Outpatient nullFlavo [facility] Multi 47 [id number] Memoria 19:15:00 04:59:59 r Specialty 16 l [facility] Hunter Little 2021-01-06 2021-01-07 Outpatient nullFlavo MNA [id number] Memoria 19:15:00 04:59:59 r Neurology 17 l Evin Bedoya 2020-12-23 2020-12-23 [place] Irene Neurology - 740 [id number] Univers 11:30:00 11:30:00 t; ISABELLA ANDERSON M.D. [place] i ty of Barak MASON [facility] Physici ans 2020-11-19 2020-11-19 Appointmen [place] ANDERSON Neurology - 721 [id number] Univers 14:30:00 14:30:00 t; ISABELLA ANDERSON M.D. [place] i ty of Barak MASON [facility] Physici ans 2020-11-19 2020-11-19 Appointmen [place] DE SOUZA Multispecia 720 [id number] Univers 11:00:00 11:00:00 t; MICHAEL DE SOUZA, y - it y of Barak RODRIGUEZ Du Pontvielka Flores M.D. Physici ans 2020-11-19 2020-11-19 Appointsp EEG, [facility] [id number] Univers 11:00:00 11:00:00 t; EEG, ADULTCLINIC it y of ADULTCLINI [facility] Physici ans 2020-10-31 2020-10-31 Appointmen [place] ALBERTO Non-Invasiv 725 [id number] Univers 09:30:00 09:30:00 t; CHIRAG ALBERTO e - [place] i ty of ECHO1 [facility] Physici ans 2020-10-28 2020-10-28 AppointGEORGIA Patel Neurology - 728 [id number] Univers 12:00:00 12:00:00 t; ISABELLA ANDERSON M.D. [place] i ty of [place] MASON [facility] Physici ans 2020-10-27 2020-10-27 Appointmen CO19, [facility] [id number] Univers 10:50:00 10:50:00 t; CO19, NURSE-COOLE i ty of NURSE-COOL Y [facility] Physici ans 2020-10-21 2020-10-22 Outpatient nullFlavo [facility] Multi 47 [id number] Memoria 21:45:00 05:59:59 r Specialty 15 l Clinic [facility] 2020-10-18 2020-10-19 Outpt Diag nullFlavo [facility] [id number] Memoria 16:29:00 05:59:00 Services r Outpatient 03 l Imaging Hardwick Thornton 2020-10-17 2020-10-18 Outpatient nullFlavo [facility] [id number] Memoria 15:02:00 05:59:00 r Hardwick 08 l [facility] 2020-10-17 2020-10-17 Outpatient MHBL BRENDA [id number] [facility] 09:02:00 09:02:00 2020-10-04 2020-10-04 [place] Barker Neurology - 7 [id number] Univers 08:30:00 08:30:00 t; [facility]ak [facility] 2020-10-02 2020-10-03 Between nullFlavo [facility] [id number] Memoria 16:35:01 16:35:01 Visit r Urology 06 l Andre damon [place] 2020-09-30 2020-09-30 [place] Vance [id number] Univers 13:00:00 13:00:00 t; COManjinder, NURSE-COOLE i ty of NURSE-COOL [facility] 2020-09-27 2020-09-28 Outpatient nullFlavo [facility] [id number] Memoria 21:00:00 05:59:59 r Urology 14 l Andre Garner Time Share 2020-09-26 2020-09-27 Outpt Diag nullFlavo [facility] [id number] Memoria 18:03:00 05:59:00 Services r Outpatient 02 l Imaging - Fabien Rob 2020-09-24 2020-09-24 [place] Irene Pediatric [id number] Univers 14:00:00 14:00:00 t; ISABELLA ANDERSON M.D. Primary i ty of [place]ak MASON [facility] 2020-09-17 2020-09-17 [place] Irene [id number] Univers 12:15:00 12:15:00 t; ISABELLA ANDERSON M.D. i ty of Barak MASON [facility] 2020-09-17 2020-09-17 [place] Alves Multispecia [id number] Univers 09:40:00 09:40:00 t; MICHAEL DE SOUZA, lty - it y Barak De Los Santos M.D. Physici ans 2020-08-12 2020-08-12 AppointGEORGIA Patel Neurology - 711 [id number] Univers 10:30:00 10:30:00 t; ISABELLA ANDERSON M.D. [place] i ty of [place] MASON [facility] Physici ans 2020-05-24 2020-05-24 Ambulatory nullFlavo MNA [id number] Memoria 14:00:00 14:00:00 Pre-Reg r Neurology 12 l Verona Aureliano 2020-05-24 2020-05-24 Outpatient MHIE MHIE [id number] Memoria 09:00:00 09:00:00 04 l Hardwick 2020-05-24 2020-05-24 Outpatient MHIE MHIE [id number] Memoria 09:00:00 09:00:00 04 l Hardwick 2020-05-22 2020-05-22 [place] Irene Neurology - [id number] Univers 14:15:00 14:15:00 t; ISABELLA ANDERSON M.D. [place] i ty of [place] MASON [facility] Physici ans 2020-05-15 2020-05-15 AppointGEORGIA Patel Neurology - [id number] Univers 14:00:00 14:00:00 t; ISABELLA ANDERSON M.D. [place] i ty of [place] MASON [facility] Physici ans 2020-05-08 2020-05-08 AppointGEORGIA Patel Neurology - [id number] Univers 13:00:00 13:00:00 t; ISABELLA ANDERSON M.D. [place] i ty of [place] MASON [facility] Physici ans 2020-04-22 2020-04-22 [place] Irene Neurology - [id number] Univers 08:30:00 08:30:00 t; ISABELLA ANDERSON M.D. [place] i ty of [place] MASON [facility] Physici ans 2020-03-19 2020-03-19 AppointGEORGIA Patel Neurology [id number] Univers 13:15:00 13:15:00 t; ISABELLA ANDERSON M.D. [place] i ty of [place] MASON [facility] ans 2020-02-26 2020-02-26 Ambulatory nullFlavo [facility] Multi 47 [id number] Memoria 19:40:00 19:40:00 Pre-Reg r Specialty 11 l [facility] 2020-02-26 2020-02-26 Outpatient MHIE MHIE [id number] Memoria 08:45:00 08:45:00 13 [facility] 2020-02-19 2020-02-19 AppointGEORGIA Patel Neurology - [id number] Univers 10:45:00 10:45:00 t; ISABELLA ANDERSON M.D. [place] i ty of [place] MASON [facility] ans 2020-01-22 2020-01-23 Outpt Diag nullFlavo [facility] [id number] Memoria 17:51:00 04:59:00 Services r Outpatient 01 l [facility] 2020-01-16 2020-01-16 Appointmen [place] ANDERSON Neurology - [id number] [facility] 13:45:00 13:45:00 t; ISABELLA ANDERSON M.D. [place] i ty of [place] MASON [facility] 2019-11-23 2019-11-23 Outpatient MHIE MHIE [id number] Memoria 09:00:00 09:00:00 03 ben Hardwick 2019-11-23 2019-11-23 Outpatient MHIE MHIE [id number] Memoria 09:00:00 09:00:00 03 [facility] 2019-11-13 2019-11-13 Ambulatory nullFlavo [facility] Multi 47 [id number] Memoria 14:00:00 14:00:00 Pre-Reg r Specialty 06 l [facility] 2019-11-10 2019-11-12 Phone nullFlavo [facility] [id number] Memoria 15:56:56 04:59:59 Message r Urology 03 l [facility] 2019-11-07 2019-11-07 Appointmen [place] ANDERSON Neurology - [id number] Univers 13:00:00 13:00:00 t; ANDERSON, THY, M.Marilin Romo M.D. [facility] Physici ans 2019-11-03 2019-11-04 Outpt Diag nullFlavo [facility] [id number] Memoria 13:19:00 04:59:00 Services r Outpatient 00 l Imaging Aureliano Thornton 2019-10-24 2019-10-25 Outpatient nullFlavo [facility] [id number] Memoria 16:55:00 05:59:59 r Urology 08 l Andre Garner [facility] 2019-10-24 2019-10-24 Outpatient MHIE MHIE [id number] Memoria 10:45:00 10:45:00 09 l Hardwick 2019-10-24 2019-10-24 Outpatient MHIE MHIE [id number] Memoria 08:30:00 08:30:00 07 l Hardwick 2019-10-10 2019-10-11 Outpatient nullFlavo [facility] [id number] Memoria 14:30:00 05:59:59 r Urology 10 l Andre Garner [facility] 2019-10-06 2019-10-08 Phone nullFlavo MG [id number] Memoria 15:40:14 05:59:59 Message r Urology 02 l Andre Garner [facility] 2019-09-27 2019-09-29 Phone nullFlavo [facility] [id number] Memoria 14:14:55 05:59:59 Message r Urology 01 l Andre Garner [facility] 2019-09-26 2019-09-26 Appointmen [place] PATEL Minimally [id number] Univers 15:30:00 15:30:00 t; BRIANNA PATEL M.D. Invasive ity aman REED M.D. [facility] Claudy Keyes ([facility]) [facility] 2019-09-18 2019-09-18 Appointmen [place] AYALA Minimally [id number] Univers 10:00:00 10:00:00 t; Ananda MCDONALD M.D. [facility] Sandra Fuller M.D. ([facility]) [facility] 2019-09-13 2019-09-14 Outpatient nullFlavo [facility] Multi 47 [id number] Memoria 16:00:00 05:59:59 r Specialty 05 l [facility] 2019-09-05 2019-09-05 AppointGEORGIA Patel Neurology - [id number] Univers 14:00:00 14:00:00 t; ISABELLA ANDERSON M.D. [facility] ty aman MASON M.D. [facility] 2019-08-31 2019-08-31 [place] [facility] [id number] Univers 08:30:00 08:30:00 t; SALVADOR BOLANOS cic & Esau M.D. Vascular Sandra Cancino Surgery - [facility] 2019-08-01 2019-08-01 [place] Irene Neurology - [id number] Univers 14:30:00 14:30:00 t; ISABELLA ANDERSON M.D. [facility] aman MASON M.D. [facility] 2019-07-31 2019-08-01 Outpatient nullFlavo [facility] Multi 47 [id number] Memoria 14:30:00 05:59:59 r Specialty 04 l Clinic [facility] 2019-07-26 2019-07-26 Ambulatory nullFlavo [facility] Multi 47 [id number] Memoria 15:20:00 15:20:00 Pre-Reg r Specialty 03 l Clinic [facility] 2019-07-14 2019-07-15 Outpatient nullFlavo [facility] [id number] Memoria 15:45:00 05:59:59 r Urology 02 l Andre Garner [facility] 2019-07-14 2019-07-15 Outpatient nullFlavo [facility] [id number] Memoria 15:15:00 05:59:59 r Urology 01 l Andre Patsy [facility] 2019-07-10 2019-07-11 Outpatient nullFlavo [facility] Multi 47 [id number] Memoria 15:00:00 05:59:59 r Specialty 00 l [facility] 2019-07-10 2019-07-10 [place] [facility] [id number] Univers 15:00:00 15:00:00 t; SALVADOR BOLANOS cic & Esau M.D. Vascular Sandra Cancino Surgery - Physic [facility] 2019-07-03 2019-07-03 [place] Irene Neurology - [id number] Univers 09:30:00 09:30:00 t; ISABELLA ANDERSON M.D. [place] i ty of [place] MASON [facility] Physici ans 2019-06-02 2019-06-04 Outside nullFlavo MNA [id number] Memoria 19:28:41 04:59:59 Medical r Neurology 00 l Records Verona Hardwick 2019-05-29 2019-05-29 [facility] [place] ANDERSON [facility] - [id number] [facility] 08:00:00 08:00:00 t; ISABELLA ANDERSON M.D. [place] i ty of [place]ak MASON [facility] 2019-05-07 2019-05-21 Inpatient nullFlavo [facility] [id number] Memoria 23:03:00 20:12:00 r Aureliano [address] [place] [address] 2019-05-11 2019-05-11 Ambulatory nullFlavo MNA [id number] Memoria 19:00:00 19:00:00 Pre-Reg r Neurology 02 [facility] 2019-05-11 2019-05-11 Ambulatory nullFlavo MNA [id number] Memoria 19:00:00 19:00:00 Pre-Reg r Neurology 02 [facility] 2019-05-11 2019-05-11 Outpatient MHIE MHIE [id number] Memoria 14:00:00 14:00:00 02 [facility] 2019-05-11 2019-05-11 Outpatient ESTEFANY SnellMISCHER MHMISCHER [id number] 14:00:00 14:00:00 Mick 02 Wilberto 2019-05-04 2019-05-05 Outpatient nullFlavo MNA [id number] Memoria 18:30:00 04:59:59 r Neurology 01 [facility] 2019-05-04 2019-05-05 Outpatient nullFlavo MNA [id number] Memoria 18:30:00 04:59:59 r Neurology 01 [facility] 2019-05-04 2019-05-04 Outpatient ESTEFANY SnellMISCHER MHMISCHER [id number] 13:30:00 23:59:59 Mick Wilberto 2019-05-04 2019-05-04 Outpatient MHIE MHIE [id number] Memoria 13:30:00 13:30:00 ben Hardwick 2019-05-01 2019-05-03 Outside nullFlavo MNA [id number] Memoria 18:19:46 04:59:59 Medical r Neurology 00 l Records Evin Bedoya 2019-05-01 2019-05-03 Outside nullFlavo MNA [id number] Memoria 18:19:46 04:59:59 Medical r Neurology 00 l Records Evin Bedoya 2019-05-01 2019-05-02 Outpatient [facility] [id number] 13:19:46 23:59:59 00 2019-04-26 2019-04-27 Outpatient nullFlavo MNA [id number] Memoria 21:00:00 04:59:59 r Neurology 00 l Evin Bedoya 2019-04-26 2019-04-27 Outpatient nullFlavo MNA [id number] Memoria 21:00:00 04:59:59 r Neurology 00 l Evin Bedoya 2019-04-26 2019-04-26 Outpatient Alis [facility] [id number] 16:00:00 23:59:59 Mick 00 Wilberto 2019-04-26 2019-04-26 Outpatient TATE TATE [id number] Memoria 16:00:00 16:00:00 00 l Aureliano 2012-05-03 2012-05-03 OD TATE TATE [id number] Memoria 09:20:00 09:20:00 00 l Aureliano 2012-05-03 2012-05-03 OD TATE IE [id number] Memoria 09:20:00 09:20:00 00 ben Bedoya Results Test Description Test Time Test Results Result Source Comments Comments Therapeutic 2021-04-23 [address] plasma exchange 0 MD [facility] 13:00:00 05/02/2021 11:27 AMClinical Pathology Outpatient Apheresis Procedure Note Consulting Physician: Frank Ashraf of Service: 05/02/2021ccess: Tunneled catheterAccess Site: Right Internal JugularProcedure: Therapeutic Plasma ExchangeExchange: 4.1 L albuminIndication for Procedure: Myasthenia Gravis Subjective Tita Glass . is a 65 y.o. male with who was diagnosed with Myastenia Gravis. Comes in for Therapeutic Plasma Exchange.. At the moment patient with no active complains. Negative ROS. Current Outpatient Medications Medication amIODarone atorvastatin azaTHIOprine carvediloL citalopram eculizumab ergocalciferol folic acid furosemide hydroCHLOROthia zide levothyroxine losartan pantoprazole FiberCon predniSONE predniSONE sulfamethoxazole-trime thoprim tamsulosin No current facility-administered medications for this encounter. Allergies Allergen Reactio ns Codeine Other (See Comments) It speed him up Objective Physical ExamVital Signs: There were no vitals filed for this visit. General Appearance: Awake, alert, oriented HEENT Unremarkable Chest Symmetric chest rise and fall Cardiovascular Palpable pulses Abdomen Soft and Non-tender Extremities Unremarkable Skin Unremarkable Labs/Radiology/Diagnost ics Lab Results Component Value Date WBC 12.89 (H) 04/16/2021 HGB 7.3 (L) 04/16/2021 HCT 25.7 (L) 04/16/2021 MCV 78.4 (L) 04/16/2021 PLT 170 04/16/2021 Lab Results Component Value Date LABGLUC 85 04/08/2021 CALCIUM 8.5 (L) 04/08/2021 NA 141 04/08/2021 K 3.8 04/08/2021 CO2 24 04/08/2021 CL 104 04/08/2021 BUN 19 04/08/2021 CREATININE 1.11 04/08/2021 Assessment/Plan Tita Glass Jr. is a 65 y.o. male undergoing TPE for MG. Exchange performed using 4.1 Liters of 5% albumin as replacement fluid. Patient tolerated procedure without complication. A CBC was obtained during the procedure which showed a hgb 5.7. The patient was contacted and advise to go to the ED if notices GI bleed or continues to feel tired after a couple of hours. Jose Carlos Alvarado MD PGY-1, Department of Pathology and Genomic Medicine 05/02/2021, 8:27 AM Prepare RBC, 1 Units 2021-04-18 16:22:00 Test Item Value Reference Range Interpretation Comme nts Product name (test code = 25) Red Blood Cells -1, Leukored Unit number (test code = 1694600) [id number] Product code (test code = 3092) [id number] Dispense status (test code = 24) Transfused Blood expiration date (test code = 302) Blood type code (test code = 308) Blood type (test code = 1314) O NEGATIVE Compatibility (test code = 6400) [facility] 1 [id number] 16:22:00 Test Item Value Reference Range Interpretation Comments Product name (test code Red Blood Cells -1, = 25) Leukored Unit number (test code = [id number]) Product code (test code [id number] = 3092) Dispense status (test Transfused code = 24) Blood expiration date (test code = 302) Blood type code (test code = 308) Blood type (test code = O NEGATIVE 1314) Compatibility (test code Compatible = 6400) [facility] [id number] 16:19:00 Test Item Value Reference Range Interpretation Comments ABO grouping (test code = 883-9) O Rh type (test code = 73085-2) NEG [facility] [id number] 16:19:00 Test Item Value Reference Range Interpretation Comments ABO grouping (test code = 883-9) O Rh type (test code = 51473-1) [facility]G [facility] [id number] 15:41:00 Test Item Value Reference Range Interpretation Comments ABO grouping (test code = 883-9) O Rh type (test code = 66987-4) NEG Antibody screen (gel) (test code = NEG 890-4) [facility] [id number] 15:41:00 Test Item Value Reference Range Interpretation Comments ABO grouping (test code = 883-9) O Rh type (test code = 56500-2) NEG Antibody screen (gel) (test code = NEG 890-4) [facility] [id number] 13:30:00Alee Farmer 04/18/2021 2:28 PMClinical Pathology Outpatient Apheresis Procedure Note Consulting Physician: López Farrell of Service: 04/18/2021ccess:Non-Tunneled CatheterAccess Site: Right SubclavianProcedure: Therapeutic Plasma ExchangePre/Kaity-Procedural Medication: NoneIndication for Procedure: Myasthenia GravisProcedure Number: 5Planned Apheresis Schedule: 5 in 2 weeks Subjective Tita Glass Jr. is a 65 y.o. male who was diagnosed with Myastenia Gravis. Comes in for Therapeutic Plasma Exchange. Today the patient reports feeling well. He has mild fatigue but is otherwise well. He denies chest pain, SOB, nausea, paresthesias or any other complaints. There are no active hospital problems to display for this patient. (Not in a hospital admission) Current Outpatient Medications Medication amIODarone atorvastatin azaTHIOprine carvediloL citalopram eculizumab ergocalciferol folic acid furosemide hydroCHLOROthiazide levothyroxine losartan pantoprazole FiberCon predniSONE predniSONE sulfamethoxazole-trimethoprim tamsulosin Current Facility- Administered Medications Medication Dose Route Frequency albumin 5% + calcium gluconate 4.6 mEq/L + potassium chloride 4 mEq/L 1,000 mL intravenous [id number] Allergen Reactions Codeine Other (See Comments) It speed him up Objective Physical ExamVital Signs: Vitals: 04/18/21 0857 BP: 119/72 Pulse: 75 Resp: 18 Temp: 99 F SpO2: 99% General Appearance: Awake, alert, oriented HEENT Deferred Chest Deferred Cardiovascular Pulse 75 Abdomen Deferred Extremities Deferred Skin Deferred Labs/Radiology/Diagnostics CBC: Results from last 7 days Lab Units 04/14/2111 WBC k/uL 12.89* 12.89* HEMOGLOBIN g/dL 7.3* 7.4* HEMATOCRIT %25.7* 27.0* PLATELET COUNT k/uL 170 129* Assessment/Plan Tita Glass Jr. is a 65 y.o. male who presented for therapeutic plasma exchange in the setting of Myasthenia Gravis. Iron studies were performed. 1U pRBCs transfused. Exchange performed using 4 Liters of 5% albumin as replacement fluid. Patient tolerated procedure without complication. Alee Farmer MD, PGY-4 Date/Time:04/18/2021, 10:26 AM[facility]The[facility] [id number] 13:30:00Alee Farmer 04/18/2021 2:28 PMClinical Pathology Outpatient Apheresis Procedure Note Cons ulting Physician: López Farrell of Service: 04/18/2021ccess:Non- Tunneled CatheterAccess Site: Right SubclavianProcedure: Therapeutic Plasma ExchangePre/Kaity-Procedural Medication: NoneIndication for Procedure: Myasthenia GravisProcedure Number: 5Planned Apheresis Schedule: 5 in 2 weeks Subjective Tita Glass Jr. is a 65 y.o. male who was diagnosed with Myastenia Gravis. Comes in for Therapeutic Plasma Exchange. Today the patient reports feeling well. He has mild fatigue but is otherwise well. He denies chest pain, SOB, nausea, paresthesias or any other complaints. There are no active hospital problems to display for this patient. (Not in a hospital admission) Current Outpatient Medications Medication amIODarone atorvastatin azaTHIOprine carvediloL citalopram eculizumab ergocalciferol folic acid furosemide hydroCHLOROthiazide levothyroxine losartan pantoprazole FiberCon predniSONE predniSONE sulfamethoxazole-trimethoprim tamsulosin Current Facility-Administered Medications Medication Dose Route Frequency albumin 5% + calcium gluconate 4.6 mEq/L + potassium chloride 4 mEq/L 1,000 mL intravenous [id number] Allergen Reactions Codeine Other (See Comments) It speed him up Objective Physical ExamVital Signs: Vitals: 04/18/21 0857 BP: 119/72 Pulse: 75 Resp: 18 Temp: 99 F SpO2: 99% General Appearance: Awake, alert, oriented HEENT Deferred Chest Deferred Cardiovascular Pulse 75 Abdomen Deferred Extremities Deferred Skin Deferred Labs/Radiology/Diagnostics CBC: Results from last 7 days Lab Units 0 WBC k/uL 12.89* 12.89* HEMOGLOBIN g/dL 7.3* 7.4* HEMATOCRIT %25.7* 27.0* PLATELET COUNT k/uL 170 129* Assessment/Plan Tita Glass Jr. is a 65 y.o. male who presented for therapeutic plasma exchange in the setting of Myasthenia Gravis. Iron studies were performed. 1U pRBCs transfused. Exchange performed using 4 Liters of 5% albumin as replacement fluid. Patient tolerated procedure without complication. Alee Farmer MD, PGY-4 Date/Time:04/18/2021, 10:26 AM[facility]The[facility] [id number] 13:30:Alee Faustin 04/16/2021 5:09 PMClinical Pathology Outpatient Apheresis Procedure Note Cons [facility] Physician: López Farrell of Service: 04/16/2021ccess:Non- Tunneled CatheterAccess Site: Right SubclavianProcedure: Therapeutic Plasma ExchangePre/Kaity-Procedural Medication: NoneIndication for Procedure: Myasthenia GravisProcedure Number: 4Planned Apheresis Schedule: 5 in 2 weeks Subjective Tita Glass Jr. is a 65 y.o. male who was diagnosed with Myastenia Gravis. Comes in for Therapeutic Plasma Exchange. Today the patient reports mild weakness which is improved with PLEX. He reports an episode of SOB overnight which spontaneously resolved. He has been offered CPAP in the pastbut refused. He has some lightheadedness on getting to stand chronically. No other complaints. A pre-procedure CBC was drawn (Hb 7.3) There are no active hospital problems to display for this patient. (Not in a hospital admission) Current Outpatient Medications Medication amIODarone atorvastatin azaTHIOprine carvediloL citalopram eculizumab ergocalciferol folic acid furosemide hydroCHLOROthiazide levothyroxine losartan pantoprazole FiberCon predniSONE predniSONE sulfamethoxazole-trimethoprim tamsulosin Current Facility-Administered Medications Medication Dose Route Frequency albumin 5% + calcium gluconate 4.6 mEq/L + potassium chloride 4 mEq/L 1,000 mL intravenous Q1H Allergies Allergen Reactions Codeine Other (See Comments) It speed him up Objective Physical ExamVital Signs: Vitals: 04/16/21 0904 BP: 106/63 Pulse: 60 Resp: 18 Temp: 98.6 F SpO2: 98% General Appearance: Awake, alert, oriented HEENTDeferred Chest Deferred Cardiovascular Pulse 57 Abdomen Deferred Extremities Deferred Skin Deferred Labs/Radiology/Diagnostics CBC: Results from last 7 days Lab Units 04/14/2111 WBC k/uL 12.89* 12.89* HEMOGLOBIN g/dL 7.3* 7.4* HEMATOCRIT % 25.7* 27.0* PLATELET COUNT k/uL 170 129* Assessment/Plan Tita Glass Jr. is a 65 y.o. male who presented for therapeutic plasma exchange in the setting of Myasthenia Gravis. His repeat CBC today showed a Hb of 7.3 g/dL and the patient remains asymptomatic. Exchange performed using 4 Liters of 5% albumin as replacement fluid. Patienttolerated procedure without complication. Plan:1) Repeat CBC, Fe studies, type and screen on next visit for possible transfusion 2) Next PLEX scheduled ) Monitor symptoms4) Continue care Alee Farmer MD, PGY-4 Date/Time:04/16/2021, 10:11 AM[facility] HospitalTherapeutic plasma [id number] 13:30:00Alee Farmer 04/16/2021 5:09 PMClinical Pathology Outpatient Apheresis Procedure Note Consulting Physician: López Farrell of Service: 04/16/2021ccess:Non-Tunneled CatheterAccess Site: Right SubclavianProcedure: Therapeutic Plasma ExchangePre/Kaity-Procedural Medication: NoneIndication for Procedure: Myasthenia GravisProcedure Number: 4Planned Apheresis Schedule: 5 in 2 weeks Subjective Tita Glass Jr. is a 65 y.o. male who was diagnosed with Myastenia Gravis. Comes in for Therapeutic Plasma Exchange. Today the patient reports mild weakness which is improved with PLEX. He reports an episode of SOB overnight which spontaneously resolved. He has been offered CPAP in the pastbut refused. He has some lightheadedness on getting to stand chronically. No other complaints. A pre-procedure CBC was drawn (Hb 7.3) There are no active hospital problems to display for this patient. (Not in a hospital admission) Current Outpatient Medications Medication amIODarone atorvastatin azaTHIOprine carvediloL citalopram eculizumab ergocalciferol folic acid furosemide hydroCHLOROthiazide levothyroxine losartan pantoprazole FiberCon predniSONE predniSONE sulfamethoxazole-trimethoprim tamsulosin Current Facility-Administered Medications Medication Dose Route Frequency albumin 5% + calcium gluconate 4.6 mEq/L + potassium chloride 4 mEq/L 1,000 mL intravenous Q1H Allergies Allergen Reactions Codeine Other (See Comments) It speed him up Objective Physical ExamVital Signs: Vitals: 04/16/21 0904 BP: 106/63 Pulse: 60 Resp: 18 Temp: 98.6 F SpO2: 98% General Appearance: Awake, alert, oriented HEENTDeferred Chest Deferred Cardiovascular Pulse 57 Abdomen Deferred Extremities Deferred Skin Deferred Labs/Radiology/Diagnostics CBC: Results from last 7 days Lab Units 04/14/2111 WBC k/uL 12.89* 12.89* HEMOGLOBIN g/dL 7.3* 7.4* HEMATOCRIT % 25.7* 27.0* PLATELET COUNT k/uL 170 129* Assessment/Plan Tita Glass Jr. is a 65 y.o. male who presented for therapeutic plasma exchange in the setting of Myasthenia Gravis. His repeat CBC today showed a Hb of 7.3 g/dL and the patient remains asymptomatic. Exchange performed using 4 Liters of 5% albumin as replacement fluid. Patienttolerated procedure without complication. Plan:1) Repeat CBC, Fe studies, type and screen on next visit for possible transfusion 2) Next PLEX scheduled ) Monitor symptoms4) Continue care Alee Farmer MD, PGY-4 Date/Time:04/16/2021, 10:11 AM[facility] HospitalThe[facility] [id number] 14:30:00Alee Farmer 04/14/2021 5:57 PMClinical Pathology Outpatient Apheresis Procedure Note Consulting Physician: López Farrell of Service: 04/14/2021ccess:Non-Tunneled CatheterAccess Site: Right SubclavianProcedure: Therapeutic Plasma ExchangePre/Kaity-Procedural Medication: NoneIndication for Procedure: Myasthenia GravisProcedure Number: 3Planned Apheresis Schedule: 5 in 2 weeks Subjective Tita Glass Jr. is a 65 y.o. male who was diagnosed with Myastenia Gravis. Comes in for Therapeutic Plasma Exchange. Today the patient reports mild weakness which is improved with PLEX. He denies bloody stool, lightheadedness or any neurological symptoms. He was advised by his PCP to have arepeat CBC today for possible transfusion pending results. There are no active hospital problems todisplay for this patient. (Not in a hospital admission) Current Outpatient Medications Medication amIODarone atorvastatin azaTHIOprine carvediloL citalopram eculizumab ergocalciferol folic acid furosemide hydroCHLOROthiazide levothyroxine losartan pantoprazole FiberCon predniSONE predniSONE sulfamethoxazole-trimethoprim tamsulosin No current facility-administered medications for this encounter. Allergies Allergen Reactions Codeine Other (See Comments) It speed him up Objective Physical ExamVital Signs: Vitals: 04/14/21 0932 BP: 124/58 Pulse: 57 Resp: 18 Temp: 97.4 F SpO2: 100% General Appearance: Awake, alert, oriented HEENT Deferred Chest Deferred Cardiovascular Pulse 57 Abdomen Deferred Extremities Deferred Skin Deferred Labs/Radiology/Diagnostics CBC: Results from last 7 days Lab Units 04/08/2109 WBC k/uL 12.89* 11.35* HEMOGLOBIN g/dL 7.4* 6.9* HEMATOCRIT % 27.0* 25.1* PLATELET COUNTk/uL 129* 154 SCHISTOCYTES -- Occasional COAG: This component does not exist; TEG, WKADPRSLTCHEM: Results from last 7 days Lab Units CALCIUM mg/dL 8.5* IONIZED CALCIUM mmol/L 1.12BUN mg/dL 19 CREATININE mg/dL 1.11 BILIRUBIN TOTAL mg/dL 0.4 ALT U/L 21 AST U/L 13 Assessment/Plan iTta Glass Jr. is a 65 y.o. male who presented for therapeutic plasma exchange in the setting of Myasthenia Gravis. His repeat CBC today showed a Hb of 7.4 g/dL and the patient remains asymptomatic. Exchange performed using 4 Liters of 5% albumin as replacement fluid. Patient tolerated procedure without complication. Alee Farmer MD, PGY-4 Date/Time:04/14/2021, 1:46 PM[facility]The[facility] [id number] 14:30:00Alee Farmer 04/14/2021 5:57 PMClinical Pathology Outpatient Apheresis Procedure Note Consulting Physician: López Farrell of Service: 04/14/2021ccess:Non-Tunneled CatheterAccess Site: Right SubclavianProcedure: Therapeutic Plasma ExchangePre/Kaity-Procedural Medication: NoneIndication for Procedure: Myasthenia GravisProcedure Number: 3Planned Apheresis Schedule: 5 in 2 weeks Subjective Tita Glass Jr. is a 65 y.o. male who was diagnosed with Myastenia Gravis. Comes in for Therapeutic Plasma Exchange. Today the patient reports mild weakness which is improved with PLEX. He denies bloody stool, lightheadedness or any neurological symptoms. He was advised by his PCP to have arepeat CBC today for possible transfusion pending results. There are no active hospital problems todisplay for this patient. (Not in a hospital admission) Current Outpatient Medications Medication amIODarone atorvastatin azaTHIOprine carvediloL citalopram eculizumab ergocalciferol folic acid furosemide hydroCHLOROthiazide levothyroxine losartan pantoprazole FiberCon predniSONE predniSONE sulfamethoxazole-trimethoprim tamsulosin No current facility-administered medications for this encounter. Allergies Allergen Reactions Codeine Other (See Comments) It speed him up Objective Physical ExamVital Signs: Vitals: 04/14/21 0932 BP: 124/58 Pulse: 57 Resp: 18 Temp: 97.4 F SpO2: 100% General Appearance: Awake, alert, oriented HEENT Deferred Chest Deferred Cardiovascular Pulse 57 Abdomen Deferred Extremities Deferred Skin Deferred Labs/Radiology/Diagnostics CBC: Results from last 7 days Lab Units 04/08/2109 WBC k/uL 12.89* 11.35* HEMOGLOBIN g/dL 7.4* 6.9* HEMATOCRIT % 27.0* 25.1* PLATELET COUNTk/uL 129* 154 SCHISTOCYTES -- Occasional COAG: This component does not exist; TEG, WKADPRSLTCHEM: Results from last 7 days Lab Units CALCIUM mg/dL 8.5* IONIZED CALCIUM mmol/L 1.12BUN mg/dL 19 CREATININE mg/dL 1.11 BILIRUBIN TOTAL mg/dL 0.4 ALT U/L 21 AST U/L 13 Assessment/Plan Tita Glass Jr. is a 65 y.o. male who presented for therapeutic plasma exchange in the setting of Myasthenia Gravis. His repeat CBC today showed a Hb of 7.4 g/dL and the patient remains asymptomatic. Exchange performed using 4 Liters of 5% albumin as replacement fluid. Patient tolerated procedure without complication. Alee Farmer MD, PGY-4 Date/Time:04/14/2021, 1:46 PM[facility] [id number] 13:30:00Tyson Barrett MD 04/10/2021 10:05 [facility] Procedure Note Consulting Physician: Frank Ashraf of Service: 04/10/2021ccess:Non- Tunneled CatheterAccess Site: Right Subclavian Procedure: Therapeutic Plasma Exchange Pre/Kaity-Procedural Medication: None Indication for Procedure: Myasthenia GravisProcedure Number: 2Planned Apheresis Schedule: 5 in 2 weeks Subjective Tita Glass Jr. is a 65 y.o. male who was diagnosed with Myastenia Gravis. Comes in for Therapeutic Plasma Exchange. No new complaints reported, no melena, no hematochezia, lightlessness, no new neurological symptoms. There are no active hospital problems to display for this patient. (Not in a hospital admission) Current Outpatient Medications Medication amIODarone atorvastatin azaTHIOprine carvediloL citalopram eculizumab ergocalciferol folic acid furosemide hydroCHLOROthiazide levothyroxine losartan pantoprazole FiberCon predniSONE predniSONE sulfamethoxazole-trimethoprim tamsulosin Current Facility-Administered Medications Medication Dose Route Frequency [COMPLETED] albumin 5% + calcium gluconate 4.6 mEq/L + potassium chloride 4 mEq/L 1,000 mL intravenous Q1H Allergies Allergen Reactions Codeine Other (See Comments) It speed him up Objective Physical ExamVital Signs: Vitals: 04/10/21 0818 BP: 109/63 Pulse: 66 Resp: 18 Temp: 99.1 F SpO2: 100% General Appearance: Awake, alert, oriented HEENT Unremarkable Chest Deferred Cardiovascular Deferred Abdomen Soft, Non-tender and Deferred Extremities Deferred Skin Deferred Labs/Radiology/Diagnostics CBC: Results from last 7 days Lab Units WBC k/uL 11.35* HEMOGLOBIN g/dL 6.9* HEMATOCRIT % 25.1* PLATELET COUNT k/uL 154 SCHISTOCYTES Occasional COAG: This component does not exist; TEG, WKADPRSLT CHEM: Results from last 7 days Lab Units CALCIUM mg/dL 8.5* IONIZED CALCIUM mmol/L 1.12 BUN mg/dL 19 CREAT ININE mg/dL 1.11 BILIRUBIN TOTAL mg/dL 0.4 ALT U/L 21 AST U/L 13 IMMUN: ABO RH: Assessment/Plan Tita Glass Jr. is a 65 y.o. male undergoing TPE for Myastenia gravis. Due Hx of Low Hgb point of care Hgb was done with a result of around 8.6, pt continue asymptomatic. Exchange performed using 4 Liters of 5% albumin as replacement fluid. Patient tolerated procedure without complication. Attending Signature: Tyson Prater MD Date/Time:04/10/2021, 9:27 AM[facility] HospitalTherapeutic plasma exchange 2021-04-10 13:30:00Tyson Barrett MD 04/10/2021 10:05 [facility] Procedure Note Consulting Physician: Frank Ashraf of Service: 04/10/2021ccess:Non-Tunneled CatheterAccess Site: Right Subclavian Procedure: Therapeutic Plasma Exchange Pre/Kaity-Procedural Medication: None Indication for Procedure: Myasthenia GravisProcedure Number: 2Planned Apheresis Schedule: 5 in 2 weeks Subjective Tita Glass Jr. is a 65 y.o. male who was diagnosed with Myastenia Gravis. Comes in for Therapeutic Plasma Exchange. No new complaints reported, no melena, no hematochezia, lightlessness, no new neurological symptoms. There are no active hospital problems to display for this patient. (Not in a hospital admission) Current Outpatient Medications Medication amIODarone atorvastatin azaTHIOprine carvediloL citalopram eculizumab ergocalciferol folic acid furosemide hydroCHLOROthiazide levothyroxine losartan pantoprazole FiberCon predniSONE predniSONE sulfamethoxazole-trimethoprim tamsulosin Current Facility-Administered Medications Medication Dose Route Frequency [COMPLETED] albumin 5% + calcium gluconate 4.6 mEq/L + potassium chloride 4 mEq/L 1,000 mL intravenous Q1H Allergies Allergen Reactions Codeine Other (See Comments) It speed him up Objective Physical ExamVital Signs: Vitals: 04/10/21 0818 BP: 109/63 Pulse: 66 Resp: 18 Temp: 99.1 F SpO2: 100% General Appearance: Awake, alert, oriented HEENT Unremarkable Chest Deferred Cardiovascular Deferred Abdomen Soft, Non-tender and Deferred Extremities Deferred Skin Deferred Labs/Radiology/Diagnostics CBC: Results from last 7 days Lab Units WBC k/uL 11.35* HEMOGLOBIN g/dL 6.9* HEMATOCRIT % 25.1* PLATELET COUNT k/uL 154 SCHISTOCYTES Occasional COAG: This component does not exist; TEG, WKADPRSLT CHEM: Results from last 7 days Lab Units CALCIUM mg/dL 8.5* IONIZED CALCIUM mmol/L 1.12 BUN mg/dL 19 CREATININE mg/dL 1.11 BILIRUBIN TOTAL mg/dL 0.4 ALT U/L 21 AST U/L 13 IMMUN: ABO RH: Assessment/Plan Tita Glass Jr. is a 65 y.o. male undergoing TPE for Myastenia gravis. Due Hx of Low Hgb point of care Hgb was done with a result of around 8.6, pt continue asymptomatic. Exchange performed using 4 Liters of 5% albumin as replacement fluid. Patient tolerated procedure without complication. Attending Signature: Tyson Prater MD Date/Time:04/10/2021, 9:27 [facility] 1 Vw [id number] 18:14:15EXAMINATION: XR CHEST 1 VW PORTABLE CLINICAL HISTORY: cvc COMPARISON: There are no prior comparable exams at this institution. FINDINGS:Lines/Tubes: Right chest tunneled dialysis catheter tip terminates at the brachiocephalic vein/SVC junction.Lungs: Bilateral subsegmental volume loss..Cardiovascular: Normal heart size for technique..Pleura: No evidence for pleural effusion or pneumothorax.. IMPRESSION:1. No evidence for acute cardiopulmonary disease..2. TDC terminates at the brachiocephalic vein/SVC junction. [facility]-[id number] Interface, Radiology Results Incoming - 04/01/2021 1:17 PM CDT EXAMINATION: XR CHEST 1 VW PORTABLECLINICAL HISTORY: cvcCOMPARISON: There are no prior comparable exams at this institution.FINDINGS:Lines/Tubes: Right chest tunneled dialysis catheter tip terminates at the brachiocephalic vein/SVC junction.Lungs: Bilateral subsegmental volume loss..Cardiovascular: Normal heart size for technique..Pleura: No evidence for pleural effusion or pneumothorax..IMPRESSION:1. No evidence for acute cardiopulmonary disease..2. TDC terminates at the brachiocephalic vein/SVC junction.[facility]-[id number] HospitalXR Chest 1 [id number] 18:14:15EXAMINATION: XR CHEST 1 PORTABLE CLINICAL HISTORY: cvc COMPARISON: There are no prior comparable exams at this institution. FINDINGS:Lines/Tubes: Right chest tunneled dialysis catheter tip terminates at the brachiocephalic vein/SVC junction.Lungs: Bilateral subsegmental volume loss..Cardiovascular: Normal heart size for technique..Pleura: No evidence for pleural effusion or pneumothorax.. IMPRES LIZET:1. No evidence for acute cardiopulmonary disease..2. TDC terminates at the brachiocephalic vein/SVC junction. [facility]-[id number] Interface, Radiology Results 04/01/2021 1:17 PM CDT EXAMINATION: XR CHEST 1 PORTABLECLINICAL H ISTORY: cvcCOMPARISON: There are no prior comparable exams at this institution.FINDINGS:Lines/Tubes: Right chest tunneled dialysis catheter tip terminates at the brachiocephalic vein/SVC junction.Lungs: Bilateral subsegmental volume loss..Cardiovascular: Normal heart size for technique..Pleura: No evidence for pleural effusion or pneumothorax..IMPRESSION:1. No evidence for acute cardiopulmonary disease..2. TDC terminates at the brachiocephalic vein/SVC junction.[id number] HospitalOR [place] < 1 [id number] 17:39:26EXAMINATION: OR FL < 1 HOUR CLINICAL HISTORY: IMPRESSION:Fluoroscopy was provided. No radiologist present. Please see procedure report for discussion of procedure, findings and fluoroscopic time. [facility]-[id number] Interface, Radiology Results 04/01/2021 12:42 PM CDT EXAMINATION: OR FL < 1 HOURCLINICAL HISTORY:IMPRESSION:Fluoroscopy was provided. No radiologist present. Please see procedure report for discussion of procedure, findings and fluoroscopic time.[facility]-[id number] HospitalOR [place] < 1 [id number] 17:39:26EXAMINATION: OR FL < 1 HOUR CLINICAL HISTORY: IMPRESSION:Fluoroscopy was provided. No radiologist present. Please see procedure report for discussion of procedure, findings and fluoroscopic time. [facility]-[id number] Interface, Radiology Results 04/01/2021 12:42 PM CDT EXAMINATION: OR [place] < 1 HOURCLINICAL HISTORY:IMPRESSION:Fluoroscopy was provided. No radiologist present. Please see procedure report for discussion of procedure, findings and fluoroscopic time.[facility]-[id number] Medical [id number] 17:00:00Tricia Betancourt CRNA 04/01/2021 12:33 PMAirway Date/Time: 04/01/2021 12:00 PM Location: OR Performed by: ISABEL/Mariuszthesiologist: Jonathan Olmstead, Brooke/ISABEL/AA: Jeannie BetancourteAuthorized by: Tate Montes MD Urgency: ElectiveDifficult Airway: No Preoxygenated with 100% O2: Yes C-spine Precautions Maintained Throughout: No Mask Ventilation: Assisted mask (twohand oral airway)Final Airway Type: Endotracheal airwayFinal Endotracheal Airway: ETTCuffed: Yes Technique Used: Direct laryngoscopyDevices/Methods Used in Placement: Intubating styletInsertion Site: OralBlade Type: MillerLaryngoscope Blade/Videolaryngoscope Blade Size: 2ETT Size (mm): 8.0Cuff at minimum occlusion pressure: Yes Measured from: LipsETT to Lips (cm): 23Placement Verified by:CO2 detection and equal breath sounds Laryngoscopic view: Grade I - full view of glottisRapid Sequence Induction (RSI): No Modified RSI: No Number of Attempts at Approach: 1 Pre-O2, bed in reverse-T, eyes taped after LOC, two hand mask with oral airway, DL x1, atraumatic, dentition unchangedThe [facility]2021-08-10 17:00:00Tricia Betancourt CRNA 04/01/2021 12:33 PMAirway Date/Time: 04/01/2021 12:00 PM Location: OR Performed by: ISABEL/Mariuszthesiologist: Jonathan Olmstead, MDResident/CAN FILLING MACHINE OPERATOR/AA: Jeannie BetancourteAuthorized by: Tate Montes MD Urgency: ElectiveDifficult Airway: No Preoxygenated with 100% O2: Yes C- spine Precautions Maintained Throughout: No Mask Ventilation: Assisted mask (twohand oral airway)Final Airway Type: Endotracheal airwayFinal Endotracheal Airway: ETTCuffed: Yes Technique Used: Direct laryngoscopyDevices/Methods Used in Placement: Intubating styletInsertion Site: OralBlade Type: MillerLaryngoscope Blade/Videolaryngoscope Blade Size: 2ETT Size (mm): 8.0Cuff at minimum occlusion pressure: Yes Measured from: LipsETT to Lips (cm): 23Placement Verified by:CO2 detection and equal breath sounds Laryngoscopic view: Grade I - full view of glottisRapid Sequence Induction (RSI): No Modified RSI: No Number of Attempts at Approach: 1 Pre-O2, bed in reverse-T, eyes taped after LOC, two hand mask with oral airway, DL x1, atraumatic, dentition unchangedMethod[facility]Post [id number] 00:38:33 Test Item Value Reference Range Interpretation Comments Ventricular rate (test code = 253) Atrial rate (test code = 255) IN interval (test code = 266) QRSD interval (test code = 260) QT interval (test code = 264) QTC interval (test code = 265) P axis 1 (test code = 267) QRS axis 1 (test code = 268) T wave axis (test code = 270) EKG impression (test Normal sinus code = 273) rhythm-Left axis deviation-Pulmonary disease pattern-Septal infarct , age undetermined-Abnormal ECG-No previous ECGs available-Electronica lly Signed By Dov MORIN, Leif Mi ([id number]) on 03/27/2021 7:38:31 PM [facility] [id number] 00:38:33 Test Item Value Reference Range Interpretation Comments Ventricular rate (test code = 253) Atrial rate (test code = 255) IN interval (test code = 266) QRSD interval (test code = 260) QT interval (test code = 264) QTC interval (test code = 265) P axis 1 (test code = 267) QRS axis 1 (test code = 268) T wave axis (test code = 270) EKG impression (test Normal sinus code = 273) rhythm-Left axis deviation-Pulmonary disease pattern-Septal infarct , age undetermined-Abnormal ECG-No previous ECGs available-Electronica lly Signed By Leif Monae MD ([id number]) on 03/27/2021 7:38:31 PM [facility][Q] HEPATITIS B SURFACE ANTIBODY [id number] 12:51:00 Test Item Value Reference Range Interpretation Comments HEPATITIS B SURFACE NON-REACTIVE NON-REACTIVE N SPECIMEN RECEIVED DATE ANTIBODY QL; Normal AND TIME : (test code = 33221-5) [facility][QL] HEPATITIS C [id number] 12:51:00 Test Item Value Reference Range Interpretation Comments HEPATITIS C NON-REACTIVE NON-REACTIVE N ANTIBODY; Normal (test code = 84559-3) SIGNAL TO CUT-OFF 0.01 <1.00 N HCV antibo dy was (test code = SIGNAL non-reac tive. There is TO CUT-OFF) no laboratory e vidence of HCV infectio n. In most cases, no further action is requi red. However,if rece nt HCV exposure is torrey pected, a test for HCV RNA(test code 3 5645) is suggested. F or additional info rmation please refer [email or web address] ion.[facility] stdiagnostics.c om/faq/ ZYR96f4(This li nk is being provided for informational/e ducatio nal purposes on ly.) SPECIMEN RECEIV ED DATE AND TIME: [facility][Q] CRYPTOCOCCAL AG, LATEX SCREEN W/REFL TITER 2020-11-19 12:51:00 Test Item Value Reference Range Interpretation Comments SOURCE: (test Serum code = SOURCE:) SCREEN (test code Not Detected Not Detected Culture sh ould be = SCREEN) performed on initial positivesample in order to recover the causative organism forpre cise identification (C. neoformans vs. C. gattii)and pote ntial susceptibility testing. SPECIMEN RECEIV ED DATE AND TIME: [facility][Q] HEPATITIS B SURFACE AG W/REFL CONFIRM (REFL) 2020-11-19 12:51:00 Test Item Value Reference Range Interpretation Comments HEPATITIS B SURFACE NON-REACTIVE NON-REACTIVE N SPECIMEN RECEIVED DATE ANTIGEN (REFL) AND TIME: (test code = HEPATITIS B SURFACE ANTIGEN (REFL)) [facility][Q] HEPATITIS B CORE AB TOTAL W/REFL [id number] 12:51:00 Test Item Value Reference Range Interpretation Comments HEPATITIS B CORE AB NON-REACTIVE NON-REACTIVE N SPECIMEN RECEIVED DATE TOTAL; Normal (test AND TIME : code = 97492-9) [facility][Q] STRATIFY JCV(TM) AB (WITH INDEX) W/RFL [id number] 12:51:00 Test Item Value Reference Range Interpretation Comments INDEX VALUE (test 0.85 code = INDEX VALUE) JCV ANTIBODY (test POSITIVE A Index int erpretive code = JCV ANTIBODY) criteri a: <0.20 negative 0. 20-0.40 indeterminate >0.40 positive INTER PRETATION Negative: Antib odies to JCV not detecte d. Indeterminate: Low level reactivity dete cted, see Inh ibition Assay result be low for the final antibody result . Positive: Antib odies to JEFF virus (JCV) detected indicating the patient has bee n exposed to JCV at an undetermined ti me. The STRATIFY JCV An tibody Test is an enzyme-linkedim munosorben t assay (ANASTACIO) designed to detect JCVan tibodies to help identif y individuals who have beenexposed to the virus. Samples with lo w level reactivityin th e detection assay are retested in a confirmation(in hibition) assay to confir m presence or abs ence ofJCV-specific antibodies. Ret rospective analyses of pos t marketing data fromvarious shabbir rces, including obser vational studies andspon taneous reports obtaine d worldwide, sugg est thatthe risk of developing PML may be associated with relative levels of serum anti-JCV antibody as dia suredby anti-JCV antibo dy index.1 1TYSABRI(casey zumab)US Prescribing Inf ormation SPECIMEN RECEIV ED DATE AND TIME: [id number] REPORT COMMENT:FASTING:YESUn[facility][QL] LIPID PANEL 2020-10-18 13:24:00 Test Item Value Reference Range Interpretation Comments CHOLESTEROL, TOTAL; 181 mg/dl <200 N SPECIMEN RECEIVED Normal (test code = DATE AND TIME: 2092-10) [id number] HDL CHOLESTEROL; 91 mg/dl See_Comment N SPECIMEN RE CEIVED Normal (test code = DATE AND TIME: 2085-04) [id number] [Automated mess age] The system Spy[employer] Lynk generated this result transmit roxana reference range : > OR = 40. The reference range was not used to interpret this result as normal/abnormal . TRIGLYCERIDES; 117 mg/dl <150 N SPECIMEN RECE IVED Normal (test code = DATE AND TIME: 2571-03) [id number] LDL-CHOLESTEROL; 70 {MG/DL N Reference r wendy: Normal (test code = SANDIP} <100 Lexx irable range 74103-6) <100 mg/dL for primary prevent ion; <70 mg/dL for patients with C HD or diabetic patien ts with > or = 2 C HD risk factors. L DL-C is now calculat ed using the Danna calculation, wh ich is a validated novel method providin g better accuracy than the Friedewald equation in the estimation of L DL-C. Madhu SS et al . ABBI. 2013;310( 19): 1568-3394 (http://educati on.ShopLocket estProject Dances. com/f aq/LQC808)SPECI MEN RECEIVED DATE A ND TIME: CHOL/HDLC RATIO 2.0 {CALC} <5.0 N SPECIMEN REC EIVED (test code = DATE AND TIME: CHOL/HDLC RATIO) [id number] 5 NON HDL CHOLESTEROL 90 {MG/DL <130 N For judd ents with (test code = NON HDL SANDIP} diabete s plus 1 CHOLESTEROL) major ASCVD ris k factor, treatin g to a non-HDL-C goa l of <100 mg/dL (LDL -C of <70 mg/dL) is considered a therapeutic option.SPECIMEN RECEIVED DATE A ND TIME: [facility][QL] HEMOGLOBIN [id number] 13:24:00 Test Item Value Reference Range Interpretation Comments HEMOGLOBIN A1c; 5.3 {% of <5.7 N For the purp [...] di abetes in children. Ac cording to [place] [employer] (ADA)guidelines , hemoglobin A1c <7.0% represents optimalcontrol in non- di abetic patients. Differentmetric s may apply to specif ic patient populat ions. Standards of Me dical Care in Diabete s(ADA). SPECIMEN RECEIV ED DATE AND TIME: 7422015 [facility] Head/Neck CTA [id number] 11:36:00Radiation Dose CTDIVOL = 0 (mGy): DLP = 1764.41 (mGy-cm)PROCEDURE INFORMATION:Exam: CT Angiography Head Without And With ContrastExam date and time: 10/18/2020 11:48 AMAge: 65 years oldClinical indication: Cerebral infarction, unspecified; Additional info: I63.9cerebral infarction, unspecified/i63.9 cerebral infarction, unspecifiedTECHNIQUE:Imaging protocol: Computed tomographic angiography of the head without and withintravenous contrast.3D rendering (Not supervised by radiologist): MIP and/or 3D reconstructedimages were created by the technologist.Radiation optimization: All CT scans at this facility use at least one of thesedose optimization techniques: automated exposure control; mA and/or kVadjustment per patient size (includes targeted exams where dose is matched toclinical indication); or iterative reconstruction.Contrast material: OMNI 300; Contrast volume: 100 ml; Contrast route:INTRAVENOUS (IV); COMPARISON:1. OT BRAIN/NECK CTA 05/29/2020 3:33 AM2. Brain MR 09/26/2020.RADIATION DOSE METRICS:Total DLP (mGy-cm): 1764.41FINDINGS:ANTERIOR CIRCULATION:Right internal carotid artery: Intracranial segment is patent with nosignificant stenosis. No aneurysm.Right middle cerebral artery: No occlusion or significant stenosis. Noaneurysm. Right anterior cerebral artery: Hypoplastic A1 segment, a variant of normal. Noocclusion or aneurysm.Anterior communicating artery: Unremarkable.Left internal carotid artery: Intracranial segment is patent with nosignificant stenosis. No aneurysm.Left middle cerebral artery: No occlusion or significant stenosis. No aneurysm.Left anterior cerebral artery: No occlusion or significant stenosis. Noaneurysm. POSTERIOR CIRCULATION:Right vertebral artery: Not visualized.Left vertebral artery: Not visualized.Basilar artery: No occlusion or significant stenosis. No aneurysm.Right posterior cerebral artery: origin. No occlusion or aneurysm.RPCOM: Patent.Right po sterior inferior cerebellar artery: Not visualized.Left posterior cerebral artery: No occlusion or significant stenosis. Noaneurysm. LPCOM: Not visualized.Left posterior inferior cerebellar artery: Notvisualized.HEAD:Brain: No acute intra-axial or extra-axial hemorrhage. No mass effect ormidline shift. Chronic lacunar infarctions in the left caudate nucleus, body ofthe right caudate nucleus, left centrum semiovale and mild microvascularischemic changes. Now chronic, small lacunar infarction in the right occipitallobe is occult on CT. Mild encephalomalacia in the parasagittal superior leftcerebellum.Cerebral ventricles: No acute hydrocephalus.Bones/joints: Left suboccipital craniotomy.Paranasal sinuses: Mild mucosal thickening. No fluid levels.Mastoid air cells: Trace fluid in the mastoid air cells, present on priorimaging.Soft tissues: Unremarkable. Incidental prominent uvula, unchanged compared toprior. PROCEDURE INFORMATION:Exam: CT Angiography Neck With ContrastExam date and time: 10/18/2020 11:48 AMAge: 65 years oldClinical indication: Cerebral infarction, unspecified; Additional info: I63.9cerebral infarction, unspecified/i63.9 cerebral infarction, unspecifiedTECHNIQUE:Imaging protocol: Computed tomography angiography of the neck with intravenouscontrast.3D rendering (Not supervised by radiologist): MIP and/or 3D reconstructedimages were created by the technologist.Radiation optimization: All CT scans at this facility use at least one of thesedose optimization t echniques: automated exposure control; mA and/or kVadjustment per patient size (includes targeted exams where dose is matched toclinical indication); or iterative reconstruction.Contrast material: [id number]; Contrast volume: 100 ml; Contrast route:INTRAVENOUS (IV); COMPARISON:OT BRAIN/NECK CTA 05/29/2020 3:33 AMRADIATION DOSE METRICS:Total DLP (mGy-cm): 1764.41FINDINGS:Right common carotid artery: No stenosis. No dissection or occlusion.Right internal carotid artery: No stenosis. No dissection or occlusion.Right external carotid artery: No occlusion or stenosis of the origin. Right vertebral artery: No stenosis. No dissection or occlusion.Left common carotid artery: No stenosis. No dissection or occlusion.Left internal carotid artery: No stenosis. No dissection or occlusion.Retropharyngeal course.Left external carotid artery: No occlusion or stenosis of the origin. Left vertebral artery: No stenosis. No dissection or occlusion.Bones/joints: No acute compression fracture. Redemonstration of degenerativechanges of the cervical spine, best noted at C4-C5.Soft tissues: No significant soft tissue swelling.REFERENCES:NASCET CRITERIA. The degree of internal carotid artery stenosis is based onNASCET criteria. Normal is no stenosis. Mild is less than 50% stenosis.Moderate is 50-69% stenosis. Severe is 70% to 99% stenosis. Total occlusion isno detectable patent lumen. IMPRESSION:CT Angiography Head Without And With ContrastNo aneurysm, acute occlusion or significant stenosisCT Angiography Neck With ContrastNo stenosis or occlusion of the internal carotid arteries and vertebralarteries.Jack Go MD On 10/18/2020 16:33:52; [id number]--Ehda by: Jack Go MDDictated Date/time: 10/18/20 16:34Electronically Signed by: Jack Go MD 10/18/2115:34FINAL REPORT [facility] Brain w/wo contrast [id number] 12:25:00 Test Item Value Reference Range Interpretation Comments Brain w/wo SEE NOTESSEE Prior imaging a nd contrast MRI NOTES additional info rmation (test code = were subsequent ly made Brain w/wo available after it was contrast MRI) discovered sydney t the patient had 2 d ifferent medical record numbers(MRNs) u nder 2 different names . The MRNs have since been merged.1. No residual or recurrent abscess. Contin ued decrease in siz e of faintresidual e nhancement along the left superior cerebellum in t he region of theinitial a bscess is likely postoper ative.2. New punctate ri ght occipital lobe infarct, likely embolic. 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 Small focus of hemosiderin jeff ng theleft tentorial leafl et inferiorly and superior cerebellum from priorhemorrhage . There is also small lorenzo cent focus of postcontrast enhancement int his region (series 15 imag e 8).Punctate foc us of hyperintense si gnal on diffusion-weigh roxana imaging in ther ight occipital lobe has isointense to s lightly hypointense correspondingsi gnal on ADC. No corresp onding enhancement on postcontrast imaging.Normal T2 hypointense ida w voids are well mainta ined.The ventricles and sulcal spaces are enla rged due to central brai n parenchymalvolu me loss.The bone m arrow signal is withi n normal limits. Bilater al mastoid effusions.IMPRE SSION:1. Prior left subo ccipital craniotomy with no residual or rec urrent abscess. Asmall amount of enhancement and hemosiderin jeff ng the left superior cerebellumcould either be residual infectious/infl ammatory changes or postoperative.C omparison with prior imag ing would help to differe ntiate between these 2 .2. Punctate focus of abnormal signal in the right occipital lobe could eitherrep resent residual infectious/infl ammatory changes or punc soni infarct.Compari son with prior imaging a gain would help differenti ate between these 2 .--Read by: Yakelin Walker MDDictated Date/time: 01/10 08:24Electronic ally Signed by: Ember Maldonado 09/27/20 08:47FINAL REPORT [facility] Brain w/wo contrast [id number] 12:25:00 EXAM: MRI BRAIN WITH AND WITHOUT CONTRASTDATE: 09/27/2020INDICATION: " - G06.0 Intracranial abscess and granuloma."ADDITIONAL INFORMATION: Reports previous brain abscess and surgeryCOMPARISON: NoneTECHNIQUE: Multiplanar, multisequence MRI of the brain with and withoutcontrast.IV contrast: 20 cc DotaremFINDINGS:No rim-enhancing fluid collection to suggest residual or recurrent abscess.Left suboccipital previous craniotomy. Small focus of hemosiderin along theleft tentorial leaflet inferiorly and superior cerebellum from priorhemorrhage. There is also small adjacent focus of postcontrast enhancement inthis region (series 15 image 8).Punctate focus of hyperintense signal on diffusion-weighted imaging in theright occipital lobe has isointense to slightly hypointense correspondingsignal on ADC. No corresponding enhancement on postcontrast imaging.Normal T2 hypointense flow voids are well maintained.The ventricles and sulcal spaces are enlarged due to central brain parenchymalvolume loss.The bone marrow signal is within normal limits. Bilateral mastoid effusions.IMPRESSION:1. Prior left suboccipital craniotomy with no residual or recurrent abscess. Asmall amount of enhancement and hemosiderin along the left superior cerebellumcould either be residual infectious/inflammatory changes or postoperative.Comparison with prior imaging would help to differentiate between these 2.2. Punctate focus of abnormal signal in the right occipital lobe could eitherrepresent residual infectious/inflammatory changes or punctate infarct.Comparison with prior imaging again would help differentiate between these 2.--Read by: Ember Walker MDDictated Date/time: 09/27/20 08:24Electronically Signed by: Ember Walker MD 09/27/2107:47FINAL REPORTUnSteward Health Care System PhysiciansXRAY Chest 2 views [id number] 2020-09-26 12:10:00EXAM: XR CHEST 2 VIEWSDATE: 09/26/2020 12:08 PM CSTINDICATION: - painCOMPARISON: No prior chest x-ray, chest CT dated 05/08/2019TECHNIQUE: PA and lateral views of the chestIMPRESSION:1. Hazy opacities in the left lower lung zone adjacent to left cardiophrenicsinus could be due to pericardial fat pad seen in chest CT study dated05/08/2019 but accompanying left lingular atelectasis cannot be excluded. Therest of the lungs appear unremarkable. No pleural effusion. No pneumothorax.2. The heart is normal in size. Vascular calcifications are seen in the aorticarch.3. No acute osseous abnormality. Mild degenerative changes are seen in thethoracic spine.--Read by: Aleksey Dewey MDDictated Date/time: 09/26/20 12:47Electronically Signed by: Aleksey Dewey MD 09/26/2111:51FINAL REPORTUnSteward Health Care System [facility][QL] CBC (INCLUDES DIFF/PLT)2020-09-19 15:45:00 Test Item Value Reference Range Interpretation Comments WHITE BLOOD CELL COUNT 10.9 {Thousand/u} 3.8-10.8 (test code = WHITE BLOOD CELL COUNT) RED BLOOD CELL COUNT (test 3.85 {Million/uL} 4.20-5.80 code = RED BLOOD CELL COUNT) HEMOGLOBIN; Below Low 11.7 g/dl 13.2-17.1 Threshold (test code = 86738-1) HEMATOCRIT; Below Low 36.2 % 38.5-50.0 Threshold (test code = 4544-3) MCV; Normal (test code = 94.0 fL 80.0-100.0 N 787-2) MCHC; Normal (test code = 32.3 g/dl 32.0-36.0 N 52966-5) RDW; Above High Threshold 15.2 % 11.0-15.0 (test code = 788-0) PLATELET COUNT; Normal 140 {Thousand/u} 140-400 N (test code = 777-3) MPV; Normal (test code = 11.4 fL 7.5-12.5 N 93346-7) ABSOLUTE NEUTROPHILS (test 58739 {cells/uL} 8024-4220 code = ABSOLUTE NEUTROPHILS) ABSOLUTE LYMPHOCYTES (test 229 {cells/uL} 850-3900 code = ABSOLUTE LYMPHOCYTES) ABSOLUTE MONOCYTES (test 131 {cells/uL} 200-950 code = ABSOLUTE MONOCYTES) ABSOLUTE EOSINOPHILS (test 0 {cells/uL} 15-500 code = ABSOLUTE EOSINOPHILS) ABSOLUTE BASOPHILS (test 11 {cells/uL} 0-200 N code = ABSOLUTE BASOPHILS) NEUTROPHILS (test code = 96.6 % N NEUTROPHILS) LYMPHOCYTES (test code = 2.1 % N LYMPHOCYTES) MONOCYTES; Normal (test 1.2 % N code = 65183-4) EOSINOPHILS; Normal (test 0.0 % N code = 65984-5) BASOPHILS; Normal (test 0.1 % N code = 44941-7) [facility][QL] CULTURE, URINE, [id number] 15:45:00 Test Item Value Reference Range Interpretation Comments CULTURE (test See Comment A CULTURE, URINE , ROUTINE code = CULTURE) Micro Numb er: [id number] Test Status: Final Speci men Source: URINE , CLEAN CATCH Specimen Quality: Adequate Resul t: Greater than 100,000 CFU/mL of Prote us mirabilis This organi sm may show imipenem r esistance by mechanisms othe r than a carbapenemase. COMMENT: Additi onal non-predominati ng organism(s) iso lated. These organisms, comm only found on external and inter nal genitalia, are considered colonizers. No furthe r testing performed. P.estefanía abilis - INT MARYJO AMOX/CLAVULAN ATE S 8 AMPIC ILLIN R >= 32 AMP/SULBACTAM I 16 CEFAZOL IN R >=64 1 CEFEPIME S <=1 CEFTRI AXONE S <=1 CIPROFLOXACIN S <=0.25 GEN TAMICIN S <=1 IMIPENEM R 4 LEVOFLOX ACIN S <=0.1 2 NITROFURANTOIN R 128 PIP/TA ZOBACTAM S <=4 TOBRAMYCIN S <=1 TRIMETHOPRIM/MAHAN LFA S <=20S=Suscep tible I=Intermediate R=Resistant * = Not TestedNR = Not Reported NN = See Ther apy CommentsTHERAPY COMMENTS Note 1: Fo r uncomplicated U TI caused by E. coli, K. pneumoniae or P . mirabilis: Cefa zolin is susceptible if MARYJO <32 mcg/mL and pred icts susceptible to the oral agents cefaclor , cefdinir, ce fpodoxime, cefprozil, cefu roxime, cephalexin a nd loracarbef. [facility][QL] CULTURE, [id number] 15:45:00 Test Item Value Reference Range Interpretation Comments CULTURE (test code = See Comment CULTURE , BLOOD CULTURE) Micro Number: [id number] Test Status: Final Sp ecimen Source: BLOOD Specimen Qualit y: Adequate Resul t: No growth after 5 days TRANSPO RT MEDIA: Aerobi c and anaerobic bottl e received. [facility][QL] HEPATIC FUNCTION [id number] 00:00:00 Test Item Value Reference Range Interpretation Comments PROTEIN, TOTAL (test 6.3 g/dl 6.1-8.1 N code = PROTEIN, TOTAL) ALBUMIN (test code = 4.1 g/dl 3.6-5.1 N ALBUMIN) GLOBULIN (test code 2.2 {G/DL 1.9-3.7 N = GLOBULIN) CALC} ALBUMIN/GLOBULIN 1.9 {CALC} 1.0-2.5 N RATIO (test code = ALBUMIN/GLOBULIN RATIO) BILIRUBIN, DIRECT; 0.2 mg/dl See_Comment N [Automat ed message] Normal (test code = The syst em which 33383-1) generated this result transmit roxana reference range : < OR = 0.2. The reference range was not used to interpret this result as normal/abnormal . BILIRUBIN, INDIRECT; 0.6 {MG/DL 0.2-1.2 N Normal (test code = SANDIP} 1971-) ALKALINE PHOSPHATASE 88 u/l 35-144 N (test code = ALKALINE PHOSPHATASE) AST; Normal (test 22 u/l 10-35 N code = 1916-6) ALT; Normal (test 29 u/l 9-46 N code = 1742-6) [facility][QL] CMP [id number] 00:00:00 Test Item Value Reference Range Interpretation Comments GLUCOSE; Normal 108 mg/dl 65-139 N Non-fasting reference (test code = interval 1547-9) UREA NITROGEN 25 mg/dl 7-25 N (BUN) (test code = UREA NITROGEN (BUN)) CREATININE (test 1.23 mg/dl 0.70-1.25 N For patient s >49 years code = of age, the ref erence CREATININE) limitfor Creati nine is approximately 1 3% higher for peopleidentifie d as -Radha n. eGFR NON-AFR. 60 {ML/MIN/1.7} See_Comment N [Automated message] GEORGIAN (test The system ich code = eGFR generated this result NON-AFR. transmitted ref erence GEORGIAN) range: > OR = 6 0. The reference range was not used to int erpret this result as normal/abnormal . eGFR 70 {ML/MIN/1.7} See_Comment N [Automated message] GEORGIAN (test The system ich code = eGFR generated this result ) transmitte d reference range: > OR = 6 0. The reference range was not used to int erpret this result as normal/abnormal . BUN/CREATININE NOT APPLICABLE 6-22 RATIO (test code = BUN/CREATININE RATIO) SODIUM (test code 142 mmol/L 135-146 N = SODIUM) POTASSIUM (test 3.8 mmol/L 3.5-5.3 N code = POTASSIUM) CHLORIDE (test 99 mmol/L 98-110 N code = CHLORIDE) CARBON DIOXIDE 29 mmol/L 20-32 N (test code = CARBON DIOXIDE) CALCIUM (test 9.3 mg/dl 8.6-10.3 N code = CALCIUM) PROTEIN, TOTAL 6.3 g/dl 6.1-8.1 N (test code = PROTEIN, TOTAL) ALBUMIN (test 4.1 g/dl 3.6-5.1 N code = ALBUMIN) GLOBULIN (test 2.2 {G/DL CALC} 1.9-3.7 N code = GLOBULIN) ALBUMIN/GLOBULIN 1.9 {CALC} 1.0-2.5 N RATIO (test code = ALBUMIN/GLOBULIN RATIO) BILIRUBIN, TOTAL; 0.8 mg/dl 0.2-1.2 N Normal (test code = 55950-7) ALKALINE 88 u/l 35-144 N PHOSPHATASE (test code = ALKALINE PHOSPHATASE) AST; Normal (test 22 u/l 10-35 N code = 1916-6) ALT; Normal (test 29 u/l 9-46 N code = 1742-6) [facility][QL] CBC (INCLUDES DIFF/PLT)2020-09-17 00:00:00 Test Item Value Reference Range Interpretation Comments WHITE BLOOD CELL COUNT 15.8 {Thousand/u} 3.8-10.8 (test code = WHITE BLOOD CELL COUNT) RED BLOOD CELL COUNT (test 3.89 {Million/uL} 4.20-5.80 code = RED BLOOD CELL COUNT) HEMOGLOBIN; Below Low 12.1 g/dl 13.2-17.1 Threshold (test code = 76967-3) HEMATOCRIT; Below Low 37.3 % 38.5-50.0 Threshold (test code = 4544-3) MCV; Normal (test code = 95.9 fL 80.0-100.0 N 787-2) MCHC; Normal (test code = 32.4 g/dl 32.0-36.0 N 39475-5) RDW; Above High Threshold 15.2 % 11.0-15.0 (test code = 788-0) PLATELET COUNT; Below Low 129 {Thousand/u} 140-400 Threshold (test code = 777-3) MPV; Normal (test code = 11.6 fL 7.5-12.5 N 45159-7) ABSOLUTE NEUTROPHILS (test 41133 {cells/uL} 7975-0604 code = ABSOLUTE NEUTROPHILS) ABSOLUTE LYMPHOCYTES (test 348 {cells/uL} 850-3900 code = ABSOLUTE LYMPHOCYTES) ABSOLUTE MONOCYTES (test 395 {cells/uL} 200-950 N code = ABSOLUTE MONOCYTES) ABSOLUTE EOSINOPHILS (test 0 {cells/uL} 15-500 code = ABSOLUTE EOSINOPHILS) ABSOLUTE BASOPHILS (test 32 {cells/uL} 0-200 N code = ABSOLUTE BASOPHILS) NEUTROPHILS (test code = 95.1 % N NEUTROPHILS) LYMPHOCYTES (test code = 2.2 % N LYMPHOCYTES) MONOCYTES; Normal (test 2.5 % N code = 67541-6) EOSINOPHILS; Normal (test 0.0 % N code = 31790-3) BASOPHILS; Normal (test 0.2 % N code = 90714-2) [facility][Q] QUANTIFERON( R)-TB GOLD PLUS, 1 [id number] 00:00:00 Test Item Value Reference Range Interpretation Comments QUANTIFERON( NEGATIVE NEGATIVE N Negative test r esult. M. R)-TB GOLD tuberculosis co mplex PLUS, 1 TUBE infection unlik kriss. (test code = QUANTIFERON( R)-TB GOLD PLUS, 1 TUBE) NIL (test code 0.03 {IU/ml} N = NIL) MITOGEN-NIL >10.00 N (test code = MITOGEN-NIL) TB1-NIL (test 0.00 {IU/ml} N code = TB1-NIL) TB2-NIL (test 0.01 {IU/ml} N The Nil tube v alue reflects [...] For additional info rmation, please refer [email or web address] [email or web address](Th is link is james livingston provided for informational/e ducational purposes only.) REPORT COMMENT:FASTING:[facility][Q] COCCIDIOIDES ANTIBODY, CF AND [id number] 00:00:00 Test Item Value Reference Interpretation Comments Range COCCIDIOIDES <1:2 N REFERENCE RANGE : <1:2 ANTIBODY, CF INTERPRETIVE CRITERIA: (test code = <1:2 Antibody COCCIDIOIDES Not Detected ANTIBODY, CF) > or = 1:2 Antibody Detected All se rum titers > or = 1:2 should be consideredevide nce indicative of coccidioidom ycosis,although titers of 1:2 a nd 1:4 should be confirmedby immunodiffusion testing. Titers exceeding 1:16usually ref lect disseminated di sease. In general,higher titers are correlated with disease severity,and ch anges in serial titers are of p rognostic valueA negative CF test does not, however, r ule out thediagnosis. O nly 70% of patients with c avitary diseaseare posi tive, and only 30% of patients with nodulardisease are positive. This test was d xiao and its analytical performancechar acteristics have been deter mined by [employer] [facility]. It has not been cleared or approved byA. This assay has been validated pursuant to the CLIAregulations and is used for clinical pu rposes. COCCIDIOIDES NEGATIVE N REFERENCE RANGE : NEGATIVE ANTIBODY, ID INTERPRETIVE CR ITERIA: (test code = NEGATI VE: Antibody COCCIDIOIDES Not Detected ANTIBODY, ID) POSITIVE: Ant ibody Detected The immunodiffu lizet (ID) procedure corre lates bothin sensitivity and clinical utility with th e CFtest. The ID test, which detects IgG directed tothe "F" antigen, becomes positiv e within 4 weeksafter infe ction and remains positiv e throughoutclini samina active disease. It is most useful inconfirming th e specificity of low CF titer s, whereline(s) of identity are formed with referenceantise ra. Positive ID reactions are d iagnostic forcoccidioidom ycosis and usually indicat e active orrecent diseas e and remain detectable for up to 1year thereafter. [facility][Q] CRYPTOCOCCUS [id number] 00:00:00 Test Item Value Reference Range Interpretation Comments CRYPTOCOCCUS ANTIBODY <1:2 N REFERE NCE RANGE: <1:2 (test code = CRYPTOCOCCUS ANTIBODY) [facility][Q] HISTOPLASMA GALACTOMANNAN ANTIGEN, URINE 2020-09-17 00:00:00 Test Item Value Reference Range Interpretation Comments HISTOPLASMA <0.2 N REFERENCE RANGE : <0.2 GALACTOMANNAN ANTIGEN, ng/mL Histoplasma URINE (test code = galactoma nnan is HISTOPLASMA frequently dete ctedin GALACTOMANNAN ANTIGEN, urine from patients with URINE) disseminatedhis toplasmosi s. However, a n egative result doesnot exclude a diagnosis of histoplasmosis. Manypatients wi th acute pulmonary disea se or chroniccavitary disease do not exhibit antigenuria.Spe cimens from patients w ith other endemicfungal i nfections, such as blastomycosis,p aracoccidi oidomycosis, or candidiasis, ma y alsobe positive in thi s assay. This test shoul d be used in conjunction with otherdiagnostic s tests, including cultu re, molecularassays , and histology in michele guillermo a final diagnosis . REPORT COMMENT:FASTING:[facility][QL] CMP [id number] 15:13:00 Test Item Value Reference Range Interpretation Comments GLUCOSE; Above 144 mg/dl 65-139 Non-fasting r eference High Threshold interval (test code = 1547-9) UREA NITROGEN 17 mg/dl 7-25 N (BUN) (test code = UREA NITROGEN (BUN)) CREATININE (test 0.95 mg/dl 0.70-1.25 N For patient s >49 years code = of age, the ref erence CREATININE) limitfor Creati nine is approximately 1 3% higher for peopleidentifie d as -Radha n. eGFR NON-AFR. 83 {ML/MIN/1.7} > OR = 60 N GEORGIAN (test code = eGFR NON-AFR. GEORGIAN) eGFR 96 {ML/MIN/1.7} > OR = 60 N GEORGIAN (test code = eGFR ) BUN/CREATININE NOT APPLICABLE 6-22 RATIO (test code = BUN/CREATININE RATIO) SODIUM (test code 138 mmol/L 135-146 N = SODIUM) POTASSIUM (test 4.0 mmol/L 3.5-5.3 N code = POTASSIUM) CHLORIDE (test 106 mmol/L 98-110 N code = CHLORIDE) CARBON DIOXIDE 26 mmol/L 20-32 N (test code = CARBON DIOXIDE) CALCIUM (test 8.4 mg/dl 8.6-10.3 code = CALCIUM) PROTEIN, TOTAL 7.9 g/dl 6.1-8.1 N (test code = PROTEIN, TOTAL) ALBUMIN (test 3.0 g/dl 3.6-5.1 code = ALBUMIN) GLOBULIN (test 4.9 {G/DL CALC} 1.9-3.7 code = GLOBULIN) ALBUMIN/GLOBULIN 0.6 {CALC} 1.0-2.5 RATIO (test code = ALBUMIN/GLOBULIN RATIO) BILIRUBIN, TOTAL; 0.6 mg/dl 0.2-1.2 N Normal (test code = 45193-3) ALKALINE 59 u/l 35-144 N PHOSPHATASE (test code = ALKALINE PHOSPHATASE) AST; Normal (test 18 u/l 10-35 N code = 1916-6) ALT; Normal (test 11 u/l 9-46 N SPECIMEN R ECEIVED DATE code = 1742-01) AND TIME: [facility][] CBC (INCLUDES DIFF/PLT)2020-03-04 15:13:00 Test Item Value Reference Range Interpretation Comments WHITE BLOOD CELL 6.0 3.8-10.8 N COUNT (test code = {Thousand/u} WHITE BLOOD CELL COUNT) RED BLOOD CELL COUNT 3.49 4.20-5.80 (test code = RED {Million/uL} BLOOD CELL COUNT) HEMOGLOBIN; Below 11.2 g/dl 13.2-17.1 Low Threshold (test code = 79097-1) HEMATOCRIT; Below 33.6 % 38.5-50.0 Low Threshold (test code = 4544-3) MCV; Normal (test 96.3 fL 80.0-100.0 N code = 787-2) MCHC; Normal (test 33.3 g/dl 32.0-36.0 N code = 10850-5) RDW; Above High 18.1 % 11.0-15.0 Threshold (test code = 788-0) PLATELET COUNT; 201 140-400 N Normal (test code = {Thousand/u} 777-3) MPV; Normal (test 11.0 fL 7.5-12.5 N code = 05800-0) ABSOLUTE NEUTROPHILS 5550 9872-5646 N (test code = {cells/uL} ABSOLUTE NEUTROPHILS) [...] Normal 3.0 % N (test code = 28480-4) EOSINOPHILS; Normal 0.0 % N (test code = 73225-1) BASOPHILS; Normal 0.2 % N SPECIMEN R ECEIVED (test code = DATE AND TIME: 58452-2) [id number] [facility][QL] CMP [id number] 15:11:00 Test Item Value Reference Range Interpretation [...] 77 {ML/MIN/1.7} > OR = 60 N GEORGIAN (test code = eGFR NON-AFR. GEORGIAN) eGFR 89 {ML/MIN/1.7} > OR = 60 N GEORGIAN (test code = eGFR ) BUN/CREATININE NOT [...] mg/dl 0.2-1.2 N Normal (test code = 29603-4) ALKALINE 54 u/l 35-144 N PHOSPHATASE (test code = ALKALINE PHOSPHATASE) AST; Normal (test 13 u/l 10-35 N code = 1916-6) ALT; Normal (test 11 u/l 9-46 N SPECIMEN R ECEIVED DATE code = 1742-01) AND TIME: [id number] [facility][QL] CBC (INCLUDES DIFF/PLT)2020-02-20 15:11:00 Test Item Value Reference Range Interpretation Comments WHITE BLOOD CELL 5.5 3.8-10.8 N COUNT (test code = {Thousand/u} WHITE BLOOD CELL COUNT) RED BLOOD CELL COUNT 3.57 4.20-5.80 (test code = RED {Million/uL} BLOOD CELL COUNT) HEMOGLOBIN; Below 11.6 g/dl 13.2-17.1 Low Threshold (test code = 12083-5) HEMATOCRIT; Below 34.4 % 38.5-50.0 Low Threshold (test code = 4544-3) MCV; Normal (test 96.4 fL 80.0-100.0 N code = 787-2) MCHC; Normal (test 33.7 g/dl 32.0-36.0 N code = 46893-7) RDW; Above High 18.5 % 11.0-15.0 Threshold (test code = 788-0) PLATELET COUNT; 145 140-400 N Normal (test code = {Thousand/u} 777-3) MPV; Normal (test 11.1 fL 7.5-12.5 N code = 17535-2) ABSOLUTE NEUTROPHILS 5247 3014-0356 N (test code = {cells/uL} ABSOLUTE NEUTROPHILS) [...] Normal 1.8 % N (test code = 37504-7) EOSINOPHILS; Normal 0.0 % N (test code = 85625-9) BASOPHILS; Normal 0.4 % N SPECIMEN R ECEIVED (test code = DATE AND TIME: 95273-2) [id number] [facility] Bone Density [employer] [id number] 13:20:00MALE BONE DENSITY ASSESSMENT: 01/22/2020CLINICAL DATA: Clinical [...] evaluation was performed 01/22/2020 on the AP L1-O4padbqb of spine using a Hologic unit. The [...] is recommended. This exam was interpreted at [id number] for [facility]. Kadi William M.D., ms/zoey:01/23/2020 08:04:36 Sterile Proc Tech(s): Jyotsna Khoury [facility]--Read by: Kadi William MDDictated Date/time: 01/23/20 08:04Electronically Signed by: Kadi William MD 01/23/2008:04FINAL REPORTUn[facility]] CMP W/EGFR 2019-11-07 15:29:00 Test Item [...] 90 {ML/MIN/1.7} > OR = 60 N GEORGIAN (test code = eGFR NON-) eGFR 104 {ML/MIN/1.7} > OR = 60 N GEORGIAN (test code = eGFR ) BUN/CREATININE NOT [...] mg/dl 0.2-1.2 N Normal (test code = 76168-3) ALKALINE 58 u/l 35-144 N PHSPHATASE (test code = ALKALINE PHSPHATASE) AST; Normal (test 19 u/l 10-35 N code = 1916-6) ALT; Normal (test 22 u/l 9-46 N SPECIMEN R ECEIVED DATE code = 1742-6) AND TIME: [id number] [facility]] URINALYSIS, COMPLETE W/REFLEX TO CULTURE 2019-11-07 [...] Normal NEGATIVE NEGATIVE N (test code = 75987-4) KETONES; Normal (test NEGATIVE NEGATIVE N code = 48890-3) OCCULT BLOOD; TRACE NEGATIVE A Abnormal (test code = 10284-2) PROTEIN; Normal (test NEGATIVE NEGATIVE N code = 58181-0) NITRITE (test code = NEGATIVE NEGATIVE N NITRITE) LEUKOCYTE ESTERASE NEGATIVE NEGATIVE N (test code = LEUKOCYTE ESTERASE) WBC; Normal (test NONE SEEN < OR = 5 N code = 6690-2) RBC; Normal (test 0-2 < OR = 2 N code = 789-8) SQUAMOUS EPITHELIAL NONE SEEN < OR = 5 N CELLS; Normal (test code = 82373-1) BACTERIA; Normal NONE SEEN NONE SEEN N (test code = 630-4) HYALINE CAST; Normal NONE SEEN NONE SEEN N SPECIME N RECEIVED DATE (test code = 61872-8) AND TI ME: [id number] [facility][Q] REFLEXIVE URINE [id number] 15:29:00 Test Item Value Reference Range Interpretation Comments REFLEXIVE URINE NO CULTURE SPECIMEN REC EIVED CULTURE (test INDICATED DATE AND TIME: code = REFLEXIVE [id number] 2 URINE CULTURE) [facility]] CBC (INCLUDES DIFF/PLT)2019-11-07 15:29:00 Test Item Value Reference Range Interpretation Comments WHITE BLOOD CELL 8.7 3.8-10.8 N COUNT (test code = {Thousand/u} WHITE BLOOD CELL COUNT) RED BLOOD CELL COUNT 3.76 4.20-5.80 (test code = RED {Million/uL} BLOOD CELL COUNT) HEMAGLOBIN; Below 11.2 g/dl 13.2-17.1 Low Threshold (test code = 21438-2) HEMATOCRIT; Below 33.1 % 38.5-50.0 Low Threshold (test code = 4544-3) MCV; Normal (test 88.0 fL 80.0-100.0 N code = 787-2) MCHC; Normal (test 33.8 g/dl 32.0-36.0 N code = 14043-7) RDW; Above High 17.7 % 11.0-15.0 Threshold (test code = 788-0) PLATELET COUNT; 193 140-400 N Normal (test code = {Thousand/u} 777-3) MPV; Normal (test 11.0 fL 7.5-12.5 N code = 84646-1) ABSOLUTE NEUTROPHILS 8143 8390-9203 (test code = {cells/uL} ABSOLUTE NEUTROPHILS) ABSOLUTE [...] Normal 2.0 % N (test code = 90020-4) EOSINOPHILS; Normal 0.0 % N (test code = 31742-1) BASOPHILS; Normal 0.1 % N SPECIMEN R ECEIVED (test code = DATE AND TIME: 29118-7) [id number] [facility]] VITAMIN [id number] 15:29:00 Test Item Value Reference Range Interpretation Comments VITAMIN B12 (test 415 pg/ml 200-1100 N SPECIMEN R ECEIVED DATE code = VITAMIN B12) AND TIME : [id number] [facility]] TSH, 3RD GENERATION W/REFLEX TO FT4 2019-11-07 15:29:00 Test Item Value Reference Range Interpretation Comments TSH, 3RD GENERATION 0.62 {MIU/L} 0.40-4.50 N SPECIMEN RECEIVED W/REFLEX TO FT4 DATE AND BRUCE E: (test code = TSH, [id number] 42 3RD GENERATION W/REFLEX TO FT4) [facility]] VITAMIN D, 25-HYDROXY, [id number] 15:29:00 Test Item Value Reference Range Interpretation [...] D, (D2,D3), LC/MS/MS is recommended: order code 35468 (pat ients >2yrs). For mor e information on this test, go to:[email or web address] [email or web address] 3(This link is being provided for informational/e ducational purposes only.) SPECIMEN RECEIVED DATE A ND TIME: [facility]] VITAMIN [id number] 15:29:00 Test Item Value Reference Range Interpretation Comments VITAMIN B6 (test 7.9 ng/ml 2.1-21.7 Vitamin sup plementation code = VITAMIN B6) within 24 hours prior to blood draw may affect the accuracy of res ults. This test was develo ped and its analytical perf ormance characteristics have been determined by [employer]. It has not been cleared or approved by theFDA. This assay has been validated pursuant to the CLIA regula tions and is used for cli nical purposes.SPECIM EN RECEIVED DATE AND TIME: [facility]] VITAMIN B1, WHOLE [id number] 15:29:00 Test Item Value Reference Range Interpretation Comments VITAMIN B1, WHOLE 134 nmol/L 78-185 Vitamin mahan pplementation BLOOD (test code = within 24 hours prior VITAMIN B1, WHOLE toblood dr enrique may affect BLOOD) the accuracy of results. This test was developed and its analyti sandip performance characteristics have been determined by [employer]. It has not been cleared or approved by theFDA. This assay has been validated pursuant to the CLIA reg ulations and is used for clinical purposes.SPECIM EN RECEIVED DATE A ND TIME: [id number] [facility]] HEMOGLOBIN [id number] 15:29:00 Test Item Value Reference Range Interpretation [...] di abetes in children. Ac cording to [place] [employer] (ADA)guidelines , hemoglobin A1c <7.0% represents optimalcontrol in non- di abetic patients. Differentmetric s may apply to specif ic patient populat ions. Standards of Me dical Care in Diabete s(ADA). SPECIMEN RECEIV ED DATE AND TIME: [id number] [facility]] CMP [id number] 15:49:00 Test Item Value Reference Range Interpretation [...] 91 {ML/MIN/1.7} > OR = 60 N GEORGIAN (test code = eGFR NON-) eGFR 106 {ML/MIN/1.7} > OR = 60 N GEORGIAN (test code = eGFR ) BUN/CREATININE NOT [...] mg/dl 0.2-1.2 N Normal (test code = 19372-8) ALKALINE 72 u/l 40-115 N PHSPHATASE (test code = ALKALINE PHSPHATASE) AST; Normal (test 30 u/l 10-35 N code = 6-6) ALT; Normal (test 39 u/l 9-46 N SPECIMEN R ECEIVED DATE code = 1742-01) AND TIME: [id number] [facility]] CBC (INCLUDES DIFF/PLT)2019-09-05 15:49:00 Test Item Value Reference Range Interpretation Comments WHITE BLOOD CELL 13.8 3.8-10.8 COUNT (test code = {Thousand/u} WHITE BLOOD CELL COUNT) RED BLOOD CELL 3.94 4.20-5.80 COUNT (test code = {Million/uL} RED BLOOD CELL COUNT) HEMAGLOBIN; Below 11.0 g/dl 13.2-17.1 Low Threshold (test code = 02869-5) HEMATOCRIT; Below 33.0 % 38.5-50.0 Low Threshold (test code = 4544-3) MCV; Normal (test 83.8 fL 80.0-100.0 N code = 787-2) MCHC; Normal (test 33.3 g/dl 32.0-36.0 N code = 73914-6) RDW; Above High 15.1 % 11.0-15.0 Threshold (test code = 788-0) PLATELET COUNT; 274 140-400 N Normal (test code {Thousand/u} = 777-3) MPV; Normal (test 10.4 fL 7.5-12.5 N code = 09133-3) ABSOLUTE 00158 3591-8682 NEUTROPHILS (test {cells/uL} code = ABSOLUTE NEUTROPHILS) [...] Normal 5.4 % N (test code = 82200-5) EOSINOPHILS; 0.1 % N Normal (test code = 11990-8) BASOPHILS; Normal 0.2 % N (test code = 82699-4) COMMENT(S) (test See Comment Review of p eripheral code = COMMENT(S)) smear con firmsautomated results.SPECIME N RECEIVED DATE A ND TIME: [id number] [facility]] CBC (INCLUDES DIFF/PLT)2019-08-01 16:09:00 Test Item Value Reference Range Interpretation Comments WHITE BLOOD CELL 10.5 3.8-10.8 N COUNT (test code = {Thousand/u} WHITE BLOOD CELL COUNT) RED BLOOD CELL COUNT 4.62 4.20-5.80 N (test code = RED {Million/uL} BLOOD CELL COUNT) HEMAGLOBIN; Normal 13.2 g/dl 13.2-17.1 N (test code = 04584-3) HEMATOCRIT; Normal 39.5 % 38.5-50.0 N (test code = 4544-3) MCV; Normal (test 85.5 fL 80.0-100.0 N code = 787-2) MCHC; Normal (test 33.4 g/dl 32.0-36.0 N code = 54974-2) RDW; Normal (test 13.9 % 11.0-15.0 N code = 788-0) PLATELET COUNT; 200 140-400 N Normal (test code = {Thousand/u} 777-3) MPV; Normal (test 11.3 fL 7.5-12.5 N code = 87189-3) ABSOLUTE NEUTROPHILS 9419 7885-1847 (test code = {cells/uL} ABSOLUTE NEUTROPHILS) ABSOLUTE [...] Normal 3.5 % N (test code = 04237-4) EOSINOPHILS; Normal 0.0 % N (test code = 27451-5) BASOPHILS; Normal 0.2 % N SPECIMEN R ECEIVED (test code = DATE AND TIME: 18340-3) [id number] [facility]] CMP [id number] 16:09:00 Test Item Value Reference Range Interpretation [...] 86 {ML/MIN/1.7} > OR = 60 N GEORGIAN (test code = eGFR NON-) eGFR 100 {ML/MIN/1.7} > OR = 60 N GEORGIAN (test code = eGFR ) BUN/CREATININE NOT [...] mg/dl 0.2-1.2 N Normal (test code = 04153-6) ALKALINE 65 u/l 40-115 N PHSPHATASE (test code = ALKALINE PHSPHATASE) AST; Normal (test 15 u/l 10-35 N code = 1916-6) ALT; Normal (test 24 u/l 9-46 N SPECIMEN R ECEIVED DATE code = 1742-01) AND TIME: [id number] [facility]] CMP [id number] 11:26:00 Test Item Value Reference Range Interpretation [...] 86 {ML/MIN/1.7} > OR = 60 N GEORGIAN (test code = eGFR NON-) eGFR 100 {ML/MIN/1.7} > OR = 60 N GEORGIAN (test code = eGFR ) BUN/CREATININE NOT [...] mg/dl 0.2-1.2 N Normal (test code = 50336-2) ALKALINE 60 u/l 40-115 N PHSPHATASE (test code = ALKALINE PHSPHATASE) AST; Normal (test 18 u/l 10-35 N code = 6-6) ALT; Normal (test 17 u/l 9-46 N SPECIMEN R ECEIVED DATE code = 1742-01) AND TIME: [id number] [facility]] CBC (INCLUDES DIFF/PLT)2019-07-03 11:26:00 Test Item Value Reference Range Interpretation Comments WHITE BLOOD CELL 11.0 3.8-10.8 COUNT (test code = {Thousand/u} WHITE BLOOD CELL COUNT) RED BLOOD CELL COUNT 4.22 4.20-5.80 N (test code = RED {Million/uL} BLOOD CELL COUNT) HEMAGLOBIN; Below 12.3 g/dl 13.2-17.1 Low Threshold (test code = 29230-8) HEMATOCRIT; Below 37.6 % 38.5-50.0 Low Threshold (test code = 4544-3) MCV; Normal (test 89.1 fL 80.0-100.0 N code = 787-2) MCHC; Normal (test 32.7 g/dl 32.0-36.0 N code = 29435-0) RDW; Normal (test 13.1 % 11.0-15.0 N code = 788-0) PLATELET COUNT; 181 140-400 N Normal (test code = {Thousand/u} 777-3) MPV; Normal (test 11.6 fL 7.5-12.5 N code = 61336-2) ABSOLUTE NEUTROPHILS 9878 5460-6507 (test code = {cells/uL} ABSOLUTE NEUTROPHILS) ABSOLUTE [...] Normal 1.9 % N (test code = 48386-6) EOSINOPHILS; Normal 0.2 % N (test code = 45465-1) BASOPHILS; Normal 0.1 % N SPECIMEN R ECEIVED (test code = DATE AND TIME: 92439-6) [id number] [facility][Q] TPMT [id number] 09:44:00 Test Item Value Reference Range Interpretation Comments TPMT ACTIVITY 17 Reference Rang e for TPMT (test code = {nmol/hr/mL} Activity: >1 2 TPMT ACTIVITY) Normal 4-12 Heterozygote or low metabolizer <4 Homozygote Defi cient Range This test was developed and i ts analytical performancechar acteristic s have been det ermined by [employer] [facility]. It has not beencleared or approved by FDA. This as say has been validatedp ursuant to the CLIA regula tions and is used for clinicalpurpose s.SPECIMEN RECEIVED DATE A ND TIME: [id number] [facility][Q] QUANTIFERON( R)-TB GOLD PLUS, 1 [id number] 09:44:00 Test Item Value Reference Range Interpretation [...] T-lymphocytes. For additional info rmation, please refer [email or web address](Th is link is james livingston provided for informational/e ducational purposes only.) SPECIMEN RECEIVED DATE A ND TIME: [id number] [facility] Test Item Value Reference Range Interpretation Comments PT (test code = PT) 14.2 s 12.0-14.7 [id number] 12:25:00 Test Item Value Reference Range Interpretation Comments INR (test code = INR) 1.12 1 0.85-1.17 [facility]TukgqsiYKEJNPUWJQ4165-01-02 12:25:00 Test Item Value Reference Range Interpretation Comments PTT (test code = PTT) 26.3 s 22.9-35.8 [facility] HospitalMhfvkyiDRYIWXHPHZ3720-85-05 12:25:00 Test Item Value Reference Range Interpretation Comments PT (test code = PT) 14.2 s 12.0-14.7 [facility] HospitalKuockyrUARCWVUYVN4805-75-69 12:25:00 Test Item Value Reference Range Interpretation Comments INR (test code = INR) 1.12 1 0.85-1.17 [facility] HospitalCzljzgdREOORGNWNK8639-03-71 12:25:00 Test Item Value Reference Range Interpretation Comments PTT (test code = PTT) 26.3 s 22.9-35.8 [facility]CHE[facility] [id number] 11:[facility]:002.3[facility] PANEL 2019-05-21 11:24:002.9[facility]annCHEM DLAUM2503-52-69 11:24:0081[facility]annCHE[facility] BPGGF4557-98-84 11:24:0017[facility]annCHEM KWXCT6668-33-96 11:24:000.85[facility]annCHEM BIAAW3555-42-52 11:24:12060Rr[facility] HermannCHEM UAMLV3473-38-96 11:24:003.3[facility]annCHEM XDGWU7480-13-58 11:24:43324 [facility] EGLZH9338-02-96 11:24:0021[facility]annCHEM PANEL 2019-05-21 11:24:008.4[facility]annCHEM PXZIX2845-63-14 11:24:0010.3[facility]annCHEM LSUMU4937-61-16 11:24:0091[facility] LmwjoaaLPHNYEOPZB1031-20-05 11:24:80576Dholcrkn XhctyyaHGZPHEBISR1665-18-97 11:24:00 Test Item Value Reference Range Interpretation Comments PT (test code = PT) 14.6 s 12.0-14.7 [facility]woodMlbmlmmUNZFXIJSTA2668-06-97 11:24:00 Test Item Value Reference Range Interpretation Comments INR (test code = INR) 1.16 1 0.85-1.17 [facility] KingwoodZocpriqVMEMVWTVST4314-71-97 11:24:00 Test Item Value Reference Range Interpretation Comments PTT (test code = PTT) 27.1 s 22.9-35.8 [facility] KingwoodRfvwbahSAZFXGLHVB1092-36-57 11:24:0013.8[facility]annHEMATOLOGY 2019-05-21 11:24:003.61[facility] GqsmtgwKRGTSFXGVF5112-67-45 11:24:0011.5[facility] VdvtimsVFULWGGNRF9936-69-06 11:24:0033.6[facility] SkbkgdvRHTJDVLRXM0875-99-74 11:24:0093.1[facility] WbjcwcsWJIEGEIPCX4074-84-48 11:24:00 Test Item Value Reference Range Interpretation Comments MCH (test code = MCH) 31.9 pg 27.0-31.0 [facility] OomrmwdYTKTYPSOHA7260-25-61 11:24:0034.3[facility]annHEMATOLOGY 2019-05-21 11:24:0014.2[facility] WvrhpxmAODWXLGPAV2880-01-46 11:24:17561Ptskpjku XkjamkvSCLJXGWSUV3248-40-23 11:24:009.5[facility] VybwkzjMPXYIETZMM9158-06-96 11:24:0072.1[facility] TlkqclrFOFNWXCFKB7121-18-26 11:24:0019.8[facility] KPKOPCVGDC6361-31-05 11:24:007.0[facility] DcurmyjOEDJGBIQCV5149-82-80 11:24:000.9 [facility] DwpxxebUWMQIRORNG7969-16-95 11:24:000.2[facility]annHEMATOLOGY 2019-05-21 11:24:009.9[facility] QotqwnnQTPDRXTVNU7751-80-76 11:24:002.7[facility] VjnxruzVEILOBZDGK2574-23-83 11:24:001.0[facility] TxrmqebUVZSGOVFWT0899-03-81 11:24:000.1[facility] HermannCHEM XVHUS1911-67-67 11:24:002.3[facility]annCHEM TOQVW1374-91-15 11:24:002.9[facility]annCHEM PEQBK9145-39-01 11:24:0081 [facility]annCHEM JNNZW7351-49-89 11:24:0017[facility]annCHEM PANEL 2019-05-21 11:24:000.85[facility]annCHEM UCSSZ8698-69-91 11:24:56499Ctontqmk HermannCHEM ETVNF8206-46-10 11:24:003.3[facility]annCHEM VWVOH3106-69-17 11:24:73420Bduxitne HermannCHEM CHRVK0362-35-00 11:24:0021[facility]annCHEM QQROC2634-03-07 11:24:008.4[facility]annCHEM WJMMB9904-99-59 11:24:0010.3 [facility]annCHEM SEMJT8342-91-86 11:24:0091[facility]annHEMATOLOGY 2019-05-21 11:24:34318Iikufrqg MpeceopRYDECHAYPL0488-57-91 11:24:00 Test Item Value Reference Range Interpretation Comments PT (test code = PT) 14.6 s 12.0-14.7 [facility] AemovboTNVSZWROII6808-02-05 11:24:00 Test Item Value Reference Range Interpretation Comments INR (test code = INR) 1.16 1 0.85-1.17 [facility] ErcyfusTVSBIRCAXV4130-30-13 11:24:00 Test Item Value Reference Range Interpretation Comments PTT (test code = PTT) 27.1 s 22.9-35.8 [facility] ZjrqsltODWUXHNGUG1944-37-00 11:24:0013.8[facility]annHEMATOLOGY 2019-05-21 11:24:003.61[facility] IpiqffpEXVQVJQFOJ5312-35-06 11:24:0011.5[facility] RfyuydeAQNQQLOMTJ1035-29-66 11:24:0033.6[facility] PjfljywRJTFKLTJPT5333-72-29 11:24:0093.1[facility] NswqdgvNFIMDLGUZC7358-27-27 11:24:00 Test Item Value Reference Range Interpretation Comments MCH (test code = MCH) 31.9 pg 27.0-31.0 [facility] WdrwpvqKWYWGIBZAF1459-38-17 11:24:0034.3[facility]annHEMATOLOGY 2019-05-21 11:24:0014.2[facility] XybgaznRHWNJEVXQV0376-43-81 11:24:22023Lsqoxymi CqlkkquPFARDLOJCT0959-71-18 11:24:009.5[facility] SxafncrOWZCWNPGXO5655-53-35 11:24:0072.1[facility] LxpugxlVYSQVDRCWY7489-17-04 11:24:0019.8[facility] AQLDIDVRER8020-30-51 11:24:007.0[facility] UwcegbjENTZSKXEXE7059-77-50 11:24:000.9 [facility] SbaoawtSSQVEZOKCJ5455-76-27 11:24:000.2[facility]annHEMATOLOGY 2019-05-21 11:24:009.9[facility] EtmkevsVIDYHBSYKY8661-17-68 11:24:002.7[facility] OusrsgsAHMQIGMNZF0737-24-07 11:24:001.0[facility] JpkqzitFHDJCJVJQQ6015-27-76 11:24:000.1[facility]annBLOOD BANK OFABSVQ5974-65-18 19:11:00Negative (05/20/19 2:11 PM)[facility] OIEZCIZ0930-01-15 19:11:00Negative (05/20/19 2:11 PM)[facility] JEZFWTH6300-84-82 18:35:00 Modification Required (05/20/19 1:35 PM)[facility]BL[facility] BANK RESULTS 2019-05-20 18:35:00Modification Required (05/20/19 1:35 PM)[facility] MXRPWLIMZI1406-05-76 17:35:0019.9[facility] UioxnhcIPZKSAAKJL4927-96-57 17:35:00 4.53[facility] XqsddkfZNPMJXVLCF2168-52-79 17:35:0014.0[facility]annHEMATOLOGY 2019-05-20 17:35:0041.7[facility] JovvjhyMIMDFKGWZK6417-49-33 17:35:0092.1[facility] ZgixlyuWRSSDJONQT9849-36-30 17:35:00 Test Item Value Reference Range Interpretation Comments MCH (test code = MCH) 30.8 pg 27.0-31.0 [facility] SucquwnHUDZBSOADU7330-52-40 17:35:0033.4[facility]annHEMATOLOGY 2019-05-20 17:35:0014.1[facility] QiwnguxPEKIKSTWQH6813-88-96 17:35:28129Airrxcmv NdaqeifQCALLIHEXE4686-57-50 17:35:009.9[facility] GsbgjpkKMVJNIWDAM4927-73-51 17:35:00 Test Item Value Reference Range Interpretation Comments PT (test code = PT) 17.8 s 12.0-14.7 [facility] EwimguoGORTWYRJXY1628-83-26 17:35:00 Test Item Value Reference Range Interpretation Comments INR (test code = INR) 1.50 1 0.85-1.17 [facility] CguoapiSMAGJMONHA3785-71-15 17:35:00 Test Item Value Reference Range Interpretation Comments PTT (test code = PTT) 39.8 s 22.9-35.8 [facility] VmdqjkqUNXCAHUBRW3329-45-19 17:35:35301Sdwpaayd HermannHEMATOLOGY 2019-05-20 17:35:0088.3[facility] ZxnugvbVKYYNZPYMQ9930-16-59 17:35:008.3[facility] IufizdbNJAEJMVWIJ5839-87-02 17:35:002.7[facility] BmdwbskKMKEJRKMAD4906-55-31 17:35:000.2[facility] LblzsmiRBNOFIJOEH7244-42-98 17:35:000.5[facility] OBUNVRTFZT9362-59-71 17:35:0017.6[facility] DdycbcwPQFUJGIYTL3421-58-48 17:35:00 1.6[facility] XepnmkxLZCHAVVTBK0231-11-57 17:35:000.5[facility]annHEMATOLOGY 2019-05-20 17:35:000.1[facility] MscgjlpCFTPQPWCGR2169-02-47 17:35:0019.9[facility] AqmwagiYJCBZGDTXS2390-39-94 17:35:004.53[facility] DimltzaNRJPRIJWLR9850-36-80 17:35:0014.0[facility] VshivmvUASDWFZXIA1443-87-60 17:35:0041.7[facility] KZOUWDSZJQ0565-13-17 17:35:0092.1[facility] UecuvppVWRAEMBRAP6073-83-00 17:35:00 Test Item Value Reference Range Interpretation Comments MCH (test code = MCH) 30.8 pg 27.0-31.0 [facility] NsffknhBLZYAESSLZ9820-14-90 17:35:0033.4[facility]annHEMATOLOGY 2019-05-20 17:35:0014.1[facility] EbysiowGFQPNCKKPO4733-76-81 17:35:00238Ynbitxkv SfnauomLYBIKNCVZR5019-58-10 17:35:009.9[facility] DywedfyMKQLYQJZCH8799-52-78 17:35:00 Test Item Value Reference Range Interpretation Comments PT (test code = PT) 17.8 s 12.0-14.7 [facility] HbomzqhUCDFTNLNEW3539-71-59 17:35:00 Test Item Value Reference Range Interpretation Comments INR (test code = INR) 1.50 1 0.85-1.17 [facility] OexgzdmXQCHNHROSO4420-49-56 17:35:00 Test Item Value Reference Range Interpretation Comments PTT (test code = PTT) 39.8 s 22.9-35.8 [facility] ReyethgFDFLPFUXQU4332-19-11 17:35:31678Efxifjau HermannHEMATOLOGY 2019-05-20 17:35:0088.3[facility] UmgxpcgFXOXJQRJMP8435-35-58 17:35:008.3[facility] PixwuetGGBPGPCFWT3200-36-52 17:35:002.7[facility] JykojbyQYETBKYWHG4536-90-63 17:35:000.2[facility] XviwnemOYKMDGWWKX7083-71-51 17:35:000.5[facility] LHWXSYILLK4773-25-90 17:35:0017.6[facility] EjrgwocSMOGONBRYQ3931-05-41 17:35:00 1.6[facility] NfuxzbwGAUCSOXZVI3826-27-11 17:35:000.5[facility] HermannHEMATOLOGY 2019-05-20 17:35:000.1[facility] HermannCHEM ENFMF3989-89-94 10:33:002.3[facility] HermannCHEM AJQNU7875-79-49 10:33:003.1[facility] DgtbkwoBLIUPYANWHYC8810-15-83 10:33:0011.8[facility] ZuqwiyoGIOKBNFKLOSX4972-66-05 10:33:0090[facility] EPYYHQPRSPGL2912-92-42 10:33:0018[facility] ThnydguOPWXECDODXQE9955-58-36 10:33:00 0.81[facility] JypodjaJOQALGCWZBMD6571-31-89 10:33:70467Ixhlxqwe [facility] CKTRMRUMEPOY0587-15-39 10:33:003.8[facility] KdnewnpDXBONXLOEGJB5220-02-89 10:33:60646Jcikvmxc XoxjeszSEPVAAIGYFHL2663-26-94 10:33:0021[facility] ERICQWHWNEHP2997-50-71 10:33:008.9[facility] LzgojjpMXYQBMBHIMPM3569-28-63 10:33:0092[facility] NpztpzeDHSTNPGCNQ5885-57-36 10:33:0070.9[facility] RFEHYKFMUB2135-92-56 10:33:0020.7[facility] KgncxeqEXQXJMWOFF7890-12-72 10:33:00 6.5[facility] JrqklmyFQNRLNGAPS9787-32-78 10:33:001.4[facility] HermannHEMATOLOGY 2019-05-20 10:33:000.5[facility] QntwkjnLDRLMUOMPU6850-19-24 10:33:0011.6[facility] TxztnhsNWBMCIOGYI6540-14-78 10:33:003.4[facility] DdeusxaYIOFNBPDYZ2146-41-98 10:33:001.1[facility] EakbapuWLXUAMBWAD4728-20-90 10:33:000.2[facility] WCMLGWSPPF8677-97-92 10:33:000.1[facility] FbkozffHVVZGEZALJ9628-49-30 10:33:00 16.4[facility] KbecbfvSYFHZKVGHE9414-03-04 10:33:004.51[facility]annHEMATOLOGY 2019-05-20 10:33:0014.2[facility] XrntlmkLIULYREOBX2584-41-95 10:33:0042.2[facility] VovlvvxXXRHSAMDKW9818-91-42 10:33:0093.6[facility] QxepckcLRTAJYEOEB3739-39-75 10:33:00 Test Item Value Reference Range Interpretation Comments MCH (test code = MCH) 31.4 pg 27.0-31.0 [facility] UpdbdkcYTPFLEHUGK9775-64-67 10:33:0033.6[facility]annHEMATOLOGY 2019-05-20 10:33:0014.5[facility] RijmvadXNTOJNWQZG2664-16-44 10:33:66233Zbrlnykn PkleplnYMJESPXCUD6530-29-37 10:33:009.6[facility] HermannCHEM NJSOI6242-92-65 10:33:002.3[facility]annCHEM CRQTE1500-42-75 10:33:003.1[facility] FWEDBIFVAILS9180-90-48 10:33:0011.8[facility] OrfyvfmWIQVCPKXBAOM6702-85-21 10:33:0090[facility] KdxljkiZIDBLVPTICNS4310-89-25 10:33:0018[facility] LTQFLPFKHDFT2177-99-41 10:33:000.81[facility] VdgtcjuHRCSNGCAXDIW3279-43-01 10:33:11803Dsezygzg VedyrudKEDUGMWPUAAV0021-19-22 10:33:003.8[facility] WPCDXVQBETLO0165-06-15 10:33:68774Ksgclpte XzwezlxAWFBTHXXQOBC3964-03-54 10:33:0021[facility] KdvrxcbBMWHPLKRRJHW9785-02-61 10:33:008.9[facility] GUEEZTCIETHB3989-97-29 10:33:0092[facility] KlvybvdZDLLUAVSEW6383-55-17 10:33:00 70.9[facility] XtmukvjZJOXLOHRQK3993-54-60 10:33:0020.7[facility]annHEMATOLOGY 2019-05-20 10:33:006.5[facility] TqdfkmfBWJWFOAAXK8266-19-25 10:33:001.4[facility] RhtedslYZNFVXHLPR8907-35-85 10:33:000.5[facility] DtdmgbpQKZRJDTARS4382-52-77 10:33:0011.6[facility] WglqrqzSLPIINONTL6153-95-90 10:33:003.4[facility] YBJMHKXAFH1168-21-29 10:33:001.1[facility] RdbtfqbJZGXLBNCWF4315-20-62 10:33:000.2 [facility] AumtmryWWZREYVFYA7894-05-31 10:33:000.1[facility] HermannHEMATOLOGY 2019-05-20 10:33:0016.4[facility] PktcrjeOOWWIDWATV0452-02-57 10:33:004.51[facility] IwdhehnHXYDNCMWDI0417-98-20 10:33:0014.2[facility] QhwvdywXVYBHZDQSZ6478-21-28 10:33:0042.2[facility] ThxweqjABLIXOVUJX7602-82-79 10:33:0093.6[facility] EIFYYKLZNT4697-30-60 10:33:00 Test Item Value Reference Range Interpretation Comments MCH (test code = MCH) 31.4 pg 27.0-31.0 [facility] HjtkgvwVWVMTDEGCV6237-51-63 10:33:0033.6[facility]annHEMATOLOGY 2019-05-20 10:33:0014.5[facility] PriwzyiWOYDLJUFUI9920-50-79 10:33:80011Nmixgxcv ZhfxcdnSVNHTIMLBD1597-87-79 10:33:009.6[facility] HermannCHEM YFMEX7669-61-17 09:40:002.2[facility]annCHEM AKDQK2247-99-54 09:40:002.6[facility]annCHEM XMZUA9173-62-25 09:40:0088[facility]annCHEM BKSNB2554-71-06 09:40:0019 [facility]annCHEM ORBFB8045-46-15 09:40:000.73[facility]annCHEM PANEL 2019-05-19 09:40:09663Rdzwpmae HermannCHEM AZGCK7452-77-35 09:40:003.[facility] HermannCHEM IAKSY2831-83-13 09:40:24281Cffbjqkr HermannCHEM ZINWH3790-24-65 09:40:0022[facility]annCHEM SFNSB1338-54-96 09:40:008.8[facility]annCHEM SQWAV8728-13-74 09:40:0097[facility]annCHEM CYXWQ7506-22-06 09:40:0011.6 [facility] JwluqvsWGTGVTTEXO0646-95-12 09:40:000.2[facility]annHEMATOLOGY 2019-05-19 09:40:000.1[facility]annCHEM BPRVP1516-61-48 09:40:002.2[facility]annCHEM JNVNE5826-67-01 09:40:002.6[facility]annCHEM PVZCK9951-90-75 09:40:0088[facility]annCHEM YGIML7945-02-91 09:40:0019[facility]annCHEM BNBKW6124-29-20 09:40:000.73[facility]annCHEM KZEML6897-33-25 09:40:53272 [facility]annCHEM REDPU5942-85-88 09:40:003.6[facility]annCHEM PANEL 2019-05-19 09:40:51642Wfcuhfsd HermannCHEM ZHDEK4881-29-75 09:40:0022[facility]annCHEM CTMDK5795-12-86 09:40:008.8[facility]annCHEM USJLR5890-11-20 09:40:0097[facility]annCHEM OUFYF8537-26-32 09:40:0011.6[facility] QTIKTWXNLU6329-47-66 09:40:000.2[facility] ZdwnbgeIRLQWFIZEN6936-88-29 09:40:000.1 [facility]annPARATHYROID GTNRWBQ5913-09-20 21:11:001.23[facility] PARATHYROID UCREDHN3457-54-40 21:11:001.17[facility]annPARATHYROID PROFILE 2019-05-18 21:11:001.23[facility] HermannPARATHYROID BQIZWRU4827-11-89 21:11:00 1.17[facility] HthykwqCHIUAMWGCF2694-90-22 10:44:001+ *ABN*(05/17/19 5:44 AM) [facility] PpabjiuFKLCKHFWOQ0276-50-64 10:44:001+ *ABN*(05/17/19 5:44 AM)[facility] VjhwagpFQPKWHXHAO7037-17-16 10:44:001+ *ABN*(05/17/19 5:44 AM)[facility] MDDUXRCBVV5014-56-88 10:44:001+ *ABN*(05/17/19 5:44 AM)[facility]annHEMATOLOGY 2019-05-16 06:11:001.0[facility] YbyxlbwCCFWWNONGI9191-54-49 06:11:001.0[facility] XdppqdsECCMYFMRYH8819-03-48 06:11:001.0[facility] XfsnninKSBNMFQAUI9509-18-42 06:11:000.0[facility] YdktdieRBWTECXILW5931-50-68 06:11:001.0[facility] JZSVUUVDVF1384-52-01 06:11:001.0[facility] EkuucgjTQXTFKUTWT7107-78-37 06:11:001.0 [facility] QclkzmwWEEEGVYREH3452-10-02 06:11:000.0[facility] HermannCARDIAC ENZYMES 2019-05-15 05:54:27773Bpolyrge CdefltqMSZJCOJFEI5751-24-69 05:54:00Normal (05/15/19 12:54 AM)[facility] XdapcjuRGXZXJKQOH5111-08-39 05:54:00Normal (05/15/19 12:54 AM)[facility]annCARDIAC VCYPIAY8889-25-89 05:54:93619Njrozpzm [facility] XWXGXXNAPF1405-38-91 05:54:00Normal (05/15/19 12:54 AM)[facility]annHEMATOLOGY 2019-05-15 05:54:00Normal (05/15/19 12:54 AM)[facility]annPARATHYROID PROFILE 2019 06:28:000.93[facility] HermannPARATHYROID LBUICCM1671-35-05 06:28:00 0.96[facility]annPARATHYROID LSVCDMO8437-86-69 06:28:000.93[facility] PARATHYROID NCCSYDX3849-85-35 06:28:000.96[facility]annPARATHYROID PROFILE 2019-05-13 05:10:001.17[facility]annPARATHYROID PMSDQRG5101-84-88 05:10:00 1.13[facility]annPARATHYROID NVLTTYL4368-18-52 05:10:001.17[facility] PARATHYROID UXPNSDT4080-25-06 05:10:001.13[facility]annBLOOD BANK RESULTS 2019-05-12 17:48:00Negative (05/12/19 12:48 PM)[facility]annBL[facility]OD BANK RESULTS 2019-05-12 17:48:00Negative (05/12/19 12:48 PM)[facility]annCARDIAC ENZYMES 2019-05-12 11:08:00<0.02[facility] HermannCARDIAC EVSGMFD5522-40-42 11:08:00 <0.02[facility] WbgnzbbICCVDUEQRP4878-76-20 19:00:0027.50[facility] MIBVIVVRFZ2563-44-73 19:00:0030[facility] VlgbitxJTBIFWACWY6183-76-47 19:00:0019 [facility] QbtxqrcNLMONJSIER4529-51-68 19:00:0028.00[facility] HermannIMMUNOLOGY 2019-05-10 19:00:0030[facility] IzrjracAWFCEKAVUD7081-18-55 19:00:0029[facility] ZekoamxJVSCTGXEJY8796-55-73 19:00:0027.50[facility] IjsioyrYLUECDQHCX6253-40-30 19:00:0030[facility] YgodwxvGPWCQYCSUR4271-70-72 19:00:0019[facility] IXVHTMSDOG9298-24-27 19:00:0028.00[facility] BgpldjyUDVTZWFPNN6373-91-72 19:00:00 30[facility] FecbshbHBMLGWPHSN0691-52-08 19:00:0029[facility]annURINE AND STOOL 2019-05-09 22:41:00Amber *ABN*(05/09/19 5:41 PM)[facility] ST[facility] 2019-05-09 22:41:00Marked *ABN*(05/09/19 5:41 PM)[facility]UR[facility] STOOL 2019-05-09 22:41:00 Test Item Value Reference Range Interpretation Comments UA Spec Grav (test code = UA Spec 1.028 1 Grav) [facility] WCMEH3820-73-00 22:41:00 Test Item Value Reference Range Interpretation Comments UA pH (test code = UA pH) 7.0 1 5.0-8.0 [facility] FJMTV4115-43-96 22:41:00Negative *NA*(05/09/19 5:41 PM) [facility] BVCNK8640-52-19 22:41:00Small *ABN*(05/09/19 5:41 PM) [facility] XADAQ9473-96-62 22:41:004.0[facility] JWPWL7283-45-30 22:41:00Negative (05/09/19 5:41 PM)[facility] IUBOV2148-37-48 22:41:00Negative (05/09/19 5:41 PM)[facility] ZPXHV6883-79-38 22:41:002[facility]UR[facility] AND ZWSPQ9802-22-38 22:41:0017 [facility] MOQHZ9600-63-57 22:41:00Amber *ABN*(05/09/19 5:41 PM) [facility] EKEBB0131-82-75 22:41:00Marked *ABN*(05/09/19 5:41 PM) [facility] UCGLG4256-90-01 22:41:00 Test Item Value Reference Range Interpretation Comments UA Spec Grav (test code = UA Spec 1.028 1 Grav) [facility] OFVHJ5657-86-67 22:41:00 Test Item Value Reference Range Interpretation Comments UA pH (test code = UA pH) 7.0 1 5.0-8.0 [facility] CHNLF8097-21-98 22:41:00Negative *NA*(05/09/19 5:41 PM) [facility] YPNPK4713-28-70 22:41:00Small *ABN*(05/09/19 5:41 PM) [facility] RXAWE3833-42-94 22:41:004.0[facility]UR[facility] AEFPA1252-42-70 22:41:00Negative (05/09/19 5:41 PM)[facility] FBAPC4767-18-76 22:41:00Negative (05/09/19 5:41 PM)[facility] QTRQT0295-39-14 22:41:002[facility]UR[facility] GKOHC6248-01-14 22:41:0017 [facility]annCARDIAC QBCQFLW7433-76-21 18:49:00<0.02[facility] CARDIAC CXBBHNU0878-37-77 18:49:00<0.02[facility] HermannCARDIAC ENZYMES 2019-05-08 04:11:10456Qblqafqn HeshbmlSHNTDOLUFC7085-07-00 04:11:007[facility] AqrvvfuQEPKJRXVIX7370-64-51 04:11:04746.0[facility]annURINE AND STOOL 2019-05-08 04:11:00Yellow *NA*(05/07/19 11:11 PM)[facility] ST[facility]OL 2019-05-08 04:11:00Clear (05/07/19 11:11 PM)[facility] ST[facility]OL 2019-05-08 04:11:00 Test Item Value Reference Range Interpretation Comments UA Spec Grav (test code = UA Spec 1.021 1 Grav) [facility] KPZRX6622-61-60 04:11:00 Test Item Value Reference Range Interpretation Comments UA pH (test code = UA pH) 7.0 1 5.0-8.0 [facility] WASTE5297-51-88 04:11:00Negative *NA*(05/07/19 11:11 PM)[facility] DTYVF7052-55-64 04:11:00Negative (05/07/19 11:11 PM) [facility] WKGIX1473-85-98 04:11:00<1.0[facility] RKKPU5603-01-97 04:11:00Negative (05/07/19 11:11 PM)[facility] XWBEK3565-33-98 04:11:00Trace *ABN*(05/07/19 11:11 PM)[facility] JMHGO2665-41-97 04:11:008[facility]UR[facility] CFTXL6971-44-63 04:11:003 [facility]annCARDIAC DOEDOQT8269-61-32 04:11:63010Gaitgqgg HermannHEMATOLOGY 2019-05-08 04:11:007[facility] SsoqhzxECRUJSOSSG8020-56-75 04:11:83370.0[facility]UR[facility] AND YPAPQ1910-17-30 04:11:00Yellow *NA*(05/07/19 11:11 PM)[facility] KAODX9918-02-83 04:11:00Clear (05/07/19 11:11 PM)[facility] TACSH8656-78-86 04:11:00 Test Item Value Reference Range Interpretation Comments UA Spec Grav (test code = UA Spec 1.021 1 Grav) [facility] KWMRG6669-10-20 04:11:00 Test Item Value Reference Range Interpretation Comments UA pH (test code = UA pH) 7.0 1 5.0-8.0 [facility] HHDYV8257-00-71 04:11:00Negative *NA*(05/07/19 11:11 PM)[facility] MYGYD2796-93-41 04:11:00Negative (05/07/19 11:11 PM) [facility] VALPU6896-77-92 04:11:00<1.0[facility] QESQB8519-55-56 04:11:00Negative (05/07/19 11:11 PM)[facility] MEVDK7013-48-84 04:11:00Trace *ABN*(05/07/19 11:11 PM)[facility] MZTEA8082-08-44 04:11:008[facility] ZICJE4248-99-18 04:11:003 [facility]annBACTERIAL - MNNYPXUC0635-66-70 01:33:00Negative (05/07/19 8:33 PM)[facility] [id number] 01:33:00Negative (05/07/19 8:33 PM)[facility] [id number] 00:08:003[facility] [id number] 00:08:008[facility] [id number] 00:08:001 [facility] [id number] 00:08:00Yellow *NA*(05/07/19 7:08 PM) [facility] [id number] 00:08:00Clear (05/07/19 7:08 PM) [facility] [id number] 00:08:00 Test Item Value Reference Range Interpretation Comments UA Spec Grav (test code = UA Spec 1.010 1 Grav) [facility] [id number] 00:08:00 Test Item Value Reference Range Interpretation Comments UA pH (test code = UA pH) 8.0 1 5.0-8.0 [facility] [id number] 00:08:00Trace *ABN*(05/07/19 7:08 PM) [facility] [id number] 00:08:00Negative (05/07/19 7:08 PM) [facility] [id number] 00:08:00Negative *NA*(05/07/19 7:08 PM) [facility] [id number] 00:08:00Negative *NA*(05/07/19 7:08 PM) [facility] [id number] 00:08:00Negative (05/07/19 7:08 PM) [facility] [id number] 00:08:000.2[facility] [id number] 00:08:00Negative (05/07/19 7:08 PM)[facility] [id number] 00:08:00Negative (05/07/19 7:08 PM)[facility] [id number] 00:08:003[facility] [id number] 00:08:008 [facility] [id number] 00:08:001[facility] [id number] 00:08:00Yellow *NA*(05/07/19 7:08 PM)[facility] [id number] 00:08:00Clear (05/07/19 7:08 PM)[facility] STOOL 2019-05-08 00:08:00 Test Item Value Reference Range Interpretation Comments UA Spec Grav (test code = UA Spec 1.010 1 Grav) [facility] [id number] 00:08:00 Test Item Value Reference Range Interpretation Comments UA pH (test code = UA pH) 8.0 1 5.0-8.0 [facility] [id number] 00:08:00Trace *ABN*(05/07/19 7:08 PM) [facility] [id number] 00:08:00Negative (05/07/19 7:08 PM) [facility] [id number] 00:08:00Negative *NA*(05/07/19 7:08 PM) [facility] [id number] 00:08:00Negative *NA*(05/07/19 7:08 PM) [facility] [id number] 00:08:00Negative (05/07/19 7:08 PM) [facility] [id number] 00:08:000.2[facility] [id number] 00:08:00Negative (05/07/19 7:08 PM)[facility] [id number] 00:08:00Negative (05/07/19 7:08 PM)[facility] 2019-05-08 00:05:001.6[facility] [id number] 00:05:001.6[facility]
[2021-05-03 15:07] LABS: Absolute Lymphocytes (CBC) 0.4 K/uL (0.7-4.9); Basophils % 0.3 % (0-1.3); Hematocrit 28.2 % (39.6-49.0); Lymphocytes % 3.8 % (15.3-44.8); MPV 8.6 fL (7.6-11.3); RBC Red Blood Cell Count 3.72 M/uL (4.33-5.43)
--- NOTE | 2021-05-03 15:53 | EDPHYS ---
Physician Documentation [facility] Name: Pete Glass Jr Age: 65 yrs Sex: Male : 1955 Arrival Date: 05/03/2021 Time: 14:24 Bed 4 Private MD: ED Physician Zack Perez HPI: 05/03 14:51 This 65 yrs old Male presents to ER via Wheelchair with complaints of Low rn Hemoglobin. 14:51 Patient reports a generalized weakness and fatigue, ongoing for months, just transfused rn a unit of blood last week for slowly decreasing hemoglobin. States baseline hemoglobin around 7. Told yesterday that hemoglobin was high fives, and to come to the emergency room for transfusion. Denies any hematemesis/dark black stool/melena/blood in stool. States has been told by his physician that needs to follow-up with a GI doctor. Patient with myasthenia gravis and just had plasmapheresis this week. Denies pain or shortness of breath. States this is an ongoing problem and came just for a transfusion to make him feel better, does not want to be admitted or transferred for this problem.. Onset: The symptoms/episode began/occurred at an unknown time. Severity of symptoms: At their worst the symptoms were mild in the emergency department the symptoms are unchanged. The patient has experienced similar episodes in the past, chronically. The patient has been recently seen by a physician:. Historical: - Allergies: 14:34 Codeine; vg1 - Home Meds: 14:34 levothyroxine oral [Active]; prednisone 10 mg Oral tab once daily [Active]; losartan vg1 oral [Active]; carvedilol oral [Active]; Hydrochlorothiazide Oral [Active]; Flomax Oral [Active]; Eliquis oral [Active]; pantoprazole oral [Active]; Amiodarone Oral [Active]; - PMHx: 14:34 Hypertension; Hypothyroidism; mitral valve prolapse; Myasthenia Gravis; vg1 - PSHx: 14:34 Brain abscess; vg1 - Immunization history:: Adult Immunizations up to date, Client reports receiving the 2nd dose of the Covid vaccine. - Social history:: Smoking status: Patient denies any tobacco usage or history of. - Family history:: not pertinent. - Hospitalizations: : No recent hospitalization is reported. ROS: 14:51 Constitutional: Negative for fever, chills, and weight loss, Eyes: Negative for injury, rn pain, redness, and discharge, Neck: Negative for injury, pain, and swelling, Cardiovascular: Negative for chest pain, palpitations, and edema, Respiratory: Negative for shortness of breath, cough, wheezing, and pleuritic chest pain, Abdomen/GI: Negative for abdominal pain, nausea, vomiting, diarrhea, and constipation, Back: Negative for injury and pain, : Negative for injury, bleeding, discharge, and swelling, MS/Extremity: Negative for injury and deformity, Skin: Negative for injury, rash, and discoloration, Neuro: Negative for headache, numbness, tingling, and seizure. 14:51 All other systems are negative. Exam: 14:51 Constitutional: This is a well developed, well nourished patient who is awake, alert, rn and in no acute distress. Head/Face: Normocephalic, atraumatic. Eyes: Pale conjunctiva Cardiovascular: Regular rate and rhythm. No pulse deficits. Respiratory: Speaking full sentences, unlabored. No increased work of breathing, no retractions or nasal flaring. Abdomen/GI: Soft, non-tender Skin: Warm, dry MS/ Extremity: Pulses equal, no cyanosis. Neuro: Awake and alert, GCS 15 Vital Signs: 14:32 BP 111 / 66; Pulse 65; Resp 16; Temp 98.9; Pulse Ox 97% ; Weight 99.79 kg; Height 5 ft. vg1 8 in. (172.72 cm); Pain 0/10; 15:27 BP 125 / 76; Pulse 64; Resp 20; Pulse Ox 97% on R/A; Pain 01/10; ch5 14:32 Body Mass Index 33.45 (99.79 kg, 172.72 cm) vg1 MDM: 14:27 Patient medically screened. rn 15:51 Differential Diagnosis anemia. Data reviewed: vital signs, nurses notes, lab test rn result(s), and as a result, I will discharge patient. Counseling: I had a detailed discussion with the patient and/or guardian regarding: the historical points, exam findings, and any diagnostic results supporting the discharge/admit diagnosis, lab results, the need for outpatient follow up, to return to the emergency department if symptoms worsen or persist or if there are any questions or concerns that arise at home. Special discussion: I discussed with the patient/guardian in detail that at this point there is no indication for admission to the hospital. It is understood, however, that if the symptoms persist or worsen the patient needs to return immediately for re-evaluation. 15:52 ED course: Hemoglobin 8.6 here, stable vitals. Given had a blood draw that showed a rn six-point something yesterday most likely somewhere around a 7. We will not transfuse given an 8.6 here in stable vitals without evidence of bleeding at this point. Will DC home. Patient has follow-up for more plasmapheresis on Wednesday and will repeat blood draw then.. 05/03 14:46 Order name: CBC with Diff rn 05/03 14:46 Order name: Type And Screen rn 05/03 14:46 Order name: IV Start; Complete Time: 15:09 rn Administered Medications: No medications were administered Disposition Summary: 05/03/21 15:53 Discharge Ordered Location: Home rn Problem: an ongoing problem rn Symptoms: have improved rn Condition: Stable rn Diagnosis - Iron deficiency anemia, unspecified rn Followup: rn - With: Private Physician - When: As needed - Reason: Recheck today's complaints, Re-evaluation by your physician Discharge Instructions: - Discharge Summary Sheet rn - Iron Deficiency Anemia, Adult rn - Anemia rn Forms: - Medication Reconciliation Form rn - Thank You Letter rn - Antibiotic wrap yarn sorter - Prescription Opioid Use rn Signatures: Dispatcher [employer] Zack Kwan MD MD rn Garcia, Victoria RN RN vg1
--- NOTE | 2021-05-03 15:53 | ER ---
Nurse's Notes [facility] Name: Pete Glass Jr Age: 65 yrs Sex: Male : 1955 Arrival Date: 05/03/2021 Time: 14:24 Bed 4 Private MD: Diagnosis: Iron deficiency anemia, unspecified Presentation: 05/03 14:32 Chief complaint: Patient states: Was seen at [facility] for blood work and was vg1 told Hemoglobin was 5.8 and was advised by doctor to come to hospital for a blood transfusion. Pt states 'Im just feeling real tired.'. Coronavirus screen: Vaccine status: Patient reports receiving the 2nd dose of the covid vaccine. Ebola Screen: Patient negative for fever greater than or equal to 101.5 degrees Fahrenheit, and additional compatible Ebola Virus Disease symptoms. Initial Sepsis Screen: Does the patient meet any 2 criteria? No. Patient's initial sepsis screen is negative. Does the patient have a suspected source of infection? No. Patient's initial sepsis screen is negative. Risk Assessment: Do you want to hurt yourself or someone else? Patient reports no desire to harm self or others. Onset of symptoms was May 02, 2021. 14:32 Method Of Arrival: Wheelchair vg1 14:32 Acuity: JESUS 3 vg1 Triage Assessment: 14:34 General: Appears in no apparent distress. comfortable, Behavior is calm, cooperative. vg1 Pain: Denies pain. Historical: - Allergies: 14:34 Codeine; vg1 - Home Meds: 14:34 levothyroxine oral [Active]; prednisone 10 mg Oral tab once daily [Active]; losartan vg1 oral [Active]; carvedilol oral [Active]; Hydrochlorothiazide Oral [Active]; Flomax Oral [Active]; Eliquis oral [Active]; pantoprazole oral [Active]; Amiodarone Oral [Active]; - PMHx: 14:34 Hypertension; Hypothyroidism; mitral valve prolapse; Myasthenia Gravis; vg1 - PSHx: 14:34 Brain abscess; vg1 - Immunization history:: Adult Immunizations up to date, Client reports receiving the 2nd dose of the Covid vaccine. - Social history:: Smoking status: Patient denies any tobacco usage or history of. - Family history:: not pertinent. - Hospitalizations: : No recent hospitalization is reported. Screenin:27 Abuse screen: Denies threats or abuse. Denies injuries from another. Nutritional ch5 screening: No deficits noted. Tuberculosis screening: No symptoms or risk factors identified. Fall Risk None identified. Assessment: 15:27 Reassessment: Patient appears in no apparent distress at this time. No changes from ch5 previously documented assessment. Vital Signs: 14:32 BP 111 / 66; Pulse 65; Resp 16; Temp 98.9; Pulse Ox 97% ; Weight 99.79 kg; Height 5 ft. vg1 8 in. (172.72 cm); Pain 0/10; 15:27 BP 125 / 76; Pulse 64; Resp 20; Pulse Ox 97% on R/A; Pain 01/10; ch5 14:32 Body Mass Index 33.45 (99.79 kg, 172.72 cm) vg1 ED Course: 14:24 Patient arrived in ED. ds1 14:27 Zack Perez MD is Attending Physician. rn 14:34 Triage completed. vg1 14:34 Arm band placed on. vg1 15:26 López Medley, RN is Primary Nurse. ch5 15:27 Bed in low position. Call light in reach. Side rails up X2. ch5 15:27 No provider procedures requiring assistance completed. Inserted saline lock: 20 gauge ch5 in right antecubital area, using aseptic technique. Administered Medications: No medications were administered Outcome: 15:53 Discharge ordered by . rn 16:46 Patient left the ED. ss Signatures: Linda Sims ds1 Zack Perez MD MD rn Smirch, Shelby, RN RN Rocío Jorge RN RN [facility] López Medley, AMANDA RN [facility]
[2021-05-03 17:02] VITALS: TEMP 98.9; O2SAT 97
[2021-05-03 17:03] VITALS: BP 125/76
[2021-05-03 19:59] LABS: Blood Morphology Comment NOTED (NOT SEEN); Platelet Estimate DECR; White Blood Cell Scan OK (OK)
[2021-05-03 20:00] LABS: Anisocytosis 2+; Ovalocytes SLIGHT; Poikilocytosis SLIGHT; Polychromasia 1+; Teardrop Cell FEW
== END 2021-05-03 16:46 | disposition home or self-care (01) ==
LOC: ER 14:23
DX: D50.9 Iron deficiency anemia, unspecified (principal); I10 Essential (primary) hypertension; E03.9 Hypothyroidism, unspecified; G70.00 Myasthenia gravis without (acute) exacerbation; Z79.01 Long term (current) use of anticoagulants; Z88.5 Allergy status to narcotic agent
CPT/HCPCS: 36415; 85025; 86850; 86900; 86901; 99282